=== PATIENT | female | born 1975 | race Caucasian/White ===

== ENCOUNTER → 2020-06-12 08:10 | Outpatient (BNVA) | payer OTHER, SELFPAY | PROVIDERS: PCP Internal Medicine; Visit Provider Physician Assistant | DX: Z76.89 Persons encountering health services in other specified circumstances (principal) ==

== ENCOUNTER → 2021-01-07 10:00 | Outpatient (BNVA) | payer OTHER, SELFPAY | PROVIDERS: PCP Internal Medicine; Referring Provider Internal Medicine; Visit Provider Physician Assistant | DX: I89.0 Lymphedema, not elsewhere classified (principal); E66.01 Morbid (severe) obesity due to excess calories; Z68.45 Body mass index [BMI] 70 or greater, adult; Z98.84 Bariatric surgery status | CPT/HCPCS: 99202 ==

== ENCOUNTER 2021-01-19 09:03 | Outpatient (REF) | payer OTHER, SELFPAY ==
--- NOTE | ~2021-01-19 | FL_ITS ---
EXAMINATION: XR GI SERIES CLINICAL INFORMATION: Moderate to severe obesity due to excess calories COMPARISON: None TECHNIQUE: Routine upper GI air-contrast study was performed. FINDINGS: Following oral administration thick barium and first granules there is normal propagation bolus from the oral cavity through the pharynx, esophagus into stomach any evidence of obstruction, narrowing or stricture. On placing patient supine and prone there is a gastric bypass surgical changes with moderate gastroesophageal reflux seen. A small transient sliding hiatal hernia is suspected. The mucosal pattern of esophagus, small stomach and the duodenum is normal. FLUOROSCOPY TIME: 1.4 minutes DOSE AREA PRODUCT: 56.674 uGy-m2 (microgray-meter squared) FL/FL upper GI series IMPRESSION: Gastric bypass surgical changes with moderate gastroesophageal reflux. Suspect small transient sliding hernia.
[2021-01-19 09:58] LABS: MANUAL DIFF FLAG NO
[2021-01-19 10:06] LABS: Basophils Percent Auto 0.5 % (0-2); Eosinophils Absolute Auto 0.1 X10*3/uL (0.0-0.4); Eosinophils Percent Auto 2.3 % (0-4); Hematocrit 39.5 % (37-47); Hemoglobin 12.8 g/dl (12.0-16.0); Imm Gran Abs Auto 0.02 X10*3/uL (0.00-0.03); Imm Gran Pct Auto 0.3 % (0.0-0.4); Lymphocytes Absolute Auto 2.1 X10*3/uL (1.2-4.9); Lymphocytes Percent Auto 34.9 % (20-40); Mean Corpuscular HGB Conc 32.4 g/dl (31.0-35.0); Mean Corpuscular Hemoglobin 29.8 pg (27.0-33.0); Mean Corpuscular Volume 91.9 fL (80-98); Mean Platelet Volume 11.6 fL (9.4-12.3); Monocytes Absolute Auto 0.5 X10*3/uL (0.1-1.2); Monocytes Percent Auto 7.8 % (2-11); Neutrophils Absolute Auto 3.3 X10*3/uL (2.0-8.3); Neutrophils Percent Auto 54.2 % (45-73); Platelet Count 181 X10*3/uL (160-400); Red Cell Distribution Width 14.2 % (11.0-16.0); White Blood Count 6.1 X10*3/uL (4.8-10.8)
[2021-01-19 10:19] LABS: Estimated Average Glucose 94 mg/dL; Hemoglobin A1c % 4.9 %
[2021-01-19 10:34] LABS: Alanine Aminotransferase 11 U/L (0-31); Albumin Level 3.9 g/dL (3.5-5.0); Alkaline Phosphatase 64 U/L (39-117); Anion Gap 11 (12-20); Aspartate Amino Transferase 16 U/L (5-31); Bilirubin Total 0.9 mg/dL (0.0-1.0); Blood Urea Nitrogen 10 mg/dL (9-16); C Reactive Protein 1.39 mg/dL (< or = 0.50); Calcium 8.8 mg/dL (8.4-10.2); Carbon Dioxide 22 mmol/L (22-29); Chloride 113 mmol/L (96-108); Cholesterol 124 mg/dL; Estimated Glomerular Filt Rate > 60; Glucose Random 90 mg/dL (60-115); HDL Cholesterol 45 mg/dL; Iron 49 mcg/dL (30-160); LDL Cholesterol Calculated 66 mg/dl; Percent Iron Saturation 15 % (15-50); Potassium 3.8 mmol/L (3.3-5.1); Sodium 142 mmol/L (135-145); Total Iron Binding Capacity 334 mcg/dL (228-428); Total Protein 6.6 g/dL (6.5-8.0); Triglycerides 66 mg/dL; Unsaturated Iron Binding 285 ug/dL
[2021-01-19 10:56] LABS: Ferritin 59 ng/mL (10-250); TSH reflex Free T4 1.59 uIU/mL (0.32-4.0); Vitamin D 25-OH Total 14.5 ng/mL (>30)
[2021-01-19 11:08] LABS: Folate 13.3 ng/mL (> or = 4.0); Vitamin B12 186 pg/mL (200-900)
[2021-01-20 22:11] LABS: Calcium (PTHI) 8.8 mg/dL (8.6-10.2); PTHI 120 pg/mL (14-64)
[2021-01-22 16:51] LABS: Zinc 60 mcg/dL (60-130)
[2021-01-23 11:56] LABS: Vitamin B1 9 nmol/L (8-30)
[2021-01-23 18:46] LABS: Vitamin A 26 mcg/dL (38-98)
== END 2021-01-19 09:04 | disposition home or self-care (01) ==
LOC: HO.XRAY 09:03
PROVIDERS: Referring Provider Physician Assistant; Visit Provider Surgery
DX: Z01.818 Encounter for other preprocedural examination (principal); E66.01 Morbid (severe) obesity due to excess calories; Z68.45 Body mass index [BMI] 70 or greater, adult; I89.0 Lymphedema, not elsewhere classified; K21.9 Gastro-esophageal reflux disease without esophagitis; Z98.84 Bariatric surgery status
CPT/HCPCS: 36415; 74240; 80053; 80061; 82306; 82607; 82728; 82746; 83036; 83525; 83540; 83970; 84425; 84443; 84590; 84630; 85025; 86140

== ENCOUNTER → 2021-01-22 13:56 | Outpatient (BNVA) | payer OTHER, SELFPAY | PROVIDERS: PCP Internal Medicine; Referring Provider Internal Medicine; Visit Provider Physician Assistant | DX: E66.01 Morbid (severe) obesity due to excess calories (principal); I89.0 Lymphedema, not elsewhere classified; Z68.45 Body mass index [BMI] 70 or greater, adult; Z98.84 Bariatric surgery status; Z90.49 Acquired absence of other specified parts of digestive tract | CPT/HCPCS: 99212 ==

== ENCOUNTER → 2021-02-11 08:04 | Outpatient (BNVA) | payer OTHER, SELFPAY | PROVIDERS: PCP Internal Medicine; Visit Provider Dietitian, Registered ==

== ENCOUNTER 2021-02-24 12:58 | Emergency (ER) | payer OTHER, SELFPAY ==
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
[2021-02-24 13:05] VITALS: BP 102/72; PULSE 96; RESP 18; TEMP 36.3; O2SAT 98; BMI 73.9
[2021-02-24] MEDS: Acetaminophen 325 MG TABLET 975 MG PO (14:56)
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
[2021-02-24 16:00] VITALS: BP 116/73; PULSE 58; RESP 16; TEMP 36.8; O2SAT 99
== END 2021-02-24 16:35 | disposition home or self-care (01) ==
PROVIDERS: Emergency Provider Emergency Medicine; PCP Internal Medicine
DX: S00.12XA Contusion of left eyelid and periocular area, initial encounter (principal); S39.012A Strain of muscle, fascia and tendon of lower back, initial encounter; S40.812A Abrasion of left upper arm, initial encounter; Y04.2XXA Assault by strike against or bumped into by another person, initial encounter; Y93.9 Activity, unspecified; Y92.410 Unspecified street and highway as the place of occurrence of the external cause; Y99.9 Unspecified external cause status
CPT/HCPCS: 70486; 72100; 72220; 99284

== ENCOUNTER 2021-03-02 10:00 | Outpatient (RCR) | payer OTHER, SELFPAY | END 2021-03-22 08:00 | disposition home or self-care (01) | LOC: HO.PT 10:00 | PROVIDERS: PCP Internal Medicine; Visit Provider Student in an Organized Health Care Education/Training Program | DX: M17.0 Bilateral primary osteoarthritis of knee (principal) | CPT/HCPCS: 97110; 97162 ==

== ENCOUNTER → 2021-03-08 08:11 | Outpatient (BNVA) | payer OTHER, SELFPAY | PROVIDERS: PCP Internal Medicine; Visit Provider Dietitian, Registered | DX: E66.01 Morbid (severe) obesity due to excess calories (principal); Z68.45 Body mass index [BMI] 70 or greater, adult | CPT/HCPCS: 97802 ==

== ENCOUNTER 2021-07-02 10:00 | Outpatient (RCR) | payer OTHER, SELFPAY | END 2021-07-28 13:37 | disposition home or self-care (01) | LOC: HO.PT 10:00 | PROVIDERS: Visit Provider Nurse Practitioner Family | DX: M75.42 Impingement syndrome of left shoulder (principal); M75.41 Impingement syndrome of right shoulder | CPT/HCPCS: 97110; 97161; 97530 ==

== ENCOUNTER 2021-08-13 14:15 | Emergency (ER) | payer OTHER, SELFPAY ==
--- NOTE | 2021-08-13 | ECG_ITS ---
Test Reason : chest pain Blood Pressure : / mmHG Vent. Rate : 067 BPM Atrial Rate : 067 BPM P-R Int : 158 ms QRS Dur : 080 ms QT Int : 408 ms P-R-T Axes : 010 -28 -11 degrees QTc Int : 431 ms Normal sinus rhythm Cannot rule out Anterior infarct (cited on or before 05-SEP-2019) Abnormal ECG When compared with ECG of 05-SEP-2019 12:28, No significant change was found Referred By: Generic ED Physician Electronically Signed By:Lonny Arthur
[2021-08-13 14:19] VITALS: BP 141/84; PULSE 84; RESP 18; TEMP 35.8; O2SAT 94; BMI 73.7
[2021-08-13 14:43] LABS: MANUAL DIFF FLAG NO
[2021-08-13 14:50] LABS: Basophils Percent Auto 0.5 % (0-2); Eosinophils Absolute Auto 0.1 X10*3/uL (0.0-0.4); Eosinophils Percent Auto 1.7 % (0-4); Hematocrit 44.2 % (37.0-47.0); Hemoglobin 14.2 g/dl (12.0-16.0); Imm Gran Abs Auto 0.04 X10*3/uL (0.00-0.03); Imm Gran Pct Auto 0.6 % (0.0-0.4); Lymphocytes Absolute Auto 2.4 X10*3/uL (1.2-4.9); Lymphocytes Percent Auto 35.4 % (20-40); Mean Corpuscular HGB Conc 32.1 g/dl (31.0-35.0); Mean Corpuscular Hemoglobin 30.1 pg (27.0-33.0); Mean Corpuscular Volume 93.6 fL (80.0-98.0); Mean Platelet Volume 10.6 fL (9.4-12.3); Monocytes Absolute Auto 0.5 X10*3/uL (0.1-1.2); Monocytes Percent Auto 6.9 % (2-11); Neutrophils Absolute Auto 3.7 x10*3/uL (2.0-8.3); Neutrophils Percent Auto 54.9 % (45-73); Platelet Count 223 X10*3/uL (160-400); Red Blood Count 4.72 X10*6/uL (4.20-5.50); Red Cell Distribution Width 13.5 % (11.0-16.0); White Blood Count 6.6 X10*3/uL (4.8-10.8)
[2021-08-13 15:00] LABS: Alanine Aminotransferase 28 U/L (0-31); Albumin Level 3.9 g/dL (3.5-5.0); Alkaline Phosphatase 75 U/L (39-117); Anion Gap 9 (12-20); Aspartate Amino Transferase 20 U/L (5-31); Blood Urea Nitrogen 13 mg/dL (9-16); Calcium 9.2 mg/dL (8.4-10.2); Carbon Dioxide 27 mmol/L (22-29); Chloride 110 mmol/L (96-108); Creatinine Clr Calc Pharmacy 140.7; Estimated Glomerular Filt Rate > 60; Glucose Random 105 mg/dL (60-115); Potassium 4.1 mmol/L (3.3-5.1); Sodium 142 mmol/L (135-145)
[2021-08-13 15:05] LABS: Troponin-I High Sensitivity < 3.5 ng/L (<3.5-17.0)
--- NOTE | 2021-08-13 15:54 | ED_ITS ---
HPI - SOB/Dyspnea General Chief Complaint: Dyspnea Stated Complaint: +COVID cough chest pain Time Seen by Provider: 08/13/21 15:28 Source: patient Mode of arrival: ambulatory Limitations: no limitations History of Present Illness HPI Narrative: 45-year-old female who presents emergency department for evaluation cough, shortness of breath, dyspnea on exertion, chest pain, myalgias and fatigue. The patient states that she received the Moderna COVID-19 vaccine x2 but did not receive a booster shot. She states approximately 12 days prior to evaluation she developed a cough. She states she tested positive for COVID- 19 on 08/03/2021. The patient states that her symptoms have improved somewhat but she continues to have a very persistent cough. She also has sternal chest pain which she describes as a burning sensation which is worse with coughing breathing and movement. She has continued to have shortness of breath and dyspnea on exertion. She states that her fevers have resolved. She was advised to go to the emergency department by her PCP for further evaluation given her chest pain. Related Data Home Medications Medication Instructions Recorded Confirmed gabapentin 300 mg capsule 300 mg PO TID 01/04/21 hydroxyzine HCl 10 mg tablet 10 mg PO TID PRN 01/04/21 meloxicam 15 mg tablet 15 mg PO DAILY 01/04/21 methocarbamol 500 mg tablet 1,000 mg PO TID 01/04/21 Previous Rx's Medication Instructions Recorded cholecalciferol (vitamin D3) 50 50 mcg PO DAILY #30 cap 01/19/21 mcg (2,000 unit) capsule cyanocobalamin (vitamin B-12) 500 500 mcg PO DAILY #30 tab 01/19/21 mcg tablet (Vitamin B-12) vitamin A 2,400 mcg capsule 9,600 mcg PO DAILY #14 cap 01/27/21 hydrocodone 5 mg-acetaminophen 300 1 tab PO Q4-6H PRN #14 tab 08/13/21 mg tablet Allergies Allergy/AdvReac Type Severity Reaction Status Date / Time adhesive [ADHESIVE] Allergy Unknown RASH Verified 01/22/21 14:13 Review of Systems Review of Systems: Yes all other systems are reviewed and are negative [facility] Past Medical History [facility] Narrative: Social history: The patient denies tobacco use. She occasionally drinks alcohol. She states that she smokes marijuana but has not use marijuana and several weeks. Medical History Arthritis Asthma Lipoedema Surgical History History of Lucio-en-Y gastric bypass Hx laparoscopic cholecystectomy S/P tonsillectomy Family History Family History (Updated 01/07/21 @ 10:27 by Vipul Mast, [facility]) Father No problems noted. Mother Heart disease Diabetes Hyperlipidemia Hypertension COPD (chronic obstructive pulmonary disease) Brother No problems noted. Sister No problems noted. Son Overweight Diabetes Asthma Daughter Asthma Social History Social History (Updated 01/04/21 @ 15:46 by Alfreda Mast) Alcohol intake: current Alcohol intake frequency: holidays/special occasions only Patient Tobacco Use Status: Never used Tobacco Advance Directives: No Advance Directives Information Provided: No Patient : No Physical Exam Vital Signs: Vital Signs: Last Vital Signs Temp 96.4 F L 08/13/21 14:19 Pulse 84 08/13/21 14:19 Resp 18 08/13/21 14:19 BP 141/84 H 08/13/21 14:19 Pulse Ox 94 08/13/21 14:19 BMI result Body Mass Index 73.7 Const: Other: Very pleasant and cooperative female patient, she is sitting on the stretcher, she has answer all questions appropriately, she does have a very persistent dry sounding cough and coughed frequently while I was in the room wit h her. HENMT: Head: Yes normal to inspection, Yes normocephalic and Yes atraumatic Ears: external ears normal General nose exam: Normal external nose present Face and sinus: Yes normal facial exam Mouth: Normal oral and palatal mucosa present Throat: Yes posterior oropharynx normal Eyes: General: appearance normal, both eyes and all related structures Pupils: Equal, round and reactive pupils present Neck: Neck: Yes normal visual inspection, Yes no lymphadenopathy, Yes trachea midline and Yes supple Chest: Chest palpation & inspection: normal inspection of the chest and normal palpation of entire chest wall Resp: Effort & Inspection: normal respiratory effort and able to speak in complete sentences Auscultation: clear to auscultation bilaterally Cardio: Rate: regular rate Rhythm: regular rhythm Heart sounds: S1 n ormal heart sound present, S2 normal heart sound present and no murmurs GI: Inspection: Yes normal to inspection Palpation (GI): Soft to palpation, nontender and no guarding Auscultation: normal bowel sounds : General: Yes no CVA tenderness Back/Spine/Pelvis: Back: no CVA tenderness Skin: General skin exam: no rashes or lesions noted Neuro: Cranial nerves: Yes CN's II-XII intact bilaterally and Yes Equal, round and reactive pupils present Cognition (Neuro): normal cognition Motor exam (neuro): 5/5 motor strength present throughout Extrem: General: Yes normal to inspection Psych: Appearance: grossly normal Speech and movement: Normal speech and movement present Affect: normal affect Attitude: cooperative Thought process: Normal thought process present Thought content: Normal thought content present Course Course Course Narrative: 45-year-old female who has been symptomatic for approximately 12 days, tested positive for COVID-19 on 08/03/2021 who presents emergency department for evaluation of persistent cough, shortness of breath, chest pain. Patient's initial vital signs revealed a slight elevation of blood pressure of 141/84, normal respiratory rate of 18, normal pulse of 84, O2 saturation of 94% on room air. Patient's examination was unremarkable, her lung exam was clear. The patient's CBC and CMP were normal. The patient's high sensitivity troponin I was below detectable limits. The patient's 12 EKG was unremarkable. At this time I think that the patient's symptoms are consistent with her COVID-19 infection and I do not think that she has pneumonia or myocarditis. I did discuss this with the patient. She was advised to continue taking Tylenol and i buprofen. The patient was prescribed Hycodan 5 mg every 4-6 hours as needed for cough. She was discharged home with printed and verbal instructions. 1715: [facility] has no high get in therefore the patient was prescribed Vicodin 5/300 1 pill every 4-6 hours as needed for cough/pain she is also advised to take a cough suppressant such as Robitussin with the Vicodin. MDM - SOB/Dyspnea Lab Data Result diagrams: 08/13/21 14:37 08/13/21 14:37 Labs: Lab Results 08/13/21 08/13/21 08/13/21 Range/Units 14:37 14:37 14:37 WBC 6.6 (4.8-10.8) X10*3/uL RBC 4.72 (4.20-5.50) X10*6/uL Hgb 14.2 (12.0-16.0) g/dl Hct 44.2 (37.0-47.0) % MCV 93.6 (80.0-98.0) fL MCH 30.1 (27.0-33.0) pg MCHC 32.1 (31.0-35.0) g/dl RDW 13.5 (11.0-16.0) % Plt Count 223 (160-400) X10*3/uL MPV 10.6 (9.4-12.3) fL Immature Gran % (Auto) 0.6 H (0.0-0.4) % Neut % (Auto) 54.9 (45-73) % Lymph % (Auto) 35.4 (20-40) % [place] % (Auto) 6.9 (2-11) % Eos % (Auto) 1.7 (0-4) % Baso % (Auto) 0.5 (0-2) % Lymph # (Auto) 2.4 (1.2-4.9) X10*3/uL [place] # (Auto) 0.5 (0.1-1.2) X10*3/uL Eos # (Auto) 0.1 (0.0-0.4) X10*3/uL Baso # (Auto) 0.0 (0.0-0.2) X10*3/uL Abs Immat Gran (auto) 0.04 H (0.00-0.03) X10*3/uL Absolute Neuts (auto) 3.7 (2.0-8.3) x10*3/uL Absolute Nucleated RBC 0.000 (0.0-0.012) X10*3/uL Nucleated RBC % (auto) 0.0 (0.0-0.2) /100WBC Sodium 142 (135-145) mmol/L Potassium 4.1 (3.3-5.1) mmol/L Chloride 110 H (96-108) mmol/L Carbon Dioxide 27 (22-29) mmol/L Anion Gap 9 L (12-20) BUN 13 (9-16) mg/dL Creatinine 0.75 (0.5-1.4) mg/dL Estim Creat Clear Calc 140.7 Estimated GFR > 60 Random Glucose 105 (60-115) mg/dL Calcium 9.2 (8.4-10.2) mg/dL Total Bilirubin 1.0 (0.0-1.0) mg/dL AST 20 (5-31) U/L ALT 28 (0-31) U/L Alkaline Phosphatase 75 (39-117) U/L Troponin I High Sens < 3.5 (<3.5-17.0) ng/L Total Protein 7.0 (6.5-8.0) g/dL Albumin 3.9 (3.5-5.0) g/dL ECG Data Attestation: I personally reviewed and interpreted this ECG as follows: Interpretation: 1426: Normal sinus rhythm with a rate of 67, normal MI interval QRS duration QTC interval, no ST segment elevation, no ST segment depression, inverted T-wave in lead 3 and AVF, no PACs are no PVCs. Discharge Plan Discharge Clinical Impression: Chest pain, pleuritic, COVID-19 virus infection Patient Disposition: Home, Self-Care Additional Instructions: Your EKG was normal. Your white blood cell count was normal. Your high sensitivity troponin I was below detectable limits, this is a marker of heart damage and there was no troponin detected in your blood which is reassuring. Your vital signs today revealed a normal O2 saturation of 94 % on room air which is normal (92% to 100% is the normal range). We do not hospitalize people with a COVID-19 infection unless your O2 saturation drops below 90% and you have evidence for pneumonia. COVID-19 infection is a very bad viral infection and is causing all of your symptoms The symptoms that we normally see with a COVID-19 infection include sore throat, runny nose, chest pain, shortness of breath, shortness of breath with exertion, muscle aches, muscle pains, nausea, vomiting , diarrhea, loss of sense of taste or smell. You do not need to have all of the symptoms. Take ibuprofen 200 mg pills,2 pills every 6 hours as needed for pain and fever Take Tylenol (acetaminophen) 500 mg pills, 2 pills every 4 to 6 hours as needed for pain and fever. Take Hycodan 5 mL (1 tsp) every 4-6 hours as needed for cough. Hycodan contains hydrocodone which is a narcotic medication, if your concerned about addiction do not get this medication filled or you can ask the pharmacist for less medicine the prescribed. Based on your evaluation today, it is okay to send you home. Please plan for self quarantine until your symptoms resolved. Do not expose yourself to others. You may not go to work. Please continue to wear a mask, follow COVID-19 printed discharge instructions and wash your hands frequently. Please return to the emergency department if your symptoms pneumonia which would include worsening of your symptoms especially chest pain the breathing, shortness of breath at rest, shortness of breath with moving around her exerting herself, severe weakness, or if you develop any symptoms that are concerning to you. Prescriptions: New hydrocodone-acetaminophen 5-300 mg tablet 1 tab PO Q4-6H PRN (Reason: pain) Qty: 14 RF: 0 No Action cyanocobalamin (vitamin B-12) [Vitamin B-12] 500 mcg tablet 500 mcg PO DAILY Qty: 30 RF: 6 cholecalciferol (vitamin D3) 50 mcg (2,000 unit) capsule 50 mcg PO DAILY Qty: 30 RF: 6 vitamin A 2,400 mcg capsule 9,600 mcg PO DAILY Qty: 14 RF: 0 gabapentin 300 mg capsule 300 mg PO TID RF: 0 methocarbamol 500 mg tablet 1,000 mg PO TID RF: 0 meloxicam 15 mg tablet 15 mg PO DAILY RF: 0 hydroxyzine HCl 10 mg tablet 10 mg PO TID PRNRF: 0 Interventions: ED Discharge Assessment Last Done: 08/13/21 16:13 Discharge Date/Time: 08/13/21 16:14
== END 2021-08-13 16:14 | disposition home or self-care (01) ==
PROVIDERS: Emergency Provider Emergency Medicine Emergency Medical Services
DX: U07.1 COVID-19 (principal); R07.9 Chest pain, unspecified; R06.02 Shortness of breath; Z98.84 Bariatric surgery status; Z90.49 Acquired absence of other specified parts of digestive tract
CPT/HCPCS: 36415; 80053; 84484; 85025; 93005; 99283; 99284

== ENCOUNTER 2021-11-15 09:58 | Emergency (ER) | payer OTHER, SELFPAY ==
--- NOTE | ~2021-11-15 | US_ITS ---
EXAMINATION: US VENOUS ULTRASOUND WITH DOPPLER LOWER EXTREMITY, BILATERAL CLINICAL INFORMATION: Bilateral leg swelling and calf pain. COMPARISON: Left lower extremity DVT study 04/07/2018 TECHNIQUE: Ultrasound of the deep veins is performed from the hip to the calf with compression sonography and color and pulse Doppler assessment. Spectral analysis with color-flow imaging is performed. Today's examination is extremely limited secondary to patient body habitus and soft tissue swelling. FINDINGS: RIGHT: The right common femoral vein demonstrates normal compressibility and color flow consistent with patency. Right profundus femoris vein demonstrates normal color flow consistent with patency. Visualized portions of the proximal and midportion of the right superficial femoral vein demonstrates normal compressibility and color flow consistent with patency. The distal aspect of the right superficial femoral vein is not clearly visualized. The right popliteal vein demonstrate normal color flow and compressibility consistent with patency. The distal posterior tibial vein demonstrate normal color flow consistent with patency, however, the right peroneal vein is not clearly visualized. Prominent lymph node noted within the right inguinal region which measures approximately 3.7 x 0.8 x 2.2 cm. LEFT: The left common femoral vein demonstrates normal compressibility and color flow consistent with patency. Left great saphenous vein demonstrates normal color flow and compressibility consistent with patency. The proximal portion of the right superficial femoral vein demonstrates normal compressibility and color flow consistent with patency. The mid and distal portions of the superficial femoral vein are not clearly visualized. The left popliteal vein demonstrates normal compressibility and color flow consistent with patency. Left calf veins not clearly visualized. A relatively simple appearing approximately 5 cm Yu's cyst is noted on the left. US/US venous duplex LE BI IMPRESSION: No DVT demonstrated within either lower extremity, however, today's examination is significantly limited secondary to patient body habitus and soft tissue swelling.
--- NOTE | 2021-11-15 11:16 | ED_ITS ---
HPI - General Adult General Chief complaint: General Medical Stated complaint: leg infections Time Seen by Provider: 11/15/21 11:10 Source: patient Mode of arrival: ambulatory Limitations: no limitations History of Present Illness HPI narrative: Patient comes to the emergency room complaining of bilateral lower extremity swelling , pain and redness for the last 3 days. Patient states that she has noted that her feet are more swollen than usual. Patient does have chronic lymphedema, however she is not prone to getting skin infections. Patient states her legs look more swollen than usual. Patient called the lymphedema clinic on Monday, she was told to come to emergency room. Patient denies fever chills Related Data Home Medications Medication Instructions Recorded Confirmed gabapentin 300 mg capsule 300 mg PO TID 01/04/21 hydroxyzine HCl 10 mg tablet 10 mg PO TID PRN 01/04/21 meloxicam 15 mg tablet 15 mg PO DAILY 01/04/21 methocarbamol 500 mg tablet 1,000 mg PO TID 01/04/21 Previous Rx's Medication Instructions Recorded cholecalciferol (vitamin D3) 50 50 mcg PO DAILY #30 cap 01/19/21 mcg (2,000 unit) capsule cyanocobalamin (vitamin B-12) 500 500 mcg PO DAILY #30 tab 01/19/21 mcg tablet (Vitamin B-12) vitamin A 2,400 mcg capsule 9,600 mcg PO DAILY #14 cap 01/27/21 hydrocodone 5 mg-acetaminophen 300 1 tab PO Q4-6H PRN #14 tab 08/13/21 mg tablet cephalexin 500 mg capsule 500 mg PO BID #19 cap 11/15/21 doxycycline hyclate 100 mg tablet 100 mg PO BID #19 tab 11/15/21 Allergies Allergy/AdvReac Type Severity Reaction Status Date / Time adhesive [ADHESIVE] Allergy Unknown RASH Verified 01/22/21 14:13 Review of Systems Review of Systems: Constitutional : No Weight loss, No Fever, No Chills, No Night Sweats, No Fatigue, No Malaise ENT/Mouth : No Hearing loss, No Ear Pain, No Nasal Congestion, No Sinus Pain, No Hoarseness, No sore throat, No Rhinorrhea, No Swallowing Difficulty Eyes: No Eye Pain, No Swelling, No Redness, No Foreign Body, No Discharge, No Vision Changes Cardiovascular : No Chest Pain, No SOB, No Dyspnea on Exertion, No Orthopnea, No Edema, No Palpitations Respiratory : No Cough, No Sputum, No Wheezing, No Smoke Exposure, No Dyspnea Gastrointestinal : No Nausea, No Vomiting, No Diarrhea, No Constipation, No abdominal Pain, No Hematochezia, No Melena Genitourinary : no irregular bleeding, No Dysuria, No Urinary Frequency, No Hematuria, No Urinary Incontinence, No Urgency, No Flank Pain, No Urinary Flow Changes, No Hesitancy Musculoskeletal : No joint pain, No Myalgias, No Joint Swelling Skin : Complaining of bilateral lower extremity swelling, pain, redness Neuro : No Weakness, No Numbness, No Paresthesias, No Loss of Consciousness, No Dizziness, No Headache Psych : No Anxiety/Panic, No Depression, No SI/HI/AH/VH, No Social Issues, Heme/Lymph: No Bruising, No Bleeding,No Lymphadenopathy Endocrine : No Polyuria, No Polydipsia, No Temperature Intolerance [facility] Past Medical History Medical History Arthritis Asthma Lipoedema Surgical History History of Lucio-en-Y gastric bypass Hx laparoscopic cholecystectomy S/P tonsillectomy Family History Family History (Updated 01/07/21 @ 10:27 by Vipul Mast REPLACED BY [facility]) Father No problems noted. Mother Heart disease Diabetes Hyperlipidemia Hypertension COPD (chronic obstructive pulmonary disease) Brother No problems noted. Sister No problems noted. Son Overweight Diabetes Asthma Daughter Asthma Social History Social History (Updated 01/04/21 @ 15:46 by Alfreda Mast) Alcohol intake: current Alcohol intake frequency: holidays/special occasions only Patient Tobacco Use Status: Never used Tobacco Advance Directives: No Advance Directives Information Provided: Yes Physical Exam ED Vital Signs: Vital Signs - 24 hr 11/15/21 11:31 11/15/21 13:29 Temperature 98.0 F 98.8 F Pulse Rate 58 64 Respiratory Rate 18 16 Blood Pressure 130/75 119/62 Pulse Oximetry 100 97 BMI result Body Mass Index 71.8 Const Other: Appearance: Alert. Oriented X3. No acute distress. Eyes: Pupils equal, round and reactive to light. ENT: Pharynx normal. Neck: Normal inspection. Neck supple. No lymph nodes noted. No crepitus CVS: Normal heart rate and rhythm. Pulses normal. Normal S1 and S2 Respiratory: No respiratory distress. Breath sounds normal. No Wheezing. No rales Abdomen: Soft and nontender. No rigidity. No distention. Skin: Skin warm and dry. Normal skin color. Normal skin turgor. Extremities: Patient has chronic bilateral lower extremity lymphedema, bilateral lower extremities from the knee down are slightly erythematous, tender to touch, lower extremities not feel warmer than the rest of the skin Neuro: Oriented X 3. No motor deficit. No sensory deficit. Moving all extremities. No slurred speech. CN 2 through 12 grossly intact Psych: calm, cooperative, normal affect Course Course Course Narrative: Lab work and ultrasound pending. I discussed the labs and ultrasound with the patient, patient likely has cellulitis. Patient will be given the 1st dose of doxycycline and Keflex. Patient will follow-up with her primary care physician. Medical Decision Making Lab Data Result diagrams: 11/15/21 11:55 11/15/21 12:58 Labs: Lab Results 11/15/21 11/15/21 11/15/21 Range/Units 11:55 11:55 12:58 WBC 8.1 (4.8-10.8) X10*3/uL RBC 4.44 (4.20-5.50) X10*6/uL Hgb 13.3 (12.0-16.0) g/dl Hct 41.5 (37.0-47.0) % MCV 93.5 (80.0-98.0) fL MCH 30.0 (27.0-33.0) pg MCHC 32.0 (31.0-35.0) g/dl RDW 14.3 (11.0-16.0) % Plt Count 215 (160-400) X10*3/uL MPV 10.5 (9.4-12.3) fL Immature Gran % (Auto) 0.4 (0.0-0.4) % Neut % (Auto) 66.5 (45-73) % Lymph % (Auto) 24.7 (20-40) % [place] % (Auto) 6.5 (2-11) % Eos % (Auto) 1.5 (0-4) % Baso % (Auto) 0.4 (0-2) % Lymph # (Auto) 2.0 (1.2-4.9) X10*3/uL [place] # (Auto) 0.5 (0.1-1.2) X10*3/uL Eos # (Auto) 0.1 (0.0-0.4) X10*3/uL Baso # (Auto) 0.0 (0.0-0.2) X10*3/uL Abs Immat Gran (auto) 0.03 (0.00-0.03) X10*3/uL Absolute Neuts (auto) 5.4 (2.0-8.3) x10*3/uL Absolute Nucleated RBC 0.000 (0.0-0.012) X10*3/uL Nucleated RBC % (auto) 0.0 (0.0-0.2) /100WBC Sodium 140 (135-145) mmol/L Potassium 5.0 D (3.3-5.1) mmol/L Chloride 109 H (96-108) mmol/L Carbon Dioxide 27 (22-29) mmol/L Anion Gap 9 L (12-20) BUN 10 (9-16) mg/dL Creatinine 0.71 (0.5-1.4) mg/dL Estim Creat Clear Calc 144.3 Estimated GFR > 60 Random Glucose 91 (60-115) mg/dL Lactic Acid 1.4 (0.5-2.0) mmol/L Calcium 8.6 D (8.4-10.2) mg/dL Total Bilirubin 0.8 (0.0-1.0) mg/dL Direct Bilirubin 0.3 (0.0-0.5) mg/dL AST 20 (5-31) U/L ALT 15 (0-31) U/L Alkaline Phosphatase 59 D (39-117) U/L Total Protein 6.3 L (6.5-8.0) g/dL Albumin 3.6 (3.5-5.0) g/dL Imaging Data Venous US: Radiologist's impression: RIGHT: The right common femoral vein demonstrates normal compressibility and color flow consistent with patency. Right profundus femoris vein demonstrates normal color flow consistent with patency. Visualized portions of the proximal and midportion of the right superficial femoral vein demonstrates normal compressibility and color flow consistent with patency. The distal aspect of the right superficial femoral vein is not clearly visualized. The right popliteal vein demonstrate normal color flow and compressibility consistent with patency. The distal posterior tibial vein demonstrate normal color flow consistent with patency, however, the right peroneal vein is not clearly visualized.? Prominent lymph node noted within the right inguinal region which measures approximately 3.7 x 0.8 x 2.2 cm. LEFT: The left common femoral vein demonstrates normal compressibility and color flow consistent with patency. Left great saphenous vein demonstrates normal color flow and compressibility consistent with patency. The proximal portion of the right superficial femoral vein demonstrates normal compressibility and color flow consistent with patency. The mid and distal portions of the superficial femoral vein are not clearly visualized. The left popliteal vein demonstrates normal compressibility and color flow consistent with patency. Left calf veins not clearly visualized. A relatively simple appearing approximately 5 cm Yu's cyst is noted on the left. US/US venous duplex LE BI IMPRESSION: No DVT demonstrated within either lower extremity, however, today's examination is significantly limited secondary to patient body habitus and soft tissue swelling Discharge Plan Discharge Clinical Impression: Cellulitis Patient Disposition: Home, Self-Care Instructions: Cellulitis (ED) Additional Instructions: Please follow-up with your primary care physician tomorrow. If you have any worsening or new symptoms, please return to the emergency room or call 911 Prescriptions: New doxycycline hyclate 100 mg tablet 100 mg PO BID Qty: 19 0RF cephalexin 500 mg capsule 500 mg PO BID Qty: 19 0RF No Action cyanocobalamin (vitamin B-12) [Vitamin B-12] 500 mcg tablet 500 mcg PO DAILY Qty: 30 6RF cholecalciferol (vitamin D3) 50 mcg (2,000 unit) capsule 50 mcg PO DAILY Qty: 30 6RF vitamin A 2,400 mcg capsule 9,600 mcg PO DAILY Qty: 14 0RF hydrocodone-acetaminophen 5-300 mg tablet 1 tab PO Q4-6H PRN (Reason: pain) Qty: 14 0RF gabapentin 300 mg capsule 300 mg PO TID 0RF methocarbamol 500 mg tablet 1,000 mg PO TID 0RF meloxicam 15 mg tablet 15 mg PO DAILY 0RF hydroxyzine HCl 10 mg tablet 10 mg PO TID PRN0RF
[2021-11-15 11:31] VITALS: BP 130/75; PULSE 58; RESP 18; TEMP 36.7; O2SAT 100; BMI 71.8
[2021-11-15 12:00] LABS: MANUAL DIFF FLAG NO
[2021-11-15 12:05] LABS: Basophils Percent Auto 0.4 % (0-2); Eosinophils Absolute Auto 0.1 X10*3/uL (0.0-0.4); Eosinophils Percent Auto 1.5 % (0-4); Hematocrit 41.5 % (37.0-47.0); Hemoglobin 13.3 g/dl (12.0-16.0); Imm Gran Abs Auto 0.03 X10*3/uL (0.00-0.03); Imm Gran Pct Auto 0.4 % (0.0-0.4); Lymphocytes Percent Auto 24.7 % (20-40); Mean Corpuscular Volume 93.5 fL (80.0-98.0); Mean Platelet Volume 10.5 fL (9.4-12.3); Monocytes Absolute Auto 0.5 X10*3/uL (0.1-1.2); Monocytes Percent Auto 6.5 % (2-11); Neutrophils Absolute Auto 5.4 x10*3/uL (2.0-8.3); Neutrophils Percent Auto 66.5 % (45-73); Platelet Count 215 X10*3/uL (160-400); Red Blood Count 4.44 X10*6/uL (4.20-5.50); Red Cell Distribution Width 14.3 % (11.0-16.0); White Blood Count 8.1 X10*3/uL (4.8-10.8)
[2021-11-15 12:13] LABS: Lactic Acid 1.4 mmol/L (0.5-2.0)
[2021-11-15 13:29] VITALS: BP 119/62; PULSE 64; RESP 16; TEMP 37.1; O2SAT 97
[2021-11-15 13:35] LABS: Alanine Aminotransferase 15 U/L (0-31); Albumin Level 3.6 g/dL (3.5-5.0); Alkaline Phosphatase 59 U/L (39-117); Anion Gap 9 (12-20); Aspartate Amino Transferase 20 U/L (5-31); Bilirubin Direct 0.3 mg/dL (0.0-0.5); Bilirubin Total 0.8 mg/dL (0.0-1.0); Blood Urea Nitrogen 10 mg/dL (9-16); Calcium 8.6 mg/dL (8.4-10.2); Carbon Dioxide 27 mmol/L (22-29); Chloride 109 mmol/L (96-108); Creatinine Clr Calc Pharmacy 144.3; Estimated Glomerular Filt Rate > 60; Glucose Random 91 mg/dL (60-115); Sodium 140 mmol/L (135-145); Total Protein 6.3 g/dL (6.5-8.0)
[2021-11-15] MEDS: cephALEXin 500 MG CAPSULE PO (13:52)
[2021-11-15] MEDS: oxyCODONE HCl Immed Release 5 MG TABLET PO (13:52)
== END 2021-11-15 14:02 | disposition home or self-care (01) ==
PROVIDERS: Emergency Provider Emergency Medicine; PCP Internal Medicine
DX: L03.116 Cellulitis of left lower limb (principal); L03.115 Cellulitis of right lower limb; R60.0 Localized edema; Z79.899 Other long term (current) drug therapy
CPT/HCPCS: 36415; 80048; 80076; 83605; 85025; 87040; 93970; 99284

== ENCOUNTER 2022-02-01 16:22 | Emergency (ER) | payer OTHER, SELFPAY ==
[2022-02-01 18:49] VITALS: BP 129/99; PULSE 77; RESP 18; TEMP 36.8; O2SAT 98; BMI 71.6
--- NOTE | 2022-02-01 20:52 | ED_ITS ---
HPI - Skin/Abscess/Foreign Bdy General Chief complaint: Skin/Abscess/Foreign Body Stated complaint: Chemical Burn Vag Area Time Seen by Provider: 02/01/22 20:30 Source: patient and family Mode of arrival: ambulatory Limitations: no limitations History of Present Illness HPI narrative: 46-year-old female here with rash to her pubic area after applying a topical Magic epilator last night. Patient reports redness, tenderness and weeping from the wounds. No fevers or chills. She removed the product prior to arrival Related Data Home Medications Medication Instructions Recorded Confirmed gabapentin 300 mg capsule 300 mg PO TID 01/04/21 hydroxyzine HCl 10 mg tablet 10 mg PO TID PRN 01/04/21 meloxicam 15 mg tablet 15 mg PO DAILY 01/04/21 methocarbamol 500 mg tablet 1,000 mg PO TID 01/04/21 Previous Rx's Medication Instructions Recorded cholecalciferol (vitamin D3) 50 50 mcg PO DAILY #30 caps 01/19/21 mcg (2,000 unit) capsule cyanocobalamin (vitamin B-12) 500 500 mcg PO DAILY #30 tabs 01/19/21 mcg tablet (Vitamin B-12) vitamin A 2,400 mcg capsule 9,600 mcg PO DAILY #14 caps 01/27/21 hydrocodone 5 mg-acetaminophen 300 1 tab PO Q4-6H PRN pain #14 tabs 08/13/21 mg tablet cephalexin 500 mg capsule 500 mg PO BID #19 caps 11/15/21 doxycycline hyclate 100 mg tablet 100 mg PO BID #19 tabs 11/15/21 doxycycline monohydrate 100 mg 100 mg PO BID #14 caps 02/01/22 capsule mupirocin 2 % topical ointment 1 appl topical TID #22 grams 02/01/22 prednisone 20 mg tablet 40 mg PO DAILY #10 tabs 02/01/22 Allergies Allergy/AdvReac Type Severity Reaction Status Date / Time adhesive [ADHESIVE] Allergy Unknown RASH Verified 02/01/22 18:49 Review of Systems Review of Systems: Yes all other systems are reviewed and are negative Constitutional: Constitutional: Reports no additional constitutional complaints, Denies body ache(s), Denies chills, Denies fever(s), Denies headache(s) and Denies weakness Eyes: Eyes: Reports no additional eye complaints and Denies change in vision ENT: Reports system reviewed and no additional complaints, except as documented, Denies dizziness, Denies headache(s), Denies nasal congestion, Denies nasal discharge and Denies neck pain Cardiovascular: Cardiovascular: Reports no additional cardiovascular complaints, Denies chest pain, Denies leg edema and Denies dyspnea Respiratory: Respiratory: Reports no additional respiratory complaints, Denies cough and Denies dyspnea Gastrointestinal: Gastrointestinal: Reports no additional gastrointestinal complaints, Denies abdominal pain, Denies diarrhea, Denies nausea and Denies vomiting Genitourinary: Genitourinary: Reports no additional female genitourinary complaints and Denies urinary incontinence Musculoskeletal: Musculoskeletal: Reports no additional musculoskeletal comp laints, Denies back pain, Denies arthralgias, Denies joint swelling, Denies neck pain, Denies numbness and Denies tingling Integumentary/Breasts: Skin/Breast: Reports system reviewed and no additional complaints, except as docu, Reports swelling, Reports erythema and Reports rash Neurologic: Reports system reviewed and no additional complaints, except as documented, Denies Abnormal speech present, Denies dizziness, Denies headache(s), Denies numbness, Denies tingling and Denies weakness PMFSH Past Medical History Attestation statement: The following information was validated with the patient. Source: old records reviewed and nursing notes reviewed Medical History Arthritis Asthma Lipoedema Surgical History History of Lucio-en-Y gastric bypass Hx laparoscopic cholecystectomy S/P tonsillectomy Family History Family History Father No problems noted. Mother Heart disease Diabetes Hyperlipidemia Hypertension COPD (chronic obstructive pulmonary disease) Brother No problems noted. Sister No problems noted. Son Overweight Diabetes Asthma Daughter Asthma Social History Social History Alcohol intake: current Alcohol intake frequency: holidays/special occasions only Patient Tobacco Use Status: Never used Tobacco Advance Directives: No Advance Directives Information Provided: No Physical Exam Vital Signs: Vital Signs: Last Vital Signs Temp 98.3 F 02/01/22 18:49 Pulse 77 07/12/22 18:49 Resp 18 02/01/22 18:49 BP 129/99 H 02/01/22 18:49 Pulse Ox 98 02/01/22 18:49 O2 Del Method 02/01/22 18:49 BMI result Body Mass Index 71.6 Const: General: cooperative, healthy appearing, comfortable and no acute distress Orientation/consciousness: patient oriented x3 Limitations: no limitations HEENT: Head: Yes normal to inspection Ears: hearing grossly normal bilaterally General nose exam: Normal external nose present Face and sinus: Yes normal facial exam Mouth: Normal oral and palatal mucosa present Throat: Yes posterior oropharynx normal Eyes: General: appearance normal, both eyes and all related structures Pupils: Equal, round and reactive pupils present Neck: Neck: Yes normal visual inspection Chest: Chest palpation & inspection: normal inspection of the chest Resp: Effort & Inspection: normal respiratory effort Auscultation: clear to auscultation bilaterally Cardio: Rate: regular rate Rhythm: regular rhythm Peripheral pulses: Peripheral pulses 2+ throughout GI: Inspection: Yes normal to inspection Palpation (GI): Soft to palpation and nontender Auscultation: normal bowel sounds : Female genitals images: 1. 2. There is erythema, leakage of clear fluid, swelling, tenderness Back/Spine/Pelvis: Thoracic/Lumbar Spine: thoracic and lumbar spine normal to inspection Skin: General skin exam: no rashes or lesions noted Neuro: General: patient oriented x3, no focal motor deficits and normal sensation to monofilament Cranial nerves: Yes Equal, round and reactive pupils present Cognition (Neuro): normal cognition Speech: No Abnormal speech present Gait exam (Neuro): Normal gait present Motor exam (neuro): 5/5 motor strength present throughout Extrem: General: Yes normal to inspection MDM - Skin/Abscess/Foreign Bdy MDM Narrative Medical decision making narrative: 46-year-old female here with the allergic reaction to a topical epilator applied last evening with what now appears to be a chemical burn which may or may not have a superimposed bacterial infection. Overall patient nontoxic. Afebrile. Wound care provided with topical moist dressings and bacitracin. Will discharge home with recommendations for p.r.n. Benadryl, prednisone course of antibiotics. Medical Records Attestation: I reviewed the patient's medical records. Lab Data Attestation: I reviewed the patient's lab results. Discharge Plan Discharge Clinical Impression: Allergic reaction, Chemical burn Patient Disposition: Home, Self-Care Instructions: Chemical Skin Burn (ED), General Allergic Reaction (ED) Additional Instructions: Apply topical antibiotic ointment to the area and cool cloths Take Benadryl for itching as needed Prescriptions: New prednisone 20 mg tablet 40 mg PO DAILY Qty: 10 0RF doxycycline monohydrate 100 mg capsule 100 mg PO BID Qty: 14 0RF mupirocin 2 % ointment 1 appl topical TID Qty: 22 0RF No Action cyanocobalamin (vitamin B-12) [Vitamin B-12] 500 mcg tablet 500 mcg PO DAILY Qty: 30 6RF cholecalciferol (vitamin D3) 50 mcg (2,000 unit) capsule 50 mcg PO DAILY Qty: 30 6RF vitamin A 2,400 mcg capsule 9,600 mcg PO DAILY Qty: 14 0RF hydrocodone-acetaminophen 5-300 mg tablet 1 tab PO Q4-6H PRN (Reason: pain) Qty: 14 0RF doxycycline hyclate 100 mg tablet 100 mg PO BID Qty: 19 0RF cephalexin 500 mg capsule 500 mg PO BID Qty: 19 0RF gabapentin 300 mg capsule 300 mg PO TID methocarbamol 500 mg tablet 1,000 mg PO TID meloxicam 15 mg tablet 15 mg PO DAILY hydroxyzine HCl 10 mg tablet 10 mg PO TID PRN Referrals: Mariela Tomlin MD [Emergency Provider] -
--- NOTE | 2022-02-01 22:07 | PC.NURSE ---
wet to dry dressing applied to public mound and lower abd per provider order.
[2022-02-01] MEDS: Bacitracin Oint 0.9 GM PACKET 1 APPL TOPICAL (22:11)
== END 2022-02-01 22:17 | disposition home or self-care (01) ==
PROVIDERS: Emergency Provider Emergency Medicine; PCP Internal Medicine
DX: T28.3XXA Burn of internal genitourinary organs, initial encounter (principal); R10.2 Pelvic and perineal pain; Y27.2XXA Contact with hot fluids, undetermined intent, initial encounter; Y93.9 Activity, unspecified; Y92.009 Unspecified place in unspecified non-institutional (private) residence as the place of occurrence of the external cause; Y99.9 Unspecified external cause status
CPT/HCPCS: 99282; 99283

== ENCOUNTER 2022-02-06 16:49 | Emergency (ER) | payer OTHER, SELFPAY ==
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
[2022-02-06 17:26] VITALS: BP 140/78; BP 142/70; PULSE 74; PULSE 79; RESP 18; TEMP 36.9; O2SAT 97; BMI 61.0
[2022-02-06] MEDS: Acetaminophen 325 MG TABLET 975 MG PO (18:32)
== END 2022-02-06 21:25 | disposition home or self-care (01) ==
PROVIDERS: Emergency Provider Emergency Medicine; PCP Internal Medicine
DX: S00.83XA Contusion of other part of head, initial encounter (principal); G44.309 Post-traumatic headache, unspecified, not intractable; M54.2 Cervicalgia; M25.511 Pain in right shoulder; Y04.8XXA Assault by other bodily force, initial encounter; Y93.9 Activity, unspecified; Y92.9 Unspecified place or not applicable; Y99.9 Unspecified external cause status; Z79.899 Other long term (current) drug therapy
CPT/HCPCS: 70450; 70486; 73000; 99283

== ENCOUNTER 2022-04-27 08:59 | Inpatient (IN) | payer OTHER, SELFPAY ==
[2022-04-27] VITALS (8 sets, daily range): BP systolic 115–140; BP diastolic 56–90; PULSE 33–78; RESP 14–50; TEMP 36.1–37; O2SAT 94–100; BMI 72.7; BMI 73.5
--- NOTE | ~2022-04-27 | US_ITS ---
EXAMINATION: US ABDOMEN LIMITED CLINICAL INFORMATION: Right upper quadrant/epigastric pain. COMPARISON: CT abdomen from 08/12/2015 TECHNIQUE: Real-time imaging of the right upper quadrant abdominal viscera. FINDINGS: PANCREAS: Normal. LIVER: The liver is normal in size. The liver contour is normal. Increased hepatic echogenicity suggesting hepatic steatosis. No focal hepatic lesion. There is no intrahepatic biliary duct dilatation seen. GALLBLADDER: Surgically absent. COMMON BILE DUCT: Normal in caliber measuring 0.3 cm in diameter. RIGHT KIDNEY: Normal. No hydronephrosis. No renal calculi. Echogenic focus in the medial right renal interpolar region measuring 0.6 x 0.4 x 0.8 cm without evidence of shadowing possibly representing an angiomyolipoma. The kidney measures 10.7 cm in maximum dimension. FREE FLUID: None. US/US abdomen limited IMPRESSION: 1. Increased hepatic echogenicity suggesting hepatic steatosis. 2. Status post cholecystectomy. 3. Echogenic focus in the medial right renal interpolar region measuring 0.6 x 0.4 x 0.8 cm without evidence of shadowing possibly representing an angiomyolipoma.
--- NOTE | ~2022-04-27 | XR_ITS ---
EXAMINATION: XR CHEST CLINICAL INFORMATION: Cough COMPARISON: CTA chest 09/05/2019 and chest x-ray 03/29/2015 TECHNIQUE: 2 views of the chest were obtained. FINDINGS: Cardiac silhouette is at the upper limits of normal in size. The lungs are adequately aerated. There is no lobar consolidation. No pleural effusion or pneumothorax. No acute osseous abnormality. XR/XR chest 2V IMPRESSION: No acute pulmonary pathology.
[2022-04-27 09:51] LABS: COVID-19 Test Negative (Negative); IDNOW Serial# 9DB6401D
--- NOTE | 2022-04-27 10:18 | ECG_ITS ---
Test Reason : chest pain Blood Pressure : / mmHG Vent. Rate : 042 BPM Atrial Rate : 000 BPM P-R Int : 000 ms QRS Dur : 082 ms QT Int : 470 ms P-R-T Axes : 000 -36 -33 degrees QTc Int : 392 ms Atrial fibrillation with slow ventricular response Left axis deviation Cannot rule out Anterior infarct (cited on or before 05-SEP-2019) Abnormal ECG When compared with ECG of 13-AUG-2021 14:26, Atrial fibrillation has replaced Sinus rhythm Vent. rate has decreased BY 25 BPM Referred By: Jennifer Newell Electronically Signed By:ELAYNE PARK
[2022-04-27 11:03] LABS: MANUAL DIFF FLAG NO
[2022-04-27 11:05] LABS: Basophils Percent Auto 0.4 % (0-2); Eosinophils Absolute Auto 0.2 X10*3/uL (0.0-0.4); Eosinophils Percent Auto 3.6 % (0-4); Hematocrit 43.9 % (37.0-47.0); Hemoglobin 13.9 g/dl (12.0-16.0); Imm Gran Abs Auto 0.02 X10*3/uL (0.00-0.03); Imm Gran Pct Auto 0.3 % (0.0-0.4); Lymphocytes Absolute Auto 2.6 X10*3/uL (1.2-4.9); Lymphocytes Percent Auto 38.4 % (20-40); Mean Corpuscular HGB Conc 31.7 g/dl (31.0-35.0); Mean Corpuscular Hemoglobin 29.4 pg (27.0-33.0); Mean Platelet Volume 10.7 fL (9.4-12.3); Monocytes Absolute Auto 0.7 X10*3/uL (0.1-1.2); Monocytes Percent Auto 9.6 % (2-11); Neutrophils Absolute Auto 3.2 x10*3/uL (2.0-8.3); Neutrophils Percent Auto 47.7 % (45-73); Platelet Count 204 X10*3/uL (160-400); Red Blood Count 4.72 X10*6/uL (4.20-5.50); Red Cell Distribution Width 13.8 % (11.0-16.0); White Blood Count 6.8 X10*3/uL (4.8-10.8)
[2022-04-27 11:08] LABS: Appearance Urine Cloudy; Color Urine Yellow; Glucose Urine UA Negative (Negative); Leukocyte Esterase Urine Negative (Negative); Nitrite Urine Negative (Negative); PH 5.5 (5.0-9.0); Specific Gravity - Urine >= 1.030 (1.005-1.025); Urine Blood Negative (Negative); Urine Ketones Negative (Negative); Urine Protein Negative (Neg-Trace)
--- NOTE | 2022-04-27 11:25 | ED.URI ---
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 Also reports upper abdominal pain, nausea, and chronic pedal edema. Denies fever, chills, vomiting, diarrhea, dysuria/hematuria, recent travel, history of blood clots MD elicited complaint: cough Onset (ago): day(s) Related Data Home Medications Medication Instructions Recorded Confirmed meloxicam 15 mg tablet 15 mg PO DAILY PRN Pain 01/04/21 04/27/22 chlorzoxazone 500 mg tablet 1 tab PO TID PRN muscle spasm 04/27/22 04/27/22 gabapentin 600 mg tablet 2 tab PO TID 04/27/22 04/27/22 Allergies Allergy/AdvReac Type Severity Reaction Status Date / Time adhesive [ADHESIVE] Allergy Unknown RASH Verified 02/01/22 18:49 Review of Systems Review of Systems: Constitutional: No Fever, No Chills, No Fatigue, No Malaise ENT/Mouth: No Ear Pain, No Nasal Congestion, No sore throat, No Rhinorrhea, No Swallowing Difficulty Eyes: No Eye Pain, No Swelling, No Redness, No Vision Changes Cardiovascular: + Chest Pain, + SOB, + Dyspnea on Exertion, + Orthopnea, +chronic Edema, No Palpitations Respiratory: + Cough, + Sputum, No Wheezing, No Dyspnea Gastrointestinal: No Nausea, No Vomiting, No Diarrhea, No Constipation, No Abdominal pain Genitourinary: No Dysuria, No Urinary Frequency, No Hematuria, No Urinary Incontinence/retention, No Flank Pain Musculoskeletal: No joint pain, No Myalgias, No Joint Swelling Skin: No Skin Lesions, No rash Neuro: No Weakness, No Numbness, No Paresthesias, No Loss of Consciousness, No Dizziness, No Headache Yes all other systems are reviewed and are negative Constitutional: Constitutional: Reports as per [facility] Past Medical History Attestation statement: The following information was validated with the patient. Medical History Arthritis Asthma Lipoedema Surgical History History of Lucio-en-Y gastric bypass Hx laparoscopic cholecystectomy S/P tonsillectomy Family History Family History Father No problems noted. Mother Heart disease Diabetes Hyperlipidemia Hypertension COPD (chronic obstructive pulmonary disease) Brother No problems noted. Sister No problems noted. Son Overweight Diabetes Asthma Daughter Asthma Social History Social History Alcohol intake: current Alcohol intake frequency: holidays/special occasions only Patient Tobacco Use Status: Never used Tobacco Advance Directives: No Physical Exam Vital Signs: Vital Signs: Last Vital Signs Temp 98 F 04/27/22 09:13 Pulse 39 L 04/27/22 13:21 Resp 16 04/27/22 13:21 BP 131/68 04/27/22 13:21 Pulse Ox 99 04/27/22 13:26 O2 Del Method 04/27/22 13:26 BMI result Body Mass Index 72.7 Const: General: cooperative and no acute distress Nutritional Appearance: obese Orientation/consciousness: patient oriented x3 Limitations: no limitations HEENT: Head: Yes normal to inspection and Yes atraumatic Ears: hearing grossly normal bilaterally General nose exam: Normal external nose present Face and sinus: Yes normal facial exam Eyes: General: appearance normal, both eyes and all related structures EOM: EOMs intact bilaterally Neck: Neck: Yes normal visual inspection and Yes no meningeal signs Resp: Effort & Inspection: normal respiratory effort and no respiratory distress Auscultation: clear to auscultation bilaterally, no crackles, no rales and no rhonchi Cardio: Rate: regular rate and bradycardic Rhythm: abnormal rhythm Heart sounds: S1 normal heart sound present and S2 normal heart sound present GI: Inspection: Yes normal to inspection Palpation (GI): Soft to palpation, Tenderness to palpation present (GI) in the epigastrum and in the RUQ; with no rebound tenderness, no guarding and not rigid Skin: Rashes: no rashes Wounds: no wounds Neuro: General: patient oriented x3, tone normal and no meningeal signs Gait exam (Neuro): Normal gait present Extrem: Other: + chronic bilateral lower extremity lymphedema Course Course Course Narrative: -1251--no leukocytosis. Labs otherwise unremarkable, troponin negative. BNP WNL XR chest 2V IMPRESSION: No acute pulmonary pathology. -case was discussed with Cardiology, Dr. Olmstead, stated bradycardia/AFib should not be causing patient's chest pain -1536--US abdomen limited IMPRESSION: 1.? Increased hepatic echogenicity suggesting hepatic steatosis. 2.? Status post cholecystectomy. 3.? Echogenic focus in the medial right renal interpolar region measuring 0.6 x 0.4 x 0.8 cm without evidence of shadowing possibly representing an angiomyolipoma. > 2nd troponin WNL. 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 Also reports upper abdominal pain, nausea, and chronic pedal edema. On exam vital signs stable, NAD, nontoxic appearing, lungs CTA, chronic bilateral lower extremity lymphedema noted. EKG noted to be AFib with slow ventricular response at a rate of 42. Patient's heart rate is ranging between 36-60. Does report family history of heart issues, mother has a pacemaker. No personal history Concern for arrhythmia vs ACS vs CHF vs viral syndrome/viral pneumonia. Lower suspicion for PE/DVT. Concern for pancreatitis/cholecystitis/lithiasis or GERD/gastritis Plan: EKG, labs, UA, CXR, COVID-19 testing, abdomen ultrasound Differential Diagnosis Differential diagnosis: Likely upper respiratory infection, sinusitis, viral infection, bronchitis, influenza and pharyngitis Medical Records Attestation: I reviewed the patient's medical records. Lab Data Attestation: I reviewed the patient's lab results. Result diagrams: 04/27/22 10:50 04/27/22 11:54 Labs: Lab Results 04/27/22 04/27/22 04/27/22 Range/Units 09:18 10:50 10:51 WBC 6.8 (4.8-10.8) X10*3/uL RBC 4.72 (4.20-5.50) X10*6/uL Hgb 13.9 (12.0-16.0) g/dl Hct 43.9 (37.0-47.0) % MCV 93.0 (80.0-98.0) fL MCH 29.4 (27.0-33.0) pg MCHC 31.7 (31.0-35.0) g/dl RDW 13.8 (11.0-16.0) % Plt Count 204 (160-400) X10*3/uL MPV 10.7 (9.4-12.3) fL Immature Gran % (Auto) 0.3 (0.0-0.4) % Neut % (Auto) 47.7 (45-73) % Lymph % (Auto) 38.4 (20-40) % [place] % (Auto) 9.6 (2-11) % Eos % (Auto) 3.6 (0-4) % Baso % (Auto) 0.4 (0-2) % Lymph # (Auto) 2.6 (1.2-4.9) X10*3/uL [place] # (Auto) 0.7 (0.1-1.2) X10*3/uL Eos # (Auto) 0.2 (0.0-0.4) X10*3/uL Baso # (Auto) 0.0 (0.0-0.2) X10*3/uL Abs Immat Gran (auto) 0.02 (0.00-0.03) X10*3/uL Absolute Neuts (auto) 3.2 (2.0-8.3) x10*3/uL Absolute Nucleated RBC 0.000 (0.0-0.012) X10*3/uL Nucleated RBC % (auto) 0.0 (0.0-0.2) /100WBC Sodium (135-145) mmol/L Potassium (3.3-5.1) mmol/L Chloride (96-108) mmol/L Carbon Dioxide (22-29) mmol/L Anion Gap (12-20) BUN (9-16) mg/dL Creatinine (0.5-1.4) mg/dL Estim Creat Clear Calc Estimated GFR Random Glucose (60-115) mg/dL Calcium (8.4-10.2) mg/dL Magnesium (1.6-2.6) mg/dL Total Bilirubin (0.0-1.0) mg/dL Direct Bilirubin (0.0-0.5) mg/dL AST (5-31) U/L ALT (0-31) U/L Alkaline Phosphatase (39-117) U/L Troponin I High Sens < 3.5 (<3.5-17.0) ng/L B-Natriuretic Peptide 89 (<100) pg/mL Total Protein (6.5-8.0) g/dL Albumin (3.5-5.0) g/dL Lipase (8-78) U/L Urine Color Urine Appearance Urine pH (5.0-9.0) Ur Specific [place] (1.005-1.025) Urine Protein (Neg-Trace) mg/dL Urine Glucose (UA) (Negative) mg/dL Urine Ketones (Negative) mg/dL Urine Blood (Negative) Urine Nitrite (Negative) Ur Leukocyte Esterase (Negative) COVID-19 (JUAN) Negative (Negative) COVID-19 Clin Com See Note 04/27/22 04/27/22 Range/Units 10:52 11:54 WBC (4.8-10.8) X10*3/uL RBC (4.20-5.50) X10*6/uL Hgb (12.0-16.0) g/dl Hct (37.0-47.0) % MCV (80.0-98.0) fL MCH (27.0-33.0) pg MCHC (31.0-35.0) g/dl RDW (11.0-16.0) % Plt Count (160-400) X10*3/uL MPV (9.4-12.3) fL Immature Gran % (Auto) (0.0-0.4) % Neut % (Auto) (45-73) % Lymph % (Auto) (20-40) % [place] % (Auto) (2-11) % Eos % (Auto) (0-4) % Baso % (Auto) (0-2) % Lymph # (Auto) (1.2-4.9) X10*3/uL [place] # (Auto) (0.1-1.2) X10*3/uL Eos # (Auto) (0.0-0.4) X10*3/uL Baso # (Auto) (0.0-0.2) X10*3/uL Abs Immat Gran (auto) (0.00-0.03) X10*3/uL Absolute Neuts (auto) (2.0-8.3) x10*3/uL Absolute Nucleated RBC (0.0-0.012) X10*3/uL Nucleated RBC % (auto) (0.0-0.2) /100WBC Sodium 141 (135-145) mmol/L Potassium 4.5 (3.3-5.1) mmol/L Chloride 106 (96-108) mmol/L Carbon Dioxide 26 (22-29) mmol/L Anion Gap 14 (12-20) BUN 15 (9-16) mg/dL Creatinine 0.74 (0.5-1.4) mg/dL Estim Creat Clear Calc 139.7 Estimated GFR > 60 Random Glucose 89 (60-115) mg/dL Calcium 9.2 D (8.4-10.2) mg/dL Magnesium 2.0 (1.6-2.6) mg/dL Total Bilirubin 0.9 (0.0-1.0) mg/dL Direct Bilirubin 0.3 (0.0-0.5) mg/dL AST 16 (5-31) U/L ALT 10 (0-31) U/L Alkaline Phosphatase 64 (39-117) U/L Troponin I High Sens (<3.5-17.0) ng/L B-Natriuretic Peptide (<100) pg/mL Total Protein 7.0 (6.5-8.0) g/dL Albumin 4.0 (3.5-5.0) g/dL Lipase 30 (8-78) U/L Urine Color Yellow Urine Appearance Cloudy Urine pH 5.5 (5.0-9.0) Ur Specific [place] >= 1.030 H (1.005-1.025) Urine Protein Negative (Neg-Trace) mg/dL Urine Glucose (UA) Negative (Negative) mg/dL Urine Ketones Negative (Negative) mg/dL Urine Blood Negative (Negative) Urine Nitrite Negative (Negative) Ur Leukocyte Esterase Negative (Negative) COVID-19 (JUAN) (Negative) COVID-19 Clin Com Critical Care Time Critical Care Time Critical Care Time: Yes Total Critical Care Time: 35 Attestation: I have personally provided critical care time exclusive of time spent on separately billable procedures. Time includes review of lab data, radiology results, discussion with consultants, and monitoring for potential decompensation. Intervention performed as documented. Discharge Plan Discharge Clinical Impression: New onset a-fib, Chest pain, Bradycardia Patient Disposition: Admitted As Inpatient Prescriptions: No Action gabapentin 600 mg tablet 2 tab PO TID chlorzoxazone 500 mg tablet 1 tab PO TID PRN (Reason: muscle spasm) meloxicam 15 mg tablet 15 mg PO DAILY PRN (Reason: Pain)
[2022-04-27 11:30] LABS: B Type Natriuretic Peptide 89 pg/mL (<100); Troponin-I High Sensitivity < 3.5 ng/L (<3.5-17.0)
--- NOTE | 2022-04-27 12:01 | PC.NURSE ---
patient awake and alert. skin pwd. resp even and non labored. speaking in full, clear sentences. dry cough. reports 2/10 sharp chest pain. afib via tele HR 33-48. denies dizziness. denies cardiac hx. provider aware
[2022-04-27 12:21] LABS: Alanine Aminotransferase 10 U/L (0-31); Alkaline Phosphatase 64 U/L (39-117); Anion Gap 14 (12-20); Aspartate Amino Transferase 16 U/L (5-31); Bilirubin Direct 0.3 mg/dL (0.0-0.5); Bilirubin Total 0.9 mg/dL (0.0-1.0); Blood Urea Nitrogen 15 mg/dL (9-16); Calcium 9.2 mg/dL (8.4-10.2); Carbon Dioxide 26 mmol/L (22-29); Chloride 106 mmol/L (96-108); Creatinine Clr Calc Pharmacy 139.7; Estimated Glomerular Filt Rate > 60; Glucose Random 89 mg/dL (60-115); Lipase 30 U/L (8-78); Potassium 4.5 mmol/L (3.3-5.1); Sodium 141 mmol/L (135-145)
--- NOTE | 2022-04-27 13:10 | PHA.MEDREC ---
Pharmacy Consult ? Medication Reconciliation Pharmacy has completed the medication reconciliation.
[2022-04-27] MEDS: Morphine Sulfate 2 MG/ML CARTRIDGE IVPUSH (13:20)
[2022-04-27] MEDS: Aspirin Enteric Coated 325 MG TABLET.DR PO (13:21)
--- NOTE | 2022-04-27 13:26 | PC.NURSE ---
patient c/o 6/10 chest pain and now left upper arm pain.provider aware. patient medicated as ordered. HR remains in afib 30's-50s, otherwise VSS
[2022-04-27 15:32] LABS: Troponin-I High Sensitivity < 3.5 ng/L (<3.5-17.0)
--- NOTE | 2022-04-27 17:35 | PM.IMHP ---
History of Present Illness Date of Service: 04/27/22 Attending physician on admission: John Burrell Chief Complaint: shortness of breath 46-year-old female patient past medical history of arthritis of both knees shoulders and right hand, history of mild intermittent asthma and lymphedema presented to [facility] due to nonproductive cough of 3 days duration that gradually got worsened associated with shortness of breath and chest discomfort with coughing, as well as without coughing according to patient she has been noticing chest pain on and off for last couple weeks on 1 occasion chest pain lasted for 1 hour that improved with rest, usually she develop chest pain when she is under stress having an argument with her 21-year-old son who has bipolar and schizophrenia. She denies symptoms of nausea vomiting, abdominal pain, no fevers no chills, no headache, no dizziness. Review of Systems Review of Systems: General no headache, no dizziness, no fever chills. Gastrointestinal no nausea no vomiting, no abdominal pain musculoskeletal chronic bilateral shoulder knee and hand pain no urinary urgency, no frequency Yes all other systems are reviewed and are negative [facility] Medical History Arthritis Asthma Lipoedema Functional capacity: independent ambulation Family History Father No problems noted. Mother Heart disease Diabetes Hyperlipidemia Hypertension COPD (chronic obstructive pulmonary disease) Brother No problems noted. Sister No problems noted. Son Overweight Diabetes Asthma Daughter Asthma Surgical History History of Lucio-en-Y gastric bypass Hx laparoscopic cholecystectomy S/P tonsillectomy Social History Household Members: Children Household Members Other:: daughter and son. Housing: Apartment Do you presently have visiting nurse or other home services: No Alcohol intake: current Alcohol intake frequency: holidays/special occasions only Patient Tobacco Use Status: Never used Tobacco Substance Use Type: Marijuana Substance Use Frequency: Occasionally Last Used Substance: Weeks (ago) Currently Displaying Signs/Symptoms of Drug Intoxication Withdrawal: No Have you been hit, kicked, punched, or otherwise hurt by someone within the past year? If so, by whom?: No Do you feel safe in your current relationship?: No Current Relationship Is there a partner from a previous relationship who is making you feel unsafe now?: No Are you made to feel afraid or neglected: No Spiritual Healthcare Practices: n/a Restoration Healthcare Practices: n/a Cultural Healthcare Practices: n/a Advance Directives: No Advance Directives Information Provided: No Do you have thoughts of harming others: None Do you have a plan to hurt others: No Plan Recently lost weight without trying: No Nutrition Risks: No Nutritional Risk Patient : No : No Meds Allergies Allergy/AdvReac Type Severity Reaction Status Date / Time adhesive [ADHESIVE] Allergy Unknown RASH Verified 04/27/22 20:49 diclofenac [From Voltaren] Allergy Itching Verified 04/27/22 20:49 Active Medications: Current Medications Acetaminophen (Acetaminophen 325 Mg Tablet) 650 mg PO Q6H PRN PRN Reason: Pain, Mild (Pain Scale 1-3) Enoxaparin Sodium (Enoxaparin Sodium 40 Mg/0.4 Ml Syringe) 40 mg SUBCUT Q24H [facility] Gabapentin (Gabapentin 600 Mg Tablet) 1,200 mg PO TID [facility] Melatonin (Melatonin 3 Mg Tablet) 3 mg PO BEDTIME PRN PRN Reason: Insomnia Ondansetron HCl (Ondansetron Hcl 4 Mg/2 Ml Vial) 4 mg IVPUSH Q8H PRN PRN Reason: Nausea and Vomiting Pharmacy Consult (Consult Rx Perform Med Rec) 1 each MISCELLANE ONCE PRN PRN Reason: Consult order Sodium Chloride (0.9 % Sodium Chloride Flush 3 Ml Syringe) [facility] Medications Medication Instructions Recorded Confirmed Last Taken Type meloxicam 15 mg tablet 15 mg PO DAILY PRN Pain 01/04/21 04/27/22 Unknown History chlorzoxazone 500 mg tablet 1 tab PO TID PRN muscle spasm 04/27/22 04/27/22 04/26/22 History gabapentin 600 mg tablet 2 tab PO TID 04/27/22 04/27/22 04/26/22 History Physical Exam Vital Signs and Narrative: Vital Signs: Last Vital Signs Temp 98 F 04/27/22 09:13 Pulse 39 L 04/27/22 13:21 Resp 16 04/27/22 13:21 BP 131/68 04/27/22 13:21 Pulse Ox 99 04/27/22 13:26 O2 Del Method 04/27/22 13:26 BMI result Body Mass Index 72.7 Const: Other: General awake alert x3, resting comfortably in no acute distress. HEENT PERRLA,EOMI Neck no JVD. CVS regular rate rhythm, slow heart rate Respiratory lungs clear to auscultation, no respiratory distress, no wheeze, no rhonchi. Gastrointestinal abdomen soft, nontender, bowel sounds audible, no no guarding , no rigidity. Extremities lymphedema, no pitting edema, no redness, no open sores. Neuro nonfocal , moving all 4 extremity, speech clear. Skin no rash Psych appropriate affect Results Labs CBC and Chem 7: 04/27/22 10:50 04/27/22 11:54 Labs: Laboratory Results - last 24 hr 04/27/22 04/27/22 04/27/22 09:18 10:50 10:51 MCV 93.0 MCH 29.4 MCHC 31.7 RDW 13.8 Plt Count 204 MPV 10.7 Immature Gran % (Auto) 0.3 Neut % (Auto) 47.7 Lymph % (Auto) 38.4 [place] % (Auto) 9.6 Eos % (Auto) 3.6 Baso % (Auto) 0.4 Lymph # (Auto) 2.6 [place] # (Auto) 0.7 Eos # (Auto) 0.2 Baso # (Auto) 0.0 Abs Immat Gran (auto) 0.02 Absolute Neuts (auto) 3.2 Absolute Nucleated RBC 0.000 Nucleated RBC % (auto) 0.0 Anion Gap Estim Creat Clear Calc Estimated GFR Random Glucose Calcium Magnesium Total Bilirubin Direct Bilirubin AST ALT Alkaline Phosphatase Troponin I High Sens < 3.5 B-Natriuretic Peptide 89 Total Protein Albumin Lipase Urine Color Urine Appearance Urine pH Ur Specific [place] Urine Protein Urine Glucose (UA) Urine Ketones Urine Blood Urine Nitrite Ur Leukocyte Esterase COVID-19 (JUAN) Negative COVID-19 Clin Com See Note 04/27/22 04/27/22 04/27/22 10:52 11:54 15:06 MCV MCH MCHC RDW Plt Count MPV Immature Gran % (Auto) Neut % (Auto) Lymph % (Auto) [place] % (Auto) Eos % (Auto) Baso % (Auto) Lymph # (Auto) [place] # (Auto) Eos # (Auto) Baso # (Auto) Abs Immat Gran (auto) Absolute Neuts (auto) Absolute Nucleated RBC Nucleated RBC % (auto) Anion Gap 14 Estim Creat Clear Calc 139.7 Estimated GFR > 60 Random Glucose 89 Calcium 9.2 D Magnesium 2.0 Total Bilirubin 0.9 Direct Bilirubin 0.3 AST 16 ALT 10 Alkaline Phosphatase 64 Troponin I High Sens < 3.5 B-Natriuretic Peptide Total Protein 7.0 Albumin 4.0 Lipase 30 Urine Color Yellow Urine Appearance Cloudy Urine pH 5.5 Ur Specific [place] >= 1.030 H Urine Protein Negative Urine Glucose (UA) Negative Urine Ketones Negative Urine Blood Negative Urine Nitrite Negative Ur Leukocyte Esterase Negative COVID-19 (JUAN) COVID-19 Clin Com Imaging Radiologist's Impressions: Impressions Chest X-Ray 04/27/22 09:26 IMPRESSION: No acute pulmonary pathology. Abdomen Ultrasound 04/27/22 12:19 IMPRESSION: 1. Increased hepatic echogenicity suggesting hepatic steatosis. 2. Status post cholecystectomy. 3. Echogenic focus in the medial right renal interpolar region measuring 0.6 x 0.4 x 0.8 cm without evidence of shadowing possibly representing an angiomyolipoma. Assessment and Plan (1) New onset a-fib: Status: Acute (2) Chest pain: Status: Acute (3) Bradycardia: Status: Acute (4) Lymphedema: Status: Acute Plan any 46-year-old female patient with past medical history significant for mild intermittent asthma, chronic arthritis, lymphedema status post gastric bypass surgery presented to [facility] due to symptoms of on and off chest pain of last couple weeks, cough of 3 days duration associated with shortness of breath patient in the emergency room noted to have atrial fibrillation new onset with slow ventricular rate. New onset atrial fibrillation with slow ventricular rate patient not on rate-controlling medications, will obtain echocardiogram, check TSH, obtain cardiology consultation, avoid medications causing bradycardia. No history of alcoholism. shortness of breath and cough chest x-ray showed no pneumonia, no fever chills normal CBC will treat with cough medication and as needed albuterol chest pain on and off with and without coughing, with family history of coronary artery disease mother had 2 SD in her 40s, EKG showing no ischemic changes normal troponin follow echo, tele monitor, cardio eval mild intermittent asthma no acute exacerbation lungs clear to auscultation patient not on home inhalers will use albuterol inhaler as needed morbid obesity status post gastric bypass surgery recommend low-calorie diet lymphedema chronic Code status full code DVT prophylaxis with Lovenox patient need 2 night inpatient stay due to new onset atrial fibrillation and chest pain need further cardiac workup and cardiology evaluation. Quality Stroke Does the patient have a stroke diagnosis?: No VTE Prior VTE?: No VTE Risk Level:: Medical - moderate - high VTE Device Contraindication: Treatment Not Indicated VTE Drug Contraindication: N/A - Med Ordered
[2022-04-27] MEDS: Enoxaparin Sodium 40 MG/0.4 ML SYRINGE SUBCUT (18:47)
[2022-04-27] MEDS: 0.9 % Sodium Chloride Flush 3 ML SYRINGE IVFLUSH (21:11)
[2022-04-27] MEDS: guaiFENesin DM 100/10/5 ML 5 ML SYRUP 10 ML PO (21:11)
[2022-04-27] MEDS: Gabapentin 600 MG TABLET 1200 MG PO (21:11)
--- NOTE | 2022-04-27 21:16 | PC.NURSE ---
Patient admitted to [facility]. Oriented to unit & call santacruz. Pacer pads placed at bedside. Vitals stable, HR 50'S afib. Patient denies dizziness - no issues with ambulating. Patient requesting to sit in recliner at bedside. Voided in bathroom.
[2022-04-28] VITALS (8 sets, daily range): BP systolic 107–126; BP diastolic 55–73; PULSE 59–82; RESP 16–20; TEMP 36.4–37; O2SAT 97–99
--- NOTE | 2022-04-28 | ECG_ITS ---
Test Reason : chest pain Blood Pressure : / mmHG Vent. Rate : 056 BPM Atrial Rate : 056 BPM P-R Int : 166 ms QRS Dur : 080 ms QT Int : 424 ms P-R-T Axes : 009 -25 -24 degrees QTc Int : 409 ms Sinus bradycardia Possible Anterolateral infarct (cited on or before 05-SEP-2019) Abnormal ECG When compared with ECG of 27-APR-2022 11:14, Sinus rhythm has replaced Atrial fibrillation Heart rate has increased Referred By: John Burrell Electronically Signed By:ELAYNE PARK
[2022-04-28] MEDS: Gabapentin 600 MG TABLET 1200 MG PO ×3 (08:04→21:59)
[2022-04-28] MEDS: guaiFENesin DM 100/10/5 ML 5 ML SYRUP 10 ML PO ×3 (08:04→21:58)
[2022-04-28] MEDS: 0.9 % Sodium Chloride Flush 3 ML SYRINGE IVFLUSH ×3 (08:05→22:08)
[2022-04-28] MEDS: Nitroglycerin 0.4 MG TAB.SUBL SUBLINGUAL ×2 (09:08→15:02)
[2022-04-28 09:49] LABS: Cholesterol 144 mg/dL; HDL Cholesterol 39 mg/dL; LDL Cholesterol Calculated 84 mg/dl; Triglycerides 105 mg/dL
[2022-04-28 09:51] LABS: Troponin-I High Sensitivity < 3.5 ng/L (<3.5-17.0)
[2022-04-28 10:10] LABS: Thyroid Stimulating Hormone 3.22 uIU/mL (0.32-4.0)
--- NOTE | 2022-04-28 10:27 | PM.CNCAR ---
History of Present Illness History of Present Illness Date of Service: 04/28/22 Requesting physician: John Burrell Consult reason: atrial fibrillation Chief complaint: shortness of breath/ chest pain Narrative: I was consulted to see Shira in cardiology consultation today for new onset atrial fibrillation. She is a 46-year-old woman with prior medical history of morbid obesity status post gastric bypass surgery in 2016, lymphedema of unclear etiology. No hypertension, diabetes, heart failure. She has strong family history of premature coronary artery disease in her mother as well as cardiomyopathy. Patient came to the hospital because she was having cough and wanted to be checked up. When she came in she was noted to be in atrial fibrillation with slow ventricular response with heart rate in the 30s. Because of the new onset atrial fibrillation slow heart rate she was admitted to the hospital. Overnight on 22:00 she converted back to sinus rhythm. While she was up stairs in the [facility] a heart rate gradually increased while in atrial fibrillation. She had no obvious symptoms of palpitation irregular heartbeat. However she says over the last couple months she has been getting stress-induced retrosternal chest discomfort which last for about 1 hour so. She has not sought any medical care for the same. She denies any excessive alcohol or caffeine intake or smoking. At home she is currently on gabapentin as well as meloxicam. She has been getting morning headaches and has been advised to undergo sleep study which is not happened as yet. She has no prior diagnosis of sleep apnea.. Review of Systems Constitutional: Constitutional: Reports no additional constitutional complaints Eyes: Eyes: Reports no additional eye complaints Cardiovascular: Cardiovascular: Reports chest pain at rest, Reports leg edema, Denies Loss of Consciousness, Denies palpitations and Reports dyspnea Respiratory: Respiratory: Reports cough and Reports dyspnea Gastrointestinal: Gastrointestinal: Reports no additional gastrointestinal complaints Genitourinary: Genitourinary: Reports no additional female genitourinary complaints Musculoskeletal: Musculoskeletal: Reports no additional musculoskeletal complaints Integumentary/Breasts: Skin/Breast: Reports system reviewed and no additional complaints, except as docu Neurologic: Reports system reviewed and no additional complaints, except as documented Psychiatric: Psychiatric: Reports no additional psychiatric complaints Endocrine: Endocrine: Reports no additional endocrine complaints and Denies palpitations Hematologic/Lymphatic: Hematologic/Lymphatic: Reports no additional hematologic/lymphatic complaints Allergic/Immunologic: Allergic/Immunologic: Reports no additional allergic/immunologic complaints PMFSH Past Medical History Medical History (Updated 04/28/22 @ 10:32 by Nathan Olmstead MD) Arthritis Asthma Lipoedema New onset a-fib Functional capacity: independent ambulation Family History Family History Father No problems noted. Mother Heart disease Diabetes Hyperlipidemia Hypertension COPD (chronic obstructive pulmonary disease) Brother No problems noted. Sister No problems noted. Son Overweight Diabetes Asthma Daughter Asthma Surgical History Surgical History History of Lucio-en-Y gastric bypass Hx laparoscopic cholecystectomy S/P tonsillectomy Social History Social History Household Members: Children Household Members Other:: daughter and son. Housing: Apartment Do you presently have visiting nurse or other home services: No Alcohol intake: current Alcohol intake frequency: holidays/special occasions only Patient Tobacco Use Status: Never used Tobacco Substance Use Type: Marijuana Substance Use Frequency: Occasionally Last Used Substance: Weeks (ago) Currently Displaying Signs/Symptoms of Drug Intoxication Withdrawal: No Have you been hit, kicked, punched, or otherwise hurt by someone within the past year? If so, by whom?: No Do you feel safe in your current relationship?: No Current Relationship Is there a partner from a previous relationship who is making you feel unsafe now?: No Are you made to feel afraid or neglected: No Spiritual Healthcare Practices: n/a Taoism Healthcare Practices: n/a Cultural Healthcare Practices: n/a Advance Directives: No Advance Directives Information Provided: No Do you have thoughts of harming others: None Do you have a plan to hurt others: No Plan Recently lost weight without trying: No Nutrition Risks: No Nutritional Risk Patient : No : No Meds Allergies Allergy/AdvReac Type Severity Reaction Status Date / Time adhesive [ADHESIVE] Allergy Unknown RASH Verified 04/27/22 20:49 diclofenac [From Voltaren] Allergy Itching Verified 04/27/22 20:49 Active Medications: Current Medications Acetaminophen (Acetaminophen 325 Mg Tablet) 650 mg PO Q6H PRN PRN Reason: Pain, Mild (Pain Scale 1-3) Albuterol Sulfate (Albuterol Sulfate 90 Mcg 8 Gm Inhaler) 2 puff INHALE RQ4H PRN PRN Reason: sob Enoxaparin Sodium (Enoxaparin Sodium 40 Mg/0.4 Ml Syringe) 40 mg SUBCUT Q24H COUNTS INCLUDE 234 BEDS AT THE [facility] Last Admin: 04/27/22 18:47 Dose: 40 mg Gabapentin (Gabapentin 600 Mg Tablet) 1,200 mg PO TID COUNTS INCLUDE 234 BEDS AT THE [facility] Last Admin: 04/28/22 08:04 Dose: 1,200 mg Guaifenesin/Dextromethorphan (Guaifenesin Dm 100/10/5 Ml 5 Ml Syrup) 10 ml PO TID COUNTS INCLUDE 234 BEDS AT THE [facility] Last Admin: 04/28/22 08:04 Dose: 10 ml Melatonin (Melatonin 3 Mg Tablet) 3 mg PO BEDTIME PRN PRN Reason: Insomnia Nitroglycerin (Nitroglycerin 0.4 Mg Tab.Subl) 0.4 mg SUBLINGUAL Q5MX3 PRN PRN Reason: Chest Pain Last Admin: 04/28/22 09:08 Dose: 0.4 mg Ondansetron HCl (Ondansetron Hcl 4 Mg/2 Ml Vial) 4 mg IVPUSH Q8H PRN PRN Reason: Nausea and Vomiting Pharmacy Consult (Consult Rx Perform Med Rec) 1 each MISCELLANE ONCE PRN PRN Reason: Consult order Sodium Chloride (0.9 % Sodium Chloride Flush 3 Ml Syringe) 3 ml IVFLUSH QSHIFT COUNTS INCLUDE 234 BEDS AT THE [facility] Last Admin: 04/28/22 08:05 Dose: 3 ml Home Medications Medication Instructions Recorded Confirmed Last Taken Type meloxicam 15 mg tablet 15 mg PO DAILY PRN Pain 01/04/21 04/27/22 Unknown History chlorzoxazone 500 mg tablet 1 tab PO TID PRN muscle spasm 04/27/22 04/27/22 04/26/22 History gabapentin 600 mg tablet 2 tab PO TID 04/27/22 04/27/22 04/26/22 History Physical Exam Vital Signs: Vital Signs: Last Vital Signs Temp 97.5 F 04/28/22 07:39 Pulse 71 04/28/22 09:08 Resp 18 04/28/22 07:39 BP 107/65 04/28/22 09:08 Pulse Ox 98 04/28/22 07:39 O2 Del Method 04/28/22 07:39 BMI result Body Mass Index 73.5 Const: General: cooperative, comfortable, no acute distress, alert and awake Nutritional Appearance: obese morbidly obese Orientation/consciousness: patient oriented x3 Limitations: no limitations HEENT: Head: Yes normocephalic and Yes atraumatic Neck: Neck: Yes trachea midline, Yes supple and Yes no JVD Chest: Chest palpation & inspection: normal inspection of the chest Resp: Effort & Inspection: normal respiratory effort Auscultation: clear to auscultation bilaterally Cardio: Jugular venous distension: no JVD Rate: regular rate Rhythm: regular rhythm Heart sounds: S1 normal heart sound present, S2 normal heart sound present, no click, no gallops and no murmurs GI: Inspection: Yes Abdominal panniculus present and Yes obesity Auscultation: normal bowel sounds Skin: General skin exam: no rashes or lesions noted Neuro: General: patient oriented x3 and no focal motor deficits Extrem: General: No clubbing, No cyanosis and Yes other (Severe bilateral edema consistent with lymphedema) Objective Labs and Meds Result diagrams: 04/27/22 10:50 04/27/22 11:54 Lab results: Laboratory Results - last 24 hr 04/27/22 04/27/22 04/27/22 10:50 10:51 10:52 WBC 6.8 RBC 4.72 Hgb 13.9 Hct 43.9 MCV 93.0 MCH 29.4 MCHC 31.7 RDW 13.8 Plt Count 204 MPV 10.7 Immature Gran % (Auto) 0.3 Neut % (Auto) 47.7 Lymph % (Auto) 38.4 [place] % (Auto) 9.6 Eos % (Auto) 3.6 Baso % (Auto) 0.4 Lymph # (Auto) 2.6 [place] # (Auto) 0.7 Eos # (Auto) 0.2 Baso # (Auto) 0.0 Abs Immat Gran (auto) 0.02 Absolute Neuts (auto) 3.2 Absolute Nucleated RBC 0.000 Nucleated RBC % (auto) 0.0 Sodium Potassium Chloride Carbon Dioxide Anion Gap BUN Creatinine Estim Creat Clear Calc Estimated GFR Random Glucose Calcium Magnesium Total Bilirubin Direct Bilirubin AST ALT Alkaline Phosphatase Troponin I High Sens < 3.5 B-Natriuretic Peptide 89 Total Protein Albumin Triglycerides Cholesterol LDL Cholesterol, Calc HDL Cholesterol Lipase TSH Urine Color Yellow Urine Appearance Cloudy Urine pH 5.5 Ur Specific [place] >= 1.030 H Urine Protein Negative Urine Glucose (UA) Negative Urine Ketones Negative Urine Blood Negative Urine Nitrite Negative Ur Leukocyte Esterase Negative 10/05/22 10/05/22 10/06/22 11:54 15:06 08:52 WBC RBC Hgb Hct MCV MCH MCHC RDW Plt Count MPV Immature Gran % (Auto) Neut % (Auto) Lymph % (Auto) [place] % (Auto) Eos % (Auto) Baso % (Auto) Lymph # (Auto) [place] # (Auto) Eos # (Auto) Baso # (Auto) Abs Immat Gran (auto) Absolute Neuts (auto) Absolute Nucleated RBC Nucleated RBC % (auto) Sodium 141 Potassium 4.5 Chloride 106 Carbon Dioxide 26 Anion Gap 14 BUN 15 Creatinine 0.74 Estim Creat Clear Calc 139.7 Estimated GFR > 60 Random Glucose 89 Calcium 9.2 D Magnesium 2.0 Total Bilirubin 0.9 Direct Bilirubin 0.3 AST 16 ALT 10 Alkaline Phosphatase 64 Troponin I High Sens < 3.5 B-Natriuretic Peptide Total Protein 7.0 Albumin 4.0 Triglycerides 105 Cholesterol 144 LDL Cholesterol, Calc 84 HDL Cholesterol 39 Lipase 30 TSH 3.22 Urine Color Urine Appearance Urine pH Ur Specific [place] Urine Protein Urine Glucose (UA) Urine Ketones Urine Blood Urine Nitrite Ur Leukocyte Esterase 04/28/22 08:58 WBC RBC Hgb Hct MCV MCH MCHC RDW Plt Count MPV Immature Gran % (Auto) Neut % (Auto) Lymph % (Auto) [place] % (Auto) Eos % (Auto) Baso % (Auto) Lymph # (Auto) [place] # (Auto) Eos # (Auto) Baso # (Auto) Abs Immat Gran (auto) Absolute Neuts (auto) Absolute Nucleated RBC Nucleated RBC % (auto) Sodium Potassium Chloride Carbon Dioxide Anion Gap BUN Creatinine Estim Creat Clear Calc Estimated GFR Random Glucose Calcium Magnesium Total Bilirubin Direct Bilirubin AST ALT Alkaline Phosphatase Troponin I High Sens < 3.5 B-Natriuretic Peptide Total Protein Albumin Triglycerides Cholesterol LDL Cholesterol, Calc HDL Cholesterol Lipase TSH Urine Color Urine Appearance Urine pH Ur Specific [place] Urine Protein Urine Glucose (UA) Urine Ketones Urine Blood Urine Nitrite Ur Leukocyte Esterase Imaging Radiologist's impression: Impressions Abdomen Ultrasound 04/27/22 12:19 IMPRESSION: 1. Increased hepatic echogenicity suggesting hepatic steatosis. 2. Status post cholecystectomy. 3. Echogenic focus in the medial right renal interpolar region measuring 0.6 x 0.4 x 0.8 cm without evidence of shadowing possibly representing an angiomyolipoma. Assessment and Plan (1) Paroxysmal atrial fibrillation: Status: Acute Patient present with noncardiac complains of cough. She was noted to be in atrial fibrillation with slow ventricular response which is unusual. Patient then converted overnight to sinus rhythm. Has remained in sinus rhythm. She clearly had no symptoms when she was in atrial fibrillation. There is high likelihood of obesity hypoventilation and sleep apnea. Will require sleep study. Will require outpatient workup with of 14 day Holter monitor as well as echocardiogram to assess for LV systolic and diastolic function as well as biatrial chamber size as well as RV size and systolic function and pulmonary hypertension. This will be scheduled as an outpatient. We discussed about obesity as a main risk factor for development of sleep apnea as well as atrial fibrillation. Gradual and persistent weight loss program needs to be pursued. She is highly motivated about it. Given that she is on the bradycardic side, no rate lowering medications provided. Her risk for thromboembolic complications very low. No need for oral anticoagulation therapy. (2) Chest pain: Status: Acute Patient with intermittent episode of retrosternal chest discomfort recent onset under stressful situation. With a strong family history and a risk factor she is at high risk for obstructive coronary artery disease. Would suggest a vasodilating myocardial perfusion imaging as an outpatient. Follow up in the clinic after above-mentioned test. Advised to call me with any worsening symptoms or seek emergency care if she has unrelenting chest pain. She understands and agrees. Procedures Date of Service Date of Service: 04/28/22
--- NOTE | 2022-04-28 12:00 | CA_ITS ---
Transthoracic Echocardiogram Patient (Last, First, Middle): Shira Alvarado, Gender: Female Date of : 1975 Age: 46 Procedure Date: 04/28/2022 Procedure Type: Transthoracic Echocardiogram Location: [facility] [place] Height: 149.86 cm Weight: 165.11 kg BSA: 2.38 m2 Heart Rate: bpm BP: 107 / 65 mmHg Inweaver: RAJ Referring MD: John Burrell MD Senior Business Intelligence Analyst: Nathan Olmstead MD Symptoms: chest pain Study Quality: Adequate ECG Rhythm: Sinus Conclusions: - 1. Normal LV systolic and diastolic function 2. Normal cardiac valvular Doppler 3. No gross pericardial effusion Findings Left Ventricle Normal left ventricular size, thickness, and systolic function. The visually estimated ejection fraction is between 60-65%. Regional wall motion abnormalities can not be excluded due to suboptimal endocardial definition. Spectral Doppler is indicative of a normal filling pattern. Right Ventricle The right ventricle was not well visualized. Atria The left atrium is normal in size. Interatrial shunt cannot be excluded. The right atrium was not well visualized. Aortic Valve The aortic valve was not well visualized. There is no aortic valve stenosis. There is no aortic valve regurgitation. Mitral Valve The mitral valve was not well visualized. There is trace mitral valve regurgitation. There is no mitral valve stenosis. Pulmonic Valve The pulmonic valve was not well visualized. Tricuspid Valve The tricuspid valve was not well visualized. Normal right atrial pressure. Great Vessels The aorta was not well visualized. The pulmonary artery was not well visualized. Venous The inferior vena cava is normal in size and collapses greater than 50% with inspiration. Pericardium/Pleural There is no evidence of pericardial effusion. Prior Study Comparison No significant change compared to prior study dated: 10/26/2017. Measurements 2D Linear Measurements LVOT Diam: 2.10 3.0+(-)1.3 cm 2D Systolic Function EF 4C: 61.00 >55% EF 2C: 59.60 >55% EF BiP: 59.10 >55% Mitral Valve MV Pk E: 1.18 MV PK A: 0.58 MV Decel Time: 197.00 E/A: 2.00 E'Lateral: 10.10 E'Medial: 9.32 E/E' Med: 12.70 E/E' Lat: 11.70 PHT: 68.00 MVA PHT: 3.24 Decel Stewart: 4.96 Aortic Valve AoV Pk Seamus: 1.54 AoV Mn Seamus: 1.14 AoV VTI: 0.37 AoV Pk Grad: 9.00 Aov Mn Grad: 6.00 CHRISTIAN Cont.VTI: 2.44 LVOT LVOT Pk Seamus: 1.10 LVOT Mn Seamus: 0.73 LVOT VTI: 0.26 LVOT Pk Grad: 5.00 LVOT Mn Grad: 3.00 LVOT Diam: 2.10 LVOT Area: 3.46 Diastolic Function MV Pk E: 1.18 MV Pk A: 0.58 E/A: 2.00 E'Medial: 9.32 E/E' Med: 12.70 E' Laterial: 10.10 E/E' Lat: 11.70 Tricuspid Valve RA Press: 3.00 Great Vessels Aorta Sinus of Valsalva: 3.13 2.0-3.[address] [place]: 2.65 1.7-3.4 cm Ao Asc: 3.00 2.1-3.4 cm Updated in Other Vendor System with Status of Final Nathan Olmstead MD electronically signed on 04/28/2022 4:05:07 PM with status of Final
--- NOTE | 2022-04-28 12:21 | P.DS_ITS ---
DS: Providers Provider Date of Service: 04/28/22 Date of admission: 04/27/22 17:31 Primary care physician: Unknown Physician Consults: 04/27/22 17:36 Consult to Cardiology Routine Consulting Provider: Nathan Olmstead Reason for consultation: new onset slow AFib Has provider been notified: No DS: Diagnosis Discharge Diagnosis (1) Paroxysmal atrial fibrillation: Status: Acute (2) Chest pain: Status: Acute DS: Summary Hospital Course Hospital Course: History of presenting illness Date of Service: 04/27/22 Attending physician on admission: John Burrell Chief Complaint:? shortness of breath ?46-year-old female patient past medical history of arthritis of both knees shoulders and right hand, history of mild intermittent asthma and lymphedema presented to [facility] due to? nonproductive cough of 3 days duration that gradually got worsened associated with shortness of breath and chest discomfort with coughing, as well as without coughing according to patient she has been noticing chest pain on and off for last couple weeks on 1 occasion chest pain lasted for 1 hour that improved with rest, usually she develop chest pain when she is under stress having an argument with her 21-year-old son who has bipolar and schizophrenia. She denies symptoms of nausea vomiting, abdominal pain, no fevers no chills, no headache, no dizziness. Hospital course 46-year-old female patient with past medical history significant for mild intermittent asthma, chronic arthritis, lymphedema status post gastric bypass surgery presented to [facility] due to symptoms of on and off chest pain of last couple weeks, cough of 3 days duration associated with shortness of breath patient in the emergency room noted to have atrial fibrillation new onset with slow ventricular rate. ? New onset atrial fibrillation with slow ventricular rate, patient admitted to medical floor converted to normal sinus rhythm overnight and remains in normal sinus rhythm evaluated by Cardiology they recommend outpatient Workup patient has been placed on low-dose aspirin recommend to return to [facility] with symptoms of lightheadedness dizziness or syncope TSH 3.2 ? ?shortness of breath and cough ?chest x-ray showed no pneumonia, no fever chills normal CBC , recommend to take cough medication as needed ?chest pain on and off with and without coughing, with family history of coronary artery disease mother had 2 NV in her 40s, EKG showing no ischemic changes normal troponin seen by Cardiology they recommend outpatient workup , patient had 1 episode of chest pain in the hospital repeat EKG showed no acute changes, repeat troponin remains normal. ?mild intermittent asthma no acute exacerbation lungs clear to auscultation patient not on home inhalers ?morbid obesity status post gastric bypass surgery recommend low-calorie diet ?lymphedema chronic Time Spent with Patient Time attestation: Total time spent providing and/or coordinating discharge services: Discharge coordination time: Greater than 30 minutes Quality: Safe Use of Opioids Does Pt have an Active Cancer Diagnosis on the Problem List?: No Quality: Stroke Does the patient have a stroke diagnosis?: No Physical Exam Vital Signs: Vital Signs: Last Vital Signs Temp 97.8 F 04/28/22 11:43 Pulse 64 04/28/22 11:43 Resp 20 04/28/22 11:43 BP 119/59 L 04/28/22 11:43 Pulse Ox 99 04/28/22 11:43 O2 Del Method 04/28/22 11:43 O2 Flow Rate 2 04/28/22 11:43 BMI result Body Mass Index 73.5 Const: Other: General? awake alert x3, resting comfortably in no acute distress.? Neck no JVD. CVS? regular rate rhythm, slow heart rate Respiratory lungs clear to auscultation, no respiratory distress, no wheeze, no rhonchi. Gastrointestinal abdomen soft, nontender, bowel sounds audible, no no guarding , no rigidity. Extremities? lymphedema, no pitting edema, no redness, no open sores. Neuro nonfocal , moving all 4 extremity, speech clear. Skin no rash Psych appropriate affect DS: Data Data Completed and Pending Labs on day of discharge: Laboratory Results - last 24 hr 04/27/22 04/27/22 04/28/22 11:54 15:06 08:52 Sodium 141 Potassium 4.5 Chloride 106 Carbon Dioxide 26 Anion Gap 14 BUN 15 Creatinine 0.74 Estim Creat Clear Calc 139.7 Estimated GFR > 60 Random Glucose 89 Calcium 9.2 D Magnesium 2.0 Total Bilirubin 0.9 Direct Bilirubin 0.3 AST 16 ALT 10 Alkaline Phosphatase 64 Troponin I High Sens < 3.5 Total Protein 7.0 Albumin 4.0 Triglycerides 105 Cholesterol 144 LDL Cholesterol, Calc 84 HDL Cholesterol 39 Lipase 30 TSH 3.22 04/28/22 08:58 Sodium Potassium Chloride Carbon Dioxide Anion Gap BUN Creatinine Estim Creat Clear Calc Estimated GFR Random Glucose Calcium Magnesium Total Bilirubin Direct Bilirubin AST ALT Alkaline Phosphatase Troponin I High Sens < 3.5 Total Protein Albumin Triglycerides Cholesterol LDL Cholesterol, Calc HDL Cholesterol Lipase TSH Discharge Plan Discharge Anticipated Discharge Date/Time: 04/28/22 12:15 Patient Disposition: Home, Self-Care Discharge Diagnosis: New onset atrial fibrillation Bradycardia Chest pain Referrals: Physician,Unknown J [Primary Care Provider] - 1 Week Discharge Medications: New aspirin [Ecotrin Low Strength] 81 mg tablet,delayed release (DR/EC) 81 mg PO DAILY Qty: 30 0RF Continued gabapentin 600 mg tablet 2 tab PO TID chlorzoxazone 500 mg tablet 1 tab PO TID PRN (Reason: muscle spasm) meloxicam 15 mg tablet 15 mg PO DAILY PRN (Reason: Pain) Discharge Orders: Discharge Order (Routine); Ordered 04/28/22 Ordered By: John Burrell Diet: Low fat, low cholesterol Activity on Discharge: As tolerated Stand Alone Forms: Patient Portal Discharge page Care Plan Goals: Atrial fibrillation converted to normal sinus rhythm, chest pain with normal EKG will need outpatient workup by Cardiology recommend to follow-up with cardiology in next 1-2 weeks Return to [place] with any worsening symptoms of chest pain, shortness of breath, diaphoresis or lightheadedness. Health Concerns: As above Plan of Treatment: Follow-up with primary care physician and called Dr. Alvarado from Cardiology for outpatient follow-up Assessment: As above
--- NOTE | 2022-04-28 12:37 | MHC.CM.PN ---
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 Addendum entered by Latanya Oconnor 04/28/22 13:27: [facility] will transport home. 3PM pick front loby. RN and patient aware of transport time. Original Note: Female 46 DX SOB CP Patient Lives w her 2 adult children. She uses a cane prn. She is ind w ADLs. PCP DR Mal Monge. A HCP has been documented placed on the chart and scanned into medical record. She iis discharged to home today, self care. She will transport via [facility].
[2022-04-28] MEDS: Acetaminophen 325 MG TABLET 650 MG PO ×2 (15:05→21:59)
--- NOTE | 2022-04-28 15:40 | P.PNIM_ITS ---
Subjective Subjective Date of Service: 04/28/22 Interval History: Had couple episode of sharp chest pain with radiating to back both episode occurred patient was resting without associated shortness of breath pain without treatment EKG and troponin remained negative Review of Systems Review of Systems: Yes all other systems are reviewed and are negative Physical Exam Vital Signs: Vital Signs: Last Vital Signs Temp 97.8 F 04/28/22 11:43 Pulse 66 04/28/22 15:02 Resp 20 04/28/22 11:43 BP 112/55 L 04/28/22 15:02 Pulse Ox 99 04/28/22 11:43 O2 Del Method 04/28/22 11:43 O2 Flow Rate 2 04/28/22 11:43 BMI result Body Mass Index 73.5 Const: Other: General? awake alert x3, resting comfortably in no acute distress.? Neck no JVD. CVS? regular rate rhythm Respiratory lungs clear to auscultation, no respiratory distress, no wheeze, no rhonchi. Gastrointestinal abdomen soft, nontender, bowel sounds audible, no no guarding , no rigidity. Extremities? lymphedema, no pitting edema, no redness, no open sores. Neuro nonfocal , moving all 4 extremity, speech clear. Skin no rash Psych appropriate affect Objective Data Active Medications Acetaminophen (Acetaminophen 325 Mg Tablet) 650 mg PO Q6H PRN PRN Reason: Pain, Mild (Pain Scale 1-3) Last Admin: 04/28/22 15:05 Dose: 650 mg Documented By: MICHAEL Albuterol Sulfate (Albuterol Sulfate 90 Mcg 8 Gm Inhaler) 2 puff INHALE RQ4H PRN PRN Reason: sob Enoxaparin Sodium (Enoxaparin Sodium 40 Mg/0.4 Ml Syringe) 40 mg SUBCUT Q24H [facility] Last Admin: 04/27/22 18:47 Dose: 40 mg Documented By: KELSEA Gabapentin (Gabapentin 600 Mg Tablet) 1,200 mg PO TID [facility] Last Admin: 04/28/22 15:02 Dose: 1,200 mg Documented By: MICHAEL Guaifenesin/Dextromethorphan (Guaifenesin Dm 100/10/5 Ml 5 Ml Syrup) 10 ml PO TID [facility] Last Admin: 04/28/22 15:02 Dose: 10 ml Documented By: MICHAEL Melatonin (Melatonin 3 Mg Tablet) 3 mg PO BEDTIME PRN PRN Reason: Insomnia Nitroglycerin (Nitroglycerin 0.4 Mg Tab.Subl) 0.4 mg SUBLINGUAL Q5MX3 PRN PRN Reason: Chest Pain Last Admin: 04/28/22 15:02 Dose: 0.4 mg Documented By: MICHAEL Ondansetron HCl (Ondansetron Hcl 4 Mg/2 Ml Vial) 4 mg IVPUSH Q8H PRN PRN Reason: Nausea and Vomiting Pharmacy Consult (Consult Rx Perform Med Rec) 1 each MISCELLANE ONCE PRN PRN Reason: Consult order Sodium Chloride (0.9 % Sodium Chloride Flush 3 Ml Syringe) 3 ml IVFLUSH QSHIFT PALLAVI Last Admin: 04/28/22 15:03 Dose: 3 ml Documented By: MICHAEL Labs CBC & Chem 7: 04/27/22 10:50 04/27/22 11:54 Labs: Laboratory Results - last 24 hr 04/28/22 04/28/22 08:52 08:58 Troponin I High Sens < 3.5 Triglycerides 105 Cholesterol 144 LDL Cholesterol, Calc 84 HDL Cholesterol 39 TSH 3.22 Assessment and Plan (1) Paroxysmal atrial fibrillation: Status: Acute (2) COVID-19 virus infection: Status: Acute Plan 46-year-old female patient with past medical history significant for mild intermittent asthma, chronic arthritis, lymphedema status post gastric bypass surgery presented to [facility] due to symptoms of on and off chest pain of last couple weeks, cough of 3 days duration associated with shortness of breath patient in the emergency room noted to have atrial fibrillation new onset with slow ventricular rate. ? New onset atrial fibrillation with slow ventricular rate, patient admitted to medical floor converted to normal sinus rhythm overnight and remains in normal sinus rhythm evaluated by Cardiology they recommend outpatient ? Workup patient has been placed on low-dose aspirin ?shortness of breath and cough ?chest x-ray showed no pneumonia, no fever chills normal CBC , continue cough medication as needed ?chest pain Had 2 episodes of chest pain, repeat EKG and troponin remains negative Follow echocardiogram Seen by Cardiology if echo remains negative Will obtain outpatient cardiac workup ?mild intermittent asthma no acute exacerbation lungs clear to auscultation patient not on home inhalers ?morbid obesity status post gastric bypass surgery recommend low-calorie diet ?lymphedema chronic DVT prophylaxis with Lovenox ? patient need continued inpatient hospitalization due to recurrent chest discomfort need continued cardiac monitoring and further testing. Quality Stroke Does the patient have a stroke diagnosis?: No VTE Prior VTE?: No VTE Risk Level:: Medical - moderate - high VTE Device Contraindication: Treatment Not Indicated VTE Drug Contraindication: N/A - Med Ordered
[2022-04-28] MEDS: Enoxaparin Sodium 40 MG/0.4 ML SYRINGE SUBCUT (17:29)
[2022-04-29] VITALS: BP 121/73; PULSE 62; RESP 14; TEMP 36.4; O2SAT 99
[2022-04-29 04:00] VITALS: BP 109/77; PULSE 52; RESP 14; TEMP 36.4; O2SAT 96
[2022-04-29 07:16] VITALS: BP 131/67; PULSE 57; RESP 16; TEMP 36.5; O2SAT 99
--- NOTE | 2022-04-29 09:52 | MHC.CM.PN ---
Female 46 DX CP SOB DC held yesterday due to CP. Cardiac Work up negative. Patient is discharged today to home self care. She will transport via [employer].
[2022-04-29] MEDS: Gabapentin 600 MG TABLET 1200 MG PO (09:54)
[2022-04-29] MEDS: guaiFENesin DM 100/10/5 ML 5 ML SYRUP 10 ML PO (09:54)
--- NOTE | 2022-04-29 10:59 | PM.DS ---
DS: Providers Provider Date of Service: 04/29/22 Date of admission: 04/27/22 17:31 Primary care physician: Unknown Physician Consults: 04/27/22 17:36 Consult to Cardiology Routine Consulting Provider: Nathan Olmstead Reason for consultation: new onset slow AFib Has provider been notified: No DS: Diagnosis Discharge Diagnosis (1) Paroxysmal atrial fibrillation: Status: Acute (2) COVID-19 virus infection: Status: Acute DS: Summary Hospital Course Hospital Course: History of presenting illness Date of Service: 04/27/22 Attending physician on admission: John Burrell Chief Complaint:? shortness of breath ?46-year-old female patient past medical history of arthritis of both knees shoulders and right hand, history of mild intermittent asthma and lymphedema presented to [facility] due to? nonproductive cough of 3 days duration that gradually got worsened associated with shortness of breath and chest discomfort with coughing, as well as without coughing according to patient she has been noticing chest pain on and off for last couple weeks on 1 occasion chest pain lasted for 1 hour that improved with rest, usually she develop chest pain when she is under stress having an argument with her 21-year-old son who has bipolar and schizophrenia. She denies symptoms of nausea vomiting, abdominal pain, no fevers no chills, no headache, no dizziness. Hospital course 46-year-old female patient with past medical history significant for mild intermittent asthma, chronic arthritis, lymphedema status post gastric bypass surgery presented to [facility] due to symptoms of on and off chest pain of last couple weeks, cough of 3 days duration associated with shortness of breath patient in the emergency room noted to have atrial fibrillation new onset with slow ventricular rate. ? New onset atrial fibrillation with slow ventricular rate, patient admitted to medical floor converted to normal sinus rhythm overnight and remains in normal sinus rhythm evaluated by Cardiology they recommend outpatient Workup patient has been placed on low-dose aspirin recommend to return to [facility] with symptoms of lightheadedness dizziness or syncope TSH 3.2 ? ?shortness of breath and cough ?chest x-ray showed no pneumonia, no fever chills normal CBC , recommend to take cough medication as needed ?chest pain on and off with and without coughing, with family history of coronary artery disease mother had 2 OH in her 40s, EKG showing no ischemic changes normal troponin seen by Cardiology they recommend outpatient workup , patient had 2 episode of chest pain in the hospital repeat EKG showed no acute changes, repeat troponin remains normal, echocardiogram showed EF 60-65% regional wall motion abnormalities cannot be excluded due to sub optimal endocardial definition no filling defects were noted right ventricle not visualize. ?mild intermittent asthma no acute exacerbation lungs clear to auscultation patient not on home inhalers ?morbid obesity status post gastric bypass surgery recommend low-calorie diet ?lymphedema chronic Time Spent with Patient Time attestation: Total time spent providing and/or coordinating discharge services: Discharge coordination time: Greater than 30 minutes Quality: Safe Use of Opioids Does Pt have an Active Cancer Diagnosis on the Problem List?: No Quality: Stroke Does the patient have a stroke diagnosis?: No Physical Exam Vital Signs: Vital Signs: Last Vital Signs Temp 97.7 F 04/29/22 07:16 Pulse 57 04/29/22 07:16 Resp 16 04/29/22 07:16 BP 131/67 04/29/22 07:16 Pulse Ox 99 04/29/22 07:16 O2 Del Method 04/29/22 07:16 O2 Flow Rate 2 04/29/22 07:16 BMI result Body Mass Index 73.5 Const: Other: General? awake alert x3, resting comfortably in no acute distress.? Neck no JVD. CVS? regular rate rhythm Respiratory lungs clear to auscultation, no respiratory distress, no wheeze, no rhonchi. Gastrointestinal abdomen soft, nontender, bowel sounds audible, no no guarding , no rigidity. Extremities? lymphedema, no pitting edema, no redness, no open sores. Neuro nonfocal , moving all 4 extremity, speech clear. Skin no rash Psych appropriate affect Discharge Plan Discharge Anticipated Discharge Date/Time: 04/28/22 12:15 Patient Disposition: Home, Self-Care Discharge Diagnosis: New onset atrial fibrillation Bradycardia Chest pain Referrals: Physician,Unknown J [Primary Care Provider] - 1 Week Discharge Medications: New aspirin [Ecotrin Low Strength] 81 mg tablet,delayed release (DR/EC) 81 mg PO DAILY Qty: 30 0RF Continued gabapentin 600 mg tablet 2 tab PO TID chlorzoxazone 500 mg tablet 1 tab PO TID PRN (Reason: muscle spasm) meloxicam 15 mg tablet 15 mg PO DAILY PRN (Reason: Pain) Discharge Orders: Discharge Order (Routine); Ordered 04/29/22 Ordered By: John Burrell Diet: Low fat, low cholesterol Activity on Discharge: As tolerated Stand Alone Forms: Patient Portal Discharge page Care Plan Goals: Atrial fibrillation converted to normal sinus rhythm, chest pain with normal EKG will need outpatient workup by Cardiology recommend to follow-up with cardiology in next 1-2 weeks Return to [place] with any worsening symptoms of chest pain, shortness of breath, diaphoresis or lightheadedness. Health Concerns: As above Plan of Treatment: Follow-up with primary care physician and called Dr. Alvarado from Cardiology for outpatient follow-up Assessment: As above
== END 2022-04-29 12:10 | disposition home or self-care (01) | DRG 201 ==
LOC: HO.ED 15:44 → HO.EDOVER 17:39 → HO.IMC 19:43
PROVIDERS: Physician Assistant; Admitting Provider Hospitalist; Emergency Provider Emergency Medicine; PCP Family Medicine; Visit Provider Hospitalist
DX: I48.0 Paroxysmal atrial fibrillation (principal); Z68.45 Body mass index [BMI] 70 or greater, adult; I89.0 Lymphedema, not elsewhere classified; E66.01 Morbid (severe) obesity due to excess calories; J45.20 Mild intermittent asthma, uncomplicated; M19.90 Unspecified osteoarthritis, unspecified site; Z20.822 Contact with and (suspected) exposure to COVID-19; Z98.84 Bariatric surgery status; Z88.8 Allergy status to other drugs, medicaments and biological substances; Z79.899 Other long term (current) drug therapy
CPT/HCPCS: 36415; 71046; 76705; 80048; 80061; 80076; 81003; 83690; 83735; 83880; 84443; 84484; 85025; 87635; 93005; 93306; 99219; 99285; J1650; J2270; Q9957

== ENCOUNTER 2022-05-02 21:55 | Emergency (ER) | payer OTHER, SELFPAY ==
--- NOTE | 2022-05-02 | ECG_ITS ---
Test Reason : CHEST PAIN Blood Pressure : / mmHG Vent. Rate : 055 BPM Atrial Rate : 000 BPM P-R Int : 000 ms QRS Dur : 080 ms QT Int : 440 ms P-R-T Axes : 000 -27 -24 degrees QTc Int : 420 ms Atrial fibrillation with slow ventricular response Nonspecific ST and T wave abnormality Abnormal ECG When compared with ECG of 28-APR-2022 08:28, Atrial fibrillation has replaced Sinus rhythm Referred By: Generic ED Physician Electronically Signed By:GOGO DRISCOLL MD
--- NOTE | ~2022-05-02 | XR_ITS ---
EXAMINATION: XR CHEST CLINICAL INFORMATION: Chest pain. COMPARISON: Chest x-ray 04/27/2022 TECHNIQUE: Frontal view of the chest was obtained. 10:40 PM FINDINGS: No significant abnormality is noted involving the heart, lungs, mediastinum, bony thorax or soft tissues. XR/XR chest 1V IMPRESSION: Unremarkable examination.
[2022-05-02 22:00] VITALS: BP 146/80; PULSE 60; RESP 22; TEMP 36.9; O2SAT 98; BMI 72.7
[2022-05-02 22:32] LABS: MANUAL DIFF FLAG NO
[2022-05-02 22:36] LABS: Basophils Percent Auto 0.4 % (0-2); Eosinophils Absolute Auto 0.1 X10*3/uL (0.0-0.4); Eosinophils Percent Auto 1.4 % (0-4); Hematocrit 40.3 % (37.0-47.0); Imm Gran Abs Auto 0.04 X10*3/uL (0.00-0.03); Imm Gran Pct Auto 0.4 % (0.0-0.4); Lymphocytes Absolute Auto 3.1 X10*3/uL (1.2-4.9); Lymphocytes Percent Auto 32.6 % (20-40); Mean Corpuscular HGB Conc 32.3 g/dl (31.0-35.0); Mean Corpuscular Hemoglobin 29.3 pg (27.0-33.0); Mean Corpuscular Volume 90.8 fL (80.0-98.0); Mean Platelet Volume 10.6 fL (9.4-12.3); Monocytes Absolute Auto 0.7 X10*3/uL (0.1-1.2); Neutrophils Absolute Auto 5.6 x10*3/uL (2.0-8.3); Neutrophils Percent Auto 58.2 % (45-73); Platelet Count 194 X10*3/uL (160-400); Red Blood Count 4.44 X10*6/uL (4.20-5.50); Red Cell Distribution Width 13.9 % (11.0-16.0); White Blood Count 9.6 X10*3/uL (4.8-10.8)
[2022-05-02 22:54] LABS: Troponin-I High Sensitivity < 3.5 ng/L (<3.5-17.0)
[2022-05-02 22:57] LABS: Anion Gap 14 (12-20); Blood Urea Nitrogen 14 mg/dL (9-16); Calcium 8.5 mg/dL (8.4-10.2); Carbon Dioxide 24 mmol/L (22-29); Chloride 108 mmol/L (96-108); Creatinine Clr Calc Pharmacy 137.8; Estimated Glomerular Filt Rate > 60; Glucose Random 95 mg/dL (60-115); Potassium 4.1 mmol/L (3.3-5.1); Sodium 142 mmol/L (135-145)
[2022-05-02 23:11] VITALS: BP 125/92; PULSE 62; RESP 18; TEMP 36.8; O2SAT 100
--- NOTE | 2022-05-02 23:19 | ED_ITS ---
HPI - Chest Pain General Chief Complaint: Chest Pain Stated Complaint: Chest pain Time Seen by Provider: 05/02/22 22:55 Related Data Home Medications Medication Instructions Recorded Confirmed meloxicam 15 mg tablet 15 mg PO DAILY PRN Pain 01/04/21 04/27/22 chlorzoxazone 500 mg tablet 1 tab PO TID PRN muscle spasm 04/27/22 04/27/22 gabapentin 600 mg tablet 2 tab PO TID 04/27/22 04/27/22 Previous Rx's Medication Instructions Recorded aspirin 81 mg tablet,delayed 81 mg PO DAILY #30 tabs 04/28/22 release (Ecotrin Low Strength) Allergies Allergy/AdvReac Type Severity Reaction Status Date / Time adhesive [ADHESIVE] Allergy Unknown RASH Verified 04/27/22 20:49 diclofenac [From Voltaren] Allergy Itching Verified 04/27/22 20:49 PMFSH Past Medical History Medical History (Updated 05/03/22 @ 00:20 by Etelvina Tellez MD) Arthritis Asthma Lipoedema New onset a-fib Surgical History History of Lucio-en-Y gastric bypass Hx laparoscopic cholecystectomy S/P tonsillectomy Family History Family History Father No problems noted. Mother Heart disease Diabetes Hyperlipidemia Hypertension COPD (chronic obstructive pulmonary disease) Brother No problems noted. Sister No problems noted. Son Overweight Diabetes Asthma Daughter Asthma Social History Social History Household Members: Children Household Members Other:: daughter and son. Housing: Apartment Do you presently have visiting nurse or other home services: No Alcohol intake: current Alcohol intake frequency: holidays/special occasions only Patient Tobacco Use Status: Never used Tobacco Substance Use Type: Marijuana Advance Directives: No service: No Current occupational status: disabled Physical Exam Vital Signs: Vital Signs: Last Vital Signs Temp 98.3 F 05/02/22 23:11 Pulse 62 05/02/22 23:11 Resp 18 05/02/22 23:11 BP 125/92 H 05/02/22 23:11 Pulse Ox 100 05/02/22 23:11 O2 Del Method 05/02/22 23:11 BMI result Body Mass Index 72.7 MDM - Chest Pain MDM Narrative Medical decision making narrative: Two sets of cardiac enzymes are negative. Patient's EKG showed an atrial fibrillation pattern. It is old. There is no acute ST segment elevation heart rate was approximately 40. Patient's electrolytes unremarkable. BMP was heladio l. There is no evidence for congestive heart failure. Chest x-ray showed no pneumonia no pneumothorax. Will discharge patient home close follow-up on an outpatient basis patient's chest pain was atypical. Has been seen by Cardiology. Had an echo done recently shows a normal ejection fraction. Medical Records Data Attestation: I reviewed the patient's medical records. Lab Data Attestation: I reviewed the patient's lab results. Result diagrams: 05/02/22 22:16 05/02/22 22:16 Labs: Lab Results 05/02/22 05/02/22 05/02/22 Range/Units 22:16 22:16 22:16 WBC 9.6 (4.8-10.8) X10*3/uL RBC 4.44 (4.20-5.50) X10*6/uL Hgb 13.0 (12.0-16.0) g/dl Hct 40.3 (37.0-47.0) % MCV 90.8 (80.0-98.0) fL MCH 29.3 (27.0-33.0) pg MCHC 32.3 (31.0-35.0) g/dl RDW 13.9 (11.0-16.0) % Plt Count 194 (160-400) X10*3/uL MPV 10.6 (9.4-12.3) fL Immature Gran % (Auto) 0.4 (0.0-0.4) % Neut % (Auto) 58.2 (45-73) % Lymph % (Auto) 32.6 (20-40) % [place] % (Auto) 7.0 (2-11) % Eos % (Auto) 1.4 (0-4) % Baso % (Auto) 0.4 (0-2) % Lymph # (Auto) 3.1 (1.2-4.9) X10*3/uL [place] # (Auto) 0.7 (0.1-1.2) X10*3/uL Eos # (Auto) 0.1 (0.0-0.4) X10*3/uL Baso # (Auto) 0.0 (0.0-0.2) X10*3/uL Abs Immat Gran (auto) 0.04 H (0.00-0.03) X10*3/uL Absolute Neuts (auto) 5.6 (2.0-8.3) x10*3/uL Absolute Nucleated RBC 0.000 (0.0-0.012) X10*3/uL Nucleated RBC % (auto) 0.0 (0.0-0.2) /100WBC Sodium 142 (135-145) mmol/L Potassium 4.1 (3.3-5.1) mmol/L Chloride 108 (96-108) mmol/L Carbon Dioxide 24 (22-29) mmol/L Anion Gap 14 (12-20) BUN 14 (9-16) mg/dL Creatinine 0.75 (0.5-1.4) mg/dL Estim Creat Clear Calc 137.8 Estimated GFR > 60 Random Glucose 95 (60-115) mg/dL Calcium 8.5 D (8.4-10.2) mg/dL Troponin I High Sens < 3.5 (<3.5-17.0) ng/L B-Natriuretic Peptide (<100) pg/mL 05/02/22 05/02/22 Range/Units 23:39 23:39 WBC (4.8-10.8) X10*3/uL RBC (4.20-5.50) X10*6/uL Hgb (12.0-16.0) g/dl Hct (37.0-47.0) % MCV (80.0-98.0) fL MCH (27.0-33.0) pg MCHC (31.0-35.0) g/dl RDW (11.0-16.0) % Plt Count (160-400) X10*3/uL MPV (9.4-12.3) fL Immature Gran % (Auto) (0.0-0.4) % Neut % (Auto) (45-73) % Lymph % (Auto) (20-40) % [place] % (Auto) (2-11) % Eos % (Auto) (0-4) % Baso % (Auto) (0-2) % Lymph # (Auto) (1.2-4.9) X10*3/uL [place] # (Auto) (0.1-1.2) X10*3/uL Eos # (Auto) (0.0-0.4) X10*3/uL Baso # (Auto) (0.0-0.2) X10*3/uL Abs Immat Gran (auto) (0.00-0.03) X10*3/uL Absolute Neuts (auto) (2.0-8.3) x10*3/uL Absolute Nucleated RBC (0.0-0.012) X10*3/uL Nucleated RBC % (auto) (0.0-0.2) /100WBC Sodium (135-145) mmol/L Potassium (3.3-5.1) mmol/L Chloride (96-108) mmol/L Carbon Dioxide (22-29) mmol/L Anion Gap (12-20) BUN (9-16) mg/dL Creatinine (0.5-1.4) mg/dL Estim Creat Clear Calc Estimated GFR Random Glucose (60-115) mg/dL Calcium (8.4-10.2) mg/dL Troponin I High Sens < 3.5 (<3.5-17.0) ng/L B-Natriuretic Peptide 88 (<100) pg/mL Discharge Plan Discharge Clinical Impression: Chest pain Patient Disposition: Home, Self-Care Instructions: Chest Pain (ED) Prescriptions: No Action gabapentin 600 mg tablet 2 tab PO TID chlorzoxazone 500 mg tablet 1 tab PO TID PRN (Reason: muscle spasm) aspirin [Ecotrin Low Strength] 81 mg tablet,delayed release (DR/EC) 81 mg PO DAILY Qty: 30 0RF meloxicam 15 mg tablet 15 mg PO DAILY PRN (Reason: Pain) Referrals: Nathan Olmstead MD [Physician] - 05/05/22
[2022-05-03 00:06] LABS: B Type Natriuretic Peptide 88 pg/mL (<100); Troponin-I High Sensitivity < 3.5 ng/L (<3.5-17.0)
[2022-05-03 00:43] VITALS: BP 109/62; PULSE 59; RESP 16; TEMP 36.7; O2SAT 97
== END 2022-05-03 00:45 | disposition home or self-care (01) ==
PROVIDERS: Emergency Provider Emergency Medicine Emergency Medical Services; PCP Family Medicine
DX: R07.9 Chest pain, unspecified (principal); I48.91 Unspecified atrial fibrillation; Z79.82 Long term (current) use of aspirin; Z79.899 Other long term (current) drug therapy
CPT/HCPCS: 36415; 71045; 80048; 83880; 84484; 85025; 93005; 99283; 99284

== ENCOUNTER → 2022-05-12 09:58 | Outpatient (REF) | payer OTHER, SELFPAY ==
--- NOTE | ~2022-05-12 | NM_ITS ---
Myocardial perfusion study Indication: Shortness of breath and chest pain to evaluate for myocardial ischemia Technique: The patient was brought in for a Lexiscan perfusion study on 05/12/2022. Patient performed low-level exercise and was injected 0.4 mg of Lexiscan intravenously. Within a minute of injection, 40 mCi of sestamibi was given intravenously. Images were obtained using the SPECT gamma camera interlaced with the gating device. Images were obtained in supine position. Resting perfusion study was performed on 05/13/2022. Patient was administered 40 mCi of sestamibi intravenously at rest. Images were then obtained in supine position. Images obtained with and without CT attenuation. Total DLP 193 mGy-cm. Images were processed with the software and compared side to side in short axis, horizontal long axis and vertical long axis views. Findings: The stress perfusion study showed non attenuated images show moderate to severely reduced uptake in the distal anterior, apex as well as the distal lateral wall of the LV myocardium. Remainder of the LV myocardium is normally perfused. Attenuation corrected images show normalized uptake in all segments of LV myocardium with some thinning of the distal septum.. The gated study shows normal LV systolic function with calculated LVEF of 58%. LV cavity is normal in size. The gated study shows normal systolic wall thickening and contraction of segments. Resting study shows nontender images show improved uptake in the distal anterior, apex as well as the distal lateral wall of the LV myocardium. Attenuation corrected images show normal uptake of radiotracer in all segments of LV myocardium.. Gating at rest reveals normal systolic wall motion with ejection fraction at 60%. The findings are consistent with nontender images show reversible defect suggestive of ischemia in the distal to mid LAD territory. Attenuation corrected images is normal perfusion, could be old correction... NM/NM maria elena perf SPECT rest & str Impression: 1. Myocardial perfusion imaging study shows likely ischemia in the mid to distal LAD territory. 2. Gated LVEF is 58% 3. Transient ischemic dilatation not present EKG is nondiagnostic for ischemia
--- NOTE | 2022-05-12 10:00 | CA_ITS ---
Acquisition Time: 2022-05-12 11:34:21 Total Exercise Time: 00:02:15 Test Indications: , SOB Medications: Protocol: LEXISCAN Max HR: 131 BPM 74% of Pred: 176 BPM Max BP: 124/072 mmHG Max Work Load: 1.6 METS Pharmacological stress test with Lexiscan injection, while walking 0.6 MPH on treadmill for 2 min, with mild sob, no chest discomfort, with afib, without other arrythmia, with normotensive response to injection, with nondiagnostic EKG for ischemia. In recovery she reported nausea that was treated with Aminophylline 75mg IVP to reverse Lexiscan with resolution of symptom. Nuclear images pending. Test reviewed with Dr Arthur. Referred By: Nathan Olmstead Overread By: SPENCER HAMLIN
== END ==
LOC: HO.CARD 09:58
PROVIDERS: Visit Provider Internal Medicine Cardiovascular Disease
DX: R07.9 Chest pain, unspecified (principal); R06.02 Shortness of breath; I48.0 Paroxysmal atrial fibrillation
CPT/HCPCS: 78452; 93017; A9500; J0280; J2785

== ENCOUNTER 2022-05-31 14:57 | Emergency (ER) | payer OTHER, SELFPAY ==
--- NOTE | 2022-05-31 15:07 | ED.CHESTPAIN ---
HPI - Chest Pain General Chief Complaint: Chest Pain Stated Complaint: chest pain Time Seen by Provider: 05/31/22 15:07 Related Data Home Medications Medication Instructions Recorded Confirmed meloxicam 15 mg tablet 15 mg PO DAILY PRN Pain 01/04/21 04/27/22 chlorzoxazone 500 mg tablet 1 tab PO TID PRN muscle spasm 04/27/22 04/27/22 gabapentin 600 mg tablet 2 tab PO TID 04/27/22 04/27/22 Previous Rx's Medication Instructions Recorded aspirin 81 mg tablet,delayed 81 mg PO DAILY #30 tabs 04/28/22 release (Ecotrin Low Strength) Allergies Allergy/AdvReac Type Severity Reaction Status Date / Time adhesive [ADHESIVE] Allergy Unknown RASH Verified 04/27/22 20:49 diclofenac [From Voltaren] Allergy Itching Verified 04/27/22 20:49 PMFSH Past Medical History Medical History (Updated 05/31/22 @ 15:19 by Josue Abdi MD) Arthritis Asthma COVID-19 virus infection Lipoedema Lymphedema New onset a-fib Surgical History History of Lucio-en-Y gastric bypass Hx laparoscopic cholecystectomy S/P tonsillectomy Family History Family History Father No problems noted. Mother Heart disease Diabetes Hyperlipidemia Hypertension COPD (chronic obstructive pulmonary disease) Brother No problems noted. Sister No problems noted. Son Overweight Diabetes Asthma Daughter Asthma Social History Social History Household Members: Children Household Members Other:: daughter and son. Housing: Apartment Do you presently have visiting nurse or other home services: No Alcohol intake: current Alcohol intake frequency: holidays/special occasions only Patient Tobacco Use Status: Never used Tobacco Substance Use Type: Marijuana service: No Current occupational status: disabled Physical Exam Vital Signs: Vital Signs: Last Vital Signs Temp 97.9 F 05/31/22 15:08 Pulse 64 05/31/22 15:08 Resp 20 05/31/22 15:08 BP 144/95 H 05/31/22 15:08 Pulse Ox 98 05/31/22 15:08 O2 Del Method 05/31/22 15:08 BMI result Body Mass Index 73.9 Course Reevaluation(s) Reevaluation #1: Patient obese here as pain is not going away AFib on aspirin having chest pain left-sided for last 1 month been evaluated at [facility] had detailed workup done comes as chest pain not going away no cough or shortness of breath no fever or chills pain there all the time Monocular vision blood pressure 144/95 pulse rate 63 regular Lungs clear to auscultation nontender Heart S1-S2 regular rate and rhythm no murmur or gallop Lymphedema bilateral legs Patient with atypical pain for last 1 month been worked up at [facility] today she comes as the pain is not going away but no increased intensity in the pain. We will do basic workup to rule out ACS Provided in the main ER we will re-evaluate the patient and will do disposition Time: 15:08 [facility] - Chest Pain ECG Data ECG #1: Attestation: I personally reviewed and interpreted this ECG as follows: Interpretation: Sinus bradycardia heart rate 57 beats per minute normal intervals normal axis no acute ST-T changes no acute ischemia Discharge Plan Discharge Clinical Impression: Chest pain Prescriptions: No Action gabapentin 600 mg tablet 2 tab PO TID chlorzoxazone 500 mg tablet 1 tab PO TID PRN (Reason: muscle spasm) aspirin [Ecotrin Low Strength] 81 mg tablet,delayed release (DR/EC) 81 mg PO DAILY Qty: 30 0RF meloxicam 15 mg tablet 15 mg PO DAILY PRN (Reason: Pain)
[2022-05-31 15:08] VITALS: BP 144/95; PULSE 64; RESP 20; TEMP 36.6; O2SAT 98; BMI 73.9
--- NOTE | 2022-05-31 15:13 | ECG_ITS ---
Test Reason : CHEST PAIN Blood Pressure : / mmHG Vent. Rate : 057 BPM Atrial Rate : 057 BPM P-R Int : 162 ms QRS Dur : 082 ms QT Int : 446 ms P-R-T Axes : 038 -28 -12 degrees QTc Int : 434 ms Sinus bradycardia Left anterior fascicular block Cannot rule out Anterior infarct , age undetermined Abnormal ECG When compared with ECG of 02-MAY-2022 22:07, Sinus rhythm has replaced Atrial fibrillation Referred By: Josue Abdi Electronically Signed By:GOGO DRISCOLL MD
[2022-05-31 16:54] VITALS: BP 150/87; PULSE 56; RESP 20; O2SAT 99
[2022-05-31 18:53] LABS: MANUAL DIFF FLAG NO
[2022-05-31 18:57] LABS: Basophils Percent Auto 0.4 % (0-2); Eosinophils Absolute Auto 0.1 X10*3/uL (0.0-0.4); Hematocrit 46.8 % (37.0-47.0); Hemoglobin 15.2 g/dl (12.0-16.0); Imm Gran Abs Auto 0.05 X10*3/uL (0.00-0.03); Imm Gran Pct Auto 0.5 % (0.0-0.4); Lymphocytes Absolute Auto 3.4 X10*3/uL (1.2-4.9); Lymphocytes Percent Auto 33.7 % (20-40); Mean Corpuscular HGB Conc 32.5 g/dl (31.0-35.0); Mean Corpuscular Hemoglobin 30.1 pg (27.0-33.0); Mean Corpuscular Volume 92.7 fL (80.0-98.0); Mean Platelet Volume 10.5 fL (9.4-12.3); Monocytes Absolute Auto 0.7 X10*3/uL (0.1-1.2); Monocytes Percent Auto 6.8 % (2-11); Neutrophils Absolute Auto 5.8 x10*3/uL (2.0-8.3); Neutrophils Percent Auto 57.6 % (45-73); Platelet Count 222 X10*3/uL (160-400); Red Blood Count 5.05 X10*6/uL (4.20-5.50)
[2022-05-31 19:04] LABS: Prothrombin Time 11.2 SEC (10.0-13.1)
[2022-05-31 19:06] LABS: D Dimer High Sensitivity 161 NG/ML
[2022-05-31 19:12] LABS: Anion Gap 14 (12-20); Blood Urea Nitrogen 14 mg/dL (9-16); Calcium 9.4 mg/dL (8.4-10.2); Carbon Dioxide 27 mmol/L (22-29); Chloride 105 mmol/L (96-108); Creatinine Clr Calc Pharmacy 135.8; Estimated Glomerular Filt Rate > 60; Glucose Random 105 mg/dL (60-115); Potassium 4.4 mmol/L (3.3-5.1); Sodium 142 mmol/L (135-145)
[2022-05-31 19:19] LABS: B Type Natriuretic Peptide 87 pg/mL (<100)
[2022-05-31 20:15] LABS: Troponin-I High Sensitivity < 3.5 ng/L (<3.5-17.0)
--- NOTE | 2022-05-31 20:46 | ED_ITS ---
HPI - Chest Pain General Chief Complaint: Chest Pain Stated Complaint: chest pain Time Seen by Provider: 05/31/22 15:07 Source: patient Mode of arrival: ambulatory Limitations: no limitations History of Present Illness HPI narrative: Patient obese here as pain is not going away AFib on aspirin having chest pain left-sided for last 1 month been evaluated at [facility] had detailed workup done comes as chest pain not going away no cough or shortness of breath no fever or chills pain there all the time better sleep apnea but does not use her CPAP machine Related Data Home Medications Medication Instructions Recorded Confirmed meloxicam 15 mg tablet 15 mg PO DAILY PRN Pain 01/04/21 04/27/22 chlorzoxazone 500 mg tablet 1 tab PO TID PRN muscle spasm 04/27/22 04/27/22 gabapentin 600 mg tablet 2 tab PO TID 04/27/22 04/27/22 Previous Rx's Medication Instructions Recorded aspirin 81 mg tablet,delayed 81 mg PO DAILY #30 tabs 04/28/22 release (Ecotrin Low Strength) Allergies Allergy/AdvReac Type Severity Reaction Status Date / Time adhesive [ADHESIVE] Allergy Unknown RASH Verified 04/27/22 20:49 diclofenac [From Voltaren] Allergy Itching Verified 04/27/22 20:49 Review of Systems Review of Systems: Yes all other systems are reviewed and are negative PMFSH Past Medical History Medical History Arthritis Asthma COVID-19 virus infection Lipoedema Lymphedema New onset a-fib Surgical History History of Lucio-en-Y gastric bypass Hx laparoscopic cholecystectomy S/P tonsillectomy Family History Family History Father No problems noted. Mother Heart disease Diabetes Hyperlipidemia Hypertension COPD (chronic obstructive pulmonary disease) Brother No problems noted. Sister No problems noted. Son Overweight Diabetes Asthma Daughter Asthma Social History Social History Household Members: Children Household Members Other:: daughter and son. Housing: Apartment Do you presently have visiting nurse or other home services: No Alcohol intake: current Alcohol intake frequency: holidays/special occasions only Patient Tobacco Use Status: Never used Tobacco Substance Use Type: Marijuana Advance Directives: No Advance Directives Information Provided: No service: No Current occupational status: disabled Physical Exam Vital Signs: Vital Signs: Last Vital Signs Temp 97.9 F 05/31/22 15:08 Pulse 56 05/31/22 16:54 Resp 20 05/31/22 16:54 BP 150/87 H 05/31/22 16:54 Pulse Ox 99 05/31/22 16:54 O2 Del Method 05/31/22 16:54 BMI result Body Mass Index 73.9 Appearance: Alert. Oriented X3. No acute distress. Obese Eyes: PERRLA, No Nystagmus ENT: Pharynx normal. Oral Mucosa moist Neck: Normal inspection. Neck supple. CVS: Normal heart rate and rhythm. Pulses normal. Respiratory: No respiratory distress. Equal air entry bilateral, no wheezing/rales/rhonchi Abdomen: Soft and nontender. Bowel sounds are present, no mass palpable, no CVA tenderness Skin: Skin warm and dry. Normal skin color. Normal skin turgor. Extremities: No lower extremity edema. No calf tenderness lymphedema Neuro: Oriented X 3. No motor deficit. MDM - Chest Pain Lab Data Attestation: I reviewed the patient's lab results. Result diagrams: 05/31/22 18:46 05/31/22 18:46 Labs: Lab Results 05/31/22 05/31/22 05/31/22 Range/Units 18:46 18:46 18:46 WBC 10.0 (4.8-10.8) X10*3/uL RBC 5.05 (4.20-5.50) X10*6/uL Hgb 15.2 (12.0-16.0) g/dl Hct 46.8 (37.0-47.0) % MCV 92.7 (80.0-98.0) fL MCH 30.1 (27.0-33.0) pg MCHC 32.5 (31.0-35.0) g/dl RDW 14.0 (11.0-16.0) % Plt Count 222 (160-400) X10*3/uL MPV 10.5 (9.4-12.3) fL Immature Gran % (Auto) 0.5 H (0.0-0.4) % Neut % (Auto) 57.6 (45-73) % Lymph % (Auto) 33.7 (20-40) % [place] % (Auto) 6.8 (2-11) % Eos % (Auto) 1.0 (0-4) % Baso % (Auto) 0.4 (0-2) % Lymph # (Auto) 3.4 (1.2-4.9) X10*3/uL [place] # (Auto) 0.7 (0.1-1.2) X10*3/uL Eos # (Auto) 0.1 (0.0-0.4) X10*3/uL Baso # (Auto) 0.0 (0.0-0.2) X10*3/uL Abs Immat Gran (auto) 0.05 H (0.00-0.03) X10*3/uL Absolute Neuts (auto) 5.8 (2.0-8.3) x10*3/uL Absolute Nucleated RBC 0.000 (0.0-0.012) X10*3/uL Nucleated RBC % (auto) 0.0 (0.0-0.2) /100WBC PT 11.2 (10.0-13.1) SEC INR 1.0 (0.9-1.1) D-Dimer High Sensitivty 161 NG/ML Sodium 142 (135-145) mmol/L Potassium 4.4 (3.3-5.1) mmol/L Chloride 105 (96-108) mmol/L Carbon Dioxide 27 (22-29) mmol/L Anion Gap 14 (12-20) BUN 14 (9-16) mg/dL Creatinine 0.77 (0.5-1.4) mg/dL Estim Creat Clear Calc 135.8 Estimated GFR > 60 Random Glucose 105 (60-115) mg/dL Calcium 9.4 D (8.4-10.2) mg/dL Troponin I High Sens (<3.5-17.0) ng/L B-Natriuretic Peptide (<100) pg/mL 05/31/22 Range/Units 18:46 WBC (4.8-10.8) X10*3/uL RBC (4.20-5.50) X10*6/uL Hgb (12.0-16.0) g/dl Hct (37.0-47.0) % MCV (80.0-98.0) fL MCH (27.0-33.0) pg MCHC (31.0-35.0) g/dl RDW (11.0-16.0) % Plt Count (160-400) X10*3/uL MPV (9.4-12.3) fL Immature Gran % (Auto) (0.0-0.4) % Neut % (Auto) (45-73) % Lymph % (Auto) (20-40) % [place] % (Auto) (2-11) % Eos % (Auto) (0-4) % Baso % (Auto) (0-2) % Lymph # (Auto) (1.2-4.9) X10*3/uL [place] # (Auto) (0.1-1.2) X10*3/uL Eos # (Auto) (0.0-0.4) X10*3/uL Baso # (Auto) (0.0-0.2) X10*3/uL Abs Immat Gran (auto) (0.00-0.03) X10*3/uL Absolute Neuts (auto) (2.0-8.3) x10*3/uL Absolute Nucleated RBC (0.0-0.012) X10*3/uL Nucleated RBC % (auto) (0.0-0.2) /100WBC PT (10.0-13.1) SEC INR (0.9-1.1) D-Dimer High Sensitivty NG/ML Sodium (135-145) mmol/L Potassium (3.3-5.1) mmol/L Chloride (96-108) mmol/L Carbon Dioxide (22-29) mmol/L Anion Gap (12-20) BUN (9-16) mg/dL Creatinine (0.5-1.4) mg/dL Estim Creat Clear Calc Estimated GFR Random Glucose (60-115) mg/dL Calcium (8.4-10.2) mg/dL Troponin I High Sens < 3.5 (<3.5-17.0) ng/L B-Natriuretic Peptide 87 (<100) pg/mL ECG Data ECG #1: Attestation: I personally reviewed and interpreted this ECG as follows: Interpretation: Sinus bradycardia heart rate 57 beats per minute no acute ST changes no acute ischemia Discharge Plan Discharge Clinical Impression: Atypical chest pain Patient Disposition: Home, Self-Care Instructions: Chest Pain (ED) Additional Instructions: Follow-up with corporate account executive Your chest pain is likely musculoskeletal Prescriptions: No Action gabapentin 600 mg tablet 2 tab PO TID chlorzoxazone 500 mg tablet 1 tab PO TID PRN (Reason: muscle spasm) aspirin [Ecotrin Low Strength] 81 mg tablet,delayed release (DR/EC) 81 mg PO DAILY Qty: 30 0RF meloxicam 15 mg tablet 15 mg PO DAILY PRN (Reason: Pain)
== END 2022-05-31 21:12 | disposition home or self-care (01) ==
PROVIDERS: Emergency Provider Internal Medicine
DX: R07.89 Other chest pain (principal); I48.91 Unspecified atrial fibrillation; E66.9 Obesity, unspecified; Z68.45 Body mass index [BMI] 70 or greater, adult; Z98.84 Bariatric surgery status; Z79.82 Long term (current) use of aspirin
CPT/HCPCS: 36415; 80048; 83880; 84484; 85025; 85379; 85610; 93005; 99283

== ENCOUNTER → 2022-06-01 11:00 | Outpatient (REF) | payer OTHER, SELFPAY | LOC: HO.SL 11:00 | PROVIDERS: PCP Family Medicine; Visit Provider Internal Medicine Cardiovascular Disease | DX: R06.83 Snoring (principal); R06.02 Shortness of breath; R07.9 Chest pain, unspecified; I48.0 Paroxysmal atrial fibrillation | CPT/HCPCS: 95806 ==

== ENCOUNTER → 2022-06-02 12:59 | Outpatient (REF) | payer OTHER, SELFPAY ==
--- NOTE | 2022-06-02 13:02 | HM_ITS ---
Conclusion: 1. Patient was monitored for total period of 6 days and 8 hours 2. Baseline was normal sinus rhythm 3. Intermittent atrial fibrillation with total burden of 18.5% with longest episode of 18 hours and 37 minutes. 4. Frequent bradycardia with both sinus bradycardia as well as slow ventricular response with AFib with 29.6% of time heart rate below 60 beats per minute 5. Occasional PACs noted 6. One hundred ninety-seven pauses of greater than 2.5 seconds noted with longest pause of 3.8 milliseconds happening during atrial fibrillation 7. 1 episode of Mobitz type 1 second-degree AV block noted 8. Patient reported 1 event correlated with sinus rhythm MTDD
[2022-06-02 14:14] LABS: Hematocrit 42.2 % (37.0-47.0); Hemoglobin 13.7 g/dl (12.0-16.0); Mean Corpuscular HGB Conc 32.5 g/dl (31.0-35.0); Mean Corpuscular Hemoglobin 29.7 pg (27.0-33.0); Mean Corpuscular Volume 91.5 fL (80.0-98.0); Mean Platelet Volume 11.1 fL (9.4-12.3); Platelet Count 242 X10*3/uL (160-400); Red Blood Count 4.61 X10*6/uL (4.20-5.50); Red Cell Distribution Width 14.1 % (11.0-16.0); White Blood Count 9.8 X10*3/uL (4.8-10.8)
[2022-06-02 14:27] LABS: Prothrombin Time 11.5 SEC (10.0-13.1)
[2022-06-02 14:58] LABS: Anion Gap 12 (12-20); Blood Urea Nitrogen 13 mg/dL (9-16); Calcium 9.2 mg/dL (8.4-10.2); Carbon Dioxide 25 mmol/L (22-29); Chloride 108 mmol/L (96-108); Estimated Glomerular Filt Rate > 60; Glucose Random 97 mg/dL (60-115); Potassium 4.6 mmol/L (3.3-5.1); Sodium 140 mmol/L (135-145)
== END ==
LOC: HO.CARD 12:59
PROVIDERS: Visit Provider Internal Medicine Cardiovascular Disease
DX: R07.9 Chest pain, unspecified (principal); I48.0 Paroxysmal atrial fibrillation; R06.02 Shortness of breath; R94.39 Abnormal result of other cardiovascular function study
CPT/HCPCS: 36415; 80048; 85027; 85610; 93246

== ENCOUNTER → 2022-07-19 14:01 | Outpatient (BNVA) | payer OTHER, SELFPAY | PROVIDERS: PCP Family Medicine; Visit Provider Nurse Practitioner Family | DX: Z01.810 Encounter for preprocedural cardiovascular examination (principal); I48.0 Paroxysmal atrial fibrillation; R06.02 Shortness of breath; R94.39 Abnormal result of other cardiovascular function study; J45.909 Unspecified asthma, uncomplicated; E66.01 Morbid (severe) obesity due to excess calories; Z68.45 Body mass index [BMI] 70 or greater, adult; Z98.84 Bariatric surgery status; Z98.890 Other specified postprocedural states | CPT/HCPCS: 99212 ==

== ENCOUNTER 2022-08-01 08:00 | Day surgery (SDC) | payer OTHER, SELFPAY ==
[2022-08-01 08:21] VITALS: BMI 71.8
[2022-08-01 08:30] LABS: UPreg QC Valid YES; Urine Pregnancy NEGATIVE (NEGATIVE)
[2022-08-01 08:42] VITALS: BP 111/73; PULSE 76; RESP 16; TEMP 36.1; O2SAT 96
--- NOTE | 2022-08-01 08:48 | P.CONAN_ITS ---
[facility] Active Problems Active Problems: All Active Problems (Updated 07/29/22 @ 12:32 by Sia Harrell RN) Morbid obesity with BMI of 70 and over, adult (Acute) S/P gastric bypass (Acute) Lymphedema (Acute) Vitamin A deficiency (Acute) S/P cardiac catheterization (Acute) Shortness of breath (Acute) Abnormal nuclear stress test (Acute) Paroxysmal A-fib (Acute) Past Medical History Medical History (Updated 07/29/22 @ 12:32 by Sia Harrell RN) Anxiety Arthritis Asthma Chronic GERD COVID-19 virus infection IBS (irritable bowel syndrome) Lipoedema Lymphedema New onset a-fib Obesity Paroxysmal A-fib Family History Family History Father No problems noted. Mother Heart disease Diabetes Hyperlipidemia Hypertension COPD (chronic obstructive pulmonary disease) Brother No problems noted. Sister No problems noted. Son Overweight Diabetes Asthma Daughter Asthma Surgical History Surgical History History of Lucio-en-Y gastric bypass Hx laparoscopic cholecystectomy S/P tonsillectomy Social History Social History Household Members: Children Household Members Other:: daughter and son. Housing: Apartment Do you presently have visiting nurse or other home services: No Alcohol intake: current Alcohol intake frequency: holidays/special occasions only Patient Tobacco Use Status: Never used Tobacco Use of substances other than those prescribed or required for medical reasons: Yes Substance Use Type: Marijuana Are you DNR?: No Advance Directives: No Advance Directives Information Provided: Yes service: No Current occupational status: disabled Meds Allergies Allergy/AdvReac Type Severity Reaction Status Date / Time adhesive [ADHESIVE] Allergy Unknown RASH Verified 04/27/22 20:49 diclofenac [From Voltaren] Allergy Itching Verified 04/27/22 20:49 Active Medications: Current Medications Sodium Biphosphate/Sodium Phosphate (Sodium Phosphate,Ballard-Dibasic 133 Ml Enema) 133 ml DC ONCE PRN PRN Reason: Poor Colonoscopy Prep Results Home Medications Medication Instructions Recorded Confirmed Last Taken Type meloxicam 15 mg tablet 15 mg PO DAILY PRN Pain 01/04/21 08/01/22 Unknown History chlorzoxazone 500 mg tablet 1 tab PO TID PRN muscle spasm 04/27/22 08/01/22 04/26/22 History gabapentin 600 mg tablet 2 tab PO TID 04/27/22 08/01/22 04/26/22 History Exam Exam Date and Time: August 01, 2022 0848 Height,Weight and Vital Signs: Height 4 ft 11 in Weight 161.479 kg Last Vital Signs Temp 97.0 F 08/01/22 08:42 Pulse 76 08/01/22 08:42 Resp 16 08/01/22 08:42 BP 111/73 08/01/22 08:42 Pulse Ox 96 08/01/22 08:42 O2 Del Method 08/01/22 08:42 Pertinent Lab Results Pertinent Lab Results: Laboratory Tests 08/01/22 08:15 Urine Test NEGATIVE Airway Mallampati Class: II Neck ROM: Full Heart: rr Lungs: cta Assessment and Plan Final Anesthetic Review Final Preanesthetic Review: No Changes in Pt Med Stat, Meds/Allgs Chart Reviewed, Consent Obtained/Reviewed and Anes Risks/Benef Reviewed Patient Risk: Low Procedure Risk: Low (Cardiac clearance on chart) Anesthetic Plan Anesthetic Plan: MAC: Disposition: Standard PACU
[2022-08-01] MEDS: Lactated Ringers 1,000 ML 50 ML IVCONT (08:56)
[2022-08-01 09:37] VITALS: BP 103/44; PULSE 52; RESP 16; TEMP 36.3; O2SAT 99
--- NOTE | 2022-08-01 09:41 | PM.OP ---
Brief Operative Note Date of Service: 08/01/22 Pre-op diagnosis: Diarrhea Post-op diagnosis: other (R/O microscopic colitis, Internal hemorrhoids) Procedure: Colonoscopy to the cecum and TI with biopsies Surgeon: Ry Roper Anesthesia: MAC Was an Remediation Technician used for this Procedure?: No Estimated blood loss (mL): 2.0 Pathology: other (A. Ascending colon B. Descending colon) Condition: stable Disposition: PACU
[2022-08-01 09:52] VITALS: BP 108/63; PULSE 52; RESP 16; TEMP 36.3; O2SAT 97
--- NOTE | 2022-08-01 20:23 | OP_ITS ---
SURGEON: Ry Roper MD INDICATIONS: The patient presents for evaluation of chronic diarrhea and need to rule out colitis. Full consent has been obtained from her for this, including risks of bleeding and perforation. PREOPERATIVE DIAGNOSIS: Chronic diarrhea. POSTOPERATIVE DIAGNOSIS: Chronic diarrhea, rule out microscopic colitis, small internal hemorrhoids. PROCEDURE PERFORMED: Colonoscopy to the cecum and terminal ileum with biopsies. ESTIMATED BLOOD LOSS: COMPLICATIONS: ANESTHESIA: Medication used; monitored anesthesia care. ASSISTANTS: SPECIMENS: DESCRIPTION OF PROCEDURE: The patient was placed in the left lateral decubitus position. The digital rectal exam revealed no abnormalities. The Olympus videopediatric colonoscope was entered into the rectum and advanced easily to the cecum. Once in the cecum, I did identify normal-appearing cecal pouch with appendiceal orifice and a normal-appearing ileocecal valve. The terminal ileum was cannulated and appeared normal. The scope was withdrawn back in the colon. The entire cecum and ileocecal valve appeared normal. The scope was slowly withdrawn assessing all mucosal surfaces carefully. Preparation was excellent. I did not visualize any sign of polyps, colitis, nor angiodysplasia. Biopsies were obtained in the ascending and descending colon to rule out microscopic colitis. In the rectum, the scope was retroflexed visualizing small internal hemorrhoids, but no other pathology. The rectal mucosa appeared normal. The scope was straightened and withdrawn the patient. She tolerated the procedure well and was returned to the recovery area in stable condition. IMPRESSION: 1. Internal hemorrhoids, otherwise normal colonoscopy. 2. Rule out microscopic colitis. PLAN: The results of biopsies will be checked. I would recommend a repeat colonoscopy in 10 years for further screening. In regard to the diarrhea, she was sent home with a prescription to use cholestyramine and instructions to use Imodium as well. She was advised not to use any aspirin and NSAIDs for 1 week. She will be followed up with an office visit. MD JESSIE Ennis/DINA / [id number]
== END 2022-08-01 10:25 | disposition home or self-care (01) ==
PROVIDERS: Anesthesiology; PCP Family Medicine; Visit Provider Internal Medicine
PROC: 0DJD8ZZ Inspection of Lower Intestinal Tract, Via Natural or Artificial Opening Endoscopic (ICD-10-PCS; CPT 45378; principal; 2022-08-01 09:30)
DX: R19.7 Diarrhea, unspecified (principal); K64.8 Other hemorrhoids; K21.9 Gastro-esophageal reflux disease without esophagitis; E66.9 Obesity, unspecified; I48.0 Paroxysmal atrial fibrillation; E66.01 Morbid (severe) obesity due to excess calories; Z68.45 Body mass index [BMI] 70 or greater, adult; Z98.84 Bariatric surgery status; J44.9 Chronic obstructive pulmonary disease, unspecified; Z90.49 Acquired absence of other specified parts of digestive tract; R94.39 Abnormal result of other cardiovascular function study; Z79.82 Long term (current) use of aspirin; Z79.899 Other long term (current) drug therapy; Z98.890 Other specified postprocedural states
CPT/HCPCS: 45380; 81025; 88305

== ENCOUNTER → 2022-09-05 09:16 | Outpatient (BNVA) | payer OTHER, SELFPAY | PROVIDERS: PCP Family Medicine; Visit Provider Internal Medicine | DX: M54.50 Low back pain, unspecified (principal); M79.7 Fibromyalgia; K58.9 Irritable bowel syndrome, unspecified; I48.0 Paroxysmal atrial fibrillation; E66.9 Obesity, unspecified; Z68.45 Body mass index [BMI] 70 or greater, adult; Z90.49 Acquired absence of other specified parts of digestive tract; Z98.84 Bariatric surgery status; Z79.899 Other long term (current) drug therapy | CPT/HCPCS: 99202 ==

== ENCOUNTER → 2022-09-28 14:10 | Outpatient (BNVA) | payer OTHER, SELFPAY | PROVIDERS: PCP Family Medicine; Visit Provider Internal Medicine | DX: R06.02 Shortness of breath (principal); I89.0 Lymphedema, not elsewhere classified; I48.0 Paroxysmal atrial fibrillation; E66.01 Morbid (severe) obesity due to excess calories; Z68.45 Body mass index [BMI] 70 or greater, adult | CPT/HCPCS: 99202 ==

== ENCOUNTER 2022-10-14 10:49 | Outpatient (REF) | payer OTHER, SELFPAY ==
--- NOTE | 2022-10-14 17:25 | PFT_ITS ---
INDICATION: Dyspnea. SPIROMETRY: FEV1 to FVC of 89% with an FEV1 of 2.21 L, which is 89% predicted and FVC of 2.48 L, which is 81% predicted. No significant response to bronchodilators noted. Maximum voluntary ventilation 87% predicted. LUNG VOLUMES: Total lung capacity 91% predicted with an expiratory residual volume of 11% predicted. DIFFUSION CAPACITY: DLCO is 119% predicted which is elevated. COMPARISON: None. INTERPRETATION: No obstructive nor restrictive ventilatory defects identified. No significant response to bronchodilators noted. No maximum voluntary ventilation. Lung volumes are normal except for significantly decrease expiratory reserve volume secondary to an elevated BMI. Also diffusion capacity is trending high, therefore completely normal although exogenous carbon monoxide exposure need to be considered such as second-hand smoke or any other exposures as well. Clinical correlation warranted. MD YVETTE Herman/DINA / [id number]
== END 2022-10-14 10:50 | disposition home or self-care (01) ==
LOC: HO.RESP 10:49
PROVIDERS: PCP Family Medicine; Visit Provider Internal Medicine
DX: R06.02 Shortness of breath (principal); E66.01 Morbid (severe) obesity due to excess calories; Z68.45 Body mass index [BMI] 70 or greater, adult; M25.511 Pain in right shoulder; M25.512 Pain in left shoulder; M79.7 Fibromyalgia; Z79.899 Other long term (current) drug therapy
CPT/HCPCS: 94060; 94727; 94729; 99212

== ENCOUNTER 2022-10-23 13:30 | Emergency (ER) | payer OTHER, SELFPAY ==
--- NOTE | ~2022-10-23 | XR_ITS ---
EXAMINATION: XR FOOT, RIGHT CLINICAL INFORMATION: Swelling and pain. COMPARISON: None available. TECHNIQUE: AP, lateral, and oblique views of the right foot. FINDINGS: The bones and soft tissues are normal. No fracture. Alignment is anatomic. Joint spaces are maintained. XR/XR foot RT min 3V IMPRESSION: Unremarkable right foot.
--- NOTE | 2022-10-23 13:39 | ED_ITS ---
HPI - Extremity Injury (Lower) General Chief Complaint: Extremity Injury, Lower Stated Complaint: R foot bruised/ swollen Time Seen by Provider: 10/23/22 13:38 Source: patient Mode of arrival: ambulatory Limitations: no limitations History of Present Illness HPI Narrative: 47 yo female with history of morbid obesity s/p gastric bypass surgery, fibromyalgia, osteoarthritis, asthma, paroxysmal afib not on anticoagulation presents to the ER for evaluation of right foot swelling and bruising that she noticed 2-3 days ago. She cannot recall any trauma. She reports tenderness to the top and lateral portions of the foot. She notices some bruising yesterday which seems to be spreading. No redness or warmth. No fever or chills. No ankle pain or injury. She has chronic knee pain due to OA. She has been able to ambu late normally. MD complaint: foot injury Onset (ago): day(s) (2) Injury: Right: foot Type of Injury: unknown Place: home Severity: moderate Severity scale (1-10): 5 Relieving factors: immobilization and rest Exacerbating factors: weight bearing, movement and palpation Associated symptoms: ambulatory Other symptoms: none Related Data Home Medications Medication Instructions Recorded Confirmed meloxicam 15 mg tablet 15 mg PO DAILY PRN Pain 01/04/21 09/05/22 chlorzoxazone 500 mg tablet 1 tab PO TID PRN muscle spasm 04/27/22 09/05/22 norethindrone (contraceptive) 0.35 0.35 mg PO DAILY 10/14/22 mg tablet (Seanit) Previous Rx's Medication Instructions Recorded metoprolol succinate 25 mg 25 mg PO DAILY #90 tabs 06/01/22 tablet,extended release 24 hr (Toprol XL) aspirin 81 mg tablet,delayed 81 mg PO DAILY #30 tabs 07/26/22 release pregabalin 100 mg capsule 100 mg PO TID #90 caps 10/14/22 Allergies Allergy/AdvReac Type Severity Reaction Status Date / Time adhesive [ADHESIVE] Allergy Unknown RASH Verified 10/23/22 13:53 diclofenac [From Voltaren] Allergy Itching Verified 10/23/22 13:53 Review of Systems Review of Systems: Yes all other systems are reviewed and are negative [facility] Past Medical History Medical History (Updated 10/23/22 @ 14:01 by KENNETH Norton) Anxiety Arthritis Asthma Chronic GERD COVID-19 virus infection IBS (irritable bowel syndrome) Lipoedema Lymphedema New onset a-fib Obesity Paroxysmal A-fib Paroxysmal atrial fibrillation Surgical History History of Lucio-en-Y gastric bypass Hx laparoscopic cholecystectomy S/P tonsillectomy Family History Family History Father No problems noted. Mother Heart disease Diabetes Hyperlipidemia Hypertension COPD (chronic obstructive pulmonary disease) Brother No problems noted. Sister No problems noted. Son Overweight Diabetes Asthma Daughter Asthma Social History Social History Household Members: Children Household Members Other:: daughter and son. Housing: Apartment Do you presently have visiting nurse or other home services: No Alcohol intake: current Alcohol intake frequency: holidays/special occasions only Patient Tobacco Use Status: Never used Tobacco Substance Use Type: Marijuana Advance Directives: Yes Advance Directives Information Provided: Yes Advance Directives on File: No service: No Current occupational status: disabled Physical Exam Vital Signs: Vital Signs: Last Vital Signs Temp 97.2 F 10/23/22 13:53 Pulse 61 10/23/22 13:53 Resp 16 10/23/22 13:53 BP 151/70 H 10/23/22 13:53 Pulse Ox 98 10/23/22 13:53 O2 Del Method Room Air 10/23/22 13:53 BMI result Body Mass Index 75.5 Appearance: Alert. Oriented X3. No acute distress. HEENT: normal inspection CVS: Normal heart rate and rhythm. Pulses normal. Respiratory: No respiratory distress. Skin: Skin warm and dry. Normal skin color. Normal skin turgor. No rashes. Extremities: morbidly obese, limited ROM due to obesity. right foot with trace swelling, a few small bruises laterally. moderately tender. no redness or warmth. normal ROM of the ankle and toes. foot is warm and well perfused. no open wounds. Neuro: Oriented X 3. No motor deficit. No sensory deficit. Slow but steady gait Medical Decision Making Medical Decision Making MDM Narrative: 47 yo female with morbid obesity here with nontraumatic right foot swelling and bruising. XR is negative. She is ambulatory. Most likely contusion. Stable for d/c home. Differential Diagnosis Differential Diagnoses: The differential diagnosis associated with the presentation includes foot contusion, ankle sprain, gout, broken foot, stress fracture Independent Interpretation I performed an independent interpretation of an: Plain X-Ray Interpretation: foot x-ray reviewed - no acute fx Radiology Impression Discussion of test interpretation with radiology: I have reviewed the radiologist's reading. Radiologist Impression: EXAMINATION: XR FOOT, RIGHT CLINICAL INFORMATION: Swelling and pain.? COMPARISON: None available.? TECHNIQUE: AP, lateral, and oblique views of the right foot. FINDINGS: The bones and soft tissues are normal. No fracture. Alignment is anatomic. Joint spaces are maintained.? XR/XR foot RT min 3V IMPRESSION: Unremarkable right foot. Independent Historian Clinical information obtained from an independent historian. History obtained from or confirmed by: Other (daughter) daughter has been monitoring swelling and bruising using pen to kamini the area. Critical Care Time Critical Care Time Critical Care Time: No Discharge Plan Discharge Clinical Impression: Contusion of foot Patient Disposition: Home, Self-Care Instructions: Foot Contusion (ED) Additional Instructions: Your x-ray today was normal. Rest your foot and elevate it when possible. Recommend MERCY wrap for support and compression. Use ice several times per day for the next 48 hours. Take Motrin and/or Tylenol as needed for pain. Follow up with your doctor as needed. Prescriptions: No Action metoprolol succinate [Toprol XL] 25 mg tablet extended release 24 hr 25 mg PO DAILY Qty: 90 2RF aspirin 81 mg tablet,delayed release (DR/EC) 81 mg PO DAILY Qty: 30 5RF chlorzoxazone 500 mg tablet 1 tab PO TID PRN (Reason: muscle spasm) meloxicam 15 mg tablet 15 mg PO DAILY PRN (Reason: Pain) norethindrone (contraceptive) [Senait] 0.35 mg tablet 0.35 mg PO DAILY pregabalin 100 mg capsule 100 mg PO TID Qty: 90 3RF
[2022-10-23 13:53] VITALS: BP 151/70; PULSE 61; RESP 16; TEMP 36.2; O2SAT 98; BMI 75.5
== END 2022-10-23 15:07 | disposition home or self-care (01) ==
PROVIDERS: Emergency Provider Emergency Medicine; PCP Family Medicine
DX: S90.31XA Contusion of right foot, initial encounter (principal); X58.XXXA Exposure to other specified factors, initial encounter; Y93.9 Activity, unspecified; Y92.9 Unspecified place or not applicable; Y99.9 Unspecified external cause status; Z79.899 Other long term (current) drug therapy
CPT/HCPCS: 73630; 99282; 99283

== ENCOUNTER → 2022-11-03 13:28 | Outpatient (BNVA) | payer OTHER, SELFPAY | PROVIDERS: PCP Family Medicine; Referring Provider Family Medicine; Visit Provider Internal Medicine Cardiovascular Disease | DX: R06.02 Shortness of breath (principal); I48.0 Paroxysmal atrial fibrillation; I89.0 Lymphedema, not elsewhere classified; E66.01 Morbid (severe) obesity due to excess calories; Z68.45 Body mass index [BMI] 70 or greater, adult | CPT/HCPCS: 99212 ==

== ENCOUNTER 2022-11-20 12:58 | Emergency (ER) | payer OTHER, SELFPAY ==
--- NOTE | ~2022-11-20 | CT_ITS ---
EXAMINATION: CT HEAD WITHOUT CONTRAST CLINICAL INFORMATION: Headache for 24 hours. COMPARISON: CT head 02/06/2022. TECHNIQUE: Contiguous axial imaging was performed from the skull base to vertex without intravenous administration of contrast. This CT examination was performed using dose optimization techniques as appropriate, variously including the following: *Automated exposure control *Adjustment of mA and/or kV according to patient size (this includes techniques or standardized protocols for targeted exams where dose is matched to indication/reason for exam; i.e. extremities or head) *Use of iterative reconstruction technique DLP: 723 mGy-cm FINDINGS: The ventricles and sulci are normal in size and configuration. No intracranial hemorrhage, tumors or acute infarcts are noted. No focal parenchymal lesions of the brain or abnormal extra-axial fluid collections are visualized. Incidental note is made of hyperostosis frontalis interna. The orbits and globes are normal in appearance. No significant opacification of the visualized paranasal sinuses, mastoid air cells and middle ear cavities. A benign-appearing 6 mm cutaneous calcification is present adjacent to the left mastoid tip unchanged compared with 02/06/2022. CT/CT head/brain wo IV con IMPRESSION: No acute intracranial abnormalities.
[2022-11-20 13:22] VITALS: BP 128/63; PULSE 69; RESP 18; TEMP 37.2; O2SAT 98; BMI 75.6
--- NOTE | 2022-11-20 13:22 | ED_ITS ---
HPI - General Adult General Chief complaint: Headache <KENNETH Barrios - Last Filed: 11/22/22 11:04> Stated complaint: severe headache <KENNETH Barrios - Last Filed: 11/22/22 11:04> Time Seen by Provider: 11/20/22 17:01 <KENNETH Barrios Last Filed: 11/22/22 11:04> Source: patient <KENNETH Hankins - Last Filed: 11/20/22 21:57> Mode of arrival: ambulatory <KENNETH Hankins - Last Filed: 11/20/22 21:57> Limitations: no limitations <KENNETH Hankins Last Filed: 11/20/22 21:57> History of Present Illness HPI narrative: 47-year-old female history of fibromyalgia, heart occipital AFib on aspirin, history of gastric bypass, morbid obesity presenting to the emergency department for evaluation of headache that started yesterday worsening over the past 2 days, took Tylenol with little to no relief, patient tells me she has had 3 headaches sick this in her past however never as bad as this 1. She reports photosensitivity, nausea. Tells me her eyes feel different however has a hard time describing what she feels in her eyes. Patient denies fevers, chills, neck pain, chest pain, shortness of breath, abdominal pain, vision changes, weakness. NIH stroke scale 0 on arrival <KENNETH Hankins Last Filed: 11/20/22 21:57> Related Data Home medications: Home Medications Medication Instructions Recorded Confirmed chlorzoxazone 500 mg tablet 1 tab PO TID PRN muscle spasm 04/27/22 11/03/22 norethindrone (contraceptive) 0.35 0.35 mg PO DAILY 10/14/22 11/03/22 mg tablet (Senait) Previous Rx's Medication Instructions Recorded metoprolol succinate 25 mg 25 mg PO DAILY #90 tabs 06/01/22 tablet,extended release 24 hr (Toprol XL) aspirin 81 mg tablet,delayed 81 mg PO DAILY #30 tabs 07/26/22 release pregabalin 100 mg capsule 100 mg PO TID #90 caps 10/14/22 diphenhydramine HCl 25 mg capsule 25 mg PO TID PRN allergic reaction 04/30/23 (Benadryl) #20 caps ketorolac 10 mg tablet 10 mg PO TID PRN pain 5 days #15 11/20/22 tabs metoclopramide HCl 10 mg tablet 10 mg PO Q6H PRN headache #20 tabs 11/20/22 (Reglan) <KENNETH Barrios - Last Filed: 11/22/22 11:04> Allergies/adverse reactions: Allergies Allergy/AdvReac Type Severity Reaction Status Date / Time adhesive [ADHESIVE] Allergy Unknown RASH Verified 11/20/22 13:19 diclofenac [From Voltaren] Allergy Itching Verified 11/20/22 13:19 <KENNETH Barrios Last Filed: 11/22/22 11:04> Review of Systems Review of Systems: Constitutional : No Weight loss, No Fever, No Chills, No Fatigue, No Malaise ENT/Mouth : No sore throat, No Rhinorrhea Eyes: No Eye Pain, No Swelling, No Redness Cardiovascular : No Chest Pain, No SOB, No Dyspnea on Exertion, No Orthopnea, No Edema, No Palpitations Respiratory : No Cough, No Sputum, No Wheezing Gastrointestinal : + Nausea, No Vomiting, No Diarrhea, No Constipation, No abdominal Pain, No Hematochezia, No Melena Genitourinary : No Dysuria, No Urinary Frequency, No Hematuria, Musculoskeletal : No joint pain, No Myalgias, No Joint Swelling Skin : No Skin Lesions, No rash Neuro : No Weakness, No Numbness, No Dizziness, + Headache Psych : No Anxiety/Panic, No Depression All other systems reviewed and are negative <KENNETH Hankins Last Filed: 11/20/22 21:57> Yes all other systems are reviewed and are negative <KENNETH Hankins Last Filed: 11/20/22 21:57> [facility] Past Medical History Attestation statement: The following information was validated with the patient. <KENNETH Hankins Last Filed: 11/20/22 21:57> Source: old records reviewed and nursing notes reviewed <KENNETH Hankins Last Filed: 11/20/22 21:57> Medical History: Medical History Anxiety Arthritis Asthma Chronic GERD COVID-19 virus infection IBS (irritable bowel syndrome) Lipoedema Lymphedema New onset a-fib Obesity Paroxysmal A-fib Paroxysmal atrial fibrillation <KENNETH Barrios - Last Filed: 11/22/22 11:04> Surgical History: Surgical History History of Lucio-en-Y gastric bypass Hx laparoscopic cholecystectomy S/P tonsillectomy <KENNETH Barrios - Last Filed: 11/22/22 11:04> Family History Family History: Family History Father No problems noted. Mother Heart disease Diabetes Hyperlipidemia Hypertension COPD (chronic obstructive pulmonary disease) Brother No problems noted. Sister No problems noted. Son Overweight Diabetes Asthma Daughter Asthma <KENNETH Barrios - Last Filed: 11/22/22 11:04> Social History Social History: Social History Household Members: Children Household Members Other:: daughter and son. Housing: Apartment Do you presently have visiting nurse or other home services: No Alcohol intake: current Alcohol intake frequency: holidays/special occasions only Patient Tobacco Use Status: Never used Tobacco Smoked in Last 30 Days: No Use of substances other than those prescribed or required for medical reasons: Yes Substance Use Type: Marijuana Advance Directives: No Advance Directives Information Provided: No Patient : No service: No Current occupational status: disabled <KENNETH Barrios - Last Filed: 11/22/22 11:04> Physical Exam ED Vital Signs: Vital Signs - 24 hr 11/20/22 13:22 11/20/22 19:02 Temperature 98.9 F 98.1 F Pulse Rate 69 61 Respiratory Rate 18 17 Blood Pressure 128/63 115/53 L Pulse Oximetry 98 99 Oxygen Delivery Method Room Air Room Air BMI result Body Mass Index 75.6 <KENNETH Barrios - Last Filed: 11/22/22 11:04> Vital Signs - 24 hr 11/20/22 13:22 11/20/22 19:02 Temperature 98.9 F 98.1 F Pulse Rate 69 61 Respiratory Rate 18 17 Blood Pressure 128/63 115/53 L Pulse Oximetry 98 99 Oxygen Delivery Method Room Air Room Air BMI result Body Mass Index 75.6 vss <KENNETH Hankins - Last Filed: 11/20/22 21:57> Appearance: Alert.? Oriented X3.? No acute distress.? Head: Normocephalic, atraumatic, no step-offs or deformities Eyes: Pupils equal, round and reactive to light.? ENT: Pharynx normal.? Neck: Normal inspection.? Neck supple.? Negative Kernig and Brudzinski CVS: Normal heart rate and rhythm.? Pulses normal.? Respiratory: No respiratory distress.? Breath sounds normal.? Abdomen: Soft and nontender.? Skin: Skin warm and dry.? Normal skin color.? Normal skin turgor.? Extremities: No lower extremity edema.? No calf ttp. 5/5 strength to bilateral upper and lower extremities Neuro: Oriented X 3.? No motor deficit.? No sensory deficit. CN 2-12 intact <KENNETH Hankins Last Filed: 11/20/22 21:57> Course Course Course Narrative: RME: 47 yold female presents to the ED for headache, photophobia, phonophobia. Daughter has pmh of migraines. patient denies any neck pain. Negative feor signs of nuchal rigidty. labs and head CT odered <KENNETH Barrios - Last Filed: 11/22/22 11:04> Reevaluation(s) Reevaluation #1: Patient now reports that her headache is much better than before. Will discharge her with Toradol, Benadryl and Reglan. Advised her to follow-up with Neurology. Educated patient on diagnosis and treatment plan, answered all question, patient verbalizes understanding. At this time patient will be dis charged home, advised to return with new or worsening symptoms. Educated on worrisome signs and symptoms and when to return. At this time I feel comfortable discharge home. Time of discharge patient is neuro nonfocal cerebellar intact. NIHSS 0 <KENNETH Hankins Last Filed: 11/20/22 21:57> Time: 21:54 <KENNETH Hankins Last Filed: 11/20/22 21:57> Medications Administered Discontinued Medications Generic Name Dose Route Start Last Admin Trade Name Freq PRN Reason Stop Dose Admin Acetaminophen 975 mg 11/20/22 17:33 11/20/22 18:06 Acetaminophen 325 Mg Tablet PO 11/20/22 17:34 Not Given ONCE ONE Diphenhydramine HCl 50 mg 11/20/22 17:33 11/20/22 17:58 Diphenhydramine Hcl 25 Mg Capsule PO 11/20/22 17:34 50 mg ONCE ONE Administration Ketorolac Tromethamine 30 mg 11/20/22 18:01 11/20/22 18:06 Ketorolac Tromethamine 15 Mg/Ml Vial IVPUSH 11/20/22 18:02 30 mg ONCE ONE Administration Metoclopramide HCl 10 mg 11/20/22 17:33 11/20/22 17:58 Metoclopramide Hcl 10 Mg Tablet PO 11/20/22 17:34 10 mg ONCE ONE Administration Morphine Sulfate 4 mg 11/20/22 19:35 11/20/22 20:04 Morphine Sulfate 4 Mg/Ml Cartridge IVPUSH 11/20/22 19:36 4 mg ONCE ONE Administration Protocol Sumatriptan Succinate 6 mg 11/20/22 20:43 11/20/22 20:50 Sumatriptan Succinate 6 Mg/0.5 Ml Vial SUBCUT 11/20/22 20:44 6 mg ONCE ONE Administration <KENNETH Barrios - Last Filed: 11/22/22 11:04> Medications Administered Discontinued Medications Generic Name Dose Route Start Last Admin Trade Name Enderq PRN Reason Stop Dose Admin Acetaminophen 975 mg 11/20/22 17:33 11/20/22 18:06 Acetaminophen 325 Mg Tablet PO 11/20/22 17:34 Not Given ONCE ONE Diphenhydramine HCl 50 mg 11/20/22 17:33 11/20/22 17:58 Diphenhydramine Hcl 25 Mg Capsule PO 11/20/22 17:34 50 mg ONCE ONE Administration Ketorolac Tromethamine 30 mg 11/20/22 18:01 11/20/22 18:06 Ketorolac Tromethamine 15 Mg/Ml Vial IVPUSH 11/20/22 18:02 30 mg ONCE ONE Administration Metoclopramide HCl 10 mg 11/20/22 17:33 11/20/22 17:58 Metoclopramide Hcl 10 Mg Tablet PO 11/20/22 17:34 10 mg ONCE ONE Administration Morphine Sulfate 4 mg 11/20/22 19:35 11/20/22 20:04 Morphine Sulfate 4 Mg/Ml Cartridge IVPUSH 11/20/22 19:36 4 mg ONCE ONE Administration Protocol Sumatriptan Succinate 6 mg 11/20/22 20:43 11/20/22 20:50 Sumatriptan Succinate 6 Mg/0.5 Ml Vial SUBCUT 11/20/22 20:44 6 mg ONCE ONE Administration <KENNETH Hankins - Last Filed: 11/20/22 21:57> Medical Decision Making Medical Decision Making [facility] Narrative: 1740 47-year-old female presents for the evaluation of headache x2 days not improving with Tylenol. Physical exam benign. NIH stroke scale 0 Likely typical migraine/headache. Unlikely cluster headache, stroke, posterior stroke, intracranial hemorrhage, encephalitis or meningitis. Other differentials include complex migraine Plan oral regimen of medications. Labs and imaging ordered from triage <KENNETH Hankins - Last Filed: 11/20/22 21:57> Differential Diagnosis Differential Diagnoses: The differential diagnosis associated with the presentation includes <KENNETH Hankins - Last Filed: 11/20/22 21:57> Likely typical migraine/headache. Unlikely cluster headache, stroke, posterior stroke, intracranial hemorrhage, encephalitis or meningitis. Other differentials include complex migraine <KENNETH Hankins - Last Filed: 11/20/22 21:57> Admission/Observation Consideration of admission/observation: Escalation of care including admission/observation considered <KENNETH Hankins Last Filed: 11/20/22 21:57> Lab Data [facility] Lab Attestation statement: I reviewed the patient's lab results. <KENNETH Hankins Last Filed: 11/20/22 21:57> Result Diagrams: 11/20/22 13:36 11/20/22 13:36 <KENNETH Barrios - Last Filed: 11/22/22 11:04> Labs: Lab Results 11/20/22 11/20/22 Range/Units 13:36 13:36 WBC 8.0 (4.8-10.8) X10*3/uL RBC 4.46 (4.20-5.50) X10*6/uL Hgb 13.4 (12.0-16.0) g/dl Hct 40.9 (37.0-47.0) % MCV 91.7 (80.0-98.0) fL MCH 30.0 (27.0-33.0) pg MCHC 32.8 (31.0-35.0) g/dl RDW 13.6 (11.0-16.0) % Plt Count 221 (160-400) X10*3/uL MPV 10.2 (9.4-12.3) fL Immature Gran % (Auto) 0.6 H (0.0-0.4) % Neut % (Auto) 62.4 (45-73) % Lymph % (Auto) 28.6 (20-40) % [place] % (Auto) 7.1 (2-11) % Eos % (Auto) 0.9 (0-4) % Baso % (Auto) 0.4 (0-2) % Lymph # (Auto) 2.3 (1.2-4.9) X10*3/uL [place] # (Auto) 0.6 (0.1-1.2) X10*3/uL Eos # (Auto) 0.1 (0.0-0.4) X10*3/uL Baso # (Auto) 0.0 (0.0-0.2) X10*3/uL Abs Immat Gran (auto) 0.05 H (0.00-0.03) X10*3/uL Absolute Neuts (auto) 5.0 (2.0-8.3) x10*3/uL Absolute Nucleated RBC 0.000 (0.0-0.012) X10*3/uL Nucleated RBC % (auto) 0.0 (0.0-0.2) /100WBC Sodium 141 (135-145) mmol/L Potassium 4.0 (3.3-5.1) mmol/L Chloride 110 H (96-108) mmol/L Carbon Dioxide 26 (22-29) mmol/L Anion Gap 9 L (12-20) BUN 9 (9-16) mg/dL Creatinine 0.78 (0.5-1.4) mg/dL Estim Creat Clear Calc 135.0 Estimated GFR > 60 Random Glucose 96 (60-115) mg/dL Calcium 9.0 (8.4-10.2) mg/dL Total Bilirubin 0.9 (0.0-1.0) mg/dL AST 12 (5-31) U/L ALT 12 (0-31) U/L Alkaline Phosphatase 65 (39-117) U/L Total Protein 6.3 L (6.5-8.0) g/dL Albumin 3.6 (3.5-5.0) g/dL Beta HCG, Quant < 2 mIU/mL <KENNETH Barrios - Last Filed: 11/22/22 11:04> Lab Results 11/20/22 11/20/22 Range/Units 13:36 13:36 WBC 8.0 (4.8-10.8) X10*3/uL RBC 4.46 (4.20-5.50) X10*6/uL Hgb 13.4 (12.0-16.0) g/dl Hct 40.9 (37.0-47.0) % MCV 91.7 (80.0-98.0) fL MCH 30.0 (27.0-33.0) pg MCHC 32.8 (31.0-35.0) g/dl RDW 13.6 (11.0-16.0) % Plt Count 221 (160-400) X10*3/uL MPV 10.2 (9.4-12.3) fL Immature Gran % (Auto) 0.6 H (0.0-0.4) % Neut % (Auto) 62.4 (45-73) % Lymph % (Auto) 28.6 (20-40) % [place] % (Auto) 7.1 (2-11) % Eos % (Auto) 0.9 (0-4) % Baso % (Auto) 0.4 (0-2) % Lymph # (Auto) 2.3 (1.2-4.9) X10*3/uL [place] # (Auto) 0.6 (0.1-1.2) X10*3/uL Eos # (Auto) 0.1 (0.0-0.4) X10*3/uL Baso # (Auto) 0.0 (0.0-0.2) X10*3/uL Abs Immat Gran (auto) 0.05 H (0.00-0.03) X10*3/uL Absolute Neuts (auto) 5.0 (2.0-8.3) x10*3/uL Absolute Nucleated RBC 0.000 (0.0-0.012) X10*3/uL Nucleated RBC % (auto) 0.0 (0.0-0.2) /100WBC Sodium 141 (135-145) mmol/L Potassium 4.0 (3.3-5.1) mmol/L Chloride 110 H (96-108) mmol/L Carbon Dioxide 26 (22-29) mmol/L Anion Gap 9 L (12-20) BUN 9 (9-16) mg/dL Creatinine 0.78 (0.5-1.4) mg/dL Estim Creat Clear Calc 135.0 Estimated GFR > 60 Random Glucose 96 (60-115) mg/dL Calcium 9.0 (8.4-10.2) mg/dL Total Bilirubin 0.9 (0.0-1.0) mg/dL AST 12 (5-31) U/L ALT 12 (0-31) U/L Alkaline Phosphatase 65 (39-117) U/L Total Protein 6.3 L (6.5-8.0) g/dL Albumin 3.6 (3.5-5.0) g/dL Beta HCG, Quant < 2 mIU/mL <KENNETH Hankins - Last Filed: 11/20/22 21:57> Independent Interpretation I performed an independent interpretation of an: CT Scan (CT/CT head/brain wo IV con IMPRESSION: No acute intracranial abnormalities.) <KENNETH Hankins - Last Filed: 11/20/22 21:57> Radiology Impression Discussion of test interpretation with radiology: I have reviewed the radiologist's reading. <KENNETH Hankins - Last Filed: 11/20/22 21:57> External Record Review External record reviewed: Inpatient record, Office record, Outpatient record, Prior outpatient labs, Prior outpatient radiology, Primary care record and Outside ED record <KENNETH Hankins Last Filed: 11/20/22 21:57> Core Measures AMI core measures followed: Yes <KENNETH Hankins - Last Filed: 11/20/22 21:57> Measure exclusions: not indicated <KENNETH Hankins - Last Filed: 11/20/22 21:57> Critical Care Time Critical Care Time Critical Care Time: No <KENNETH Hankins - Last Filed: 11/20/22 21:57> Discharge Plan Discharge Clinical Impression: Headache <KENNETH Barrios - Last Filed: 11/22/22 11:04> Patient Disposition: Home, Self-Care <KENNETH Barrios Last Filed: 11/22/22 11:04> Instructions: General Headache (ED) <KENNETH Barrios Last Filed: 11/22/22 11:04> Additional Instructions: Take your medications as prescribed. If you were prescribed antibiotics today, it is important that you take your medication to their entirety, do not skip any doses, do not finish them early. Follow-up with your primary care provider this week. Please follow-up with Neurology information below Return to the emergency department with new or worsening symptoms. Such as fevers, chills, chest pain, shortness of breath, nausea, vomiting, dizziness, headache, vision changes, lethargy In case of emergency call 911 Reglan and Benadryl as well as Toradol have been sent to her pharmacy. Please take Reglan and Benadryl together review are going to take them for headache. Taking Reglan alone can lead to involuntary muscle spasms. Toradol has been sent to your pharmacy, you tolerated this well in the department. Please take this as prescribed do not take this with ibuprofen, or other NSAIDs, do not mix this with alcohol. Side effects of this medication including increased risk for bleeding and possible kidney injury. CT/CT head/brain wo IV con IMPRESSION: No acute intracranial abnormalities. <KENNETH Barrios - Last Filed: 11/22/22 11:04> Prescriptions: New ketorolac 10 mg tablet 10 mg PO TID PRN (Reason: pain) 5 Days Qty: 15 0RF diphenhydramine HCl [Benadryl] 25 mg capsule 25 mg PO TID PRN (Reason: allergic reaction) Qty: 20 0RF metoclopramide HCl [Reglan] 10 mg tablet 10 mg PO Q6H PRN (Reason: headache) Qty: 20 0RF No Action metoprolol succinate [Toprol XL] 25 mg tablet extended release 24 hr 25 mg PO DAILY Qty: 90 2RF aspirin 81 mg tablet,delayed release (DR/EC) 81 mg PO DAILY Qty: 30 5RF chlorzoxazone 500 mg tablet 1 tab PO TID PRN (Reason: muscle spasm) norethindrone (contraceptive) [Senait] 0.35 mg tablet 0.35 mg PO DAILY pregabalin 100 mg capsule 100 mg PO TID Qty: 90 3RF <KENNETH Barrios - Last Filed: 11/22/22 11:04> Referrals: [facility] [place] [facility] [place] [Provider Group] - 2 days Sarah Resendez MD [Primary Care Provider] - 2 days <KENNETH Barrios - Last Filed: 11/22/22 11:04> Interventions: ED Discharge Assessment Last Done: 11/20/22 22:06 <KENNETH Barrios - Last Filed: 11/22/22 11:04> Discharge Date/Time: 11/20/22 22:07 <KENNETH Barrios - Last Filed: 11/22/22 11:04>
[2022-11-20 13:40] LABS: MANUAL DIFF FLAG NO
[2022-11-20 13:41] LABS: Basophils Percent Auto 0.4 % (0-2); Eosinophils Absolute Auto 0.1 X10*3/uL (0.0-0.4); Eosinophils Percent Auto 0.9 % (0-4); Hematocrit 40.9 % (37.0-47.0); Hemoglobin 13.4 g/dl (12.0-16.0); Imm Gran Abs Auto 0.05 X10*3/uL (0.00-0.03); Imm Gran Pct Auto 0.6 % (0.0-0.4); Lymphocytes Absolute Auto 2.3 X10*3/uL (1.2-4.9); Lymphocytes Percent Auto 28.6 % (20-40); Mean Corpuscular HGB Conc 32.8 g/dl (31.0-35.0); Mean Corpuscular Volume 91.7 fL (80.0-98.0); Mean Platelet Volume 10.2 fL (9.4-12.3); Monocytes Absolute Auto 0.6 X10*3/uL (0.1-1.2); Monocytes Percent Auto 7.1 % (2-11); Neutrophils Percent Auto 62.4 % (45-73); Platelet Count 221 X10*3/uL (160-400); Red Blood Count 4.46 X10*6/uL (4.20-5.50); Red Cell Distribution Width 13.6 % (11.0-16.0)
[2022-11-20 14:23] LABS: Alanine Aminotransferase 12 U/L (0-31); Albumin Level 3.6 g/dL (3.5-5.0); Alkaline Phosphatase 65 U/L (39-117); Anion Gap 9 (12-20); Aspartate Amino Transferase 12 U/L (5-31); Bilirubin Total 0.9 mg/dL (0.0-1.0); Blood Urea Nitrogen 9 mg/dL (9-16); Carbon Dioxide 26 mmol/L (22-29); Chloride 110 mmol/L (96-108); Estimated Glomerular Filt Rate > 60; Glucose Random 96 mg/dL (60-115); Sodium 141 mmol/L (135-145); Total Protein 6.3 g/dL (6.5-8.0)
[2022-11-20 14:24] LABS: HCG Quantitative < 2 mIU/mL
[2022-11-20] MEDS: diphenhydrAMINE HCL 25 MG CAPSULE 50 MG PO (17:58)
[2022-11-20] MEDS: Metoclopramide HCl 10 MG TABLET PO (17:58)
[2022-11-20] MEDS: Ketorolac Tromethamine 15 MG/ML VIAL 30 MG IVPUSH (18:06)
[2022-11-20 19:02] VITALS: BP 115/53; PULSE 61; RESP 17; TEMP 36.7; O2SAT 99
[2022-11-20] MEDS: Morphine Sulfate 4 MG/ML CARTRIDGE IVPUSH (20:04)
[2022-11-20] MEDS: SUMAtriptan succinate 6 MG/0.5 ML VIAL SUBCUT (20:50)
--- NOTE | 2022-11-20 20:56 | PC.NURSE ---
pt medicated according to sep. pt reports continued 12/31 pain/ lights dimmed pt has family at bedside with sound machine. dede andres made aware of continued pain
--- NOTE | 2022-11-20 21:09 | ECG_ITS ---
Test Reason : chest pain Blood Pressure : / mmHG Vent. Rate : 053 BPM Atrial Rate : 053 BPM P-R Int : 166 ms QRS Dur : 080 ms QT Int : 448 ms P-R-T Axes : 031 -23 -12 degrees QTc Int : 420 ms Sinus bradycardia Cannot rule out Anterior infarct (cited on or before 31-MAY-2022) Abnormal ECG When compared with ECG of 31-MAY-2022 15:13, Nonspecific T wave abnormality now evident in Lateral leads Referred By: Param Beckham Electronically Signed By:LIZ CAPONE MD
== END 2022-11-20 22:07 | disposition home or self-care (01) ==
PROVIDERS: Physician Assistant; Emergency Provider Student in an Organized Health Care Education/Training Program; PCP Family Medicine
DX: R51.9 Headache, unspecified (principal); I48.91 Unspecified atrial fibrillation; Z98.84 Bariatric surgery status; Z79.82 Long term (current) use of aspirin; Z79.899 Other long term (current) drug therapy
CPT/HCPCS: 36415; 70450; 80053; 84702; 85025; 93005; 96372; 96374; 96375; 99284; J1885; J2270; J3030

== ENCOUNTER 2022-11-30 05:59 | Outpatient (REF) | payer OTHER, SELFPAY ==
--- NOTE | ~2022-11-30 | FL_ITS ---
EXAMINATION: XR FLUOROSCOPY WITH IMAGES CLINICAL INFORMATION: Pain COMPARISON: None available. TECHNIQUE: Fluoroscopy Supervised By: Dr. Rafael Arana. Fluoroscopy Time: 0.4 minutes. Cumulative Dose: 12 mGy. DAP: 1.2 Gycm2. Images: 2. FINDINGS: Images demonstrate bilateral needle placement and contrast injection in the bilateral shoulder joints. FL/FL guidance in treatment room IMPRESSION: Fluoroscopy guidance for bilateral shoulder injection.
== END 2022-11-30 06:00 | disposition home or self-care (01) ==
LOC: CF 05:59
PROVIDERS: Visit Provider Internal Medicine
DX: M25.511 Pain in right shoulder (principal); M25.512 Pain in left shoulder
CPT/HCPCS: 20610; 20611; J3301; Q9965

== ENCOUNTER → 2023-01-16 13:00 | Outpatient (BNVA) | payer OTHER, SELFPAY | PROVIDERS: PCP Family Medicine; Visit Provider Internal Medicine | DX: M54.9 Dorsalgia, unspecified (principal) | CPT/HCPCS: 99212 ==

== ENCOUNTER 2023-02-22 13:36 | Outpatient (RCR) | payer OTHER, SELFPAY ==
--- NOTE | 2023-02-23 09:53 | MHC.PT.EP ---
[facility] [place] [facility] [place] [facility] [place] [facility] [address] Jeni Mendez [address] [phone] F: [phone] F: [phone] F: [phone] F: [phone] Physical Therapy Plan of Care Date of Evaluation: Date of Surgery: Diagnosis: LOW BACK PAIN (KP) Assessment: NOEMI IS A PLEASANT 47 YO FEMALE WHO PRESENTS TO PT WITH ACUTE ON CHRONIC LOW BACK PAIN, RECENTLY INCREASING IN THE LAST SEVERAL WEEKS. SHE REPORTS THAT ACTIVITIES SUCH STATIC STANDING, WALKING, STATIC SITTING AND LAYING SUPINE INCREASE HER PAIN. SHE DOES REPORT RELIEF WITH HEAT. SHE DENIES ANY RECENT INJURY OR TRAUMA TO LOW BACK. SHE LIVES IN 4TH FLOOR APARTMENT WITH DTR AND SON. OF NOTE COMORBIDITIES INCLUDE OA, ANXIETY, FIBROMYALGIA, LYPHEMDEMA AND MORBID OBESITY. UPON EXAM IMPAIRMENTS INCLUDE DECREASED LUMBAR AND LE STRENGTH AND MOBILITY, ALTERED GAIT AND BALANCE, DECREASED SOFT TISSUE MOBILITY, DECREASED POSTURAL AWARENESS AND INCREASED PAIN. FUNCTIONAL LIMITATIONS INCLUDE DECREASED TOLERANCE TO WALKING, BENDING, STATIC STANDING, STATIC SITTING. SHE REPORTS DECREASED BED MOBILITY DECREASED ABILITY TO PERFORM HOMEMAKING AND SELF CARE TASKS, DECREASED PARTICIPATION IN IN FITNESS AND RECREATIONAL ACTVITIES Frequency and Duration: The patient will be seen 2 X WEEK FOR 4 WEEKS Short Term Goals: INITIATE HEP AND PROMOTE SELF MANAGEMENT OF SYMPTOMS Manager Retention Goals: INDEPENDENT HEP TO TOLERATE A MINIMUM OF 15 MINS OF WALKING WITHOUT REST BREAK TO PERFORM ALL ADLs WITH PAIN NO GREATER THAN 4/10 Treatment Plan: Modalities to reduce pain, spasms and effusion. Manual therapy to restore motion and function. Therapeutic exercise to improve strength and flexibility. Neuromuscular re-education for posture and balance. Therapeutic activities to return to functional activities of daily living. Electronically signed by: PAWAN WALKER PT DPT Please sign and return to therapist. Thank you for your referral.
== END 2023-04-12 13:57 | disposition home or self-care (01) ==
LOC: HO.PT 13:36
PROVIDERS: PCP Family Medicine; Visit Provider Internal Medicine
DX: M54.9 Dorsalgia, unspecified (principal)
CPT/HCPCS: 97110; 97162

== ENCOUNTER 2023-03-06 22:23 | Emergency (ER) | payer OTHER, SELFPAY ==
--- NOTE | ~2023-03-06 | XR_ITS ---
EXAMINATION: XR CHEST CLINICAL INFORMATION: Short of breath COMPARISON: 05/02/2022 TECHNIQUE: Frontal view of the chest was obtained. FINDINGS: The lungs are well expanded. Mild patchy opacity at the right base. No edema or effusion. No pneumothorax. The cardiomediastinal silhouette is within normal limits. No acute osseous abnormality. XR/XR chest 1V IMPRESSION: Mild patchy right basilar opacity could represent atelectasis or pneumonia. Aspiration possible.
[2023-03-06 22:36] VITALS: BP 136/79; PULSE 79; RESP 20; TEMP 38.6; O2SAT 95; BMI 73.7
[2023-03-06 23:27] LABS: COVID-19 Test Negative (Negative); IDNOW Serial# 6674DD1D
--- NOTE | 2023-03-06 23:43 | ED.GENADULT ---
HPI - General Adult General Chief complaint: Fever Stated complaint: fever Time Seen by Provider: 03/06/23 23:21 Source: patient, RN notes reviewed and old records reviewed Mode of arrival: ambulatory Limitations: no limitations History of Present Illness HPI narrative: 47-year-old female with past medical history significant for morbid obesity, asthma, paroxysmal AFib presents for evaluation of shortness of breath and fever. Patient reports fevers as high as 103 since last night. She associated cough, shortness of breath, sore throat She has a son and a daughter that are both present with similar complaints Patient has not taken any antipyretics She did take sumatriptan for her headache Related Data Home Medications Medication Instructions Recorded Confirmed chlorzoxazone 500 mg tablet 1 tab PO TID PRN muscle spasm 04/27/22 01/16/23 norethindrone (contraceptive) 0.35 0.35 mg PO DAILY 10/14/22 01/16/23 mg tablet (Senait) ergocalciferol (vitamin D2) 1,250 1,250 mcg PO QWEEK 01/16/23 01/16/23 mcg (50,000 unit) capsule sumatriptan succinate 50 mg tablet mg PO 01/16/23 01/16/23 Previous Rx's Medication Instructions Recorded pregabalin 100 mg capsule 100 mg PO TID #90 caps 10/14/22 diphenhydramine HCl 25 mg capsule 25 mg PO TID PRN allergic reaction 11/20/22 (Benadryl) #20 caps ketorolac 10 mg tablet 10 mg PO TID PRN pain 5 days #15 11/20/22 tabs metoclopramide HCl 10 mg tablet 10 mg PO Q6H PRN headache #20 tabs 11/20/22 (Reglan) metoprolol succinate 25 mg 25 mg PO DAILY #90 tabs 02/27/23 tablet,extended release 24 hr amoxicillin 875 mg-potassium 1 tab PO BID #14 tabs 03/06/23 clavulanate 125 mg tablet azithromycin 250 mg tablet 250 mg PO DAILY 5 days #5 tabs 03/06/23 Allergies Allergy/AdvReac Type Severity Reaction Status Date / Time adhesive [ADHESIVE] Allergy Unknown RASH Verified 03/06/23 22:40 diclofenac [From Voltaren] Allergy Itching Verified 03/06/23 22:40 Review of Systems Constitutional: Constitutional: Reports as per HPI, Reports chills, Reports fatigue, Reports fever(s), Reports headache(s) and Reports malaise ENT: Reports headache(s) and Reports nasal congestion Cardiovascular: Cardiovascular: Denies chest pain and Reports dyspnea Respiratory: Respiratory: Reports chest congestion, Reports cough and Reports dyspnea Gastrointestinal: Gastrointestinal: Denies abdominal pain, Denies constipation and Denies vomiting Genitourinary: Genitourinary: Denies dysuria Neurologic: Reports headache(s) and Denies focal weakness Endocrine: Endocrine: Reports fatigue PMFSH Past Medical History Medical History Anxiety Arthritis Asthma Chronic GERD COVID-19 virus infection IBS (irritable bowel syndrome) Lipoedema Lymphedema New onset a-fib Obesity Paroxysmal A-fib Paroxysmal atrial fibrillation Surgical History History of Lucio-en-Y gastric bypass Hx laparoscopic cholecystectomy S/P tonsillectomy Family History Family History Father No problems noted. Mother Heart disease Diabetes Hyperlipidemia Hypertension COPD (chronic obstructive pulmonary disease) Brother No problems noted. Sister No problems noted. Son Overweight Diabetes Asthma Daughter Asthma Social History Social History Household Members: Children Household Members Other:: daughter and son. Housing: Apartment Do you presently have visiting nurse or other home services: No Alcohol intake: current Alcohol intake frequency: holidays/special occasions only Patient Tobacco Use Status: Never used Tobacco Substance Use Type: Marijuana Advance Directives: No Advance Directives Information Provided: No service: No Current occupational status: disabled Physical Exam ED Vital Signs: Vital Signs - 24 hr 03/06/23 22:36 Temperature 101.4 F H Pulse Rate 79 Respiratory Rate 20 Blood Pressure 136/79 Pulse Oximetry 95 Oxygen Delivery Method Room Air BMI result Body Mass Index 73.7 Const General: healthy appearing, comfortable, no acute distress, alert and awake Nutritional Appearance: well nourished Orientation/consciousness: patient oriented x3 HENMT Head: Yes normocephalic and Yes atraumatic Eyes Eyelids: Yes eyelids normal Conjunctivae: conjunctivae normal Sclerae: sclerae normal Corneas: corneas normal Pupils: Equal, round and reactive pupils present EOM: EOMs intact bilaterally Neck Neck: Yes full ROM Resp Other: Diminished breath sounds likely due to body habitus but otherwise clear Effort & Inspection: normal respiratory effort, able to speak in complete sentences, no audible wheezes and not labored Auscultation: clear to auscultation bilaterally Cardio Rate: regular rate Rhythm: regular rhythm GI Inspection: No distended Palpation (GI): Soft to palpation, not firm, nontender, no guarding and not rigid Skin General skin exam: no rashes or lesions noted and elasticity normal Neuro General: patient oriented x3 Cranial nerves: Yes Equal, round and reactive pupils present and Yes Bilaterally intact EOM present Cognition (Neuro): normal cognition Extrem Other: Moving all extremities well without any obvious deformities Medical Decision Making Medical Decision Making MDM Narrative: [age] year old female presents for evaluation of cough, fever shortness of breath and congestion. She has 2 children with similar symptoms. This would lead me to believe viral etiology. However the patient's chest x-ray shows concern for right basilar infiltrate consider aspiration. The patient is more and reports history of shortness of breath at baseline due to this. We will cover her with Augmentin and azithromycin which should also cover aspiration. She appears quite well and is not hypoxic, she is stable for discharge with outpatient management Differential Diagnosis Differential Diagnoses: The differential diagnosis associated with the presentation includes Community acquired pneumonia Aspiration pneumonia Viral syndrome COVID-19 Lab Data Labs: Lab Results 03/06/23 Range/Units 22:58 COVID-19 (JUAN) Negative (Negative) COVID-19 Clin Com See Note Radiology Impression Discussion of test interpretation with radiology: I have reviewed the radiologist's reading. (Patchy right basilar infiltrate) Discharge Plan Discharge Clinical Impression: Community acquired pneumonia Patient Disposition: Home, Self-Care Instructions: Community Acquired Pneumonia (ED) Additional Instructions: Your x-ray shows pneumonia of the right lower lobe Antibiotics as prescribed Use ibuprofen/Tylenol as needed for fevers Follow-up with your primary doctor Prescriptions: New amoxicillin-pot clavulanate 875-125 mg tablet 1 tab PO BID Qty: 14 0RF azithromycin 250 mg tablet 250 mg PO DAILY 5 Days Qty: 5 0RF No Action metoprolol succinate 25 mg tablet extended release 24 hr 25 mg PO DAILY Qty: 90 3RF chlorzoxazone 500 mg tablet 1 tab PO TID PRN (Reason: muscle spasm) ketorolac 10 mg tablet 10 mg PO TID PRN (Reason: pain) 5 Days Qty: 15 0RF diphenhydramine HCl [Benadryl] 25 mg capsule 25 mg PO TID PRN (Reason: allergic reaction) Qty: 20 0RF metoclopramide HCl [Reglan] 10 mg tablet 10 mg PO Q6H PRN (Reason: headache) Qty: 20 0RF norethindrone (contraceptive) [Senait] 0.35 mg tablet 0.35 mg PO DAILY pregabalin 100 mg capsule 100 mg PO TID Qty: 90 3RF sumatriptan succinate 50 mg tablet PO ergocalciferol (vitamin D2) 1,250 mcg (50,000 unit) capsule 1,250 mcg PO QWEEK
[2023-03-06 23:54] VITALS: BP 140/72; PULSE 68; RESP 16; TEMP 37.5; O2SAT 98
[2023-03-06] MEDS: Acetaminophen 325 MG TABLET 975 MG PO (23:57)
[2023-03-06] MEDS: Azithromycin 500 MG TABLET PO (23:57)
[2023-03-06] MEDS: Amoxicillin/Potassium Clav 875 MG TABLET PO (23:57)
== END 2023-03-07 00:03 | disposition home or self-care (01) ==
PROVIDERS: Emergency Provider Internal Medicine; PCP Family Medicine
DX: J18.9 Pneumonia, unspecified organism (principal); R50.9 Fever, unspecified; Z20.822 Contact with and (suspected) exposure to COVID-19
CPT/HCPCS: 71045; 87635; 99283

== ENCOUNTER 2023-03-23 13:24 | Outpatient (AMB) | payer OTHER, SELFPAY ==
--- NOTE | 2023-03-23 13:27 | A.OFFVIS_ITS ---
Intake Vital Signs 03/23/23 13:29 Height 4 ft 11 in Weight 374 lb BMI 75.5 Intake Visit Reasons: ENP Headaches/Migraines - Confirmed Intake Note: Patient presents for migraines . Leny experience migraine a couple months ago, the last time I ended up to the hospital for it Allergies adhesive [ADHESIVE] Allergy (Unknown, Verified 03/23/23 13:32) RASH diclofenac [From Voltaren] Allergy (Verified 03/23/23 13:32) Itching HPI HPI Comments History of Present Illness Details Right-handed 47-yr-old female presents for new pt evaluation of new onset headache disorder.. She reports that she has had an occasional regular headache. But then a few months ago, she developed a more severe headache that lasted a few days. Then in October, she had a similar headache but even more severe, and she required eval. In the ER, she did not respond to the Migraine cocktail, and thus was given Morphine- which eventually helped. Headache questionnaire: Preceding causes? None Previous work-up? Head CT- No acute intracranial abnormalities. Typical headache characteristics: Prodrome symptoms? none Aura? saw a kaleidoscope of colors before/during the headache, and then peripheral vision loss Location, quality, characteristics? Starts as a regular holocranial headache, which causes a squeezing sensation, activity intolerance. Pain intensity? severe Associated symptoms? photophobia, phonophobia, nausea, not right in space dizziness, Focal weakness, Parethesias, Autonomic s/s? none Postdrome? residual eye symptoms and nausea Triggers? No clear trigger- maybe stress Any positional, valsalva, exertional, sexual activity triggers? None Menstrual triggers? none- currently perimenopausal Time of day? upon awakening Duration? a couple of days Frequency? 2 severe attacks in the past few months. Then 2 moderate attacks since October. How does headache impact your life? cannot function during the attacks Current acute medication use/interventions: Sumatriptan 50mg- has been effective. Reglan- has prn order Previous acute medication use: none Current preventative medication use: none Previous preventative medication use: none Non-pharmacological interventions: rest Other history of headache disorder? occasional non-migraine regular headaches History of musculoskeletal disorders or injury? no injuries History of concussion/head injury? none History of mood disorder? depression, anxiety- varies w/ stress History of sleep disorder? has difficulty falling/staying asleep. states sleep studies have been normal History of respiratory disease? some SOB- per pt, attributed to her obesity. recently had PNA. History of CV disease? A-fib- managed w/ metoprolol. History of coagulopathy? hx of PE History of endocrine or metabolic disease? states her thyroid varies- not c urrently on tx- states euthyroid- last TSH 4.58. History of seizure? None History of GI disorder? s/p gastric bypass (2016), IBS Family planning? none Family history of migraine or other headache disorder? dtr CT HEAD WITHOUT CONTRAST FINDINGS: The ventricles and sulci are normal in size and configuration. No intracranial hemorrhage, tumors or acute infarcts are noted. No focal parenchymal lesions of the brain or abnormal extra-axial fluid collections are visualized. Incidental note is made of hyperostosis frontalis interna. The orbits and globes are normal in appearance. No significant opacification of the visualized paranasal sinuses, mastoid air cells and middle ear cavities. A benign-appearing 6 mm cutaneous calcification is present adjacent to the left mastoid tip unchanged compared with 02/06/2022. ? IMPRESSION: No acute intracranial abnormalities. [facility] Medical History Anxiety Arthritis Asthma Chronic GERD COVID-19 virus infection IBS (irritable bowel syndrome) Lipoedema Lymphedema New onset a-fib Obesity Paroxysmal A-fib Paroxysmal atrial fibrillation Surgical History History of Lucio-en-Y gastric bypass Hx laparoscopic cholecystectomy S/P tonsillectomy Family History Father No problems noted. Mother Heart disease Diabetes Hyperlipidemia Hypertension COPD (chronic obstructive pulmonary disease) Brother No problems noted. Sister No problems noted. Son Overweight Diabetes Asthma Daughter Asthma Social History Household Members: Children Household Members Other:: daughter and son. Housing: Apartment Do you presently have visiting nurse or other home services: No Alcohol intake: current Alcohol intake frequency: holidays/special occasions only Patient Tobacco Use Status: Never used Tobacco Substance Use Type: Marijuana service: No Current occupational status: disabled Review of Systems Const Details: See scanned ROS form Physical Exam Vital Signs: BMI result Body Mass Index 75.5 Const Orientation/consciousness: patient oriented x3 HEENT Other: No palpable scalp tenderness. Head: Yes normocephalic Resp Effort & Inspection: normal respiratory effort and able to speak in complete sentences Neuro General: patient oriented x3 Cranial nerves: Yes CN's II-XII intact bilaterally Cognition (Neuro): normal cognition Gait exam (Neuro): Normal gait present Motor exam (neuro): 5/5 motor strength present throughout Deep tendon reflexes (DTR's): Right triceps reflex intensity grade: 2+, Left triceps reflex intensity grade: 2+, Rt Biceps (C5, C6): 2+, Left biceps reflex intensity grade: 2+, Right brachioradialis reflex intensity grade: 2+, Left b rachioradialis reflex intensity grade: 2+, Right patellar reflex intensity grade: 2+ and Left patellar reflex intensity grade: 2+ Coordination: [id number] test normal Pupils: Normal pupillary reactivity/response: bilateral Psych Appearance: grossly normal Mental Status: mental status grossly normal Speech and movement: Normal speech and movement present Affect: normal affect Attitude: cooperative Thought process: Normal thought process present Assessment & Plan Assessment & Plan (1) Headache: Comment: likely migraine w/ visual aura- Code(s): R51.9 - Headache, unspecified (2) Visual aura: Code(s): H53.9 - Unspecified visual disturbance (3) Snoring: Code(s): R06.83 - Snoring (4) Excessive daytime sleepiness: Code(s): G47.19 - Other hypersomnia (5) Sleep difficulties: Code(s): G47.9 - Sleep disorder, unspecified Plan Pt advised to have eye exam. Reviewed HST- AHI 2/hr w/ O2 guillermo 85%. Pt advised to undergo in-lab PSG. Future considerations: Brain MRI. For overall headache management: Discussed importance of good self-care, including but not limited to maintaining a healthy diet, adequate fluid intake, adequate sleep, and engaging in regular physical activity. For headache triggers: Track headaches. For acute headache treatment: Discussed importance of taking acute medications at the first sign of headache, however stressed importance of avoiding acute medication overuse (especially with combined headache medications). Sumatriptan 50mg prn has been effective and well-tolerated, will reach out to cardiology to request their input. Previous acute migraine medication trials: None future considerations: gepant For headache prevention medication: Discussed that preventative medications should be taken routinely as prescribed for best effect, it may take several weeks for full effect to take effect. Start Magnesium 400mg qhs Continue metoprolol- per cardiology for paroxysmal a-fib. Previous migraine prevention medication trials: None Migraine prevention medication contraindications: None Pt to follow-up in 3 months or sooner prn. Orders: Orders RT PSG in-lab sleep study Today E66.01 - Morbid (severe) obesity due to excess calories, G47.19 - Other hypersomnia, G47.9 - Sleep disorder, unspecified, I48.0 - Paroxysmal atrial fibrillation, R06.83 - Snoring, Z68.45 - Body mass index [BMI] 70 or greater, adult Coding Level of Care Code New Pt Level 4 (38421) Diagnoses Headache R51.9 Visual aura H53.9 Snoring R06.83 Excessive daytime sleepiness G47.19 Sleep difficulties G47.9
[2023-03-23 13:29] VITALS: BMI 75.5
== END 2023-03-23 14:35 | disposition home or self-care (01) ==
PROVIDERS: Visit Provider Nurse Practitioner Family
DX: R51.9 Headache, unspecified (principal); H53.9 Unspecified visual disturbance; R06.83 Snoring; G47.19 Other hypersomnia; G47.9 Sleep disorder, unspecified
CPT/HCPCS: 99204

== ENCOUNTER → 2023-03-23 13:24 | Outpatient (BNVA) | payer OTHER, SELFPAY | PROVIDERS: Visit Provider Nurse Practitioner Family | DX: R51.9 Headache, unspecified (principal); H53.9 Unspecified visual disturbance; R06.83 Snoring; G47.19 Other hypersomnia | CPT/HCPCS: 99202 ==

== ENCOUNTER 2023-05-17 15:20 | Emergency (ER) | payer OTHER, SELFPAY ==
--- NOTE | 2023-05-17 | ECG_ITS ---
Test Reason : CHEST PAIN Blood Pressure : / mmHG Vent. Rate : 070 BPM Atrial Rate : 070 BPM P-R Int : 150 ms QRS Dur : 080 ms QT Int : 412 ms P-R-T Axes : 004 -34 -09 degrees QTc Int : 444 ms Normal sinus rhythm Left anterior fascicular block Cannot rule out Anterior infarct (cited on or before 31-MAY-2022) Abnormal ECG When compared with ECG of 20-NOV-2022 21:30, Heart rate has increased Referred By: Generic ED Physician Electronically Signed By:GOGO DRISCOLL MD
--- NOTE | ~2023-05-17 | XR_ITS ---
EXAMINATION: XR CHEST 5:34 PM CLINICAL INFORMATION: Chest pain COMPARISON: 03/06/2023 TECHNIQUE: Frontal view of the chest was obtained. FINDINGS: No significant abnormality is noted involving the heart, lungs, mediastinum, bony thorax or soft tissues. XR/XR chest 1V IMPRESSION: No acute disease
[2023-05-17 15:37] LABS: MANUAL DIFF FLAG NO
[2023-05-17 15:56] LABS: Anion Gap 10 (12-20); Calcium 9.4 mg/dL (8.4-10.2); Carbon Dioxide 23 mmol/L (22-29); Chloride 109 mmol/L (96-108); Sodium 138 mmol/L (135-145)
[2023-05-17 15:57] LABS: Alanine Aminotransferase 8 U/L (0-31); Alkaline Phosphatase 61 U/L (39-117); Aspartate Amino Transferase 16 U/L (5-31); Bilirubin Total 1.1 mg/dL (0.0-1.0); Blood Urea Nitrogen 10 mg/dL (9-16); Estimated Glomerular Filt Rate > 60; Glucose Random 117 mg/dL (60-115); Hematocrit 43.5 % (37.0-47.0); Mean Corpuscular HGB Conc 32.2 g/dl (31.0-35.0); Mean Corpuscular Hemoglobin 29.3 pg (27.0-33.0); Mean Platelet Volume 11.4 fL (9.4-12.3); Platelet Count 214 X10*3/uL (160-400); Red Blood Count 4.78 X10*6/uL (4.20-5.50); Red Cell Distribution Width 14.6 % (11.0-16.0); Total Protein 7.3 g/dL (6.5-8.0); White Blood Count 7.9 X10*3/uL (4.8-10.8)
[2023-05-17 15:58] LABS: Basophils Percent Auto 0.5 % (0-2); Eosinophils Absolute Auto 0.1 X10*3/uL (0.0-0.4); Eosinophils Percent Auto 1.1 % (0-4); Imm Gran Abs Auto 0.02 X10*3/uL (0.00-0.03); Imm Gran Pct Auto 0.3 % (0.0-0.4); Lymphocytes Absolute Auto 2.7 X10*3/uL (1.2-4.9); Lymphocytes Percent Auto 34.7 % (20-40); Monocytes Absolute Auto 0.5 X10*3/uL (0.1-1.2); Monocytes Percent Auto 6.2 % (2-11); Neutrophils Absolute Auto 4.5 x10*3/uL (2.0-8.3); Neutrophils Percent Auto 57.2 % (45-73)
[2023-05-17 16:02] LABS: Troponin-I High Sensitivity < 2.7 ng/L (<3.5-17.0)
[2023-05-17 16:05] VITALS: BP 135/92; PULSE 79; RESP 19; TEMP 35.8; O2SAT 100; BMI 75.3
--- NOTE | 2023-05-17 16:12 | ED_ITS ---
HPI - Chest Pain General Chief Complaint: Chest Pain Stated Complaint: chest pain Time Seen by Provider: 05/17/23 21:10 Source: patient Mode of arrival: ambulatory History of Present Illness HPI narrative: 47-year-old female who reports a history of atrial fibrillation but is not currently on anticoagulation at direction of her screen roller. Patient states that she has had intermittent chest discomfort that is sharp in nature over the past couple of days but denies any worsening with deep inspiration denies association with a new cough/sore throat. Related Data Home Medications Medication Instructions Recorded Confirmed chlorzoxazone 500 mg tablet 1 tab PO TID PRN muscle spasm 04/27/22 01/16/23 norethindrone (contraceptive) 0.35 0.35 mg PO DAILY 10/14/22 01/16/23 mg tablet (Senait) ergocalciferol (vitamin D2) 1,250 1,250 mcg PO QWEEK 01/16/23 01/16/23 mcg (50,000 unit) capsule sumatriptan succinate 50 mg tablet mg PO 01/16/23 01/16/23 Previous Rx's Medication Instructions Recorded pregabalin 100 mg capsule 100 mg PO TID #90 caps 10/14/22 diphenhydramine HCl 25 mg capsule 25 mg PO TID PRN allergic reaction 11/20/22 (Benadryl) #20 caps metoclopramide HCl 10 mg tablet 10 mg PO Q6H PRN headache #20 tabs 11/20/22 (Reglan) metoprolol succinate 25 mg 25 mg PO DAILY #90 tabs 02/27/23 tablet,extended release 24 hr Allergies Allergy/AdvReac Type Severity Reaction Status Date / Time adhesive [ADHESIVE] Allergy Unknown RASH Verified 05/03/23 15:07 diclofenac [From Voltaren] Allergy Itching Verified 05/03/23 15:07 Review of Systems 2 Review of Systems: Pertinent positives and negatives as stated in HPI PMFSH Past Medical History Source: nursing notes reviewed Medical History Paroxysmal atrial fibrillation Anxiety Obesity IBS (irritable bowel syndrome) Chronic GERD Paroxysmal A-fib New onset a-fib COVID-19 virus infection Lymphedema Arthritis Lipoedema Asthma Surgical History Hx laparoscopic cholecystectomy S/P tonsillectomy History of Lucio-en-Y gastric bypass Family History Family History Father No problems noted. Mother Heart disease Diabetes Hyperlipidemia Hypertension COPD (chronic obstructive pulmonary disease) Brother No problems noted. Sister No problems noted. Son Overweight Diabetes Asthma Daughter Asthma Social History Social History Household Members: Children Household Members Other:: daughter and son. Housing: Apartment Do you presently have visiting nurse or other home services: No Alcohol intake: current Alcohol intake frequency: holidays/special occasions only Patient Tobacco Use Status: Never used Tobacco Substance Use Type: Marijuana Advance Directives: No service: No Current occupational status: disabled Physical Exam 2 Vital Signs: Vital Signs: Last Vital Signs Temp 97.8 F 05/17/23 21:24 Pulse 59 05/17/23 21:24 Resp 17 05/17/23 21:24 BP 141/85 H 05/17/23 21:24 Pulse Ox 100 05/17/23 21:24 O2 Del Method Room Air 05/17/23 21:24 BMI result Body Mass Index 75.3 VITAL SIGNS: Reviewed. GENERAL: Elevated BMI, Well developed, well nourished, in no acute distress. HEAD: Normocephalic/atraumatic EYES: PERRLA, EOMI EARS: Ext canals without abnormality NOSE: Nares patent bilateral OROPHARYNX: no oral lesions noted, posterior pharynx clear NECK: Supple, no adenopathy LUNGS: Normal breath sounds. No adventitious sounds or accessory muscle use. SpO2<100> CARDIOVASCULAR: Regular rate and rhythm without noted murmurs, no JVD or lower extremity edema. ABDOMEN: Soft, non-tender, non-distended with bowel sounds. MUSCULOSKELETAL: No tenderness, deformities, or effusions noted on gross inspection. EXTREMITIES: No cyanosis, clubbing or edema. SKIN: Inspection of the skin reveals no rashes NEUROLOGIC: Alert and oriented x 4. Strength and sensation to light touch were grossly intact x 4. Course Course Course Narrative: RME: 47 yold female presents to the ED for chest pain presetns to the ED for chest pain starting today. labs, chest xray, and wheeizng ordered Medical Decision Making Medical Decision Making MDM Narrative: 47-year-old female with history and clinical presentation, DDX: Anxiety, musculoskeletal, low clinical suspicion for pneumonia/ACS. On review of EKG there is no evidence of atrial fibrillation. I reviewed all investigations and hematologic indices are negative for leukocytosis/left shift and there is no evidence of anemia or thrombocytopenia. Chemistry indices are negative for DAVE and there is no electrolyte derangements and although total bili is mildly elevated it is within the level as previously noted in October of this year. I sensitivity troponin is undetectable no evidence to suggest CHF. Viral testing is negative for COVID/influenza. Chest x-ray does not demonstrate infiltrate her venous congestion and otherwise my interpretation is in agreement with radiology's impression. Differential Diagnosis Differential Diagnoses: The differential diagnosis associated with the presentation includes Please see the discussion above Admission/Observation Consideration of admission/observation: Escalation of care including admission/observation considered Please see the discussion above Lab Data [facility] Lab Attestation statement: I reviewed the patient's lab results. Please see the discussion above 05/17/23 15:27 05/17/23 15:27 Labs: Lab Results 05/17/23 05/17/23 Range/Units 15:27 18:49 WBC 7.9 (4.8-10.8) X10*3/uL RBC 4.78 (4.20-5.50) X10*6/uL Hgb 14.0 (12.0-16.0) g/dl Hct 43.5 (37.0-47.0) % MCV 91.0 (80.0-98.0) fL MCH 29.3 (27.0-33.0) pg MCHC 32.2 (31.0-35.0) g/dl RDW 14.6 (11.0-16.0) % Plt Count 214 (160-400) X10*3/uL MPV 11.4 (9.4-12.3) fL Immature Gran % (Auto) 0.3 (0.0-0.4) % Neut % (Auto) 57.2 (45-73) % Lymph % (Auto) 34.7 (20-40) % Baca % (Auto) 6.2 (2-11) % Eos % (Auto) 1.1 (0-4) % Baso % (Auto) 0.5 (0-2) % Lymph # (Auto) 2.7 (1.2-4.9) X10*3/uL Baca # (Auto) 0.5 (0.1-1.2) X10*3/uL Eos # (Auto) 0.1 (0.0-0.4) X10*3/uL Baso # (Auto) 0.0 (0.0-0.2) X10*3/uL Abs Immat Gran (auto) 0.02 (0.00-0.03) X10*3/uL Absolute Neuts (auto) 4.5 (2.0-8.3) x10*3/uL Absolute Nucleated RBC 0.000 (0.0-0.012) X10*3/uL Nucleated RBC % (auto) 0.0 (0.0-0.2) /100WBC Sodium 138 (135-145) mmol/L Potassium 4.0 (3.3-5.1) mmol/L Chloride 109 H (96-108) mmol/L Carbon Dioxide 23 (22-29) mmol/L Anion Gap 10 L (12-20) BUN 10 (9-16) mg/dL Creatinine 0.72 (0.5-1.4) mg/dL Estim Creat Clear Calc TNP Estimated GFR > 60 Random Glucose 117 H (60-115) mg/dL Calcium 9.4 (8.4-10.2) mg/dL Total Bilirubin 1.1 H (0.0-1.0) mg/dL AST 16 (5-31) U/L ALT 8 (0-31) U/L Alkaline Phosphatase 61 (39-117) U/L Troponin I High Sens < 2.7 (<3.5-17.0) ng/L B-Natriuretic Peptide 71 (<100) pg/mL Total Protein 7.3 (6.5-8.0) g/dL Albumin 4.0 (3.5-5.0) g/dL COVID-19 (JUAN) Negative (Negative) COVID-19 Clin Com See Note Influenza Type A (JERSON) Negative (Negative) Influenza Type B (JERSON) Negative (Negative) Influenza A & B Note See Note Independent Interpretation I performed an independent interpretation of an: EKG Interpretation: Normal sinus rhythm, HR-70, no STEMI, TX/QRS/QTC is within normal limits and there are no acute changes when compared to prior in October of this year. Radiology Impression Discussion of test interpretation with radiology: I have reviewed the radiologist's reading. Radiologist Impression: Please see the discussion above External Record Review External record reviewed: Outpatient record, Prior outpatient labs and Prior outpatient radiology Chronic Conditions Patient?s care impacted by: Hypertension Discharge Plan Discharge Clinical Impression: Atypical chest pain, Musculoskeletal pain, Anxiety Patient Disposition: Home, Self-Care Instructions: Chest Pain (ED), Musculoskeletal Pain (ED) Additional Instructions: 1. Resume all home medications as prescribed. 2. Recommend [id number] Tylenol/ibuprofen as needed for pain control. 3. Please follow-up with your primary care doctor next 1-2 days. Return to the ER for any worsening symptoms. Prescriptions: No Action metoprolol succinate 25 mg tablet extended release 24 hr 25 mg PO DAILY Qty: 90 3RF chlorzoxazone 500 mg tablet 1 tab PO TID PRN (Reason: muscle spasm) diphenhydramine HCl [Benadryl] 25 mg capsule 25 mg PO TID PRN (Reason: allergic reaction) Qty: 20 0RF metoclopramide HCl [Reglan] 10 mg tablet 10 mg PO Q6H PRN (Reason: headache) Qty: 20 0RF norethindrone (contraceptive) [Senait] 0.35 mg tablet 0.35 mg PO DAILY pregabalin 100 mg capsule 100 mg PO TID Qty: 90 3RF sumatriptan succinate 50 mg tablet PO ergocalciferol (vitamin D2) 1,250 mcg (50,000 unit) capsule 1,250 mcg PO QWEEK Interventions: ED Discharge Assessment Last Done: 05/17/23 22:21 Discharge Date/Time: 05/17/23 22:21
[2023-05-17 16:47] LABS: B Type Natriuretic Peptide 71 pg/mL (<100)
[2023-05-17 19:08] VITALS: BP 135/79; PULSE 68; RESP 18; O2SAT 99
[2023-05-17 19:47] LABS: COVID-19 Test Negative (Negative); IDNOW Serial# BCCEAD1C
[2023-05-17 19:48] LABS: IDNOW Serial# 08D9AD1C; Influenza A Negative (Negative); Influenza B2 Negative (Negative)
[2023-05-17 21:24] VITALS: BP 141/85; PULSE 59; RESP 17; TEMP 36.6; O2SAT 100
== END 2023-05-17 22:21 | disposition home or self-care (01) ==
PROVIDERS: Physician Assistant; Emergency Provider Student in an Organized Health Care Education/Training Program
DX: R07.89 Other chest pain (principal); F41.9 Anxiety disorder, unspecified; M79.18 Myalgia, other site; Z11.52 Encounter for screening for COVID-19; I48.0 Paroxysmal atrial fibrillation; R06.02 Shortness of breath; F12.90 Cannabis use, unspecified, uncomplicated; E66.9 Obesity, unspecified; Z68.45 Body mass index [BMI] 70 or greater, adult; Z79.899 Other long term (current) drug therapy
CPT/HCPCS: 36415; 71045; 80053; 83880; 84484; 85025; 87502; 87635; 93005; 99283; 99284

== ENCOUNTER 2023-07-12 12:51 | Outpatient (AMB) | payer OTHER, SELFPAY ==
--- NOTE | 2023-07-12 13:05 | MHC.OFFVIS ---
Intake Vital Signs 07/12/23 13:06 Height 4 ft 11 in Weight 360 lb BMI 72.7 Pulse 68 Pulse Source Pulse Oximeter Pulse Oximetry (%) 98 Oxygen Delivery Method Room Air Intake Visit Reasons: 3m follow up Headaches/Migraines-Confirmed Intake Note: Patient presents fort 3 month follow up. Allergies adhesive [ADHESIVE] Allergy (Unknown, Verified 07/12/23 13:09) RASH diclofenac [From Voltaren] Allergy (Verified 07/12/23 13:09) Itching Medication List - Last Reconciled 07/12/23 by ALFONSO Martinez chlorzoxazone 1 tab PO TID PRN diphenhydramine HCl (Benadryl) 25 mg PO TID PRN ergocalciferol (vitamin D2) 1,250 mcg PO QWEEK metoclopramide HCl (Reglan) 10 mg PO Q6H PRN metoprolol succinate ER 25 mg PO DAILY norethindrone (contraceptive) (Senait) 0.35 mg PO DAILY pregabalin 100 mg PO TID sumatriptan succinate mg PO tramadol 50 mg PO DAILY HPI HPI Comments History of Present Illness Details 47-yr-old female presents for f/u visit. Pt denies any significant interval medical changes. Pt continues to have a couple of migraines per month. Pt reports that she had a worse migraine yesterday, this started in her neck and then moved up into her head. This responded well to Sumatriptan. She had HST which showed AHI 2/hr w/ O2 guillermo 85%. Thus pt was advised to undergo f/u in-lab PSG PAP titration to further assess. She does still have difficulties w/ sleep. However she was unable to do the PAP titration study d/t family demands. [facility] Medical History Paroxysmal atrial fibrillation Anxiety Obesity IBS (irritable bowel syndrome) Chronic GERD Paroxysmal A-fib New onset a-fib COVID-19 virus infection Lymphedema Arthritis Lipoedema Asthma Surgical History Hx laparoscopic cholecystectomy S/P tonsillectomy History of Lucio-en-Y gastric bypass Family History Father No problems noted. Mother Heart disease Diabetes Hyperlipidemia Hypertension COPD (chronic obstructive pulmonary disease) Brother No problems noted. Sister No problems noted. Son Overweight Diabetes Asthma Daughter Asthma Social History Household Members: Children Household Members Other:: daughter and son. Housing: Apartment Do you presently have visiting nurse or other home services: No Alcohol intake: current Alcohol intake frequency: holidays/special occasions only Patient Tobacco Use Status: Never used Tobacco Substance Use Type: Marijuana service: No Current occupational status: disabled Physical Exam Vital Signs: Last Vital Signs Pulse 68 07/12/23 13:06 Pulse Ox 98 07/12/23 13:06 Oxygen Delivery Method Room Air 07/12/23 13:06 BMI result Body Mass Index 72.7 Const General: cooperative and no acute distress Orientation/consciousness: patient oriented x3 HEENT Head: Yes normocephalic Resp Effort & Inspection: normal respiratory effort and able to speak in complete sentences Neuro General: patient oriented x3, gait normal and CN's II-XI intact bilaterally Cognition (Neuro): normal cognition Motor exam (neuro): 5/5 motor strength present throughout Psych Appearance: grossly normal Mental Status: mental status grossly normal Speech and movement: Normal speech and movement present Affect: normal affect Attitude: cooperative Thought process: Normal thought process present Thought content: Normal thought content present Insight: Good insight present (Psych) Judgement: Good judgement present (Psych) Assessment & Plan Assessment & Plan (1) Snoring: Code(s): R06.83 - Snoring (2) Sleep difficulties: Code(s): G47.9 - Sleep disorder, unspecified (3) Excessive daytime sleepiness: Code(s): G47.19 - Other hypersomnia (4) Migraine with visual aura: Code(s): G43.109 - Migraine with aura, not intractable, without status migrainosus Plan Had eye exam- normal, but does need bifocals. Reviewed HST- AHI 2/hr w/ O2 guillermo 85%. Hold in-lab PSG- until she is able to do. Pt may benefit from reading/listening to [employer] by Viky Whyte, PhD- book lent to pt today. ? For overall headache management: Continue to optimize good self-care, including but not limited to maintaining a healthy diet, adequate fluid intake, adequate sleep, and engaging in regular physical activity. Track headaches. Future considerations- brain MRI- if burden worsens ? For acute headache treatment: Discussed importance of taking acute medications at the first sign of headache. Continue Sumatriptan 50mg prn. Cardiology has cleared pt to use triptans. Previous acute migraine medication trials: None Future considerations: gepant ? For headache prevention medication: Start Topiramate 25-50mg qhs. Magnesium 400mg qhs Continue metoprolol- per cardiology for paroxysmal a-fib. Previous migraine prevention medication trials: None Migraine prevention medication contraindications: None ? Pt to follow-up in 4 months or sooner prn. Medications: New topiramate 25 - 50 mg (1 - 2 x 25 mg) PO BEDTIME 30 days 60 tabs 3RF Coding Level of Care Code Est Pt Level 4 (40038) Diagnoses Snoring R06.83 Sleep difficulties G47.9 Excessive daytime sleepiness G47.19 Migraine with visual aura G43.109
[2023-07-12 13:06] VITALS: PULSE 68; O2SAT 98; BMI 72.7
== END 2023-07-12 13:56 | disposition home or self-care (01) ==
PROVIDERS: PCP Family Medicine; Visit Provider Nurse Practitioner Family
DX: R06.83 Snoring (principal); G47.9 Sleep disorder, unspecified; G47.19 Other hypersomnia; G43.109 Migraine with aura, not intractable, without status migrainosus
CPT/HCPCS: 99214

== ENCOUNTER → 2023-07-12 12:51 | Outpatient (BNVA) | payer OTHER, SELFPAY | PROVIDERS: PCP Family Medicine; Visit Provider Nurse Practitioner Family | DX: G43.109 Migraine with aura, not intractable, without status migrainosus (principal); R06.83 Snoring; G47.9 Sleep disorder, unspecified; G47.19 Other hypersomnia | CPT/HCPCS: 99212 ==

== ENCOUNTER 2023-11-14 12:26 | Outpatient (AMB) | payer OTHER, SELFPAY ==
--- NOTE | 2023-11-14 12:33 | MHC.OFFVIS ---
Vital Signs 11/14/23 12:34 Height 4 ft 11 in Weight 354 lb 15.108 oz BMI 71.7 BP 120/76 Blood Pressure Location Lt brachial Position Sitting Pulse 56 Intake Visit Reasons: 1 yr f/up Intake Note: 1 year follow-up with ekg c/o low heart rate sometimes in the 40's and doesn't feel good Electronics Supervisor Required: No Tar And Ammonia Pump Operator: Tar And Ammonia Pump Operator Present Accompanied by: Daughter Allergies adhesive [ADHESIVE] Allergy (Unknown, Verified 07/12/23 13:09) RASH diclofenac [From Voltaren] Allergy (Verified 07/12/23 13:09) Itching Medication List - Last Reconciled 11/14/23 by Nathan Olmstead MD chlorzoxazone 1 tab PO TID PRN diphenhydramine HCl (Benadryl) 25 mg PO TID PRN ergocalciferol (vitamin D2) 1,250 mcg PO QWEEK metoclopramide HCl (Reglan) 10 mg PO Q6H PRN metoprolol succinate ER 25 mg PO DAILY norethindrone (contraceptive) (Senait) 0.35 mg PO DAILY sumatriptan succinate 50 mg PO topiramate 25 - 50 mg (1 - 2 x 25 mg) PO BEDTIME 30 days tramadol 50 mg PO DAILY HPI Comments Details: Shira came for follow-up. She was accompanied by her daughter. She comes for follow-up of her paroxysmal atrial fibrillation. On EKG noted bradycardia with blocked PACs. We talked about this saying that this is probably related to metoprolol therapy. She got upset about it saying that she has had slow heart rate for a long time. She has been worried about it. She is not sure if she has atrial fibrillation, as she does not have much symptoms of palpitation but she is notice slow heart rate at home. No lightheadedness or syncope. We discussed about this finding and said that she will probably need to come of metoprolol therapy. She then said that she was prescribed metoprolol therapy by me for atrial fibrillation I said that is true as metoprolol is used to reduce risk of recurrent atrial fibrillation. She says she has slow heart rate when she was in AFib, I said that was true as well but post she had normal heart rate. Today she is demonstrating slow heart rate with blocked PACs and I suggested to come of the metoprolol therapy. She said that what will be the plan in the future. I said she would require some form of monitoring although she says she is allergic to the Holter monitor these if. I did also mentioned again to obtain smart phone based EKG device. She and then her daughter got very upset as said that these are not the options that day would be able to pursue as she can not afford the EKG device. She also says she can not wear the Holter monitor. She then got up and walked out of the room. I was not able to examine her. [facility] Medical History Paroxysmal atrial fibrillation Anxiety Obesity IBS (irritable bowel syndrome) Chronic GERD Paroxysmal A-fib New onset a-fib COVID-19 virus infection Lymphedema Arthritis Lipoedema Asthma Surgical History Hx laparoscopic cholecystectomy S/P tonsillectomy History of Lucio-en-Y gastric bypass Family History Father No problems noted. Mother Heart disease Diabetes Hyperlipidemia Hypertension COPD (chronic obstructive pulmonary disease) Brother No problems noted. Sister No problems noted. Son Overweight Diabetes Asthma Daughter Asthma Social History Household Members: Children Household Members Other:: daughter and son. Housing: Apartment Do you presently have visiting nurse or other home services: No Alcohol intake: current Alcohol intake frequency: holidays/special occasions only Patient Tobacco Use Status: Never used Tobacco Substance Use Type: Marijuana service: No Current occupational status: disabled Review of Systems Const Denies chills, Denies fatigue, Denies fever(s), Denies frequent falls, Denies weakness, Denies weight gain and Denies weight loss ENT Denies dizziness Card Denies chest pain, Denies leg edema, Denies lightheadedness, Denies palpitations, Denies dyspnea, Denies dyspnea on exertion, Denies orthopnea and Denies other (loss of consciousness) Resp Denies cough, Denies dyspnea and Denies dyspnea on exertion GI Denies hematochezia and Denies change in stool character Musc Denies abnormal gait, Denies muscle weakness, Denies numbness, Denies radiating pain into limb and Denies tingling Neuro Denies abnormal gait, Denies dizziness, Denies frequent falls, Denies numbness, Denies tingling and Denies weakness Endo Denies fatigue and Denies palpitations Physical Exam Vital Signs: Last Vital Signs Pulse 56 11/14/23 12:34 BP 120/76 11/14/23 12:34 BMI result Body Mass Index 71.7 Patient walked out of the room before I could examine her. Assessment & Plan Assessment & Plan (1) Sinus bradycardia: Code(s): R00.1 - Bradycardia, unspecified Plan: Sinus bradycardia with blocked PAC. I did discuss the findings with her. I said she should taper and discontinue metoprolol therapy. She got upset about this as she said what are the other options I said will have to monitor in the future to see what other options are if she develops recurrent atrial fibrillation. At this point time the plan would be to taper and discontinue metoprolol and watch her and monitor in the future. She says she can not do any form of monitoring in the future. She said she always had slow heart rate in the past. Side agree but she has never had blocked PACs. She then walked out other room before we could come to an agreement. I would therefore still recommend her to discontinue metoprolol therapy. (2) Paroxysmal A-fib: Code(s): I48.0 - Paroxysmal atrial fibrillation Category: Medical Plan: Paroxysmal atrial fibrillation with slow ventricular response. Normal structure of the heart. She has no significant coronary artery disease. Can not tolerate metoprolol therapy due to bradycardia and blocked PACs. Difficult to manage this situation. Discussed that if she is recurrent atrial fibrillation in the future will have to, with an alternative plan although she said what that alternative plan would be and how we would determine that. I said will have to monitor her heart in some way. We also discussed about weight management then she got defensive about it given that she says most of her weight is related to her leg swelling which she calls as lipidema, and there is no known treatment for it and she can not lose more weight. She has prior history of gastric bypass surgery. We did not come up to any agreement. Patient left without further discussion. Not sure if patient would want to follow-up. I did offer her 2nd opinion with another audio visual specialist, however she was not interested in that. Coding Level of Care Code Est Pt Level 4 (07197) Diagnoses Sinus bradycardia R00.1 Paroxysmal A-fib I48.0
[2023-11-14 12:34] VITALS: BP 120/76; PULSE 56; BMI 71.7
== END 2023-11-14 13:07 | disposition home or self-care (01) ==
PROVIDERS: Visit Provider Internal Medicine Cardiovascular Disease
DX: R00.1 Bradycardia, unspecified (principal); I48.0 Paroxysmal atrial fibrillation
CPT/HCPCS: 99214

== ENCOUNTER → 2023-11-14 12:26 | Outpatient (BNVA) | payer OTHER, SELFPAY | PROVIDERS: Visit Provider Internal Medicine Cardiovascular Disease | DX: I48.0 Paroxysmal atrial fibrillation (principal); R00.1 Bradycardia, unspecified | CPT/HCPCS: 99212 ==

== ENCOUNTER 2024-01-26 14:39 | Observation (INO) | payer OTHER, SELFPAY ==
--- NOTE | ~2024-01-26 | XR_ITS ---
EXAMINATION: XR CHEST 3:14 PM CLINICAL INFORMATION: Chest pain COMPARISON: 05/17/2023 TECHNIQUE: Frontal view of the chest was obtained. FINDINGS: No significant abnormality is noted involving the heart, lungs, mediastinum, bony thorax or soft tissues. XR/XR chest 1V IMPRESSION: No acute disease
--- NOTE | 2024-01-26 14:42 | ECG_ITS ---
Test Reason : CHEST PAIN Blood Pressure : / mmHG Vent. Rate : 075 BPM Atrial Rate : 075 BPM P-R Int : 144 ms QRS Dur : 074 ms QT Int : 402 ms P-R-T Axes : 017 -35 -14 degrees QTc Int : 448 ms Normal sinus rhythm Left axis deviation Possible Anterolateral infarct (cited on or before 31-MAY-2022) - could be related to body habitus Abnormal ECG When compared with ECG of 17-MAY-2023 15:23, No significant change was found Referred By: Param Beckham Electronically Signed By:RICARDO RODRIGUEZ
--- NOTE | 2024-01-26 14:49 | ED_ITS ---
HPI - General Adult General Chief complaint: Chest Pain Stated complaint: Sent by PCP - chest pain, AFIB Time Seen by Provider: 01/26/24 19:53 History of Present Illness ED Provider: Dr. See HPI narrative: 48 y/o F patient; PMH paroxysmal atrial fibrillation followed by Dr. Olmstead (Cardiology); presents from home with report of chest pain for the last 3 days. The patient spoke with her PCP today who referred her to the emergency department. She states the pain was worse on the 3rd. At that time she was highly emotionally upset yelling at a friend. She developed nausea and significant diaphoresis with the chest pain. Since then the nausea and diaphoresis have resolved but she continues to have improved but still contant chest pain. She denies: SOB, cough/congestion, diarrhea, abdominal pain, syncope. ECHO 04/2022: Normal LV systolic and diastolic function, normal cardiac valvular doppler, no gross pericardial effusion. Cardiac Cath 06/2022: Coronary arteries angiographically normal with false + stress test Related Data Home Medications ?Medication ?Instructions ?Recorded ?Confirmed chlorzoxazone 500 mg tablet 1 tab PO TID PRN muscle spasm 04/27/22 11/14/23 norethindrone (contraceptive) 0.35 0.35 mg PO DAILY 10/14/22 11/14/23 mg tablet (Senait) ergocalciferol (vitamin D2) 1,250 1,250 mcg PO QWEEK 01/16/23 11/14/23 mcg (50,000 unit) capsule tramadol 50 mg tablet 50 mg PO DAILY 07/12/23 11/14/23 sumatriptan succinate 50 mg tablet 50 mg PO 11/14/23 11/14/23 Previous Rx's ?Medication ?Instructions ?Recorded diphenhydramine HCl 25 mg capsule 25 mg PO TID PRN allergic reaction 11/20/22 (Benadryl) #20 caps metoclopramide HCl 10 mg tablet 10 mg PO Q6H PRN headache #20 tabs 11/20/22 (Reglan) metoprolol succinate 25 mg 25 mg PO DAILY #90 tabs 02/27/23 tablet,extended release 24 hr topiramate 25 mg tablet 25 - 50 mg (1 - 2 x 25 mg) PO 07/12/23 BEDTIME 30 days #60 tabs Allergies Allergy/AdvReac Type Severity Reaction Status Date / Time adhesive [ADHESIVE] Allergy Unknown RASH Verified 01/26/24 15:03 diclofenac [From Voltaren] Allergy Itching Verified 01/26/24 15:03 Review of Systems 2 Review of Systems: Yes all other systems are reviewed and are negative [facility] Past Medical History Attestation statement: The following information was validated with the patient. Source: old records reviewed Medical History Paroxysmal atrial fibrillation Anxiety Obesity IBS (irritable bowel syndrome) Chronic GERD Paroxysmal A-fib New onset a-fib COVID-19 virus infection Lymphedema Arthritis Lipoedema Asthma Surgical History Hx laparoscopic cholecystectomy S/P tonsillectomy History of Lucio-en-Y gastric bypass Family History Family History Father No problems noted. Mother Heart disease Diabetes Hyperlipidemia Hypertension COPD (chronic obstructive pulmonary disease) Brother No problems noted. Sister No problems noted. Son Overweight Diabetes Asthma Daughter Asthma Social History Social History Household Members: Children Household Members Other:: daughter and son. Housing: Apartment Do you presently have visiting nurse or other home services: No Alcohol intake: never Patient Tobacco Use Status: Never used Tobacco Smoked in Last 30 Days: No Use of substances other than those prescribed or required for medical reasons: No Substance Use Type: Marijuana Advance Directives: No Advance Directives Information Provided: No Do you have a plan to hurt others: No Plan Patient : No service: No Current occupational status: disabled Physical Exam ED Vital Signs: Vital Signs - 24 hr 01/26/24 14:59 01/26/24 19:40 Temperature 97.1 F 98.2 F Pulse Rate 74 67 Respiratory Rate 18 14 Blood Pressure 143/80 H 130/78 Pulse Oximetry 99 100 Oxygen Delivery Method Room Air Room Air BMI result Body Mass Index 71.3 Patient is afebrile and hemodynamically stable Const General: cooperative and no acute distress HENMT Head: Yes normal to inspection and Yes atraumatic Eyes General: appearance normal, both eyes and all related structures Pupils: Equal, round and reactive pupils present EOM: EOMs intact bilaterally Neck Neck: Yes normal visual inspection, Yes full ROM, Yes supple and No tender Chest Chest palpation & inspection: normal inspection of the chest and normal palpation of entire chest wall Resp Effort & Inspection: normal respiratory effort, able to speak in complete sentences, no cough and no respiratory distress Auscultation: clear to auscultation bilaterally Cardio Rate: regular rate Rhythm: regular rhythm Peripheral pulses: Peripheral pulses 2+ throughout GI Inspection: Yes normal to inspection, No Abdominal wall edema and No distended Palpation (GI): Soft to palpation, not firm, nontender, no guarding and not rigid Auscultation: normal bowel sounds Back/Spine/Pelvis Back: No back tenderness Neuro Cranial nerves: Yes Equal, round and reactive pupils present Extrem Other: + bilateral lower extremity lymphedema Course Course Course Narrative: This is an RME done by KENNETH Beckham: Additional HPI, ROS, PE not included below will be deferred to primary provider. 48 year old female hx of afib, lymphedema, asthma, fibromyalgia, migrane presents w/ r sided shart cp x few days not improving. No a.c sob, fevers, chills, uri sx. Nothing makes pain better or worse. Appearance: Alert.? Oriented X3.? No acute cardiopulmonary distress distress.? Head: Normocephalic, atraumatic, no step-offs or deformities Neck: Normal inspection.? Neck supple.? CVS: Pulses normal.? Respiratory: No respiratory distress.? Skin: ? Normal skin color. Extremities: 5/5 strength to bilateral upper and lower extremities + lymphedema Neuro: Oriented X 3.? No motor deficit.? No sensory deficit. Reevaluation(s) Reevaluation #1: Patient is afebrile and hemodynamically stable. Reviewed triage work up. CXR unremarkable. Laboratory studies reviewed: CBC unremarkable Troponin and then 20, prior in 04/2023 <2.7. Provided aspirin. COVID/Flu/RSV negative. Discussed with cardiology Dr. Keene who agreed with plan for observation admission due to chest pain with diaphoresis and nausea, with recent increase in troponin level. Plan: Admit to hospitalist Condition: Stable Medical Decision Making Lab Data 01/26/24 14:54 01/26/24 14:54 Labs: Lab Results 01/26/24 01/26/24 Range/Units 14:54 19:12 WBC 7.6 (4.8-10.8) X10*3/uL RBC 4.80 (4.20-5.50) X10*6/uL Hgb 14.0 (12.0-16.0) g/dl Hct 42.6 (37.0-47.0) % MCV 88.8 (80.0-98.0) fL MCH 29.2 (27.0-33.0) pg MCHC 32.9 (31.0-35.0) g/dl RDW 14.5 (11.0-16.0) % Plt Count 222 (160-400) X10*3/uL MPV 10.7 (9.4-12.3) fL Immature Gran % (Auto) 0.4 (0.0-0.4) % Neut % (Auto) 59.6 (45-73) % Lymph % (Auto) 32.2 (20-40) % [place] % (Auto) 6.0 (2-11) % Eos % (Auto) 1.3 (0-4) % Baso % (Auto) 0.5 (0-2) % Lymph # (Auto) 2.4 (1.2-4.9) X10*3/uL [place] # (Auto) 0.5 (0.1-1.2) X10*3/uL Eos # (Auto) 0.1 (0.0-0.4) X10*3/uL Baso # (Auto) 0.0 (0.0-0.2) X10*3/uL Abs Immat Gran (auto) 0.03 (0.00-0.03) X10*3/uL Absolute Neuts (auto) 4.5 (2.0-8.3) x10*3/uL Absolute Nucleated RBC 0.000 (0.0-0.012) X10*3/uL Nucleated RBC % (auto) 0.0 (0.0-0.2) /100WBC PT 13.0 (11.1-13.3) SEC INR 1.1 (0.9-1.1) Sodium 141 (135-145) mmol/L Potassium 3.7 (3.3-5.1) mmol/L Chloride 111 H (96-108) mmol/L Carbon Dioxide 25 (22-29) mmol/L Anion Gap 9 L (12-20) BUN 13 (9-16) mg/dL Creatinine 0.89 (0.5-1.4) mg/dL Estim Creat Clear Calc 112.1 Estimated GFR > 60 Random Glucose 104 (60-115) mg/dL Calcium 9.1 (8.4-10.2) mg/dL Magnesium 2.1 (1.6-2.6) mg/dL Total Bilirubin 1.1 H (0.0-1.0) mg/dL AST 16 (5-31) U/L ALT 17 (0-31) U/L Alkaline Phosphatase 53 (39-117) U/L Troponin I High Sens 21.0 H D 20.1 H (<3.5-17.0) ng/L Total Protein 6.9 (6.5-8.0) g/dL Albumin 3.7 (3.5-5.0) g/dL Independent Interpretation I performed an independent interpretation of an: EKG Interpretation: NSR 75BPM without ischemic changes, QTc 448. Radiology Impression Discussion of test interpretation with radiology: I have reviewed the radiologist's reading. Radiologist Impression: EXAMINATION: XR CHEST 3:14 PM CLINICAL INFORMATION: Chest pain COMPARISON: 05/17/2023 TECHNIQUE: Frontal view of the chest was obtained. FINDINGS: No significant abnormality is noted involving the heart, lungs, mediastinum, bony thorax or soft tissues. XR/XR chest 1V IMPRESSION: No acute disease Discharge Plan Discharge Patient Disposition: Admitted As Inpatient Prescriptions: No Action metoprolol succinate 25 mg tablet extended release 24 hr 25 mg PO DAILY Qty: 90 3RF chlorzoxazone 500 mg tablet 1 tab PO TID PRN (Reason: muscle spasm) diphenhydramine HCl [Benadryl] 25 mg capsule 25 mg PO TID PRN (Reason: allergic reaction) Qty: 20 0RF metoclopramide HCl [Reglan] 10 mg tablet 10 mg PO Q6H PRN (Reason: headache) Qty: 20 0RF norethindrone (contraceptive) [Senait] 0.35 mg tablet 0.35 mg PO DAILY ergocalciferol (vitamin D2) 1,250 mcg (50,000 unit) capsule 1,250 mcg PO QWEEK sumatriptan succinate 50 mg tablet 50 mg PO tramadol 50 mg tablet 50 mg PO DAILY topiramate 25 mg tablet 25 - 50 mg PO BEDTIME 30 Days Qty: 60 3RF Print Language: Faroese
[2024-01-26 14:59] VITALS: BP 143/80; PULSE 74; RESP 18; TEMP 36.2; O2SAT 99; BMI 71.3
[2024-01-26 15:00] LABS: MANUAL DIFF FLAG NO
[2024-01-26 15:02] LABS: Basophils Percent Auto 0.5 % (0-2); Eosinophils Absolute Auto 0.1 X10*3/uL (0.0-0.4); Eosinophils Percent Auto 1.3 % (0-4); Hematocrit 42.6 % (37.0-47.0); Imm Gran Abs Auto 0.03 X10*3/uL (0.00-0.03); Imm Gran Pct Auto 0.4 % (0.0-0.4); Lymphocytes Absolute Auto 2.4 X10*3/uL (1.2-4.9); Lymphocytes Percent Auto 32.2 % (20-40); Mean Corpuscular HGB Conc 32.9 g/dl (31.0-35.0); Mean Corpuscular Hemoglobin 29.2 pg (27.0-33.0); Mean Corpuscular Volume 88.8 fL (80.0-98.0); Mean Platelet Volume 10.7 fL (9.4-12.3); Monocytes Absolute Auto 0.5 X10*3/uL (0.1-1.2); Neutrophils Absolute Auto 4.5 x10*3/uL (2.0-8.3); Neutrophils Percent Auto 59.6 % (45-73); Platelet Count 222 X10*3/uL (160-400); Red Cell Distribution Width 14.5 % (11.0-16.0); White Blood Count 7.6 X10*3/uL (4.8-10.8)
[2024-01-26 15:06] LABS: INTERNATIONAL NORM RATIO 1.1 (0.9-1.1)
[2024-01-26 15:22] LABS: Alanine Aminotransferase 17 U/L (0-31); Albumin Level 3.7 g/dL (3.5-5.0); Alkaline Phosphatase 53 U/L (39-117); Anion Gap 9 (12-20); Aspartate Amino Transferase 16 U/L (5-31); Bilirubin Total 1.1 mg/dL (0.0-1.0); Blood Urea Nitrogen 13 mg/dL (9-16); Calcium 9.1 mg/dL (8.4-10.2); Carbon Dioxide 25 mmol/L (22-29); Chloride 111 mmol/L (96-108); Creatinine Clr Calc Pharmacy 112.1; Estimated Glomerular Filt Rate > 60; Glucose Random 104 mg/dL (60-115); Magnesium 2.1 mg/dL (1.6-2.6); Potassium 3.7 mmol/L (3.3-5.1); Sodium 141 mmol/L (135-145); Total Protein 6.9 g/dL (6.5-8.0)
[2024-01-26 19:40] VITALS: BP 130/78; PULSE 67; RESP 14; TEMP 36.8; O2SAT 100
[2024-01-26 19:41] LABS: Troponin-I High Sensitivity 20.1 ng/L (<3.5-17.0)
--- NOTE | 2024-01-26 19:58 | PC.NURSE ---
Pt A&Ox3, reports 5/ constant substernal CP, started 3 days ago after argument, today left hand tingling started. Pt reports having multiple life stressors. VSS. Pt reports hx lymphedema to bilateral legs.
[2024-01-26] MEDS: Aspirin 81 MG TAB.CHEW 324 MG PO (21:01)
--- NOTE | 2024-01-26 21:07 | PM.IMHP ---
History of Present Illness Date of Service: 01/26/24 Attending physician on admission: Gabriela Alexander Chief Complaint: Chest pain Pt is a 48-year-old female with a PMH significant for?paroxysmal AFib not on anticoagulation follows with Dr. Olmstead, migraines, arthritis, fibromyalgia, and lymphedema who presents to the ED for evaluation of right-sided chest pain x2+ weeks. Patient has a complicated past cardiac history, follow up at Dr. Olmstead. Last echocardiogram in 05/14 showed normal LV systolic and diastolic function, normal cardiac valvular Doppler and no gross pericardial effusion. Also had cardiac catheterization on 06/2022 after abnormal stress test and concerning coronary CTA , though cardiac catheterization found coronary arteries angiographically normal and stress test was thus a false positive. Patient reports she has been experiencing constant chest pain for the past few weeks that is centered over her right chest and occasionally radiates to her neck. Describes pain as mostly sharp and stabbing though occasionally also feels like an ?electric shock?. Denies feeling chest pressure. Reports 2 days ago on 01/24/2024 patient had an argument with a friend where she was ?shutting the top of my lungs?. A few hours later right-sided chest pain became severe, sharp, and worse than it ever had been. Patient became diaphoretic and was ?doubled over? in pain. Patient did not seek medical attention at that time as she reports she no longer calls the Cardiology office since she got in an argument with Dr. Olmstead during her last office visit and left the office midway during her examination. Presents today after calling her PCP and having them suggest her to visit the ED for further evaluation. Also reports occasional headaches. Had 1 episode of shortness of breath last night. No fever, chills. No nausea, vomiting, abdominal pain. Chronic lymphedema at baseline. Of note, patient was admitted for similar symptoms of intermittent chest pain lasting up to 1 hour that would improve with rest usually associated with arguments with her 21-year-old son. In the ED pt was Labs were significant for initial troponin of 21.0 with repeat flat at 20.1, otherwise grossly unremarkable. No leukocytosis. Stable H&H. No significant electrolyte abnormalities. Renal and hepatic function WNL. CXR showed no acute cardiopulmonary disease. EKG demonstrated normal sinus rhythm with nonspecific T-wace inversions in leads III and AVF without evidence of significant ST elevations or depressions. Pt was treated with aspirin 324 mg. Pt will be admitted to the hospital under observation for further evaluation and monitoring of atypical chest pain. Review of Systems Review of Systems: Right-sided chest pain occasionally radiating to right neck Occasional headaches Some shortness of breath last night Denies chest pressure No fever, chills Denies abdominal pain PMFSH Medical History Paroxysmal atrial fibrillation Anxiety Obesity IBS (irritable bowel syndrome) Chronic GERD Paroxysmal A-fib New onset a-fib COVID-19 virus infection Lymphedema Arthritis Lipoedema Asthma Family History Father No problems noted. Mother Heart disease Diabetes Hyperlipidemia Hypertension COPD (chronic obstructive pulmonary disease) Brother No problems noted. Sister No problems noted. Son Overweight Diabetes Asthma Daughter Asthma Surgical History Hx laparoscopic cholecystectomy S/P tonsillectomy History of Lucio-en-Y gastric bypass Social History Household Members: Children Household Members Other:: daughter and son. Housing: Apartment Do you presently have visiting nurse or other home services: No Alcohol intake: never Patient Tobacco Use Status: Never used Tobacco Smoked in Last 30 Days: No Use of substances other than those prescribed or required for medical reasons: No Substance Use Type: Marijuana Advance Directives: No Advance Directives Information Provided: No Do you have a plan to hurt others: No Plan Patient : No service: No Current occupational status: disabled Meds Allergies Allergy/AdvReac Type Severity Reaction Status Date / Time adhesive [ADHESIVE] Allergy Unknown RASH Verified 01/26/24 15:03 diclofenac [From Voltaren] Allergy Itching Verified 01/26/24 15:03 Home Medications ?Medication ?Instructions ?Recorded ?Confirmed ?Last Taken ?Type chlorzoxazone 500 mg tablet 1 tab PO TID PRN muscle spasm 04/27/22 01/26/24 01/25/24 History tramadol 50 mg tablet 50 mg PO DAILY 07/12/23 01/26/24 01/25/24 History sumatriptan succinate 50 mg tablet 50 mg PO DAILY PRN Migraine 11/14/23 01/26/2401/24/24 History Headache albuterol sulfate 90 mcg/actuation 2 puff inhalation DAILY PRN 01/26/24 01/26/24 Unknown History aerosol inhaler SOB/Wheezing norethindrone acetate 5 mg tablet 5 mg PO DAILY 01/26/24 01/26/24 01/25/24 History Physical Exam Vital Signs and Narrative: Vital Signs: Last Vital Signs Temp 98.2 F 01/26/24 19:40 Pulse 67 01/26/24 19:40 Resp 14 01/26/24 19:40 BP 130/78 01/26/24 19:40 Pulse Ox 100 01/26/24 19:40 O2 Del Method Room Air 01/26/24 19:40 BMI result Body Mass Index 71.3 General: AOx3, no acute distress Resp: CTA bilaterally CVS: S1, S2, RRR GI: +BS, NT, obese Skin: Warm, dry Neuro: Cranial nerves II-XII grossly intact bilaterally. Motor grossly intact bilaterally Extremities: Significant lymphedema. No signs of cellulitis Psych: Appropriate affect Results Labs 01/26/24 14:54 01/26/24 14:54 Labs: Laboratory Results - last 24 hr 01/26/24 01/26/24 14:54 19:12 MCV 88.8 MCH 29.2 MCHC 32.9 RDW 14.5 Plt Count 222 MPV 10.7 Immature Gran % (Auto) 0.4 Neut % (Auto) 59.6 Lymph % (Auto) 32.2 [place] % (Auto) 6.0 Eos % (Auto) 1.3 Baso % (Auto) 0.5 Lymph # (Auto) 2.4 [place] # (Auto) 0.5 Eos # (Auto) 0.1 Baso # (Auto) 0.0 Abs Immat Gran (auto) 0.03 Absolute Neuts (auto) 4.5 Absolute Nucleated RBC 0.000 Nucleated RBC % (auto) 0.0 PT 13.0 INR 1.1 Anion Gap 9 L Estim Creat Clear Calc 112.1 Estimated GFR > 60 Random Glucose 104 Calcium 9.1 Magnesium 2.1 Total Bilirubin 1.1 H AST 16 ALT 17 Alkaline Phosphatase 53 Troponin I High Sens 21.0 H D 20.1 H Total Protein 6.9 Albumin 3.7 Imaging Radiologist's Impressions: Impressions Chest X-Ray 01/26/24 15:15 IMPRESSION: No acute disease Assessment and Plan (1) Atypical chest pain: Status: Inactive Plan Pt is a 48-year-old female with a PMH significant for?paroxysmal AFib not on anticoagulation follows with Dr. Olmstead, migraines, arthritis, fibromyalgia, and lymphedema who presents to the ED for evaluation of right-sided chest pain x2+ weeks. Pt will be admitted to the hospital under observation for further evaluation and monitoring of atypical chest pain. Atypical chest pain Reports constant right-sided sharp, stabbing chest pain x2+ weeks Worse after emotional distress from arguments Serial troponins 21.0 with repeat flat at 20.1 EKG without significant ischemic changes Repeat troponin in the morning Echocardiogram Cardiology consult Monitor on telemetry Paroxysmal AFib Continue metoprolol Migraines Continue sumatriptan Full Code Attending:?Dr. Alexander DVT Prophylaxis: Lovenox Patient will be admitted to the hospital under observation for atypical chest pain. Patient will require monitoring of cardiac function, labs, troponin, and receive echocardiogram in the morning and specialist consultation with Cardiology. Quality Stroke Does the patient have a stroke diagnosis?: No VTE Prior VTE?: No VTE Risk Level:: Medical - moderate - high VTE Device Contraindication: Treatment Not Indicated VTE Drug Contraindication: N/A - Med Ordered
--- NOTE | 2024-01-26 21:11 | PHA.MEDREC ---
Pharmacy Consult ? Medication Reconciliation Pharmacy has completed the medication reconciliation. Confirmed medications with patient. Patient confirmed she took her medication last night.
[2024-01-26 22:05] VITALS: BP 123/85; PULSE 63; RESP 17; TEMP 36.9; O2SAT 99
[2024-01-26] MEDS: Enoxaparin Sodium 40 MG/0.4 ML SYRINGE SUBCUT (22:22)
--- NOTE | 2024-01-27 00:38 | PC.NURSE ---
Report complete, Pt will be transported up to floor. Pt aware of plan.
[2024-01-27 01:00] VITALS: BP 123/61; PULSE 65; RESP 20; TEMP 36.3; O2SAT 99
[2024-01-27] MEDS: 0.9 % Sodium Chloride Flush 3 ML SYRINGE IVFLUSH ×2 (01:07→08:28)
[2024-01-27 01:40] VITALS: BMI 71.7
[2024-01-27 03:30] VITALS: BP 140/87; PULSE 62; RESP 20; TEMP 36.2; O2SAT 98
[2024-01-27 07:44] LABS: MANUAL DIFF FLAG NO
[2024-01-27 07:57] LABS: Basophils Percent Auto 0.4 % (0-2); Eosinophils Absolute Auto 0.1 X10*3/uL (0.0-0.4); Eosinophils Percent Auto 1.4 % (0-4); Hematocrit 38.1 % (37.0-47.0); Hemoglobin 12.3 g/dl (12.0-16.0); Imm Gran Abs Auto 0.03 X10*3/uL (0.00-0.03); Imm Gran Pct Auto 0.4 % (0.0-0.4); Lymphocytes Percent Auto 36.8 % (20-40); Mean Corpuscular HGB Conc 32.3 g/dl (31.0-35.0); Mean Corpuscular Hemoglobin 29.1 pg (27.0-33.0); Mean Corpuscular Volume 90.1 fL (80.0-98.0); Mean Platelet Volume 11.4 fL (9.4-12.3); Monocytes Absolute Auto 0.5 X10*3/uL (0.1-1.2); Monocytes Percent Auto 6.3 % (2-11); Neutrophils Absolute Auto 4.4 x10*3/uL (2.0-8.3); Neutrophils Percent Auto 54.7 % (45-73); Platelet Count 194 X10*3/uL (160-400); Red Blood Count 4.23 X10*6/uL (4.20-5.50); Red Cell Distribution Width 14.8 % (11.0-16.0); White Blood Count 8.1 X10*3/uL (4.8-10.8)
[2024-01-27 08:00] VITALS: BP 132/74; PULSE 59; RESP 18; TEMP 36.3; O2SAT 98
[2024-01-27 08:08] LABS: Anion Gap 12 (12-20); Blood Urea Nitrogen 14 mg/dL (9-16); Calcium 8.4 mg/dL (8.4-10.2); Carbon Dioxide 22 mmol/L (22-29); Chloride 113 mmol/L (96-108); Creatinine Clr Calc Pharmacy 123.8; Estimated Glomerular Filt Rate > 60; Glucose Random 88 mg/dL (60-115); Potassium 3.7 mmol/L (3.3-5.1); Sodium 143 mmol/L (135-145)
[2024-01-27 08:20] LABS: Troponin-I High Sensitivity 16.2 ng/L (<3.5-17.0)
[2024-01-27] MEDS: Acetaminophen 325 MG TABLET 650 MG PO (08:27)
[2024-01-27] MEDS: traMADoL HCL 50 MG TABLET PO (08:27)
[2024-01-27] MEDS: Metoprolol Succinate ER 25 MG TAB.ER.24H PO (08:28)
--- NOTE | 2024-01-27 09:12 | MHC.CM.PN ---
Be[place] 01/27/24, Pt lives with family, she is independent, no home health services. She has a cane, but does not like to use it. HCP on file and confirmed: names Vonda and [facility], PCP is Dr. Resendez at [facility] in [place]. Pt. will call a [facility] to get home at [place]. DCP: home, self care, CM to follow for DC needs.
--- NOTE | 2024-01-27 10:13 | P.CONCA_ITS ---
History of Present Illness History of Present Illness Date of Service: 01/27/24 Chief complaint: Chest pain Narrative: This is a cardiology consultation regarding chest pain. Patient states that she had some kind of argument few days back and after that, she has been having chest pain. Per H and P, she had an argument when she was ' shouting on top of her lungs'. Then apparently had some right-sided chest discomfort which was sharp. Then seems that PCP was called who recommended going to ER for evaluation. Patient also has chronic lymphedema. Otherwise, she has had a cardiac catheterization in the past that showed no significant CAD. Otherwise, there is also history of previous similar episodes where she has had chest pain after arguments. Currently, improved since admission. Review of Systems 2 Review of Systems: Yes all other systems are reviewed and are negative Constitutional: Constitutional: Reports as per HPI and Reports no additional constitutional complaints Eyes: Eyes: Reports as per HPI and Denies no additional eye complaints ENT: Denies system reviewed and no additional complaints, except as documented and Reports as per HPI Cardiovascular: Cardiovascular: Reports as per HPI, Reports no additional cardiovascular complaints, Denies acrocyanosis, Denies cool extremities, Reports chest pain, Denies leg edema, Denies lightheadedness, Denies palpitations and Denies dyspnea Respiratory: Respiratory: Reports as per HPI, Denies no additional respiratory complaints and Denies dyspnea Gastrointestinal: Gastrointestinal: Reports as per HPI and Denies no additional gastrointestinal complaints Genitourinary: Genitourinary: Reports as per HPI Musculoskeletal: Musculoskeletal: Reports no additional musculoskeletal complaints and Reports as per HPI Integumentary/Breasts: Skin/Breast: Reports system reviewed and no additional complaints, except as docu Neurologic: Reports system reviewed and no additional complaints, except as documented and Reports as per HPI Psychiatric: Psychiatric: Reports no additional psychiatric complaints and Reports as per HPI Endocrine: Endocrine: Reports no additional endocrine complaints, Reports as per HPI and Denies palpitations Hematologic/Lymphatic: Hematologic/Lymphatic: Reports no additional hematologic/lymphatic complaints and Reports as per HPI Allergic/Immunologic: Allergic/Immunologic: Reports no additional allergic/immunologic complaints and Reports as per HPI [facility] Past Medical History Medical History Paroxysmal atrial fibrillation Anxiety Obesity IBS (irritable bowel syndrome) Chronic GERD Paroxysmal A-fib New onset a-fib COVID-19 virus infection Lymphedema Arthritis Lipoedema Asthma Family History Family History Father No problems noted. Mother Heart disease Diabetes Hyperlipidemia Hypertension COPD (chronic obstructive pulmonary disease) Brother No problems noted. Sister No problems noted. Son Overweight Diabetes Asthma Daughter Asthma Surgical History Surgical History Hx laparoscopic cholecystectomy S/P tonsillectomy History of Lucio-en-Y gastric bypass Social History Social History Household Members: Family Household Members Other:: daughter and son. Housing: House Do you presently have visiting nurse or other home services: No Alcohol intake: never Patient Tobacco Use Status: Never used Tobacco Substance Use Type: Marijuana service: No Current occupational status: disabled Meds Allergies Allergy/AdvReac Type Severity Reaction Status Date / Time adhesive [ADHESIVE] Allergy Unknown RASH Verified 01/26/24 15:03 diclofenac [From Voltaren] Allergy Itching Verified 01/26/24 15:03 Active Medications: Current Medications Acetaminophen (Acetaminophen 325 Mg Tablet) 650 mg PO Q6H PRN PRN Reason: Pain, Mild (Pain Scale 1-3), fever or headache Last Admin: 01/27/24 08:27 Dose: 650 mg Albuterol Sulfate (Albuterol Sulfate 90 Mcg 8 Gm Inhaler) 2 puff INHALE DAILY PRN PRN Reason: SOB/Wheezing Calcium Carbonate (Calcium Carbonate 750 Mg Tab.Chew) 750 mg PO Q4H PRN PRN Reason: Heartburn Diphenhydramine HCl (Diphenhydramine Hcl 25 Mg Capsule) 25 mg PO TID PRN PRN Reason: Allergic Reaction Enoxaparin Sodium (Enoxaparin Sodium 40 Mg/0.4 Ml Syringe) 40 mg SUBCUT Q24H PALLAVI Last Admin: 01/26/24 22:22 Dose: 40 mg Magnesium Hydroxide (Milk Of Magnesia 30 Ml Oral.Susp) 30 ml PO DAILY PRN PRN Reason: Constipation Melatonin (Melatonin 3 Mg Tablet) 6 mg PO BEDTIME PRN PRN Reason: Insomnia Metoprolol Succinate (Metoprolol Succinate Er 25 Mg Tab.Er.24h) 25 mg PO DAILY PALLAVI; Protocol Last Admin: 01/27/24 08:28 Dose: 25 mg Ondansetron HCl (Ondansetron Hcl 4 Mg/2 Ml Vial) 4 mg IVPUSH Q8H PRN PRN Reason: Nausea and Vomiting Sodium Chloride (0.9 % Sodium Chloride Flush 3 Ml Syringe) 3 ml IVFLUSH QSHIFT [facility] Last Admin: 01/27/24 08:28 Dose: 3 ml Sumatriptan Succinate (Sumatriptan Succinate 50 Mg Tablet) 50 mg PO DAILY PRN PRN Reason: Migraine Headache Tramadol HCl (Tramadol Hcl 50 Mg Tablet) 50 mg PO DAILY [facility] Last Admin: 01/27/24 08:27 Dose: 50 mg Home Medications ?Medication ?Instructions ?Recorded ?Confirmed ?Last Taken ?Type chlorzoxazone 500 mg tablet 1 tab PO TID PRN muscle spasm 04/27/22 01/26/24 01/25/24 History tramadol 50 mg tablet 50 mg PO DAILY 07/12/23 01/26/24 01/25/24 History sumatriptan succinate 50 mg tablet 50 mg PO DAILY PRN Migraine 11/14/23 01/26/24 01/25/24 History Headache albuterol sulfate 90 mcg/actuation 2 puff inhalation DAILY PRN 01/26/24 01/26/24 Unknown History aerosol inhaler SOB/Wheezing norethindrone acetate 5 mg tablet 5 mg PO DAILY 01/26/24 01/26/24 01/25/24 History Physical Exam 2 Vital Signs: Vital Signs: Last Vital Signs Temp 97.3 F 01/27/24 08:00 Pulse 59 01/27/24 08:00 Resp 18 01/27/24 08:00 BP 132/74 01/27/24 08:00 Pulse Ox 98 01/27/24 08:00 O2 Del Method Room Air 01/27/24 08:00 BMI result Body Mass Index 71.7 Const: General: comfortable and no acute distress O rientation/consciousness: patient oriented x3 HEENT: Other: Unremarkable Head: Yes normal to inspection Neck: Neck: Yes normal visual inspection Chest: Chest palpation & inspection: normal inspection of the chest Resp: Auscultation: clear to auscultation bilaterally Cardio: Palpation: normal PMI Heart sounds: S1 normal heart sound present, S2 normal heart sound present, no gallops, no murmurs and no rubs GI: Palpation (GI): Soft to palpation Back/Spine/Pelvis: Other: unremarkable Skin: General skin exam: no rashes or lesions noted Neuro: General: patient oriented x3 Extrem: Other: Lymphedema Psych: Mental Status: mental status grossly normal Objective Labs and Meds 01/27/24 06:55 01/27/24 06:55 Lab results: Laboratory Results - last 24 hr 01/26/24 01/26/24 01/27/24 14:54 19:12 06:55 WBC 7.6 8.1 RBC 4.80 4.23 Hgb 14.0 12.3 Hct 42.6 38.1 MCV 88.8 90.1 MCH 29.2 29.1 MCHC 32.9 32.3 RDW 14.5 14.8 Plt Count 222 194 MPV 10.7 11.4 Immature Gran % (Auto) 0.4 0.4 Neut % (Auto) 59.6 54.7 Lymph % (Auto) 32.2 36.8 [place] % (Auto) 6.0 6.3 Eos % (Auto) 1.3 1.4 Baso % (Auto) 0.5 0.4 Lymph # (Auto) 2.4 3.0 [place] # (Auto) 0.5 0.5 Eos # (Auto) 0.1 0.1 Baso # (Auto) 0.0 0.0 Abs Immat Gran (auto) 0.03 0.03 Absolute Neuts (auto) 4.5 4.4 Absolute Nucleated RBC 0.000 0.000 Nucleated RBC % (auto) 0.0 0.0 PT 13.0 INR 1.1 Sodium 141 143 Potassium 3.7 3.7 Chloride 111 H 113 H Carbon Dioxide 25 22 Anion Gap 9 L 12 BUN 13 14 Creatinine 0.89 0.81 Estim Creat Clear Calc 112.1 123.8 Estimated GFR > 60 > 60 Random Glucose 104 88 Calcium 9.1 8.4 D Magnesium 2.1 Total Bilirubin 1.1 H AST 16 ALT 17 Alkaline Phosphatase 53 Troponin I High Sens 21.0 H D 20.1 H 16.2 Total Protein 6.9 Albumin 3.7 ECG Interpretation: EKG with sinus rhythm at 75/Min; leftward axis and can not exclude old anterolateral infarct but could be from body habitus. Similar to prior. Imaging Radiologist's impression: Impressions Chest X-Ray 01/26/24 15:15 IMPRESSION: No acute disease Assessment and Plan (1) Chest pain: Qualifiers: Chest pain type: precordial pain Qualified Code(s): R07.2 - Precordial pain Status: Acute Plan Troponin level was borderline elevated at 21 followed by 20 followed by 16.2. Previously they were normal. Coronary CT 2021-focal low-density at RCA origin, plaque versus artifact. Mild myocardial bridging of mid LAD with less than 50% narrowing. Then underwent cardiac catheterization that showed angiographically normal coronary arteries. Currently, etiology for chest pain not clear the setting of an argument. Possible vasospasm. Telemetry is not showing any arrhythmias. Consider adding a small dose of calcium channel jv-amlodipine 2.5 mg daily. Consider avoiding sumatriptan. Discussed with hospitalist. Procedures Date of Service Date of Service: 01/27/24
--- NOTE | 2024-01-27 10:40 | P.DS_ITS ---
DS: Providers Provider Date of Service: 01/27/24 Date of admission: 01/26/24 21:05 Primary care physician: Unknown Physician Consults: 01/26/24 21:05 Consult to Cardiology Routine Consulting Provider: [facility] Reason for consultation: chest pain DS: Diagnosis Discharge Diagnosis (1) Chest pain: Status: Acute DS: Summary Hospital Course Hospital Course: History and physical as per admitting provider. Pt is a 48-year-old female with a PMH significant for?paroxysmal AFib not on anticoagulation follows with Dr. Olmsetad, migraines, arthritis, fibromyalgia, and lymphedema who presents to the ED for evaluation of right-sided chest pain x2+ weeks. Patient has a complicated past cardiac history, follow up at Dr. Olmstead. Last echocardiogram in 05/14 showed normal LV systolic and diastolic function, normal cardiac valvular Doppler and no gross pericardial effusion. Also had cardiac catheterization on 06/2022 after abnormal stress test and concerning coronary CTA , though cardiac catheterization found coronary arteries angiographically normal and stress test was thus a false positive. Patient reports she has been experiencing constant chest pain for the past few weeks that is centered over her right chest and occasionally radiates to her neck. Describes pain as mostly sharp and stabbing though occasionally also feels like an ?electric shock?. Denies feeling chest p ressure. Reports 2 days ago on 01/24/2024 patient had an argument with a friend where she was ?shutting the top of my lungs?. A few hours later right-sided chest pain became severe, sharp, and worse than it ever had been. Patient became diaphoretic and was ?doubled over? in pain. Patient did not seek medical attention at that time as she reports she no longer calls the Cardiology office since she got in an argument with Dr. Olmstead during her last office visit and left the office midway during her examination. Presents today after calling her PCP and having them suggest her to visit the ED for further evaluation. Also reports occasional headaches. Had 1 episode of shortness of breath last night. No fever, chills. No nausea, vomiting, abdominal pain. Chronic lymphedema at baseline. Of note, patient was admitted for similar symptoms of intermittent chest pain lasting up to 1 hour that would improve with rest usually associated with arguments with her 21-year-old son. In the ED pt was Labs were significant for initial troponin of 21.0 with repeat flat at 20.1, otherwise grossly unremarkable. No leukocytosis. Stable H&H. No significant electrolyte abnormalities. Renal and hepatic function WNL. CXR showed no acute cardiopulmonary disease. EKG demonstrated normal sinus rhythm with nonspecific T-wace inversions in leads III and AVF without evidence of significant ST elevations or depressions. Pt was treated with aspirin 324 mg. Pt will be admitted to the hospital under observation for further evaluation and monitoring of atypical chest pain. 48 year old women treated for chest pain. She reported after emotional distress having an argument with a family member she developed sharp stabbing pain that she had been having ongoing for 2 weeks. Her initial troponins were 21.0 with repeat of 20.1. EKG without significant ischemic changes. Seen evaluated by Cardiology who thought may have been related to vasospasm but did not feel like this was NSTEMI requiring further treatment. Plan will be to add amlodipine 2.5 mg daily and avoid sumatriptan as per Cardiology. Plan is for patient to be discharged home and she is in agreement with this. Paroxysmal atrial fibrillation. Continue metoprolol History of migraine headaches. Avoid sumatriptan, fine alternative Super morbidly obese. BMI 71.7. Discussed importance of weight management as this may be contributing to worsening of other comorbidities Time Attestation Discharge Coordination Time (in mins): 32 Quality: Safe Use of Opioids Does Pt have an Active Cancer Diagnosis on the Problem List?: No Quality: Stroke Does the patient have a stroke diagnosis?: No Physical Exam Vital Signs: Vital Signs: Last Vital Signs Temp 97.3 F 01/27/24 08:00 Pulse 59 01/27/24 08:00 Resp 18 01/27/24 08:00 BP 132/74 01/27/24 08:00 Pulse Ox 98 01/27/24 08:00 O2 Del Method Room Air 01/27/24 08:00 BMI result Body Mass Index 71.7 Appearing in no acute distress head is normocephalic atraumatic eyes pupils are PERRLA sclera is anicteric mouth throat mucous membranes are intact and moist neck is supple no lymphadenopathy, no JVD noted lung sounds are clear to auscultation heart regular rate rhythm, clear S1, S2 positive bowel sounds, abdomen is soft, nontender neuro patient is alert x3, no focal deficits DS: Data Data Completed and Pending Labs on day of discharge: Laboratory Results - last 24 hr 01/26/24 01/26/24 01/27/24 14:54 19:12 06:55 WBC 7.6 8.1 RBC 4.80 4.23 Hgb 14.0 12.3 Hct 42.6 38.1 MCV 88.8 90.1 MCH 29.2 29.1 MCHC 32.9 32.3 RDW 14.5 14.8 Plt Count 222 194 MPV 10.7 11.4 Immature Gran % (Auto) 0.4 0.4 Neut % (Auto) 59.6 54.7 Lymph % (Auto) 32.2 36.8 [place] % (Auto) 6.0 6.3 Eos % (Auto) 1.3 1.4 Baso % (Auto) 0.5 0.4 Lymph # (Auto) 2.4 3.0 [place] # (Auto) 0.5 0.5 Eos # (Auto) 0.1 0.1 Baso # (Auto) 0.0 0.0 Abs Immat Gran (auto) 0.03 0.03 Absolute Neuts (auto) 4.5 4.4 Absolute Nucleated RBC 0.000 0.000 Nucleated RBC % (auto) 0.0 0.0 PT 13.0 INR 1.1 Sodium 141 143 Potassium 3.7 3.7 Chloride 111 H 113 H Carbon Dioxide 25 22 Anion Gap 9 L 12 BUN 13 14 Creatinine 0.89 0.81 Estim Creat Clear Calc 112.1 123.8 Estimated GFR > 60 > 60 Random Glucose 104 88 Calcium 9.1 8.4 D Magnesium 2.1 Total Bilirubin 1.1 H AST 16 ALT 17 Alkaline Phosphatase 53 Troponin I High Sens 21.0 H D 20.1 H 16.2 Total Protein 6.9 Albumin 3.7 Discharge Plan Discharge Anticipated Discharge Date/Time: 01/27/24 10:32 Patient Disposition: Home, Self-Care Discharge Diagnosis: Chest pain Discharge Medications: New amlodipine 2.5 mg Tablet 2.5 mg PO DAILY Qty: 90 0RF Protocol: Hold for SBP< HOLD for SBP < : 90 Continued metoprolol succinate 25 mg tablet extended release 24 hr 25 mg PO DAILY Qty: 90 3RF chlorzoxazone 500 mg tablet 1 tab PO TID PRN (Reason: muscle spasm) diphenhydramine HCl [Benadryl] 25 mg capsule 25 mg PO TID PRN (Reason: allergic reaction) Qty: 20 0RF norethindrone acetate 5 mg tablet 5 mg PO DAILY albuterol sulfate 90 mcg/actuation Hfa Aerosol Inhaler 2 puff inhalation DAILY PRN (Reason: SOB/Wheezing) tramadol 50 mg tablet 50 mg PO DAILY Discontinued sumatriptan succinate 50 mg tablet 50 mg PO DAILY PRN (Reason: Migraine Headache) Rx Instructions: MRX1 in 2 hours, MDD = 200 mg Discharge Orders: Discharge Order (Routine); Ordered 01/27/24 Ordered By: Estephanie Johansen Diet: Advance to usual diet Activity on Discharge: As tolerated Stand Alone Forms: Patient Portal Discharge page Print Language: Nigerian Care Plan Goals: You have been started on a new medication called amlodipine, take 2.5 mg daily. Avoid sumatriptan as per clinical outcomes manager's recommendation Health Concerns: Chest pain vasospasm Plan of Treatment: Follow-up with primary care provider as needed Take all medications as prescribed Assessment: See discharge summary
[2024-01-27 11:50] VITALS: BP 135/61
[2024-01-27] MEDS: amLODIPine Besylate 2.5 MG TABLET PO (11:50)
[2024-01-27 11:56] VITALS: BP 135/61; PULSE 65; RESP 18; TEMP 36.4; O2SAT 98
== END 2024-01-27 12:39 | disposition home or self-care (01) ==
LOC: HO.ED 20:31 → HO.EDOVER 21:14 → HO.IMC 23:29
PROVIDERS: Physician Assistant; Admitting Provider Student in an Organized Health Care Education/Training Program; Emergency Provider Emergency Medicine; PCP Family Medicine; Visit Provider Nurse Practitioner Acute Care
DX: R07.9 Chest pain, unspecified (principal); R07.2 Precordial pain; R61 Generalized hyperhidrosis; R11.0 Nausea; I48.91 Unspecified atrial fibrillation; J45.909 Unspecified asthma, uncomplicated; M79.7 Fibromyalgia; R06.02 Shortness of breath; I89.0 Lymphedema, not elsewhere classified; Z79.899 Other long term (current) drug therapy
CPT/HCPCS: 36415; 71045; 80048; 80053; 83735; 84484; 85025; 85610; 93005; 96372; 99222; 99285; J1650

== ENCOUNTER → 2024-01-26 21:05 | Outpatient (BNV) | payer OTHER, SELFPAY | PROVIDERS: Admitting Provider Student in an Organized Health Care Education/Training Program; Emergency Provider Emergency Medicine; Visit Provider Internal Medicine | DX: R07.2 Precordial pain (principal); R94.31 Abnormal electrocardiogram [ECG] [EKG] | CPT/HCPCS: 93010; 99223 ==

== ENCOUNTER → 2024-01-26 21:05 | Outpatient (BNV) | payer OTHER, SELFPAY | PROVIDERS: Admitting Provider Student in an Organized Health Care Education/Training Program; Emergency Provider Emergency Medicine; Visit Provider Student in an Organized Health Care Education/Training Program | DX: R07.2 Precordial pain (principal) | CPT/HCPCS: 99222; 99239 ==

== ENCOUNTER 2024-03-08 12:51 | Emergency (ER) | payer OTHER, SELFPAY ==
--- NOTE | ~2024-03-08 | XR_ITS ---
EXAMINATION: XR CHEST CLINICAL INFORMATION: Chest pain/shortness of breath COMPARISON: Chest radiograph 01/26/2024 TECHNIQUE: 2 views of the chest were obtained. FINDINGS: The lungs are adequately expanded. No focal consolidation. No pleural effusions or pneumothorax. The cardiomediastinal silhouette is within normal limits. No acute osseous abnormality. XR/XR chest 2V IMPRESSION: No acute pulmonary disease.
--- NOTE | 2024-03-08 12:53 | ECG_ITS ---
Test Reason : cp Blood Pressure : / mmHG Vent. Rate : 070 BPM Atrial Rate : 070 BPM P-R Int : 142 ms QRS Dur : 074 ms QT Int : 376 ms P-R-T Axes : 004 -38 -03 degrees QTc Int : 406 ms Sinus rhythm with marked sinus arrhythmia Left axis deviation Possible Anterolateral infarct (cited on or before 31-MAY-2022) Abnormal ECG When compared with ECG of 26-JAN-2024 14:43, No significant change was found Referred By: Jennifer Newell Electronically Signed By:ELAYNE PARK
[2024-03-08 12:56] VITALS: BP 121/76; PULSE 75; RESP 18; TEMP 37.2; O2SAT 98; BMI 69.6
--- NOTE | 2024-03-08 12:56 | ED.CHESTPAIN ---
HPI - Chest Pain General Chief Complaint: Chest Pain Stated Complaint: CP Time Seen by Provider: 03/08/24 15:02 Source: patient Mode of arrival: ambulatory Limitations: no limitations History of Present Illness HPI narrative: This is a 48-year-old woman with a past medical history of paroxysmal atrial fibrillation not on anticoagulation falls with Dr. Olmstead, migraines, arthritis, fibromyalgia and lymphedema who presents for evaluation of chest pain. Patient reports that this started last night while at rest. She states it is worse when she is standing and with movement. She states it is not worse with breathing. She states associated nausea without emesis. She states no diarrhea or change to bowel habits. She states no abdominal pain. She states no urinary symptoms. She states no fevers, cough or hemoptysis. She states sometimes she feels the pain in her back as well. She states no trauma or falls. She states no headache or neck pain. She states no back pain. She states no paresthesias. She states no syncope. Related Data Home Medications ?Medication ?Instructions ?Recorded ?Confirmed chlorzoxazone 500 mg tablet 1 tab PO TID PRN muscle spasm 04/27/22 01/26/24 tramadol 50 mg tablet 50 mg PO DAILY 07/12/23 01/26/24 albuterol sulfate 90 mcg/actuation 2 puff inhalation DAILY PRN 01/26/24 01/26/24 aerosol inhaler SOB/Wheezing norethindrone acetate 5 mg tablet 5 mg PO DAILY 01/26/24 01/26/24 Previous Rx's ?Medication ?Instructions ?Recorded diphenhydramine HCl 25 mg capsule 25 mg PO TID PRN allergic reaction 11/20/22 (Benadryl) #20 caps metoprolol succinate 25 mg 25 mg PO DAILY #90 tabs 02/27/23 tablet,extended release 24 hr ubrogepant 100 mg tablet (Ubrelvy) See Rx Instructions .Route 01/29/24 .COMPLEX #20 tabs amlodipine 5 mg tablet 5 mg PO DAILY #90 tabs 02/14/24 Allergies Allergy/AdvReac Type Severity Reaction Status Date / Time adhesive [ADHESIVE] Allergy Unknown RASH Verified 03/08/24 13:00 diclofenac [From Voltaren] Allergy Itching Verified 03/08/24 13:00 Review of Systems Review of Systems: [facility] Past Medical History Medical History Paroxysmal atrial fibrillation Anxiety Obesity IBS (irritable bowel syndrome) Chronic GERD Paroxysmal A-fib New onset a-fib COVID-19 virus infection Lymphedema Arthritis Lipoedema Asthma Surgical History Hx laparoscopic cholecystectomy S/P tonsillectomy History of Lucio-en-Y gastric bypass Family History Family History Father No problems noted. Mother Heart disease Diabetes Hyperlipidemia Hypertension COPD (chronic obstructive pulmonary disease) Brother No problems noted. Sister No problems noted. Son Overweight Diabetes Asthma Daughter Asthma Social History Social History Household Members: Family Household Members Other:: daughter and son. Housing: House Do you presently have visiting nurse or other home services: No Alcohol intake: never Patient Tobacco Use Status: Never used Tobacco Substance Use Type: Marijuana Advance Directives: No Advance Directives Information Provided: No Do you have a plan to hurt others: No Plan service: No Current occupational status: disabled Physical Exam Vital Signs: Vital Signs: Last Vital Signs Temp 98.9 F 03/08/24 16:11 Pulse 58 03/08/24 16:11 Resp 16 03/08/24 16:11 BP 108/66 03/08/24 16:11 Pulse Ox 97 03/08/24 16:11 O2 Del Method Room Air 03/08/24 16:11 BMI result Body Mass Index 69.6 Gen: NAD, AOx3 HEENT: NCAT, EOMI, normal conjunctiva CV: RRR, no murmurs appreciated, 2+ bilateral radial pulses Pulm: CTAB, no increased work of breathing, no wheezes/rhonchi/rales GI: Soft, NTND, no rebound, guarding or rigidity MSK: No peripheral pitting edema, no asymmetrical calf edema/erythema/tenderness to palpation Neuro: Grossly non focal Course Course Course Narrative: This is a Rapid Medical Exam performed in triage by Jennifer Newell PA-C. Full HPI, ROS and PE to be performed by primary ED provider. 48 year-old F w/ PMHx fibromyalgia, lymphedema, s/p gastric bypass, asthma, A.fib not on AC, migraines, presenting to the ED c/o constant CP since yesterday described as sharp with radiation to back and arm parathesias. Also reports SOB & nausea PE: Lungs CTA, RRR, ambulating w/steady gait, talking in complete sentences, +LE lymphedema noted Plan: EKG, Labs, CXR Medical Decision Making Medical Decision Making MDM Narrative: Per chart review of discharge summary on January 27, 2024 patient's last echocardiogram 09/14 showed normal LV systolic and diastolic function, normal cardiac valvular Doppler and no gross pericardial effusion. Patient had cardiac catheterization 06/2022 after abnormal stress test and concerning coronary CTA, though cardiac catheterization found coronary artery is angiographically normal and stress test was less false-positive. Differential diagnosis includes, but is not limited to atypical chest pain, ACS, pancreatitis, gastritis, duodenitis, musculoskeletal pain, fibromyalgia. Patient is afebrile and hemodynamically stable on room air. Exam is benign and reassuring. I reviewed and interpreted labs, which are noncontributory. I reviewed and interpreted EKG, which is unremarkable for any acute findings. I reviewed and interpreted the patient's chest x-ray as below, which is unremarkable for any acute findings. I considered pulmonary embolism, but patient does not have any tachypnea, tachycardia or hypoxia to suggest this and so I do not suspect pulmonary embolism. Further, chest pain is not pleuritic in nature. I do not suspect any other acute intrathoracic/cardiopulmonary process such as aortic dissection in this well-appearing patient with acute on chronic chest pain. On re-examination, patient is well-appearing and in no acute distress. ?Given reassuring evaluation here in the emergency room with a blood work, EKG and chest x-ray as well as recent hospitalization in January for similar there is no indication for further emergent evaluation in this otherwise well-appearing patient as above. ?Patient is provided written and verbal instructions, educational materials, recommendations for outpatient follow-up, strict return precautions and teach back is performed. ?Patient states understanding and agreement with plan of care. ?Patient is discharged home in stable and improved condition. Admission/Observation Consideration of admission/observation: Escalation of care including admission/observation considered Lab Data MDM Lab Attestation statement: I reviewed the patient's lab results. I independently reviewed and interpreted patient's labs as below which are unremarkable. 03/08/24 13:37 03/08/24 13:37 Labs: Lab Results 03/08/24 Range/Units 13:37 WBC 8.9 (4.8-10.8) X10*3/uL RBC 5.11 D (4.20-5.50) X10*6/uL Hgb 15.0 D (12.0-16.0) g/dl Hct 44.9 (37.0-47.0) % MCV 87.9 (80.0-98.0) fL MCH 29.4 (27.0-33.0) pg MCHC 33.4 (31.0-35.0) g/dl RDW 15.6 (11.0-16.0) % Plt Count 253 D (160-400) X10*3/uL MPV 10.4 (9.4-12.3) fL Immature Gran % (Auto) 0.6 H (0.0-0.4) % Neut % (Auto) 53.9 (45-73) % Lymph % (Auto) 36.2 (20-40) % [place] % (Auto) 7.2 (2-11) % Eos % (Auto) 1.8 (0-4) % Baso % (Auto) 0.3 (0-2) % Lymph # (Auto) 3.2 (1.2-4.9) X10*3/uL [place] # (Auto) 0.6 (0.1-1.2) X10*3/uL Eos # (Auto) 0.2 (0.0-0.4) X10*3/uL Baso # (Auto) 0.0 (0.0-0.2) X10*3/uL Abs Immat Gran (auto) 0.05 H (0.00-0.03) X10*3/uL Absolute Neuts (auto) 4.8 (2.0-8.3) x10*3/uL Absolute Nucleated RBC 0.000 (0.0-0.012) X10*3/uL Nucleated RBC % (auto) 0.0 (0.0-0.2) /100WBC PT 11.8 (11.1-13.3) SEC INR 1.0 (0.9-1.1) Sodium 143 (135-145) mmol/L Potassium 3.9 (3.3-5.1) mmol/L Chloride 111 H (96-108) mmol/L Carbon Dioxide 25 (22-29) mmol/L Anion Gap 11 L (12-20) BUN 14 (9-16) mg/dL Creatinine 0.89 (0.5-1.4) mg/dL Estim Creat Clear Calc 110.2 Estimated GFR > 60 Random Glucose 99 (60-115) mg/dL Calcium 9.5 D (8.4-10.2) mg/dL Magnesium 2.1 (1.6-2.6) mg/dL Total Bilirubin 0.9 (0.0-1.0) mg/dL Direct Bilirubin 0.3 (0.0-0.5) mg/dL AST 18 (5-31) U/L ALT 15 (0-31) U/L Alkaline Phosphatase 53 (39-117) U/L Troponin I High Sens 2.9 D (<3.5-17.0) ng/L B-Natriuretic Peptide 54 (<100) pg/mL Total Protein 7.4 (6.5-8.0) g/dL Albumin 3.9 (3.5-5.0) g/dL Lipase 33 (8-78) U/L Independent Interpretation I performed an independent interpretation of an: EKG and Plain X-Ray Interpretation: I independently reviewed and interpreted the patient's EKG which demonstrates sinus rhythm arrhythmia at 70 beats per minute, PA 142, QRS 74, QTC 406, no STEMI (compared to previous EKG January 26, 2024 there are no diagnostic ischemic changes). I independently reviewed and interpreted patient's chest x-ray which demonstrates no focal consolidation or pneumothorax. Radiology Impression Discussion of test interpretation with radiology: I have reviewed the radiologist's reading. Radiologist Impression: XR/XR chest 2V IMPRESSION: No acute pulmonary disease. Dictated By: Sumanth Newby Signed By: <Electronically signed by Sumanth Newby in OV> 03/08/24 1343 Discharge Plan Discharge Clinical Impression: Chest pain Patient Disposition: Home, Self-Care Instructions: Chest Pain (ED) Additional Instructions: You were seen and evaluated in the emergency room. Your vital signs were normal and he did not have fever. ? Your blood work was normal. Your chest x-ray and EKG were normal. Please follow-up with your primary care doctor in the next 5-7 days. ? Please return to the emergency room if you develop any worsening symptoms including, but not limited to fever, chest pain or difficulty breathing. ? Prescriptions: No Action metoprolol succinate 25 mg tablet extended release 24 hr 25 mg PO DAILY Qty: 90 3RF Ubrelvy 100 mg tablet See Rx Instructions .ROUTE .COMPLEX Qty: 20 0RF Rx Instructions: 1 tab at pnset of migraine can be repeated in 2 hrs if needed - max 2 tabs a day; amlodipine 5 mg tablet 5 mg PO DAILY Qty: 90 1RF chlorzoxazone 500 mg tablet 1 tab PO TID PRN (Reason: muscle spasm) diphenhydramine HCl [Benadryl] 25 mg capsule 25 mg PO TID PRN (Reason: allergic reaction) Qty: 20 0RF norethindrone acetate 5 mg tablet 5 mg PO DAILY albuterol sulfate 90 mcg/actuation Hfa Aerosol Inhaler 2 puff inhalation DAILY PRN (Reason: SOB/Wheezing) tramadol 50 mg tablet 50 mg PO DAILY Interventions: ED Discharge Assessment Last Done: 03/08/24 16:11 Discharge Date/Time: 03/08/24 16:13 Print Language: Wolof
[2024-03-08 13:42] LABS: MANUAL DIFF FLAG NO
[2024-03-08 13:45] LABS: Basophils Percent Auto 0.3 % (0-2); Eosinophils Absolute Auto 0.2 X10*3/uL (0.0-0.4); Eosinophils Percent Auto 1.8 % (0-4); Hematocrit 44.9 % (37.0-47.0); Imm Gran Abs Auto 0.05 X10*3/uL (0.00-0.03); Imm Gran Pct Auto 0.6 % (0.0-0.4); Lymphocytes Absolute Auto 3.2 X10*3/uL (1.2-4.9); Lymphocytes Percent Auto 36.2 % (20-40); Mean Corpuscular HGB Conc 33.4 g/dl (31.0-35.0); Mean Corpuscular Hemoglobin 29.4 pg (27.0-33.0); Mean Corpuscular Volume 87.9 fL (80.0-98.0); Mean Platelet Volume 10.4 fL (9.4-12.3); Monocytes Absolute Auto 0.6 X10*3/uL (0.1-1.2); Monocytes Percent Auto 7.2 % (2-11); Neutrophils Absolute Auto 4.8 x10*3/uL (2.0-8.3); Neutrophils Percent Auto 53.9 % (45-73); Platelet Count 253 X10*3/uL (160-400); Red Blood Count 5.11 X10*6/uL (4.20-5.50); Red Cell Distribution Width 15.6 % (11.0-16.0); White Blood Count 8.9 X10*3/uL (4.8-10.8)
[2024-03-08 13:52] LABS: Prothrombin Time 11.8 SEC (11.1-13.3)
[2024-03-08 14:01] LABS: Alanine Aminotransferase 15 U/L (0-31); Albumin Level 3.9 g/dL (3.5-5.0); Alkaline Phosphatase 53 U/L (39-117); Anion Gap 11 (12-20); Aspartate Amino Transferase 18 U/L (5-31); Bilirubin Direct 0.3 mg/dL (0.0-0.5); Bilirubin Total 0.9 mg/dL (0.0-1.0); Blood Urea Nitrogen 14 mg/dL (9-16); Calcium 9.5 mg/dL (8.4-10.2); Carbon Dioxide 25 mmol/L (22-29); Chloride 111 mmol/L (96-108); Creatinine Clr Calc Pharmacy 110.2; Estimated Glomerular Filt Rate > 60; Glucose Random 99 mg/dL (60-115); Magnesium 2.1 mg/dL (1.6-2.6); Potassium 3.9 mmol/L (3.3-5.1); Sodium 143 mmol/L (135-145); Total Protein 7.4 g/dL (6.5-8.0)
[2024-03-08 14:06] LABS: B Type Natriuretic Peptide 54 pg/mL (<100)
[2024-03-08 14:07] LABS: Troponin-I High Sensitivity 2.9 ng/L (<3.5-17.0)
[2024-03-08 15:15] VITALS: BP 115/68; PULSE 76; RESP 18; O2SAT 98
[2024-03-08 15:39] LABS: Lipase 33 U/L (8-78)
[2024-03-08 16:02] VITALS: BP 112/71; PULSE 54; RESP 15; TEMP 36.5; O2SAT 97
[2024-03-08 16:11] VITALS: BP 108/66; PULSE 58; RESP 16; TEMP 37.2; O2SAT 97
== END 2024-03-08 16:13 | disposition home or self-care (01) ==
PROVIDERS: Physician Assistant; Emergency Provider Emergency Medicine
DX: R07.9 Chest pain, unspecified (principal); R60.0 Localized edema; R06.02 Shortness of breath; I48.0 Paroxysmal atrial fibrillation; Z79.899 Other long term (current) drug therapy
CPT/HCPCS: 36415; 71046; 80048; 80076; 83690; 83735; 83880; 84484; 85025; 85610; 93005; 99283; 99284

== ENCOUNTER 2024-05-13 13:13 | Emergency (ER) | payer OTHER, SELFPAY ==
--- NOTE | ~2024-05-13 | CT_ITS ---
EXAMINATION: CT HEAD WITHOUT CONTRAST CLINICAL INFORMATION: Numbness tingling pain. COMPARISON: Prior CT head October 2022 and January 2022 TECHNIQUE: Contiguous axial imaging was performed from the skull base to vertex without intravenous administration of contrast. This CT examination was performed using dose optimization techniques as appropriate, variously including the following: *Automated exposure control *Adjustment of mA and/or kV according to patient size (this includes techniques or standardized protocols for targeted exams where dose is matched to indication/reason for exam; i.e. extremities or head) *Use of iterative reconstruction technique DLP: 764 mGy-cm FINDINGS: There is no mass hemorrhage or cerebral edema. Ventricles and basal cisterns normal. No extra-axial fluid collection. Subcutaneous soft tissues: Unremarkable. Bone/calvarium: Hyperostosis and frontalis interna unchanged. Sinuses clear Mastoid air cells unchanged unremarkable. CT/CT head/brain wo IV con IMPRESSION: No acute intracranial pathology. No change. Electronically signed by: Max Savage MD 05/13/2024 05:14 PM EDT
--- NOTE | ~2024-05-13 | CT_ITS ---
EXAMINATION: CT CERVICAL SPINE WITHOUT CONTRAST CLINICAL INFORMATION: Numbness tingling pain COMPARISON: None available. TECHNIQUE: CT scan of the cervical spine was performed with reconstruction imaging performed at the acquisition workstation. This CT examination was performed using dose optimization techniques as appropriate, variously including the following: *Automated exposure control *Adjustment of mA and/or kV according to patient size (this includes techniques or standardized protocols for targeted exams where dose is matched to indication/reason for exam; i.e. extremities or head) *Use of iterative reconstruction technique DLP: 703 mGy-cm FINDINGS: Vertebral bodies normally aligned with normal height. Facets normal. Disc spaces normal. No fracture. Surrounding bone and soft tissues normal. CT/CT cervical spine wo IV con IMPRESSION: Unremarkable examination. Fleischner guidelines were followed. Electronically signed by: Max Savage MD 05/13/2024 05:05 PM EDT
--- NOTE | 2024-05-13 13:14 | ECG_ITS ---
Test Reason : chest pain Blood Pressure : / mmHG Vent. Rate : 071 BPM Atrial Rate : 071 BPM P-R Int : 152 ms QRS Dur : 094 ms QT Int : 398 ms P-R-T Axes : 004 -35 -07 degrees QTc Int : 432 ms Normal sinus rhythm Left axis deviation Possible Anterolateral infarct (cited on or before 31-MAY-2022) Abnormal ECG When compared with ECG of 08-MAR-2024 12:54, No significant change was found Referred By: Latoya Duran Electronically Signed By:Lonny Arthur
[2024-05-13 13:30] VITALS: BP 137/87; PULSE 87; RESP 16; TEMP 36.4; O2SAT 100; BMI 71.2
--- NOTE | 2024-05-13 13:36 | ED_ITS ---
HPI - General Adult General Chief complaint: Chest Pain Stated complaint: Chest pain, nausea Time Seen by Provider: 05/13/24 17:56 Source: patient and family (patient's daughter) Mode of arrival: ambulatory Limitations: no limitations History of Present Illness ED Provider: Latoya Duran PA-C HPI narrative: Patient is a 48 year old assigned female at with a history of atrial fib (not on anti-coags), migraines, fibromyalgia, asthma, and gastric bypass presenting to the emergency department today with chest pain, arm pain, nausea, and facial tingling. Patient states that over the last day she began to have chest pain, arm pain, and nausea. Patient states that while waiting in the waiting room, she began to have left sided facial tingling / numbness. Patient denies any dizziness, lightheadedness, abdominal pain, vomiting, fever, chills, blurry vision, double vision, loss of vision, difficulty breathing, shortness of breath, back pain, night sweats, pain with urination, increased urinary frequency, increased urinary urgency, blood in her urine or stool, syncope or a near syncopal episode, recent trauma or falls, bowel incontinence, bladder incontinence, or any other complaints at this time. Relieving factors: none Exacerbating factors: none Associated symptoms: chest pain and nausea/vomiting Treatments prior to arrival: none Related Data Home Medications ?Medication ?Instructions ?Recorded ?Confirmed chlorzoxazone 500 mg tablet 1 tab PO TID PRN muscle spasm 04/27/22 01/26/24 tramadol 50 mg tablet 50 mg PO DAILY 07/12/23 01/26/24 albuterol sulfate 90 mcg/actuation 2 puff inhalation DAILY PRN 01/26/24 01/26/24 aerosol inhaler SOB/Wheezing norethindrone acetate 5 mg tablet 5 mg PO DAILY 01/26/24 01/26/24 Previous Rx's ?Medication ?Instructions ?Recorded diphenhydramine HCl 25 mg capsule 25 mg PO TID PRN allergic reaction 11/20/22 (Benadryl) #20 caps metoprolol succinate 25 mg 25 mg PO DAILY #90 tabs 02/27/23 tablet,extended release 24 hr ubrogepant 100 mg tablet (Ubrelvy) See Rx Instructions .Route 01/29/24 .COMPLEX #20 tabs amlodipine 5 mg tablet 5 mg PO DAILY #90 tabs 02/14/24 Allergies Allergy/AdvReac Type Severity Reaction Status Date / Time adhesive [ADHESIVE] Allergy Unknown RASH Verified 05/13/24 13:38 diclofenac [From Voltaren] Allergy Itching Verified 05/13/24 13:38 Review of Systems 2 Constitutional: Constitutional: Reports no additional constitutional complaints, Denies chills, Denies fever(s) and Denies night sweats Eyes: Eyes: Reports no additional eye complaints, Denies blurry vision, Denies change in vision, Denies diplopia, Denies eye discharge, Denies loss of vision and Denies eye pain ENT: Denies dizziness Cardiovascular: Cardiovascular: Reports no additional cardiovascular complaints, Reports chest pain, Denies lightheadedness, Denies Loss of Consciousness and Denies dyspnea Respiratory: Respiratory: Reports no additional respiratory complaints and Denies dyspnea Gastrointestinal: Gastrointestinal: Reports no additional gastrointestinal complaints, Denies abdominal pain, Denies melena, Denies hematochezia, Denies change in bowel habits, Denies change in stool character, Reports nausea and Denies vomiting Genitourinary: Genitourinary: Denies hematuria, Denies urinary frequency, Denies dysuria, Denies urinary incontinence, Denies urinary hesitancy and Denies urinary urgency Musculoskeletal: Musculoskeletal: Reports no additional musculoskeletal complaints, Denies numbness and Denies tingling Comments: left arm pain Neurologic: Denies dizziness, Denies loss of vision, Denies numbness and Denies tingling Psychiatric: Psychiatric: Reports no additional psychiatric complaints Endocrine: Endocrine: Reports no additional endocrine complaints Hematologic/Lymphatic: Hematologic/Lymphatic: Reports no additional hematologic/lymphatic complaints Allergic/Immunologic: Allergic/Immunologic: Reports no additional allergic/immunologic complaints [facility] Past Medical History Attestation statement: The following information was validated with the patient. (all information validated with the patient's daughter) Source: old records reviewed, obtained from family (patient's daughter provided additional history and confirmed the history provided by the patient) and nursing notes reviewed Medical History Paroxysmal atrial fibrillation Anxiety Obesity IBS (irritable bowel syndrome) Chronic GERD Paroxysmal A-fib New onset a-fib COVID-19 virus infection Lymphedema Arthritis Lipoedema Asthma Surgical History Hx laparoscopic cholecystectomy S/P tonsillectomy History of Lucio-en-Y gastric bypass Family History Family History Father No problems noted. Mother Heart disease Diabetes Hyperlipidemia Hypertension COPD (chronic obstructive pulmonary disease) Brother No problems noted. Sister No problems noted. Son Overweight Diabetes Asthma Daughter Asthma Social History Social History Household Members: Family Household Members Other:: daughter and son. Housing: House Do you presently have visiting nurse or other home services: No Alcohol intake: never Patient Tobacco Use Status: Never used Tobacco Substance Use Type: Marijuana Advance Directives: No Advance Directives Information Provided: Yes Do you have a plan to hurt others: No Plan service: No Current occupational status: disabled Physical Exam ED Vital Signs: Vital Signs - 24 hr 05/13/24 13:30 05/13/24 15:04 Temperature 97.6 F 97.3 F Pulse Rate 87 71 Respiratory Rate 16 16 Blood Pressure 137/87 145/83 H Pulse Oximetry 100 98 Oxygen Delivery Method Room Air Room Air BMI result Body Mass Index 71.2 Const General: cooperative, no acute distress, alert and awake Nutritional Appearance: well nourished Orientation/consciousness: patient oriented x3 Limitations: no limitations HENMT Head: Yes normal to inspection and Yes atraumatic Ears: hearing grossly normal bilaterally and external ears normal General nose exam: Normal external nose present, no nasal discharge noted and no epistaxis Face and sinus: Yes normal facial exam, No abrasion and No laceration Mouth: Normal oral and palatal mucosa present, no drooling and no muffled voice Eyes General: appearance normal, both eyes and all related structures Periorbital: periorbital findings normal Eyelids: Yes eyelids normal Conjunctivae: conjunctivae normal Pupils: Equal, round and reactive pupils present EOM: EOMs intact bilaterally Neck Neck: Yes normal visual inspection, Yes full ROM and Yes no lymphadenopathy Chest Chest palpation & inspection: normal inspection of the chest Resp Effort & Inspection: normal respiratory effort and able to speak in complete sentences GI Inspection: Yes normal to inspection Neuro General: patient oriented x3 and moves all extremities Cranial nerves: Yes Equal, round and reactive pupils present Cognition (Neuro): normal cognition Extrem General: Yes normal to inspection, Yes full ROM and Yes capillary refill normal Psych Appearance: grossly normal Mental Status: mental status grossly normal Affect: normal affect Attitude: cooperative Thought process: Normal thought process present Thought content: Normal thought content present Insight: Good insight present (Psych) Course Course Course Narrative: RME performed by Latoya Duran PA-C. Patient is a 48 year old assigned female at presenting to the emergency department with chest pain and nausea. Patient states that she messaged her brush or broom cutter and they recommended she come here. Detailed physical exam and review of systems are deferred to the oil well fishing tool operator. EKG, labs, imaging, and swabs ordered. Patient placed back in the waiting room pending room availability and results. Medical Decision Making Medical Decision Making MDM Narrative: Patient is a 48 year old assigned female at with a history of atrial fib (not on anti-coags), migraines, fibromyalgia, asthma, and gastric bypass presenting to the emergency department today with chest pain, arm pain, nausea, and facial tingling. Patient's limited physical exam performed in triage was unremarkable. Patient's blood work was unremarkable. Patient's EKG was unremarkable. Patient's head and c-spine CTs were unremarkable. Patient left the department without completing treatment. Patient left the department before myself or any of the other emergency department clinicians could explain to or review with the patient; physical exam findings, test results, need or lack there of for additional testing, need or lack there of for a procedure to be performed, need or lack there of for hospital admission / transfer, need or lack there of for prescription medication, treatment options, or a treatment plan. Differential Diagnosis Differential Diagnoses: The differential diagnosis associated with the presentation includes NSTEMI STEMI Chest pain Atypical chest pain CVA Admission/Observation Consideration of admission/observation: Escalation of care including admission/observation considered Patient would have been admitted to the hospital had she completed her work up and it had any findings where hospital admission was appropriate, her clinical presentation warranted hospital admission, had myself or any other emergency biology department chair had the ability to discuss need or lack there of for hospital admission, and the patient hadn't left the department without completing treatment. Lab Data [facility] Lab Attestation statement: I reviewed the patient's lab results. My interpretation of these results are in the [facility] Rationale portion of this note. 05/13/24 14:20 05/13/24 14:20 Labs: Lab Results 05/13/24 Range/Units 14:20 WBC 7.3 (4.8-10.8) X10*3/uL RBC 4.99 (4.20-5.50) X10*6/uL Hgb 14.4 (12.0-16.0) g/dl Hct 43.7 (37.0-47.0) % MCV 87.6 (80.0-98.0) fL MCH 28.9 (27.0-33.0) pg MCHC 33.0 (31.0-35.0) g/dl RDW 14.6 (11.0-16.0) % Plt Count 246 (160-400) X10*3/uL MPV 10.0 (9.4-12.3) fL Immature Gran % (Auto) 0.3 (0.0-0.4) % Neut % (Auto) 51.7 (45-73) % Lymph % (Auto) 36.8 (20-40) % Charlton % (Auto) 8.5 (2-11) % Eos % (Auto) 2.2 (0-4) % Baso % (Auto) 0.5 (0-2) % Lymph # (Auto) 2.7 (1.2-4.9) X10*3/uL Charlton # (Auto) 0.6 (0.1-1.2) X10*3/uL Eos # (Auto) 0.2 (0.0-0.4) X10*3/uL Baso # (Auto) 0.0 (0.0-0.2) X10*3/uL Abs Immat Gran (auto) 0.02 (0.00-0.03) X10*3/uL Absolute Neuts (auto) 3.8 (2.0-8.3) x10*3/uL Absolute Nucleated RBC 0.000 (0.0-0.012) X10*3/uL Nucleated RBC % (auto) 0.0 (0.0-0.2) /100WBC PT 15.1 H (10.9-12.4) SEC INR 1.3 H (0.9-1.1) APTT 34.8 (26.0-36.8) SEC Sodium 141 (135-145) mmol/L Potassium 4.0 (3.3-5.1) mmol/L Chloride 111 H (96-108) mmol/L Carbon Dioxide 25 (22-29) mmol/L Anion Gap 9 L (12-20) BUN 13 (9-16) mg/dL Creatinine 0.86 (0.5-1.4) mg/dL Estim Creat Clear Calc 116.0 Estimated GFR > 60 Random Glucose 98 (60-115) mg/dL Calcium 9.0 (8.4-10.2) mg/dL Magnesium 2.2 (1.6-2.6) mg/dL Total Bilirubin 1.0 (0.0-1.0) mg/dL AST 22 (5-31) U/L ALT 16 (0-31) U/L Alkaline Phosphatase 57 (39-117) U/L Troponin I High Sens < 2.7 (<3.5-17.0) ng/L Total Protein 7.2 (6.5-8.0) g/dL Albumin 4.1 (3.5-5.0) g/dL Influenza Type A (PCR) NEGATIVE (Negative) Influenza Type B (PCR) NEGATIVE (Negative) RSV RNA Qual (PCR) NEGATIVE (Negative) SARS-CoV-2 RNA (RT-PCR) NEGATIVE (Negative) Independent Interpretation I performed an independent interpretation of an: EKG and CT Scan Interpretation: My interpretation is in agreement with the radiologist's impression of these imaging studies. L EXAMINATION: CT HEAD WITHOUT CONTRAST CLINICAL INFORMATION: Numbness tingling pain. COMPARISON: Prior CT head October 2022 and January 2022 TECHNIQUE: Contiguous axial imaging was performed from the skull base to vertex without intravenous administration of contrast. This CT examination was performed using dose optimization techniques as appropriate, variously including the following: *Automated exposure control *Adjustment of mA and/or kV according to patient size (this includes techniques or standardized protocols for targeted exams where dose is matched to indication/reason for exam; i.e. extremities or head) *Use of iterative reconstruction technique DLP: 764 mGy-cm FINDINGS: There is no mass hemorrhage or cerebral edema. Ventricles and basal cisterns normal. No extra-axial fluid collection. Subcutaneous soft tissues: Unremarkable. Bone/calvarium: Hyperostosis and frontalis interna unchanged. Sinuses clear Mastoid air cells unchanged unremarkable. CT/CT head/brain wo IV con IMPRESSION: No acute intracranial pathology. No change. Electronically signed by: Max Savage MD 05/13/2024 05:14 PM EDT Dictated By: Max Savage MD Signed By: Electronically signed by Max Savage MD 05/13/24 1714 EXAMINATION: CT CERVICAL SPINE WITHOUT CONTRAST CLINICAL INFORMATION: Numbness tingling pain COMPARISON: None available. TECHNIQUE: CT scan of the cervical spine was performed with reconstruction imaging performed at the acquisition workstation. This CT examination was performed using dose optimization techniques as appropriate, variously including the following: *Automated exposure control *Adjustment of mA and/or kV according to patient size (this includes techniques or standardized protocols for targeted exams where dose is matched to indication/reason for exam; i.e. extremities or head) *Use of iterative reconstruction technique DLP: 703 mGy-cm FINDINGS: Vertebral bodies normally aligned with normal height.Facets normal. Disc spaces normal. No fracture. Surrounding bone and soft tissues normal. CT/CT cervical spine wo IV con IMPRESSION: Unremarkable examination. Fleischner guidelines were followed. Electronically signed by: Max Savage MD 05/13/2024 05:05 PM EDT Dictated By: Max Savage MD Signed By: Electronically signed by Max Savage MD 05/13/24 1705 Vent. Rate: 071 BPM Atrial Rate: 071 BPM P-R Int: 152 ms QRS Dur: 094 ms QT Int: 398 ms P-R-T Axes: 004 -35 -07 degrees QTc Int: 432 ms Normal sinus rhythm Left axis deviation When compared with ECG of 08-MAR-2024 12:54, No significant change was found DD/ [id number] Radiology Impression Discussion of test interpretation with radiology: I have reviewed the radiologist's reading. Independent Historian Clinical information obtained from an independent historian. History obtained from or confirmed by: Other (patient's daughter provided additional history and confirmed the history provided by the patient.) Discharge Plan Discharge Clinical Impression: Chest pain, Facial numbness Patient Disposition: Left W/O Completing Treatment Prescriptions: No Action metoprolol succinate 25 mg tablet extended release 24 hr 25 mg PO DAILY Qty: 90 3RF Ubrelvy 100 mg tablet See Rx Instructions .ROUTE .COMPLEX Qty: 20 0RF Rx Instructions: 1 tab at pnset of migraine can be repeated in 2 hrs if needed - max 2 tabs a day; amlodipine 5 mg tablet 5 mg PO DAILY Qty: 90 1RF chlorzoxazone 500 mg tablet 1 tab PO TID PRN (Reason: muscle spasm) diphenhydramine HCl [Benadryl] 25 mg capsule 25 mg PO TID PRN (Reason: allergic reaction) Qty: 20 0RF norethindrone acetate 5 mg tablet 5 mg PO DAILY albuterol sulfate 90 mcg/actuation Hfa Aerosol Inhaler 2 puff inhalation DAILY PRN (Reason: SOB/Wheezing) tramadol 50 mg tablet 50 mg PO DAILY Discharge Date/Time: 05/13/24 18:44
[2024-05-13 14:23] LABS: MANUAL DIFF FLAG NO
[2024-05-13 14:33] LABS: Basophils Percent Auto 0.5 % (0-2); Eosinophils Absolute Auto 0.2 X10*3/uL (0.0-0.4); Eosinophils Percent Auto 2.2 % (0-4); Hematocrit 43.7 % (37.0-47.0); Hemoglobin 14.4 g/dl (12.0-16.0); Imm Gran Abs Auto 0.02 X10*3/uL (0.00-0.03); Imm Gran Pct Auto 0.3 % (0.0-0.4); Lymphocytes Absolute Auto 2.7 X10*3/uL (1.2-4.9); Lymphocytes Percent Auto 36.8 % (20-40); Mean Corpuscular Hemoglobin 28.9 pg (27.0-33.0); Mean Corpuscular Volume 87.6 fL (80.0-98.0); Monocytes Absolute Auto 0.6 X10*3/uL (0.1-1.2); Monocytes Percent Auto 8.5 % (2-11); Neutrophils Absolute Auto 3.8 x10*3/uL (2.0-8.3); Neutrophils Percent Auto 51.7 % (45-73); Platelet Count 246 X10*3/uL (160-400); Red Blood Count 4.99 X10*6/uL (4.20-5.50); Red Cell Distribution Width 14.6 % (11.0-16.0); White Blood Count 7.3 X10*3/uL (4.8-10.8)
[2024-05-13 14:37] LABS: INTERNATIONAL NORM RATIO 1.3 (0.9-1.1); Prothrombin Time 15.1 SEC (10.9-12.4)
[2024-05-13 14:39] LABS: Partial Thromboplastin Time 34.8 SEC (26.0-36.8)
[2024-05-13 14:42] LABS: Alanine Aminotransferase 16 U/L (0-31); Albumin Level 4.1 g/dL (3.5-5.0); Alkaline Phosphatase 57 U/L (39-117); Anion Gap 9 (12-20); Aspartate Amino Transferase 22 U/L (5-31); Blood Urea Nitrogen 13 mg/dL (9-16); Carbon Dioxide 25 mmol/L (22-29); Chloride 111 mmol/L (96-108); Estimated Glomerular Filt Rate > 60; Glucose Random 98 mg/dL (60-115); Magnesium 2.2 mg/dL (1.6-2.6); Sodium 141 mmol/L (135-145); Total Protein 7.2 g/dL (6.5-8.0)
[2024-05-13 14:50] LABS: Troponin-I High Sensitivity < 2.7 ng/L (<3.5-17.0)
[2024-05-13 15:04] VITALS: BP 145/83; PULSE 71; RESP 16; TEMP 36.3; O2SAT 98
[2024-05-13 15:22] LABS: Influenza A PCR NEGATIVE (Negative); Influenza B PCR NEGATIVE (Negative); Resp Syncy Virus RNA Qual PCR NEGATIVE (Negative); SARS COV2 PCR INHOUSE NEGATIVE (Negative)
== END 2024-05-13 18:44 | disposition left against medical advice (07) ==
PROVIDERS: Physician Assistant Medical; Emergency Provider Emergency Medicine
DX: R07.9 Chest pain, unspecified (principal); R20.0 Anesthesia of skin; I48.91 Unspecified atrial fibrillation; M79.603 Pain in arm, unspecified; J45.909 Unspecified asthma, uncomplicated; R51.9 Headache, unspecified; Z03.818 Encounter for observation for suspected exposure to other biological agents ruled out; Z79.899 Other long term (current) drug therapy
CPT/HCPCS: 0241U; 70450; 72125; 80053; 83735; 84484; 85025; 85610; 85730; 93005; 99283; 99284

== ENCOUNTER → 2024-05-13 13:14 | Outpatient (BNV) | payer OTHER, SELFPAY | PROVIDERS: Emergency Provider Emergency Medicine; Visit Provider Internal Medicine Cardiovascular Disease | DX: R07.9 Chest pain, unspecified (principal); R11.0 Nausea | CPT/HCPCS: 93010 ==

== ENCOUNTER 2024-05-30 15:20 | Emergency (ER) | payer OTHER, SELFPAY ==
--- NOTE | ~2024-05-30 | XR_ITS ---
EXAMINATION: XR CHEST CLINICAL INFORMATION: Chest pain. COMPARISON: Chest radiograph 03/08/2024. TECHNIQUE: 2 views of the chest were obtained. FINDINGS: Stable appearance of the cardiomediastinal silhouette. No focal consolidation, pleural effusion or pneumothorax. No acute osseous findings. XR/XR chest 2V IMPRESSION: No acute cardiopulmonary findings. Electronically signed by: Saima Hunter MD 05/30/2024 08:20 PM [facility] [place]
--- NOTE | 2024-05-30 15:22 | ECG_ITS ---
Test Reason : cp Blood Pressure : / mmHG Vent. Rate : 057 BPM Atrial Rate : 057 BPM P-R Int : 144 ms QRS Dur : 082 ms QT Int : 426 ms P-R-T Axes : 006 -33 -16 degrees QTc Int : 414 ms Sinus bradycardia Left axis deviation Cannot rule out Anterior infarct (cited on or before 31-MAY-2022) Abnormal ECG When compared with ECG of 13-MAY-2024 13:18, No significant change was found Referred By: Jalyn Marrero Electronically Signed By:LIZ CAPONE MD
--- NOTE | 2024-05-30 15:23 | ED_ITS ---
HPI - Skin/Abscess/Foreign Bdy General Chief complaint: Chest Pain Stated complaint: cp-low heart rate Time Seen by Provider: 05/30/24 18:31 Source: patient, family, RN notes reviewed and old records reviewed Mode of arrival: ambulatory Limitations: no limitations History of Present Illness ED Provider: Lizabeth NICHOLAS narrative: 48-year-old female past medical history significant for atrial fibrillation on Eliquis, hypertension on amlodipine, hypothyroidism, fibromyalgia presents for evaluation of chest pain. Patient reports she has had intermittent chest pain and shortness of breath for the last 5 days. She reports at home her heart rate has been ?in the 40s, as low as 41. ? She denies any dizziness, lightheadedness Last night per the patient's daughter the patient was sweaty, pale while complaining of chest pain The patient has been here a few times in the last few weeks for chest pain with negative workups She follows cardiology with [facility] Denies any leg swelling Related Data Home Medications ?Medication ?Instructions ?Recorded ?Confirmed chlorzoxazone 500 mg tablet 1 tab PO TID PRN muscle spasm 04/27/22 01/26/24 tramadol 50 mg tablet 50 mg PO DAILY 07/12/23 01/26/24 albuterol sulfate 90 mcg/actuation 2 puff inhalation DAILY PRN 01/26/24 01/26/24 aerosol inhaler SOB/Wheezing norethindrone acetate 5 mg tablet 5 mg PO DAILY 01/26/24 01/26/24 Previous Rx's ?Medication ?Instructions ?Recorded diphenhydramine HCl 25 mg capsule 25 mg PO TID PRN allergic reaction 11/20/22 (Benadryl) #20 caps metoprolol succinate 25 mg 25 mg PO DAILY #90 tabs 02/27/23 tablet,extended release 24 hr ubrogepant 100 mg tablet (Ubrelvy) See Rx Instructions .Route 01/29/24 .COMPLEX #20 tabs amlodipine 5 mg tablet 5 mg PO DAILY #90 tabs 02/14/24 Allergies Allergy/AdvReac Type Severity Reaction Status Date / Time adhesive [ADHESIVE] Allergy Unknown RASH Verified 05/30/24 15:48 diclofenac [From Voltaren] Allergy Itching Verified 05/30/24 15:48 Review of Systems 2 Constitutional: Constitutional: Denies body ache(s), Denies chills, Reports fatigue and Denies headache(s) Eyes: Eyes: Denies blurry vision ENT: Denies vertigo, Denies dizziness and Denies headache(s) Cardiovascular: Cardiovascular: Reports chest pain, Reports chest pain at rest, Reports chest pain with activity and Denies dyspnea Respiratory: Respiratory: Denies cough and Denies dyspnea Gastrointestinal: Gastrointestinal: Denies abdominal pain, Denies nausea and Denies vomiting Musculoskeletal: Musculoskeletal: Denies back pain Integumentary/Breasts: Skin/Breast: Denies rash Neurologic: Denies vertigo, Denies dizziness and Denies headache(s) Endocrine: Endocrine: Reports fatigue PMFSH Past Medical History Medical History Paroxysmal atrial fibrillation Anxiety Obesity IBS (irritable bowel syndrome) Chronic GERD Paroxysmal A-fib New onset a-fib COVID-19 virus infection Lymphedema Arthritis Lipoedema Asthma Surgical History Hx laparoscopic cholecystectomy S/P tonsillectomy History of Lucio-en-Y gastric bypass Family History Family History Father No problems noted. Mother Heart disease Diabetes Hyperlipidemia Hypertension COPD (chronic obstructive pulmonary disease) Brother No problems noted. Sister No problems noted. Son Overweight Diabetes Asthma Daughter Asthma Social History Social History Household Members: Family Household Members Other:: daughter and son. Housing: House Do you presently have visiting nurse or other home services: No Alcohol intake: never Patient Tobacco Use Status: Never used Tobacco Substance Use Type: Marijuana Advance Directives: No Advance Directives Information Provided: No service: No Current occupational status: disabled Physical Exam 2 Vital Signs: Vital Signs: Last Vital Signs Temp 96.8 F 05/30/24 15:46 Pulse 65 05/30/24 15:46 Resp 16 05/30/24 15:46 BP 133/72 05/30/24 15:46 Pulse Ox 99 05/30/24 15:46 O2 Del Method Room Air 05/30/24 15:46 BMI result Body Mass Index 71.4 Const: General: healthy appearing, comfortable, no acute distress, alert and awake Nutritional Appearance: well nourished Orientation/consciousness: p atient oriented x3 HEENT: Head: Yes normocephalic and Yes atraumatic Eyes: Eyelids: Yes eyelids normal Conjunctivae: conjunctivae normal S clerae: sclerae normal Corneas: corneas normal Pupils: Equal, round and reactive pupils present EOM: EOMs intact bilaterally Neck: Neck: Yes full ROM Resp: Effort & Inspection: normal respiratory effort, able to speak in complete sentences, no audible wheezes and not labored Auscultation: clear to auscultation bilaterally Cardio: Rate: abnormal rate Rhythm: abnormal rhythm irregularly irregular GI: Inspection: No distended Palpation (GI): Soft to palpation, not firm, nontender, no guarding and not rigid Skin: General skin exam: elasticity normal Neuro: General: patient oriented x3 Cranial nerves: Yes Equal, round and reactive pupils present and Yes Bilaterally intact EOM present Cognition (Neuro): normal cognition Course Course Course Narrative: This is an RME: Additional HPI, ROS, PE not included below will be deferred to primary provider. RME assessment and note performed by: Jalyn Marrero PA-C 48 year old assigned female with a history of atrial fib (not on anti-coags), migraines, fibromyalgia, asthma, and gastric bypass presenting to the emergency department today with complaints of fatigue. Reports uncomfortable feeling in chest. Reports more SOB than usual. Plan: Labs, EKG, CXR, further ER eval needed Medical Decision Making Medical Decision Making MDM Narrative: 48-year-old female with past medical history as documented above presents for evaluation of chest pain that has been on and off for 5 days as well as bradycardia. In the ER her heart rate is high 50s to 60s. Her EKG shows sinus bradycardia with a rate of 57 beats minute. She has not been in the 40s per her report that she has seen at home. Her blood pressure has been slightly elevated. I reviewed her workup shows no significant abnormalities to the hematology or chemistries. Troponin negative despite her complaints of chest pain. EKG is unchanged from previous. Chest x-ray is clear. She has been on metoprolol in the past but she reports that she has not been on this for the last few months. I reviewed her medication list and she was not on any medications that should cause bradycardic, this is most likely related to her atrial fibrillation. I discussed thyroid testing the patient declines this at this time stating that she had just recently had this done. 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 No leukocytosis or anemia. Normal platelet count. No electrolyte abnormalities. 05/30/24 17:30 05/30/24 17:30 Labs: Lab Results 05/30/24 Range/Units 17:30 WBC 9.0 (4.8-10.8) X10*3/uL RBC 5.16 (4.20-5.50) X10*6/uL Hgb 14.6 (12.0-16.0) g/dl Hct 45.5 (37.0-47.0) % MCV 88.2 (80.0-98.0) fL MCH 28.3 (27.0-33.0) pg MCHC 32.1 (31.0-35.0) g/dl RDW 14.6 (11.0-16.0) % Plt Count 265 (160-400) X10*3/uL MPV 10.7 (9.4-12.3) fL Immature Gran % (Auto) 1.0 H (0.0-0.4) % Neut % (Auto) 58.7 (45-73) % Lymph % (Auto) 33.0 (20-40) % Petroleum % (Auto) 6.9 (2-11) % Eos % (Auto) 0.1 (0-4) % Baso % (Auto) 0.3 (0-2) % Lymph # (Auto) 3.0 (1.2-4.9) X10*3/uL Petroleum # (Auto) 0.6 (0.1-1.2) X10*3/uL Eos # (Auto) 0.0 (0.0-0.4) X10*3/uL Baso # (Auto) 0.0 (0.0-0.2) X10*3/uL Abs Immat Gran (auto) 0.09 H (0.00-0.03) X10*3/uL Absolute Neuts (auto) 5.3 (2.0-8.3) x10*3/uL Absolute Nucleated RBC 0.000 (0.0-0.012) X10*3/uL Nucleated RBC % (auto) 0.0 (0.0-0.2) /100WBC Sodium 143 (135-145) mmol/L Potassium 3.8 (3.3-5.1) mmol/L Chloride 109 H (96-108) mmol/L Carbon Dioxide 26 (22-29) mmol/L Anion Gap 12 (12-20) BUN 16 (9-16) mg/dL Creatinine 0.77 (0.5-1.4) mg/dL Estim Creat Clear Calc 129.8 Estimated GFR > 60 Random Glucose 109 (60-115) mg/dL Calcium 9.2 (8.4-10.2) mg/dL Magnesium 2.3 (1.6-2.6) mg/dL Total Bilirubin 1.0 (0.0-1.0) mg/dL Direct Bilirubin 0.3 (0.0-0.5) mg/dL AST 20 (5-31) U/L ALT 14 (0-31) U/L Alkaline Phosphatase 57 (39-117) U/L Troponin I High Sens < 2.7 (<3.5-17.0) ng/L Total Protein 8.1 H (6.5-8.0) g/dL Albumin 4.3 (3.5-5.0) g/dL Beta HCG, Quant < 2 mIU/mL Independent Interpretation I performed an independent interpretation of an: EKG (Sinus bradycardia with a rate of 57 beats per minute, no ST segment changes) and Plain X-Ray (No infiltrates or effusions) Discharge Plan Discharge Clinical Impression: Atypical chest pain Patient Disposition: Home, Self-Care Instructions: Chest Pain (ED), Bradycardia (ED) Additional Instructions: Your workup in the ER today was reassuring. 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 Prescriptions: No Action metoprolol succinate 25 mg tablet extended release 24 hr 25 mg PO DAILY Qty: 90 3RF Ubrelvy 100 mg tablet See Rx Instructions .ROUTE .COMPLEX Qty: 20 0RF Rx Instructions: 1 tab at pnset of migraine can be repeated in 2 hrs if needed - max 2 tabs a day; amlodipine 5 mg tablet 5 mg PO DAILY Qty: 90 1RF chlorzoxazone 500 mg tablet 1 tab PO TID PRN (Reason: muscle spasm) diphenhydramine HCl [Benadryl] 25 mg capsule 25 mg PO TID PRN (Reason: allergic reaction) Qty: 20 0RF norethindrone acetate 5 mg tablet 5 mg PO DAILY albuterol sulfate 90 mcg/actuation Hfa Aerosol Inhaler 2 puff inhalation DAILY PRN (Reason: SOB/Wheezing) tramadol 50 mg tablet 50 mg PO DAILY Print Language: Belarusian
[2024-05-30 15:46] VITALS: BP 133/72; PULSE 65; RESP 16; TEMP 36; O2SAT 99; BMI 71.4
[2024-05-30 17:35] LABS: MANUAL DIFF FLAG NO
[2024-05-30 17:52] LABS: Basophils Percent Auto 0.3 % (0-2); Eosinophils Percent Auto 0.1 % (0-4); Hematocrit 45.5 % (37.0-47.0); Hemoglobin 14.6 g/dl (12.0-16.0); Imm Gran Abs Auto 0.09 X10*3/uL (0.00-0.03); Mean Corpuscular HGB Conc 32.1 g/dl (31.0-35.0); Mean Corpuscular Hemoglobin 28.3 pg (27.0-33.0); Mean Corpuscular Volume 88.2 fL (80.0-98.0); Mean Platelet Volume 10.7 fL (9.4-12.3); Monocytes Absolute Auto 0.6 X10*3/uL (0.1-1.2); Monocytes Percent Auto 6.9 % (2-11); Neutrophils Absolute Auto 5.3 x10*3/uL (2.0-8.3); Neutrophils Percent Auto 58.7 % (45-73); Platelet Count 265 X10*3/uL (160-400); Red Blood Count 5.16 X10*6/uL (4.20-5.50); Red Cell Distribution Width 14.6 % (11.0-16.0)
[2024-05-30 17:59] LABS: Alanine Aminotransferase 14 U/L (0-31); Albumin Level 4.3 g/dL (3.5-5.0); Alkaline Phosphatase 57 U/L (39-117); Anion Gap 12 (12-20); Aspartate Amino Transferase 20 U/L (5-31); Bilirubin Direct 0.3 mg/dL (0.0-0.5); Blood Urea Nitrogen 16 mg/dL (9-16); Calcium 9.2 mg/dL (8.4-10.2); Carbon Dioxide 26 mmol/L (22-29); Chloride 109 mmol/L (96-108); Creatinine Clr Calc Pharmacy 129.8; Estimated Glomerular Filt Rate > 60; Glucose Random 109 mg/dL (60-115); Magnesium 2.3 mg/dL (1.6-2.6); Potassium 3.8 mmol/L (3.3-5.1); Sodium 143 mmol/L (135-145); Total Protein 8.1 g/dL (6.5-8.0)
[2024-05-30 18:03] LABS: HCG Quantitative < 2 mIU/mL; Troponin-I High Sensitivity < 2.7 ng/L (<3.5-17.0)
[2024-05-30 19:13] VITALS: BP 00/00; PULSE 0; RESP 0; TEMP -17.7; TEMP 0; O2SAT 0
== END 2024-05-30 19:18 | disposition home or self-care (01) ==
PROVIDERS: Physician Assistant Medical; Emergency Provider Internal Medicine; PCP Family Medicine
DX: R07.89 Other chest pain (principal); I48.91 Unspecified atrial fibrillation; I10 Essential (primary) hypertension; Z79.01 Long term (current) use of anticoagulants; Z79.899 Other long term (current) drug therapy
CPT/HCPCS: 36415; 71046; 80048; 80076; 83735; 84484; 84702; 85025; 93005; 99283

== ENCOUNTER → 2024-05-30 15:22 | Outpatient (BNV) | payer OTHER, SELFPAY | PROVIDERS: Emergency Provider Internal Medicine; PCP Family Medicine; Visit Provider Internal Medicine Cardiovascular Disease | DX: R07.9 Chest pain, unspecified (principal); R00.1 Bradycardia, unspecified; R94.31 Abnormal electrocardiogram [ECG] [EKG] | CPT/HCPCS: 93010 ==

== ENCOUNTER 2024-08-17 01:10 | Emergency (ER) | payer OTHER, SELFPAY ==
--- NOTE | 2024-08-17 | ECG_ITS ---
Test Reason : CHEST PAIN Blood Pressure : */* mmHG Vent. Rate : 68 BPM Atrial Rate : 68 BPM P-R Int : 146 ms QRS Dur : 78 ms QT Int : 396 ms P-R-T Axes : 1 -26 -14 degrees QTcB Int : 421 ms Normal sinus rhythm Possible Lateral infarct (cited on or before 31-May-2022) Abnormal ECG When compared with ECG of 30-May-2024 15:34, Nonspecific T wave abnormality no longer evident in Anterior leads Referred By: Generic ED Physician Electronically Signed By: LIZ CAPONE MD
--- NOTE | ~2024-08-17 | XR_ITS ---
CLINICAL HISTORY: chest pain Chest X-ray, 1 View COMPARISON: CR/MA/SR - XR CHEST 2V - 05/30/24 18:04 EST FINDINGS: No consolidation. No pleural effusion. No pneumothorax. Mild cardiomegaly. No acute fracture. IMPRESSION: No acute findings. This document has been electronically signed by: Yash Norman MD on 08/17/2024 02:25:10
[2024-08-17 01:19] VITALS: BP 140/76; BP 152/103; PULSE 76; PULSE 79; RESP 20; TEMP 36.4; O2SAT 99; BMI 70.7
[2024-08-17 01:37] LABS: MANUAL DIFF FLAG NO
[2024-08-17 01:39] LABS: Basophils Absolute Auto 0.1 X10*3/uL (0.0-0.2); Basophils Percent Auto 0.6 % (0-2); Eosinophils Absolute Auto 0.1 X10*3/uL (0.0-0.4); Eosinophils Percent Auto 0.8 % (0-4); Hemoglobin 14.1 g/dl (12.0-16.0); Imm Gran Abs Auto 0.23 X10*3/uL (0.00-0.03); Imm Gran Pct Auto 1.9 % (0.0-0.4); Lymphocytes Absolute Auto 2.8 X10*3/uL (1.2-4.9); Lymphocytes Percent Auto 23.9 % (20-40); Mean Corpuscular HGB Conc 32.8 g/dl (31.0-35.0); Mean Corpuscular Hemoglobin 27.9 pg (27.0-33.0); Mean Corpuscular Volume 85.1 fL (80.0-98.0); Mean Platelet Volume 10.1 fL (9.4-12.3); Neutrophils Absolute Auto 7.7 x10*3/uL (2.0-8.3); Neutrophils Percent Auto 64.8 % (45-73); Platelet Count 291 X10*3/uL (160-400); Red Blood Count 5.05 X10*6/uL (4.20-5.50); Red Cell Distribution Width 14.6 % (11.0-16.0); White Blood Count 11.9 X10*3/uL (4.8-10.8)
[2024-08-17 02:14] LABS: Troponin-I High Sensitivity 100.1 ng/L (<3.5-17.0)
--- NOTE | 2024-08-17 02:14 | PC.NURSE ---
Dr Tomlin aware of troponin result of 100.1
[2024-08-17 02:21] LABS: Influenza A PCR NEGATIVE (Negative); Influenza B PCR NEGATIVE (Negative); Resp Syncy Virus RNA Qual PCR NEGATIVE (Negative); SARS COV2 PCR INHOUSE NEGATIVE (Negative)
[2024-08-17 02:44] LABS: Alanine Aminotransferase 22 U/L (0-31); Albumin Level 4.2 g/dL (3.5-5.0); Alkaline Phosphatase 53 U/L (39-117); Anion Gap 15 (12-20); Aspartate Amino Transferase 29 U/L (5-31); Bilirubin Total 0.7 mg/dL (0.0-1.0); Blood Urea Nitrogen 17 mg/dL (9-16); Calcium 9.2 mg/dL (8.4-10.2); Carbon Dioxide 15 mmol/L (22-29); Chloride 109 mmol/L (96-108); Creatinine Clr Calc Pharmacy 118.2; Estimated Glomerular Filt Rate > 60; Glucose Random 91 mg/dL (60-115); Potassium 4.8 mmol/L (3.3-5.1); Sodium 134 mmol/L (135-145); Total Protein 8.4 g/dL (6.5-8.0)
[2024-08-17 03:07] LABS: Appearance Urine Clear; Color Urine Yellow; Glucose Urine UA Negative (Negative); Leukocyte Esterase Urine Negative (Negative); Nitrite Urine Negative (Negative); PH 5.5 (5.0-9.0); Specific Gravity - Urine <= 1.005 (1.005-1.025); Urine Blood Negative (Negative); Urine Ketones Negative (Negative); Urine Protein Negative (Neg-Trace)
[2024-08-17 04:15] VITALS: BP 119/70; PULSE 69; RESP 20; O2SAT 98
[2024-08-17 05:27] LABS: Troponin-I High Sensitivity 93.4 ng/L (<3.5-17.0)
[2024-08-17 06:02] VITALS: BP 117/82; PULSE 70; RESP 16; TEMP 36.8; O2SAT 98
[2024-08-17] MEDS: diazePAM 10 MG/2 ML CARTRIDGE 2.5 MG IVPUSH (07:35)
[2024-08-17 07:42] LABS: Magnesium 2.4 mg/dL (1.6-2.6)
--- NOTE | 2024-08-17 08:00 | ED_ITS ---
HPI - General Adult General Chief complaint: General Medical Stated complaint: MUSCLE SPASMS Time Seen by Provider: 08/17/24 07:00 Source: patient, family, EMS and old records reviewed Mode of arrival: EMS Limitations: no limitations History of Present Illness ED Provider: ROSA NICHOLAS narrative: 49 yo female with PMH of lymphedema, PAF on amiodarone and eliquis though s/p ablation with Dr. Justice at [facility] this Monday, atypical chest pain with abnormal stress but had cardiac cath 2021 showed normal coronaries no lesions reported. She has been compliant with all of her medications and had a normal day yesterday though slightly more sedentary. She denies recent fevers, URIs, n/v/d, did not drink as much water as usual yesterday. Around 1am she developed entire body spasms in legs, arms, shoulders, abdomen that made her nauseated. She notes she has chest pain which has been there and she expected it post surgery. She denies any other complaints and is feeling better but the whole body spasms caused her to cry. She denies this ever happening before MD complaint: body spasms Onset (ago): hour(s) (1am) Location: chest, back, abdomen, left, right, upper extremity and lower extremity Radiation: non-radiation Severity: moderate Quality: aching Pain Consistency: now resolved (improved) Relieving factors: none Exacerbating factors: movement Associated symptoms: loss of appetite and nausea/vomiting Treatments prior to arrival: none Related Data Home Medications ?Medication ?Instructions ?Recorded ?Confirmed chlorzoxazone 500 mg tablet 1 tab PO TID PRN muscle spasm 04/27/22 01/26/24 tramadol 50 mg tablet 50 mg PO DAILY 07/12/23 01/26/24 albuterol sulfate 90 mcg/actuation 2 puff inhalation DAILY PRN 01/26/24 01/26/24 aerosol inhaler SOB/Wheezing norethindrone acetate 5 mg tablet 5 mg PO DAILY 01/26/24 01/26/24 Previous Rx's ?Medication ?Instructions ?Recorded metoprolol succinate 25 mg 25 mg PO DAILY #90 tabs 02/27/23 tablet,extended release 24 hr amlodipine 5 mg tablet 5 mg PO DAILY #90 tabs 02/14/24 diphenhydramine HCl 25 mg capsule 50 mg (2 x 25 mg) PO TID PRN 08/12/24 (Benadryl) migraine headache 30 days #20 caps metoclopramide HCl 5 mg tablet 5 - 10 mg (1 - 2 x 5 mg) PO Q4-6H 08/12/24 PRN nausea and vomiting 30 days #30 tabs ubrogepant 100 mg tablet (Ubrelvy) 100 mg PO .COMPLEX PRN migraine 08/13/24 headache 30 days #16 tabs colchicine 0.6 mg tablet 0.6 mg PO BID #60 tabs 08/17/24 famotidine 20 mg tablet (Pepcid) 20 mg PO DAILY abdominal 08/17/24 discomfort #30 tabs prednisone 20 mg tablet 40 mg (2 x 20 mg) PO DAILY 5 days 08/17/24 #10 tabs Allergies Allergy/AdvReac Type Severity Reaction Status Date / Time adhesive [ADHESIVE] Allergy Unknown RASH Verified 08/17/24 01:22 diclofenac [From Voltaren] Allergy Itching Verified 08/17/24 01:22 Review of Systems 2 Review of Systems: Constitutional : No Weight loss, No Fever, No Chills ENT/Mouth : No sore throat, No Rhinorrhea Eyes: No Eye Pain, No Swelling Cardiovascular : pos Chest Pain, pos SOB, no Dyspnea on Exertion, No Orthopnea, No Edema, No Palpitations Respiratory : No Cough, No Sputum Gastrointestinal : pos Nausea, No Vomiting, No Diarrhea, No abdominal Pain, No Hematochezia, No Melena Genitourinary : No Dysuria, No Urinary Frequency Musculoskeletal : No joint pain, pos Myalgias, No Joint Swelling Skin : No Skin Lesions, No rash Neuro : No Weakness, No Numbness, No Dizziness, No Headache Psych : No Anxiety/Panic, No Depression All other systems reviewed and are negative [facility] Past Medical History Attestation statement: The following information was validated with the patient. Source: old records reviewed Medical History Paroxysmal atrial fibrillation Anxiety Obesity IBS (irritable bowel syndrome) Chronic GERD Paroxysmal A-fib New onset a-fib COVID-19 virus infection Lymphedema Arthritis Lipoedema Asthma Surgical History Hx laparoscopic cholecystectomy S/P tonsillectomy History of Lucio-en-Y gastric bypass Family History Family History Father No problems noted. Mother Heart disease Diabetes Hyperlipidemia Hypertension COPD (chronic obstructive pulmonary disease) Brother No problems noted. Sister No problems noted. Son Overweight Diabetes Asthma Daughter Asthma Social History Social History Household Members: Family Household Members Other:: daughter and son. Housing: House Do you presently have visiting nurse or other home services: No Alcohol intake: never Patient Tobacco Use Status: Never used Tobacco Smoked in Last 30 Days: No Use of substances other than those prescribed or required for medical reasons: No Substance Use Type: Marijuana Advance Directives: No Advance Directives Information Provided: Yes service: No Current occupational status: disabled Physical Exam ED Vital Signs: Vital Signs - 24 hr 08/17/24 01:19 08/17/24 04:15 08/17/24 06:02 Temperature 97.5 F 98.2 F Pulse Rate 76 69 70 Respiratory Rate 20 20 16 Blood Pressure 140/76 H 119/70 117/82 Pulse Oximetry 99 98 98 Oxygen Delivery Method Room Air Room Air Room Air BMI result Body Mass Index 70.7 Appearance: Alert. Oriented X3. No acute distress. Eyes: Pupils equal, round and reactive to light. ENT: Pharynx normal. Neck: Normal inspection. Neck supple. CVS: Normal heart rate and rhythm. Pulses normal. Respiratory: No respiratory distress. Breath sounds normal. Abdomen: Soft and nontender. Skin: Skin warm and dry. Normal skin color. Normal skin turgor. Extremities: lymphedema non pitting lower ext edema. Neuro: Oriented X 3. No motor deficit. No sensory deficit. CN2-12 intact Medications Administered Discontinued Medications Generic Name Dose Route Start Last Admin Trade Name Freq PRN Reason Stop Dose Admin Diazepam 2.5 mg 08/17/24 07:20 08/17/24 07:35 Diazepam 10 Mg/2 Ml Cartridge IVPUSH 08/17/24 07:21 2.5 mg STAT STA Administration Procedures Procedure Narrative Procedure Narrative: limited beside ECHO parasternal, apical, subxiphoid very trace effusion noted on apical view Medical Decision Making Medical Decision Making MDM Narrative: 49 yo female with PMH of lymphedema, PAF on amiodarone and eliquis though s/p ablation with Dr. Ready at [facility] this Monday here with c/o whole body spasms that are improved she also c/o central chest pain and some mild dyspnea - she is s/p ablation monday and just had completely clean cath in 2021 at this time will obtain lytes, repeat labs, trend trops, EKG and start on IV valium for the spasms. I will also order viral panel. I doubt ACS given her clean cath and I doubt VTE she is compliant with her eliquis. Differential Diagnosis Differential Diagnoses: The differential diagnosis associated with the presentation includes lyte abnormality, atypical chest pain - had recent negative cath, on thinners doubt VTE, med reaction, viral syndrome Admission/Observation Consideration of admission/observation: Escalation of care including admission/observation considered trop no rise possible post pericarditis ablation syndrome discussed with cardiology given her history would start on pepcid, prednisone, colchicine 0.5mg BID BMP improved Consult Healthcare Provider Management of the patient was discussed with: Hydrochloric Manufacturing Supervisor (Ishan) Lab Data MDM Lab Attestation statement: I reviewed the patient's lab results. 08/17/24 01:34 08/17/24 09:01 Labs: Lab Results 08/17/24 08/17/24 08/17/24 Range/Units 01:29 01:34 02:19 WBC 11.9 H (4.8-10.8) X10*3/uL RBC 5.05 (4.20-5.50) X10*6/uL Hgb 14.1 (12.0-16.0) g/dl Hct 43.0 (37.0-47.0) % MCV 85.1 (80.0-98.0) fL MCH 27.9 (27.0-33.0) pg MCHC 32.8 (31.0-35.0) g/dl RDW 14.6 (11.0-16.0) % Plt Count 291 (160-400) X10*3/uL MPV 10.1 (9.4-12.3) fL Immature Gran % (Auto) 1.9 H (0.0-0.4) % Neut % (Auto) 64.8 (45-73) % Lymph % (Auto) 23.9 (20-40) % Curry % (Auto) 8.0 (2-11) % Eos % (Auto) 0.8 (0-4) % Baso % (Auto) 0.6 (0-2) % Lymph # (Auto) 2.8 (1.2-4.9) X10*3/uL Curry # (Auto) 1.0 (0.1-1.2) X10*3/uL Eos # (Auto) 0.1 (0.0-0.4) X10*3/uL Baso # (Auto) 0.1 (0.0-0.2) X10*3/uL Abs Immat Gran (auto) 0.23 H (0.00-0.03) X10*3/uL Absolute Neuts (auto) 7.7 (2.0-8.3) x10*3/uL Absolute Nucleated RBC 0.000 (0.0-0.012) X10*3/uL Nucleated RBC % (auto) 0.0 (0.0-0.2) /100WBC Sodium 134 L (135-145) mmol/L Potassium 4.8 D (3.3-5.1) mmol/L Chloride 109 H (96-108) mmol/L Carbon Dioxide 15 L (22-29) mmol/L Anion Gap 15 (12-20) BUN 17 H (9-16) mg/dL Creatinine 0.83 (0.5-1.4) mg/dL Estim Creat Clear Calc 118.2 Estimated GFR > 60 Random Glucose 91 (60-115) mg/dL Calcium 9.2 (8.4-10.2) mg/dL Magnesium 2.4 (1.6-2.6) mg/dL Total Bilirubin 0.7 (0.0-1.0) mg/dL AST 29 (5-31) U/L ALT 22 (0-31) U/L Alkaline Phosphatase 53 (39-117) U/L Total Creatine Kinase 85 (26-140) U/L Troponin I High Sens 100.1 H* D (<3.5-17.0) ng/L Total Protein 8.4 H (6.5-8.0) g/dL Albumin 4.2 (3.5-5.0) g/dL Urine Color Urine Appearance Urine pH (5.0-9.0) Ur Specific [place] (1.005-1.025) Urine Protein (Neg-Trace) mg/dL Urine Glucose (UA) (Negative) mg/dL Urine Ketones (Negative) mg/dL Urine Blood (Negative) Urine Nitrite (Negative) Ur Leukocyte Esterase (Negative) Influenza Type A (PCR) NEGATIVE (Negative) Influenza Type B (PCR) NEGATIVE (Negative) RSV RNA Qual (PCR) NEGATIVE (Negative) SARS-CoV-2 RNA (RT-PCR) NEGATIVE (Negative) 08/17/24 08/17/24 08/17/24 Range/Units 03:00 05:01 09:01 WBC (4.8-10.8) X10*3/uL RBC (4.20-5.50) X10*6/uL Hgb (12.0-16.0) g/dl Hct (37.0-47.0) % MCV (80.0-98.0) fL MCH (27.0-33.0) pg MCHC (31.0-35.0) g/dl RDW (11.0-16.0) % Plt Count (160-400) X10*3/uL MPV (9.4-12.3) fL Immature Gran % (Auto) (0.0-0.4) % Neut % (Auto) (45-73) % Lymph % (Auto) (20-40) % Curry % (Auto) (2-11) % Eos % (Auto) (0-4) % Baso % (Auto) (0-2) % Lymph # (Auto) (1.2-4.9) X10*3/uL [place] # (Auto) (0.1-1.2) X10*3/uL Eos # (Auto) (0.0-0.4) X10*3/uL Baso # (Auto) (0.0-0.2) X10*3/uL Abs Immat Gran (auto) (0.00-0.03) X10*3/uL Absolute Neuts (auto) (2.0-8.3) x10*3/uL Absolute Nucleated RBC (0.0-0.012) X10*3/uL Nucleated RBC % (auto) (0.0-0.2) /100WBC Sodium 139 (135-145) mmol/L Potassium 4.3 (3.3-5.1) mmol/L Chloride 112 H (96-108) mmol/L Carbon Dioxide 20 L (22-29) mmol/L Anion Gap 11 L (12-20) BUN 13 (9-16) mg/dL Creatinine 0.74 (0.5-1.4) mg/dL Estim Creat Clear Calc 132.6 Estimated GFR > 60 Random Glucose 91 (60-115) mg/dL Calcium 9.0 (8.4-10.2) mg/dL Magnesium (1.6-2.6) mg/dL Total Bilirubin (0.0-1.0) mg/dL AST (5-31) U/L ALT (0-31) U/L Alkaline Phosphatase (39-117) U/L Total Creatine Kinase (26-140) U/L Troponin I High Sens 93.4 H* (<3.5-17.0) ng/L Total Protein (6.5-8.0) g/dL Albumin (3.5-5.0) g/dL Urine Color Yellow Urine Appearance Clear Urine pH 5.5 (5.0-9.0) Ur Specific [place] <= 1.005 (1.005-1.025) Urine Protein Negative (Neg-Trace) mg/dL Urine Glucose (UA) Negative (Negative) mg/dL Urine Ketones Negative (Negative) mg/dL Urine Blood Negative (Negative) Urine Nitrite Negative (Negative) Ur Leukocyte Esterase Negative (Negative) Influenza Type A (PCR) (Negative) Influenza Type B (PCR) (Negative) RSV RNA Qual (PCR) (Negative) SARS-CoV-2 RNA (RT-PCR) (Negative) Independent Interpretation I performed an independent interpretation of an: EKG Interpretation: Rate: 68 Rhythm: NSR [place]: left Normal P waves. Normal SAMUEL. Normal QRS complex. ST T wave : no KENDRA, inverted t waves III and aVF, V1 qTC: 421 prior studies: no change from priors The study has been interpreted contemporaneously by me. . Independent Historian Clinical information obtained from an independent historian. History obtained from or confirmed by: EMS and Other (daughter) External Record Review External record reviewed: Inpatient record and Outpatient record Prescription Management I considered prescription management with: Pain Medication and Other Discharge Plan Discharge Clinical Impression: Myalgia Pericarditis Qualifiers: Pericarditis type: other type Chronicity: acute Qualified Code(s): I30.8 - Other forms of acute pericarditis Patient Disposition: Home, Self-Care Instructions: Acute Pericarditis (ED), Musculoskeletal Pain (ED) Additional Instructions: repeat labs stable very trace to minimal fluid around the heart on bedside ECHO electrolytes normal no change in EKG at this time plan to start steroids and colchicine for inflammation. sometimes colchicine is not tolerated well taking it twice a day and you may need to cut the dose down to once a day return for any worsening symptoms, black or bloody stools, severe diarrhea or any other concerns. please call your digital sales executive on Monday Prescriptions: New colchicine 0.6 mg tablet 0.6 mg PO BID Qty: 60 0RF prednisone 20 mg tablet 40 mg PO DAILY 5 Days Qty: 10 0RF famotidine [Pepcid] 20 mg tablet 20 mg PO DAILY Qty: 30 0RF No Action metoprolol succinate 25 mg tablet extended release 24 hr 25 mg PO DAILY Qty: 90 3RF amlodipine 5 mg tablet 5 mg PO DAILY Qty: 90 1RF metoclopramide HCl 5 mg tablet 5 - 10 mg PO Q4-6H MDD 4 PRN (Reason: nausea and vomiting) 30 Days Qty: 30 1RF diphenhydramine HCl [Benadryl] 25 mg capsule 50 mg PO TID PRN (Reason: migraine headache) 30 Days Qty: 20 3RF Ubrelvy 100 mg tablet 100 mg PO .COMPLEX MDD 2 tabs PRN (Reason: migraine headache) 30 Days Qty: 16 6RF Rx Instructions: 100 mg orally At onset of migraine, may repeat in 2 hours, max 2 tabs for day. PRN; chlorzoxazone 500 mg tablet 1 tab PO TID PRN (Reason: muscle spasm) norethindrone acetate 5 mg tablet 5 mg PO DAILY albuterol sulfate 90 mcg/actuation Hfa Aerosol Inhaler 2 puff inhalation DAILY PRN (Reason: SOB/Wheezing) tramadol 50 mg tablet 50 mg PO DAILY Print Language: Kazakh
[2024-08-17 09:21] LABS: Anion Gap 11 (12-20); Blood Urea Nitrogen 13 mg/dL (9-16); Carbon Dioxide 20 mmol/L (22-29); Chloride 112 mmol/L (96-108); Creatinine Clr Calc Pharmacy 132.6; Estimated Glomerular Filt Rate > 60; Glucose Random 91 mg/dL (60-115); Potassium 4.3 mmol/L (3.3-5.1); Sodium 139 mmol/L (135-145)
[2024-08-17 09:59] LABS: C Reactive Protein 1.24 mg/dL (< or = 0.50)
[2024-08-17 10:08] VITALS: BP 122/86; PULSE 62; RESP 16; TEMP 36.8; O2SAT 98
[2024-08-17 10:09] VITALS: BP 122/86; PULSE 62; RESP 16; TEMP 36.8; O2SAT 98
== END 2024-08-17 10:10 | disposition home or self-care (01) ==
PROVIDERS: Emergency Provider Emergency Medicine
DX: M79.18 Myalgia, other site (principal); I30.8 Other forms of acute pericarditis; R07.9 Chest pain, unspecified; R60.0 Localized edema; R06.02 Shortness of breath; I48.0 Paroxysmal atrial fibrillation; J45.909 Unspecified asthma, uncomplicated; Z03.818 Encounter for observation for suspected exposure to other biological agents ruled out; Z79.01 Long term (current) use of anticoagulants; Z79.899 Other long term (current) drug therapy
CPT/HCPCS: 0241U; 36415; 71045; 80048; 80053; 81003; 82550; 83735; 84484; 85025; 86140; 93005; 96374; 99284; J3360

== ENCOUNTER → 2024-08-17 01:26 | Outpatient (BNV) | payer OTHER, SELFPAY | PROVIDERS: Emergency Provider Emergency Medicine; Visit Provider Internal Medicine Cardiovascular Disease | DX: R07.9 Chest pain, unspecified (principal); R94.31 Abnormal electrocardiogram [ECG] [EKG] | CPT/HCPCS: 93010 ==

== ENCOUNTER → 2024-08-17 01:36 | Outpatient (BNV) | payer OTHER, SELFPAY | PROVIDERS: Visit Provider Radiology Diagnostic Radiology | DX: R07.9 Chest pain, unspecified (principal) | CPT/HCPCS: 71045 ==

== ENCOUNTER → 2024-10-23 13:16 | Outpatient (BNVA) | payer OTHER, SELFPAY | PROVIDERS: PCP Family Medicine; Visit Provider Nurse Practitioner Family ==

== ENCOUNTER 2025-02-07 11:28 | Emergency (ER) | payer OTHER, SELFPAY ==
--- OUTSIDE RECORDS SUMMARY | 2024-05-06 08:13 | XMS_ITS | Encounter Summary ---
Author Organization [facility] Address [address] [place] [address] Support Name Relationship Address Phone Vonda Amaya Daughter [address] [place] [address] Care Team Providers Care Backbreaker Name Role Phone Sarah Resendez MD Primary Care Pr ovider Encounter Details Date Type Department Care Team (Latest Contact Info) Description 05/06/2024 8:13 AM EDT Hospital Encounter TH HISTORIC ENCOUNTERS EASTERN CONVERSION ONLY [facility]uri Richards PA [facility] [address] [place] [address] Epigastric pain Social History Tobacco Use Types Packs/Day Years Used Date Smoking Tobacco: Never Passive Smoke Exposure: Current Smokeless Tobacco: Never Alcohol Use Standard Drinks/Week Comments Not Currently 0 (1 standard drink = 0.6 oz pur e alcohol) Interpersonal Safety Answer Date Record ed Physical Abuse 06/13/2024 Verbal Abuse 06/13/2024 Comments No Sex and Gender Information Value Date Recorded Sex Assigned at Female 08/06/2024 1:20 PM EST Legal Sex Female 2:32 PM EST Gender Identity Female 08/06/2024 1:20 PM EST Sexual Orientation Straight 08/07/2024 8: 05 AM EST documented as of this encounter Plan of Treatment Upcoming Encounters Date Type Department Care Team (Late st Contact Info) Description 02/10/2025 2:00 PM EDT [facility] [address] [place] [phone] Adalgisa Mcleod COTA 02/10/2025 2:45 PM EDT Office Visit Orthopedic Surgery - [facility] [address] [facility] [address] [place] [phone] Alex Patricia, DPM [address] [address] 02/13/2025 1:00 PM EDT Treatment [facility] 175 [facility] [address] [place] [phone] Lena Bui, OT 02/25/2025 2:00 PM EDT Office Visit Obstetrics and Gynecology [address] [phone] Siomara Ramirez, PA [address] [place] [address] 02/25/2025 4:15 PM EDT Office Visit Bariatric Surgery [facility] [address] [phone] Ken Watson MD [address] [address] 02/26/2025 1:30 PM EDT Nutrition Bariatric [address] [phone] Tiffanie Tavarez, RD [address] [phone] 02/27/2025 12:45 PM EDT Office Visit Adult Medicine [address] [phone] Sarah Resendez MD [address] [place] [address] 03/03/2025 3:45 PM EDT Office Visit Pulmonolgy [facility] 175 [facility] [address] [place] [phone] Rakel Patterson MD [address] [place] [address] 03/12/2025 2:20 PM EDT Office Visit Gastroenterology - [facility] [address] [place] [phone] Maryuri Richards PA [address] [place] [address] 03/19/2025 8:50 AM EDT Office Visit [facility] [address] [place] [phone] Pablo Bruno MD [address] [place] [address] [place] [address] 03/25/2025 3:30 PM EDT Office Visit [facility] [place] [address] [place] [phone] Adi Puri MD [address] [place] [phone] 05/26/2025 1:00 PM EST Appointment Radiology Department [address] [phone] documented as of this encounter Goals Goal Patient Goal Type Associated Problems Recent Progress Patient-Stated? Author OT 6-8 visits General Improving( 2:44 PM EDT) No Lena Bui, OT Note: Pt will return demo approp HEP w/ progression (splint, ROM, eventual strength) 01/28 ongoing, modified this date Pt will report no signif pain w/ wrist AROm all ranges including eating w/ dominant RUE 8 Does eat w/ RUE but moderate pain Pt will demo negative pain to provoc testing Shantanusteinty 78 min pain moreso tumb MP vs snuff box though Pt will demo dominant R supervisor of officials at least 40# (black dyn) 01/28 R supervisor of officials =20, L supervisor of officials =50 documented as of this encounter Procedures Procedure Name Priority Date/Time Associated Diagnosis Comments CR UGI W AIR ROUTINE Routine 05/06/2024 9:17 AM EDT Epigastric pain documented in this encounter Results * CR UGI W AIR ROUTINE (05/06/2024 9:17 AM EDT) Anatomical Region Laterality Modality Radiographic Ada ging 05/06/2024 8:21 AM EDT Narrative 05/06/2024 9:[address] [facility] Diagnostic Imaging Department [address] [place] [address] Patient: SHIRA AMAYA D.O.B./Age/Sex: 1975 - 48 - F Unit#: [id number] Location/Status: SPDIGEN/REG CLI Mnemonic/Ordering Site: [facility] Ordering Physician: MARYURI RICHARDS CR UGI W Air Routine - 05/06/24 - 903 Report Status:Signed FINDINGS: Single contrast UGI performed. COMPARISON: Upper GI March 30, 2023 HISTORY: Patient is a 48-year-old female with history of gastric bypass in 2016 reporting generalized abdominal pain and burning with eating. MATERIAL DAMAGE ADJUSTER radiographs: Solar Mechanical Engineer AP radiograph of the abdomen obtained. Bowel gas pattern is nonobstructive. Surgical clips are noted in the right upper quadrant consistent with history of cholecystectomy. There is also a surgical suture chain in the left upper quadrant consistent with history of gastric bypass. Osseous structures are overall unremarkable. Thin barium was administered orally under fluoroscopic control. Esophagus: Normal distensibility, motility and mucosal pattern. There is no evidence of obstruction or hiatal hernia. Stomach: Normal distensibility and motility status post gastric bypass. Prompt passage of contrast from the stomach into the jejunum. Widely patent gastrojejunal anastomosis. No gastric mass or ulceration noted. Visualization of proximal small bowel is within normal limits. Gastroesophageal reflux: Small amount of spontaneous gastroesophageal reflux visualized DAP: 14.74 Gycm^2 Exam performed and dictated by: Kari Willingham PA-C Supervising physician: Celi Walker MD IMPRESSION: Small amount of spontaneous gastroesophageal reflux visualized, otherwise normal single contrast upper GI exam status post gastric bypass. Dictating Physician: CELI WALKER MD Electronically Signed by: CELI WALKER MD Dic Date/Time: 05/06/24908 Sign date/Time: 05/06/24916 Procedure Note Celi Walker MD - 05/21/2024 [facility] Diagnostic Imaging Department [address] [place] [address] Patient: SHIRA AMAYA D.O.B./Age/Sex: 1975 - 48 - F Unit#: [id number] Location/Status: SPDIGEN/REG CLI Mnemonic/Ordering Site: [facility] Ordering Physician: MARYURI RICHARDS CR UGI W Air Routine - 05/06/24 - 0904 Report Status:Signed FINDINGS: Single contrast UGI performed. COMPARISON: Upper GI March 30, 2023 HISTORY: Patient is a 48-year-old female with history of gastric bypass [id number] reporting generalized abdominal pain and burning with eating. MATERIAL DAMAGE ADJUSTER radiographs: Solar Mechanical Engineer AP radiograph of the abdomen obtained. Bowelgas pattern is nonobstructive. Surgical clips are noted in the right upperquadrant consistent with history of cholecystectomy. There is also a surgicalsuture chain in the left upper quadrant consistent with history of gastricbypass. Osseous structures are overall unremarkable. Thin barium was administered orally under fluoroscopic control. Esophagus: Normal distensibility, motility and mucosal pattern. There isno evidence of obstruction or hiatal hernia. Stomach: Normal distensibility and motility status post gastric bypass.Prompt passage of contrast from the stomach into the jejunum. Widely patent gastrojejunal anastomosis. No gastric mass or ulceration noted.Visualization of proximal small bowel is within normal limits. Gastroesophageal reflux: Small amount of spontaneous gastroesophagealreflux visualized DAP: 14.74 Gycm^2 Exam performed and dictated by: Kari Willingham PA-C Supervising physician: Celi Walker MD IMPRESSION: Small amount of spontaneous gastroesophageal reflux visualized,otherwise normal single contrast upper GI exam status post gastric bypass. Dictating Physician: CELI WALKER MD Electronically Signed by: CELI WALKER MD Dic Date/Time: 05/06/24908 Sign date/Time: 05/06/24916 Maryuri COOPER IMG XR PROCEDURES Final Resul t documented in this encounter Visit Diagnoses Diagnosis Epigastric pain Abdominal pain, epigastric Encounter for screening mammogram for breast cancer documented in this encounter Care Teams Backbreaker Relationship Specialty Start Date End Date Sarah Resendez MD [address] [facility], [place] PCP - General Internal Medicine 02/11/22 documented as of this encounter
--- NOTE | ~2025-02-07 | XR_ITS ---
EXAMINATION: XR CHEST 1 VIEW HISTORY: Chest pain COMPARISON: Comparison is made with the prior examination dated 08/17/2024. FINDINGS: A single AP portable view of the chest performed at 12:24 PM is submitted. The lungs are expanded and clear. There is no pleural effusion, pneumothorax, or pulmonary vascular congestion. The heart is normal in size. The bones are intact. XR/XR chest 1V IMPRESSION: No acute cardiopulmonary abnormality. Electronically signed by: Ry Lam MD 02/07/2025 12:41 PM EDT
--- NOTE | 2025-02-07 11:30 | ECG_ITS ---
Test Reason : chest pain Blood Pressure : */* mmHG Vent. Rate : 82 BPM Atrial Rate : 82 BPM P-R Int : 140 ms QRS Dur : 80 ms QT Int : 360 ms P-R-T Axes : 17 -58 10 degrees QTcB Int : 420 ms Sinus rhythm with Premature atrial complexes Left anterior fascicular block Possible Anterolateral infarct (cited on or before 31-May-2022) Abnormal ECG When compared with ECG of 17-Aug-2024 01:26, Premature atrial complexes are now Present T wave inversion no longer evident in Inferior leads Referred By: Kartik Kumar Electronically Signed By: RICARDO RODRIGUEZ
[2025-02-07 11:41] VITALS: BP 147/93; PULSE 81; RESP 18; TEMP 36.4; O2SAT 98; BMI 71.2
--- NOTE | 2025-02-07 11:46 | ED_ITS ---
HPI - General Adult General Chief complaint: Chest Pain Stated complaint: CP, High BP Time Seen by Provider: 02/07/25 12:02 Source: patient Limitations: no limitations History of Present Illness ED Provider: aishwarya ornelas np HPI narrative: Patient is a 49-year-old female past medical history of lymphedema with chronic lower extremity swelling, paroxysmal atrial fibrillation on amiodarone and Eliquis s/p ablation, atypical chest pain, previously abnormal stress test but cardiac catheterization in 2021 revealing normal coronaries and no lesions. She presents today for evaluation of chest pain over the past week described as a stuffy sensation 3/10, mild shortness of breath on exertion, nausea. Has experienced these symptoms in the past when her blood pressure is elevated. She reports over the past week her blood pressure has been persistently elevated, with the highest being 160/112. She contacted her outpatient admitting clerk's office; [facility], in regards to this and was advised to come to the emergency department a couple of days ago. She denies any radiation of the pain in his localized to the mid chest at the nipple line, no diaphoresis, no vomiting, pain does not change on exertion. Denies orthopnea. Denies trauma, fevers, chills, URI symptoms, sore throat, difficulty swallowing, neck pain, palpitations, cough, vomiting, abdominal pain, numbness or tingling of the extremities. Denies alcohol use, recreational drugs, or smoking tobacco. Related Data Home Medications ?Medication ?Instructions ?Recorded ?Confirmed chlorzoxazone 500 mg tablet 1 tab PO TID PRN muscle sp asm 04/27/22 01/26/24 tramadol 50 mg tablet 50 mg PO DAILY 07/12/2312/14 albuterol sulfate 90 mcg/actuation 2 puff inhalation D AILY PRN 01/26/24 01/26/24 aerosol inhaler SOB/Wheezing norethindrone acetate 5 mg tablet 5 mg PO DAILY 01/26/24 Previous Rx's ?Medication ?Instructions ?Recorded metoprolol succinate 25 mg 25 mg PO DAILY #90 tabs 02/12 tablet,extended release 24 hr amlodipine 5 mg tablet 5 mg PO DAILY #90 tabs 02/13 diphenhydramine HCl 25 mg capsule 50 mg (2 x 25 mg) PO TID PRN 08/12/24 (Benadryl) migraine headache 30 days #2 0 caps metoclopramide HCl 5 mg tablet 5 - 10 mg (1 - 2 x 5 mg ) PO Q4-6H 08/12/24 PRN nausea and vomiting 30 days #30 tabs colchicine 0.6 mg tablet 0.6 mg PO BID #60 tabs 08/17 famotidine 20 mg tablet (Pepcid) 20 mg PO DAILY abdomi nal 08/17/24 discomfort #30 tabs prednisone 20 mg tablet 40 mg (2 x 20 mg) PO DAILY 5 days 08/17/24 #10 tabs ubrogepant 100 mg tablet (Ubrelvy) 100 mg PO .COMPLEX PRN migraine 08/26/24 headache 30 days #16 tabs Allergies Allergy/AdvReac Type Severity Reaction Status Date / Time adhesive (ADHESIVE) Allergy Unknown RASH Verified 02/07/25 11:44 diclofenac (From Voltaren) Allergy Itching Verified 02/07/25 11:44 Review of Systems 2 Review of Systems: Yes all other systems are reviewed and are negative [facility] Past Medical History Attestation statement: The following information was validated with the patient. Source: old records reviewed Medical History Paroxysmal atrial fibrillation Anxiety Obesity IBS (irritable bowel syndrome) Chronic GERD Paroxysmal A-fib New onset a-fib COVID-19 virus infection Lymphedema Arthritis Lipoedema Asthma Surgical History Hx laparoscopic cholecystectomy S/P tonsillectomy History of Lucio-en-Y gastric bypass Family History Family History Father No problems noted. Mother Heart disease Diabetes Hyperlipidemia Hypertension COPD (chronic obstructive pulmonary disease) Brother No problems noted. Sister No problems noted. Son Overweight Diabetes Asthma Daughter Asthma Social History Social History Household Members: Family Household Members Other:: daughter and son. Housing: House Do you presently have visiting nurse or other home services: No Alcohol intake: never Patient Tobacco Use Status: Never used Tobacco Substance Use Type: Marijuana Advance Directives: No Advance Directives Information Provided: Yes Do you have a plan to hurt others: No Plan service: No Current occupational status: disabled Physical Exam ED Vital Signs: Vital Signs - 24 hr 02/07/25 11:41 02/07/25 13:41 02/07/25 14:37 Temperature 97.5 F 98.2 F Pulse Rate 81 68 122 H Respiratory Rate 18 16 20 Blood Pressure 147/93 H 128/75 Pulse Oximetry 98 98 98 Oxygen Delivery Method Room Air Room Air Room Air 02/07/25 14:37 02/07/25 15:00 Temperature 98.2 F Pulse Rate 105 H 94 Respiratory Rate 24 H 18 Blood Pressure 128/75 Pulse Oximetry 96 99 Oxygen Delivery Method Room Air Room Air BMI result Body Mass Index 71.2 Appearance: Alert.?Oriented to person, place and time. No acute distress.?Normal affect. Eyes: Pupils equal, round and reactive to light.? ENT: Pharynx normal.?? Neck: Normal inspection.? Neck supple.??No JVD. CVS: Heart sounds normal. Normal heart rate and rhythm.? Pulses normal.?? Respiratory: No respiratory distress.? Lung sounds clear to auscultation bilaterally?? Abdomen: Soft and non-tender. Normoactive bowel sounds. No pulsatile mass.?? Skin: Skin warm and dry.? Normal skin color.? ?? Extremities: Bilateral lower extremity edema.? No calf ttp? Neuro: Moves all extremities spontaneously. Sensation intact bilaterally. CN II- XII intact. No focal neuro deficits. Ambulates with normal steady gait. Course Course Course Narrative: RmE: 49-year-old female history of high blood pressure and PE presents to ED for chest pain for over a week described as fullness and chest. Patient states pain at a 3. Patient states chronic leg swelling due to lymphedema. Patient denies any pleurisy. Labs EKG chest x-ray ordered Medical Decision Making Medical Decision Making MDM Narrative: Patient is a 49-year-old female past medical history of lymphedema with chronic lower extremity swelling, paroxysmal atrial fibrillation on amiodarone and Eliquis s/p ablation, atypical chest pain, previously abnormal stress test but cardiac catheterization in 2021 revealing normal coronaries and no lesions. who presents to the emergency department for evaluation with complaint of stuffy sensation in chest, constant in nature over the past week who is dyspnea on exertion which she attributes to her hypertension. These symptoms are not new. However she does state that her blood pressure is not usually consistently elevated as it has been over the past week. She has been compliant with her antihypertensive; hydrochlorothiazide and amlodipine. She has also been compliant with her Eliquis has not skipped any doses. Clinically she appears well, nontoxic, afebrile, no tachycardia tachypnea or hypoxia. She has bilateral lower extremity edema up does have a history of lymphedema, states that this is not increased from her baseline, she has no calf tenderness on evaluation. Lower suspicion for acute pulmonary embolism as etiology. ECG without signs of ischemia, no evidence of STEMI, revealing sinus rhythm with PACs, ventricular rate of 82, normal SAMUEL, QTC 420. No recent URI symptoms to suggest viral illness, pneumonia, costochondritis. No abdominal tenderness upon palpation, negative Wyman sign, unlikely acute cholecystitis, choledocholithiasis, no fever or jaundice to suggest acute cholangitis, may possibly be biliary colic secondary to cholelithiasis. Denies associated acid reflux, no tenderness upon palpation over the epigastrium or left upper quadrant to suggest gastritis, no recent hematemesis history less likely to suggest PUD. Denies excessive alcohol consumption, history of diabetes, lower suspicion acute pancreatitis. She is normotensive in the emergency department BP at the time of my evaluation 115/66 reporting a mild chest sensation at this time. CBC is without leukocytosis, no anemia, no thrombocytopenia. No electrolyte derangement. No DAVE. LFTs unremarkable. High sensitive troponin within normal range. HCG is negative. Chest x-ray without consolidation infiltrate to suggest pneumonia, no pleural effusions, BNP 15 does not appear consistent with CHF. Ambulatory O2 trial without hypoxia. At this time feel that she is stable for discharge home, outpatient follow-up with her primary care doctor/outpatient admitting clerk. Reviewed worrisome signs and symptoms that would warrant re-evaluation emergency department. All questions answered Differential Diagnosis Differential Diagnoses: The differential diagnosis associated with the presentation includes (See narrative above) Admission/Observation Consideration of admission/observation: Escalation of care including admission/observation considered (See narrative above and course narrative for further detail) Lab Data MDM Lab Attestation statement: I reviewed the patient's lab results. 02/07/25 12:11 02/07/25 12:11 Labs: Lab Results 02/07/25 Range/Units 12:11 WBC 8.2 (4.8-10.8) X10*3/uL RBC 5.36 (4.20-5.50) X10*6/uL Hgb 16.5 H (12.0-16.0) g/dl Hct 47.3 H (37.0-47.0) % MCV 88.2 (80.0-98.0) fL MCH 30.8 (27.0-33.0) pg MCHC 34.9 (31.0-35.0) g/dl RDW 14.3 (11.0-16.0) % Plt Count 219 (160-400) X10*3/uL MPV 10.1 (9.4-12.3) fL Immature Gran % (Auto) 0.7 H (0.0-0.4) % Neut % (Auto) 60.0 (45-73) % Lymph % (Auto) 29.3 (20-40) % Garza % (Auto) 7.9 (2-11) % Eos % (Auto) 1.5 (0-4) % Baso % (Auto) 0.6 (0-2) % Lymph # (Auto) 2.4 (1.2-4.9) X10*3/uL Garza # (Auto) 0.6 (0.1-1.2) X10*3/uL Eos # (Auto) 0.1 (0.0-0.4) X10*3/uL Baso # (Auto) 0.1 (0.0-0.2) X10*3/uL Abs Immat Gran (auto) 0.06 H (0.00-0.03) X10*3/uL Absolute Neuts (auto) 4.9 (2.0-8.3) x10*3/uL Absolute Nucleated RBC 0.000 (0.0-0.012) X10*3/uL Nucleated RBC % (auto) 0.0 (0.0-0.2) /100WBC PT 15.8 H (10.9-12.4) SEC INR 1.4 H (0.9-1.1) APTT 36.9 H (26.0-36.8) SEC D-Dimer High Sensitivty < 150 NG/ML Sodium 138 (135-145) mmol/L Potassium 3.4 D (3.3-5.1) mmol/L Chloride 105 (96-108) mmol/L Carbon Dioxide 24 (22-29) mmol/L Anion Gap 12 (12-20) BUN 15 (9-16) mg/dL Creatinine 1.27 (0.5-1.4) mg/dL Estim Creat Clear Calc 77.7 Estimated GFR 45 Random Glucose 103 (60-115) mg/dL Calcium 9.3 (8.4-10.2) mg/dL Total Bilirubin 1.2 H (0.0-1.0) mg/dL AST 26 (5-31) U/L ALT 25 (0-31) U/L Alkaline Phosphatase 60 (39-117) U/L Troponin I High Sens 3.5 D (<3.5-17.0) ng/L B-Natriuretic Peptide 15 (<100) pg/mL Total Protein 7.6 (6.5-8.0) g/dL Albumin 4.4 (3.5-5.0) g/dL Beta HCG, Quant < 2 mIU/mL Independent Interpretation I performed an independent interpretation of an: EKG (see narrative above) and Plain X-Ray (see narrative above) Radiology Impression Discussion of test interpretation with radiology: I have reviewed the radiologist's reading. Radiologist Impression: XR/XR chest 1V IMPRESSION: No acute cardiopulmonary abnormality. External Record Review External record reviewed: Outpatient record Chronic Conditions Patient?s care impacted by: Other (see narrative above) Discharge Plan Discharge Clinical Impression: Chest pain Patient Disposition: Home, Self-Care Instructions: Chest Pain (ED) Additional Instructions: Workup today is very reassuring, EKG did not show abnormal findings, chest x-ray is normal. Blood work including troponin, a marker for damage to the heart muscle was normal which is reassuring. Please follow-up with your primary care doctor/outpatient admitting clerk. You may return back to emergency department any new or worsening symptoms or concerns. Prescriptions: No Action metoprolol succinate 25 mg tablet extended release 24 hr 25 mg PO DAILY Qty: 90 3RF amlodipine 5 mg tablet 5 mg PO DAILY Qty: 90 1RF metoclopramide HCl 5 mg tablet 5 - 10 mg PO Q4-6H MDD 4 PRN (Reason: nausea and vomiting) 30 Days Qty: 30 1RF diphenhydramine HCl [Benadryl] 25 mg capsule 50 mg PO TID PRN (Reason: migraine headache) 30 Days Qty: 20 3RF Ubrelvy 100 mg tablet 100 mg PO .COMPLEX MDD 2 tabs PRN (Reason: migraine headache) 30 Days Qty: 16 6RF Rx Instructions: 100 mg orally At onset of migraine, may repeat in 2 hours, max 2 tabs for day. PRN; chlorzoxazone 500 mg tablet 1 tab PO TID PRN (Reason: muscle spasm) norethindrone acetate 5 mg tablet 5 mg PO DAILY albuterol sulfate 90 mcg/actuation Hfa Aerosol Inhaler 2 puff inhalation DAILY PRN (Reason: SOB/Wheezing) colchicine 0.6 mg tablet 0.6 mg PO BID Qty: 60 0RF prednisone 20 mg tablet 40 mg PO DAILY 5 Days Qty: 10 0RF famotidine [Pepcid] 20 mg tablet 20 mg PO DAILY Qty: 30 0RF tramadol 50 mg tablet 50 mg PO DAILY Referrals: Physician,Unknown J [Primary Care Provider, Medical] Interventions: ED Discharge Assessment Last Done: 02/07/25 15:00 Discharge Date/Time: 02/07/25 15:02 Print Language: [place]
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
--- OUTSIDE RECORDS SUMMARY | 2025-02-07 12:14 | XMS_ITS | Clinical Summary ---
Author Organization [employer] [facility] Address [address] [place] [address] Care Team Providers Care Certified Lactation Educator Name Role Phone Yanely Benton MD Primary Care Provider [phone] Allergies Active Allergy Reactions Criticality Noted Date Comments Adhesive Tape Itching 09/18/2020 Medications Medication Sig Dispensed Refills Start Date End Date Status hydrOXYzine (ATARAX) 10 MG tablet Take 10 mg by mouth 2 (two) times a day. 0 Active FLUoxetine HCl 60 MG TABS Take 1 tablet by mouth daily. 0 Active albuterol (PROVENTIL HFA;VENTOLIN HFA) 108 (90 Base) MCG/ACT inhaler Inhale 2 puffs into the lungs every 6 (six) hours as needed for wheezing. 0 Active omeprazole (PriLOSEC) 20 MG capsule Take 20 mg by mouth daily as needed. 0 Active methocarbamol (ROBAXIN) 500 MG tablet Take 1 tablet (500 mg total) by mouth 3 (three) times a day as needed (muscle spasms). 90 tablet 3 11/18/2020 Active chlorzoxazone (PARAFON FORTE) 500 MG tablet Take 1 tablet (500 mg total) by mouth 3 (three) times a day as needed for muscle spasms. 90 tablet 5 04/12/2022 Active meloxicam (MOBIC) 15 MG tablet Take 1 tablet (15 mg total) by mouth daily as needed for pain. 30 tablet 3 04/12/2022 Active gabapentin (NEURONTIN) 600 MG tablet Take 2 tablets (1,200 mg total) by mouth 3 (three) times a day. 180 tablet 5 04/12/2022 Active Active Problems Problem Noted Date Diagnosed Date Lumbar facet joint syndrome 09/18/2020 Family History Medical History Relation Name Comments COPD Father Diabetes Mother Heart disease Mother Hyperlipidemia Mother Hypertension Mother Relation Name Status Comments Father Mother Alive Social History Tobacco Use Types Packs/Day Years Used Date Smoking Tobacco: Never Smokeless Tobacco: Never Alcohol Use Standard Drinks/Week Comments Yes 0 (1 standard drink = 0.6 oz pur e alcohol) 2-3 times/year..very rare Sex and Gender Information Value Date Recorded Sex Assigned at Not on file Gender Identity Not on file Sexual Orientation Not on file Job Start Date Occupation Industry Not on file Not on file Not on file Last Filed Vital Signs Vital Sign Reading Time Taken Comments Blood Pressure - - Pulse 75 04/12/2022 9:56 AM EDT Temperature 37.2 C (98.9 F) 04/12/2022 9:56 AM EDT Respiratory Rate - - Oxygen Saturation 99% 04/12/2022 9:56 AM EDT Inhaled Oxygen Concentration - - Weight 163.3 kg (360 lb) 09/18/2020 8:25 AM EST Height 149.9 cm (4' 11 ) 09/18/2020 8:25 AM EST Body Mass Index 72.71 09/18/2020 8:25 AM EST Plan of Treatment Health Maintenance Due Date Last Done Comments Hepatitis B Vaccines (1 of 3 - 3-dose series) 1977 Hepatitis C Screening 1977 COVID-19 Vaccine (#1) 02/13/1978 Depression Screening 1989 BMI Counseling 1995 Preventative Health Evaluation 1995 Cervical Cancer Screening (Pap Smear) 1998 Colon Cancer Screening (Colonoscopy) 2022 Influenza Vaccine (#1) 2025 05/15/2009 DTap / Tdap / Td (3 - Td or Tdap) 04/12/2026 04/12/2016, 07/12/2007 Pneumococcal Vaccine Aged Out No long er eligible based on patient's age to complete this topic RSV Ped < 20 months Aged Out No longe r eligible based on patient's age to complete this topic Care Teams Certified Lactation Educator Relationship Specialty Start Date End Date Yanely Benton MD PCP - General Internal Medicine 04/20/21
[2025-02-07 12:19] LABS: MANUAL DIFF FLAG NO
[2025-02-07 12:20] LABS: Hematocrit 47.3 % (37.0-47.0); Hemoglobin 16.5 g/dl (12.0-16.0); Imm Gran Abs Auto 0.06 X10*3/uL (0.00-0.03); Imm Gran Pct Auto 0.7 % (0.0-0.4); Lymphocytes Absolute Auto 2.4 X10*3/uL (1.2-4.9); Mean Corpuscular HGB Conc 34.9 g/dl (31.0-35.0); Mean Corpuscular Hemoglobin 30.8 pg (27.0-33.0); Mean Corpuscular Volume 88.2 fL (80.0-98.0); NRBC Abs Auto 0.000 X10*3/uL (0.0-0.012); NRBC Pct Auto 0.0 /100WBC (0.0-0.2); Platelet Count 219 X10*3/uL (160-400); Red Blood Count 5.36 X10*6/uL (4.20-5.50); White Blood Count 8.2 X10*3/uL (4.8-10.8)
[2025-02-07 12:43] LABS: B Type Natriuretic Peptide 15 pg/mL (<100)
[2025-02-07 12:44] LABS: Alanine Aminotransferase 25 U/L (0-31); Albumin Level 4.4 g/dL (3.5-5.0); Alkaline Phosphatase 60 U/L (39-117); Anion Gap 12 (12-20); Aspartate Amino Transferase 26 U/L (5-31); Blood Urea Nitrogen 15 mg/dL (9-16); Calcium 9.3 mg/dL (8.4-10.2); Carbon Dioxide 24 mmol/L (22-29); Chloride 105 mmol/L (96-108); Creatinine Clr Calc Pharmacy 77.7; Estimated Glomerular Filt Rate 45; Potassium 3.4 mmol/L (3.3-5.1); Sodium 138 mmol/L (135-145); Total Protein 7.6 g/dL (6.5-8.0)
[2025-02-07 12:46] LABS: Troponin-I High Sensitivity 3.5 ng/L (<3.5-17.0)
[2025-02-07 12:58] LABS: INTERNATIONAL NORM RATIO 1.4 (0.9-1.1); Prothrombin Time 15.8 SEC (10.9-12.4)
[2025-02-07 13:01] LABS: Partial Thromboplastin Time 36.9 SEC (26.0-36.8)
[2025-02-07 13:16] LABS: D Dimer High Sensitivity < 150 NG/ML
[2025-02-07 13:41] VITALS: BP 128/75; PULSE 68; RESP 16; TEMP 36.8; O2SAT 98
--- NOTE | 2025-02-07 13:42 | PC.NURSE ---
Pt reporting she has had some recent medication changes for her BP by cardiology, reporting it has been up and down at home. Pt reporting right chest to sternal CP that comes and goes. She is A/Ox4, denies N/V/D/ SOB. Pt has history of ablations, reporting she has not been on blood thinners recently that they had told her to stop taking them. Denies recent travel at this time. Awaiting lab results and work up at this time
[2025-02-07 14:37] VITALS: PULSE 105; PULSE 122; RESP 20; RESP 24; O2SAT 96; O2SAT 98
--- NOTE | 2025-02-07 14:38 | PC.NURSE ---
Walking O2 done with patient, pt had a minimal episode of 92% on RA, but walking was maintaining 96-98%, pt had increased WOB by the end of the walk and had to catch her breath. LABORATORY ASSOCIATE aware.
[2025-02-07 15:00] VITALS: BP 128/75; PULSE 94; RESP 18; TEMP 36.8; O2SAT 99
== END 2025-02-07 15:02 | disposition home or self-care (01) ==
PROVIDERS: Nurse Practitioner Family; Physician Assistant; Emergency Provider Emergency Medicine
DX: R07.9 Chest pain, unspecified (principal); R06.02 Shortness of breath; I48.0 Paroxysmal atrial fibrillation; J45.909 Unspecified asthma, uncomplicated; Z79.899 Other long term (current) drug therapy
CPT/HCPCS: 36415; 71045; 80053; 83880; 84484; 84702; 85025; 85379; 85610; 85730; 93005; 99283; 99285

== ENCOUNTER → 2025-02-07 11:30 | Outpatient (BNV) | payer OTHER, SELFPAY | PROVIDERS: Emergency Provider Emergency Medicine; Visit Provider Internal Medicine | DX: I48.91 Unspecified atrial fibrillation (principal); I44.7 Left bundle-branch block, unspecified | CPT/HCPCS: 93010 ==

== ENCOUNTER → 2025-02-07 11:44 | Outpatient (BNV) | payer OTHER, SELFPAY | PROVIDERS: Visit Provider Radiology Diagnostic Radiology | DX: R07.89 Other chest pain (principal) | CPT/HCPCS: 71045 ==

== ENCOUNTER 2025-04-03 09:38 | Emergency (ER) | payer OTHER, SELFPAY ==
[2025-04-03] VITALS (7 sets, daily range): BP systolic 100–143; BP diastolic 60–87; PULSE 68–82; RESP 15–20; TEMP 36.2–36.6; O2SAT 95–100; BMI 67.3
--- NOTE | ~2025-04-03 | XR_ITS ---
EXAMINATION: XR CHEST CLINICAL INFORMATION: chest pain COMPARISON: February 07, 2025 TECHNIQUE: Frontal view of the chest was obtained. FINDINGS: Mild prominence of the interstitial markings in the perihilar regions. No consolidation, pleural effusion or pneumothorax. Cardiomediastinal silhouette size is normal. Multilevel thoracolumbar spondylosis. Vascular clips in the right upper quadrant abdomen and likely prior cholecystectomy. Patient's large body habitus/obesity. XR/XR chest 1V IMPRESSION: Acute small airway inflammatory process should be considered in the correct clinical settings. Electronically signed by: Nemesio Lester MD 04/03/2025 10:57 AM EDT
--- NOTE | 2025-04-03 09:40 | ECG_ITS ---
Test Reason : CP Blood Pressure : */* mmHG Vent. Rate : 80 BPM Atrial Rate : 80 BPM P-R Int : 154 ms QRS Dur : 86 ms QT Int : 366 ms P-R-T Axes : 0 -36 -22 degrees QTcB Int : 422 ms Normal sinus rhythm Left axis deviation Cannot rule out Anterior infarct (cited on or before 31-May-2022) Abnormal ECG When compared with ECG of 07-Feb-2025 11:34, Premature atrial complexes are no longer Present T wave inversion more evident in Inferior leads Nonspecific T wave abnormality now evident in Lateral leads Referred By: Generic ED Physician Electronically Signed By: LIZ CAPONE MD
[2025-04-03 10:16] LABS: MANUAL DIFF FLAG NO
[2025-04-03 10:18] LABS: Hematocrit 45.5 % (37.0-47.0); Hemoglobin 16.2 g/dl (12.0-16.0); Imm Gran Abs Auto 0.04 X10*3/uL (0.00-0.03); Imm Gran Pct Auto 0.4 % (0.0-0.4); Lymphocytes Absolute Auto 3.2 X10*3/uL (1.2-4.9); Mean Corpuscular HGB Conc 35.6 g/dl (31.0-35.0); Mean Corpuscular Hemoglobin 31.4 pg (27.0-33.0); Mean Corpuscular Volume 88.2 fL (80.0-98.0); NRBC Abs Auto 0.000 X10*3/uL (0.0-0.012); NRBC Pct Auto 0.0 /100WBC (0.0-0.2); Platelet Count 190 X10*3/uL (160-400); Red Blood Count 5.16 X10*6/uL (4.20-5.50); White Blood Count 9.5 X10*3/uL (4.8-10.8)
[2025-04-03 10:22] LABS: INTERNATIONAL NORM RATIO 1.5 (0.9-1.1); Prothrombin Time 17.1 SEC (10.9-12.4)
[2025-04-03 10:37] LABS: Alanine Aminotransferase 113 U/L (0-31); Albumin Level 4.0 g/dL (3.5-5.0); Alkaline Phosphatase 51 U/L (39-117); Anion Gap 14 (12-20); Aspartate Amino Transferase 66 U/L (5-31); Blood Urea Nitrogen 16 mg/dL (9-16); Calcium 9.1 mg/dL (8.4-10.2); Carbon Dioxide 22 mmol/L (22-29); Chloride 108 mmol/L (96-108); Creatinine Clr Calc Pharmacy 97.7; Estimated Glomerular Filt Rate > 60; Potassium 2.9 mmol/L (3.3-5.1); Sodium 141 mmol/L (135-145); Total Protein 7.0 g/dL (6.5-8.0)
[2025-04-03 10:39] LABS: B Type Natriuretic Peptide 16 pg/mL (<100)
[2025-04-03 10:42] LABS: Troponin-I High Sensitivity 8.8 ng/L (<3.5-17.0)
[2025-04-03 11:25] LABS: Magnesium 1.8 mg/dL (1.6-2.6)
--- NOTE | 2025-04-03 12:37 | ED_ITS ---
HPI - Chest Pain General Chief Complaint: Chest Pain Stated Complaint: CP Time Seen by Provider: 04/03/25 12:34 Source: patient, RN notes reviewed and old records reviewed Mode of arrival: ambulatory Limitations: no limitations History of Present Illness ED Provider: Dawn HPI narrative: Patient is a 49-year-old female with history of paroxysmal AFib on Eliquis, status post cardiac catheterization, lymphedema, lipedema, asthma, obesity, fibromyalgia, migraines presenting to the emergency department with complaint of chest pain for the past week. States last night she felt as though the pain was radiating to the left side of her neck. Complains of associated dyspnea worse with exertion. Reports recent URI symptoms around 2-3 weeks ago and states that the cough has been slowly improving. Denies recent fevers. 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 She describes the pain as sharp and stabbing and waxing and waning. MD complaint: chest pain Related Data Home Medications ?Medication ?Instructions ?Recorded ?Confirmed chlorzoxazone 500 mg tablet 1 tab PO TID PRN muscle sp asm 04/27/22 01/26/24 tramadol 50 mg tablet 50 mg PO DAILY 07/12/2312/14 albuterol sulfate 90 mcg/actuation 2 puff inhalation D AILY PRN 01/26/24 01/26/24 aerosol inhaler SOB/Wheezing norethindrone acetate 5 mg tablet 5 mg PO DAILY 01/26/24 Previous Rx's ?Medication ?Instructions ?Recorded metoprolol succinate 25 mg 25 mg PO DAILY #90 tabs 02/12 tablet,extended release 24 hr amlodipine 5 mg tablet 5 mg PO DAILY #90 tabs 02/13 diphenhydramine HCl 25 mg capsule 50 mg (2 x 25 mg) PO TID PRN 08/12/24 (Benadryl) migraine headache 30 days #2 0 caps metoclopramide HCl 5 mg tablet 5 - 10 mg (1 - 2 x 5 mg ) PO Q4-6H 08/12/24 PRN nausea and vomiting 30 days #30 tabs colchicine 0.6 mg tablet 0.6 mg PO BID #60 tabs 08/17 famotidine 20 mg tablet (Pepcid) 20 mg PO DAILY abdomi nal 08/17/24 discomfort #30 tabs prednisone 20 mg tablet 40 mg (2 x 20 mg) PO DAILY 5 days 08/17/24 #10 tabs ubrogepant 100 mg tablet (Ubrelvy) 100 mg PO .COMPLEX PRN migraine 08/26/24 headache 30 days #16 tabs azithromycin 250 mg tablet See Rx Instructions PO .COM PLEX #6 04/03/25 tabs prednisone 20 mg tablet 20 mg PO DAILY #5 tabs 04/03 Allergies Allergy/AdvReac Type Severity Reaction Status Date / Time adhesive (ADHESIVE) Allergy Unknown RASH Verified 04/03/25 09:51 diclofenac (From Voltaren) Allergy Itching Verified 04/03/25 09:51 Review of Systems 2 Review of Systems: as per hpi Yes all other systems are reviewed and are negative Constitutional: Constitutional: Reports as per HPI PMFSH Past Medical History Medical History Paroxysmal atrial fibrillation Anxiety Obesity IBS (irritable bowel syndrome) Chronic GERD Paroxysmal A-fib New onset a-fib COVID-19 virus infection Lymphedema Arthritis Lipoedema Asthma Surgical History Hx laparoscopic cholecystectomy S/P tonsillectomy History of Lucio-en-Y gastric bypass Family History Family History Father No problems noted. Mother Heart disease Diabetes Hyperlipidemia Hypertension COPD (chronic obstructive pulmonary disease) Brother No problems noted. Sister No problems noted. Son Overweight Diabetes Asthma Daughter Asthma Social History Social History Household Members: Family Household Members Other:: daughter and son. Housing: House Do you presently have visiting nurse or other home services: No Alcohol intake: never Patient Tobacco Use Status: Never used Tobacco Smoked in Last 30 Days: Yes Use of substances other than those prescribed or required for medical reasons: No Substance Use Type: Marijuana Advance Directives: Yes Advance Directives Information Provided: No Advance Directives on File: No Patient : No service: No Current occupational status: disabled Physical Exam 2 Vital Signs: Vital Signs: Last Vital Signs Temp 98 F 04/03/25 16:00 Pulse 68 04/03/25 16:00 Resp 20 04/03/25 16:00 BP 106/73 04/03/25 16:00 Pulse Ox 96 04/03/25 16:00 O2 Del Method Room Air 04/03/25 16:00 BMI result Body Mass Index 67.3 Vital signs have been reviewed and appear to be correct. Blood pressure normal. Heart rate normal. Respiratory rate normal. Temperature normal. Oxygen saturation normal. Const: General: cooperative, no acute distress, alert and awake Nutritional Appearance: obese morbidly obese Orientation/consciousness: oriented to person, oriented to place, oriented to time and patient oriented x3 L imitations: no limitations HEENT: Head: Yes normocephalic and Yes atraumatic Ears: external ears normal General nose exam: Normal external nose present Face and sinus: Yes face symmetric Mouth: oropharynx normal and moist mucous membranes Throat: Yes uvula midline Eyes: Pupils: Equal, round and reactive pupils present Neck: Neck: Yes normal visual inspection and Yes supple Resp: Effort & Inspection: normal respiratory effort and able to speak in complete sentences Auscultation: clear to auscultation bilaterally and wheezes scattered wheezes Cardio: Rate: regular rate Rhythm: regular rhythm Heart sounds: S1 normal heart sound present and S2 normal heart sound present GI: Palpation (GI): Soft to palpation and nontender Auscultation: n ormoactive bowel sounds : General: Yes no CVA tenderness Back/Spine/Pelvis: Back: no CVA tenderness Skin: General skin exam: elasticity normal and turgor normal Neuro: General: oriented to person, oriented to place, oriented to time, patient oriented x3, moves all extremities, no focal motor deficits and CN's II- XI intact bilaterally Cranial nerves: Yes Equal, round and reactive pupils present Cognition (Neuro): normal cognition Extrem: General: Yes full ROM, Yes no pedal edema and Yes no calf tenderness Psych: Mental Status: mental status grossly normal Affect: normal affect Thought process: Normal thought process present Medications Administered Discontinued Medications Generic Name Dose Route Start Last Admin Trade Name Freq PRN Reason Stop Dose Admin Potassium Chloride 40 meq 04/03/25 12:49 04/03/25 13:27 Potassium Chloride Packet 20 Meq Packet PO 04/03/25 12:50 40 meq ONCE ONE Administration Medical Decision Making Medical Decision Making MDM Narrative: Patient is a 49-year-old female with history of paroxysmal AFib on Eliquis, status post cardiac catheterization, lymphedema, lipedema, asthma, obesity, fibromyalgia, migraines presenting to the emergency department with complaint of chest pain for the past week. On exam patient is awake, nontoxic appearing, A+Ox3, VS WNL, afebrile, normal neurological exam without focal deficits, physical exam findings as above. Given reported symptoms and physical exam findings, initial differential includes but is not limited to viral illness, bronchitis, pneumonia, costochondritis. She has lymphedema at baseline but denies any recent increased swelling or calf pain to suggest DVT or CHF. Unlikely ACS as symptoms have been ongoing for the past week. Low suspicion for PE as she is anticoagulated and reports taking her medication as prescribed. No abdominal tenderness to suggest gastritis, GERD, PUD, cholecystitis or cholelithiasis. EKG shows normal sinus rhythm, T wave inversion more evident in inferior leads as compared to EKG from 02/07. She notes that her litharge supervisor was also concerned with changes at recent visit last week but I am unable to view those notes. Labs notable for no leukocytosis, no anemia, hypokalemia, no other significant electrolyte abnormalities, mildly elevated bilirubin and transaminases however patient denies any abdominal pain and abdomen nontender on exam, troponin negative x2. Chest x-ray notable for acute small airway inflammation, no evidence of pneumonia. My interpretation is in agreement with the radiologist's interpretation. She does have scattered wheezing upon auscultation. Will treat for bronchitis with azithromycin and short course of prednisone, patient states she has albuterol inhaler at home. Advised follow-up with Cardiology. Also advised follow up with PCP within the next few days for recheck of potassium level. Return precautions discussed. Patient verbalized understanding of and agreement with plan. Differential Diagnosis Differential Diagnoses: The differential diagnosis associated with the presentation includes as per [facility] [place] Admission/Observation Consideration of admission/observation: Escalation of care including admission/observation considered Patient would have been admitted to the hospital had their clinical presentation warranted hospital admission. Lab Data [facility] Lab Attestation statement: I reviewed the patient's lab results. as per [facility] 04/03/25 10:11 04/03/25 10:11 Labs: Lab Results 04/03/25 04/03/25 Range/Units 10:11 15:24 WBC 9.5 (4.8-10.8) X10*3/uL RBC 5.16 (4.20-5.50) X10*6/uL Hgb 16.2 H (12.0-16.0) g/dl Hct 45.5 (37.0-47.0) % MCV 88.2 (80.0-98.0) fL MCH 31.4 (27.0-33.0) pg MCHC 35.6 H (31.0-35.0) g/dl RDW 14.5 (11.0-16.0) % Plt Count 190 (160-400) X10*3/uL MPV 10.0 (9.4-12.3) fL Immature Gran % (Auto) 0.4 (0.0-0.4) % Neut % (Auto) 57.1 (45-73) % Lymph % (Auto) 33.5 (20-40) % [place] % (Auto) 6.5 (2-11) % Eos % (Auto) 2.1 (0-4) % Baso % (Auto) 0.4 (0-2) % Lymph # (Auto) 3.2 (1.2-4.9) X10*3/uL [place] # (Auto) 0.6 (0.1-1.2) X10*3/uL Eos # (Auto) 0.2 (0.0-0.4) X10*3/uL Baso # (Auto) 0.0 (0.0-0.2) X10*3/uL Abs Immat Gran (auto) 0.04 H (0.00-0.03) X10*3/uL Absolute Neuts (auto) 5.4 (2.0-8.3) x10*3/uL Absolute Nucleated RBC 0.000 (0.0-0.012) X10*3/uL Nucleated RBC % (auto) 0.0 (0.0-0.2) /100WBC PT 17.1 H (10.9-12.4) SEC INR 1.5 H (0.9-1.1) Sodium 141 (135-145) mmol/L Potassium 2.9 L* (3.3-5.1) mmol/L Chloride 108 (96-108) mmol/L Carbon Dioxide 22 (22-29) mmol/L Anion Gap 14 (12-20) BUN 16 (9-16) mg/dL Creatinine 0.97 (0.5-1.4) mg/dL Estim Creat Clear Calc 97.7 Estimated GFR > 60 Random Glucose 108 (60-115) mg/dL Calcium 9.1 (8.4-10.2) mg/dL Magnesium 1.8 (1.6-2.6) mg/dL Total Bilirubin 1.5 H (0.0-1.0) mg/dL AST 66 H (5-31) U/L ALT 113 H (0-31) U/L Alkaline Phosphatase 51 (39-117) U/L Troponin I High Sens 8.8 D 6.5 (<3.5-17.0) ng/L B-Natriuretic Peptide 16 (<100) pg/mL Total Protein 7.0 (6.5-8.0) g/dL Albumin 4.0 (3.5-5.0) g/dL Independent Interpretation I performed an independent interpretation of an: EKG (Normal sinus rhythm, rate 80 beats per minute, normal IA interval and QTC, T-wave inversion more evident in inferior leads as compared to EKG performed on 02/07/2025) and Plain X-Ray Interpretation: Chest x-ray notable for acute small airway inflammation, no evidence of pneumonia Radiology Impression Discussion of test interpretation with radiology: I have reviewed the radiologist's reading. Radiologist Impression: XR/XR chest 1V IMPRESSION: Acute small airway inflammatory process should be considered in the correct clinical settings. External Record Review External record reviewed: Inpatient record, Office record and Outpatient record Prescription Management I considered prescription management with: Antibiotic and Other Discharge Plan Discharge Clinical Impression: Bronchitis, Chest pain Patient Disposition: Home, Self-Care Instructions: Acute Bronchitis (ED) Additional Instructions: You were evaluated in the emergency department today for chest pain and shortness of breath. You are being treated for bronchitis with an antibiotic, please complete the full course as prescribed. You are also being prescribed a short course of steroids to decrease inflammation. Please follow-up with your primary care provider this week for a recheck of your potassium level. We also recommend that you follow up with your litharge supervisor this week. Return to the emergency department if you develop worsening shortness of breath, difficulty breathing, chest pain, fever not improved with Tylenol or ibuprofen, or any other concerning symptoms. Prescriptions: New azithromycin 250 mg tablet See Rx Instructions .ROUTE .COMPLEX Qty: 6 0RF Rx Instructions: For 250 mg dose pack: take 500 mg today (day 1), then 250 mg for 4 days (days 2-5) prednisone 20 mg tablet 20 mg PO DAILY Qty: 5 0RF No Action metoprolol succinate 25 mg tablet extended release 24 hr 25 mg PO DAILY Qty: 90 3RF amlodipine 5 mg tablet 5 mg PO DAILY Qty: 90 1RF metoclopramide HCl 5 mg tablet 5 - 10 mg PO Q4-6H MDD 4 PRN (Reason: nausea and vomiting) 30 Days Qty: 30 1RF diphenhydramine HCl [Benadryl] 25 mg capsule 50 mg PO TID PRN (Reason: migraine headache) 30 Days Qty: 20 3RF Ubrelvy 100 mg tablet 100 mg PO .COMPLEX MDD 2 tabs PRN (Reason: migraine headache) 30 Days Qty: 16 6RF Rx Instructions: 100 mg orally At onset of migraine, may repeat in 2 hours, max 2 tabs for day. PRN; chlorzoxazone 500 mg tablet 1 tab PO TID PRN (Reason: muscle spasm) norethindrone acetate 5 mg tablet 5 mg PO DAILY albuterol sulfate 90 mcg/actuation Hfa Aerosol Inhaler 2 puff inhalation DAILY PRN (Reason: SOB/Wheezing) colchicine 0.6 mg tablet 0.6 mg PO BID Qty: 60 0RF prednisone 20 mg tablet 40 mg PO DAILY 5 Days Qty: 10 0RF famotidine [Pepcid] 20 mg tablet 20 mg PO DAILY Qty: 30 0RF tramadol 50 mg tablet 50 mg PO DAILY Print Language: Zimbabwean
[2025-04-03] MEDS: Potassium Chloride Packet 20 MEQ PACKET 40 MEQ PO (13:27)
[2025-04-03 15:53] LABS: Troponin-I High Sensitivity 6.5 ng/L (<3.5-17.0)
--- OUTSIDE RECORDS SUMMARY | 2025-04-03 16:52 | XMS_ITS | Clinical Summary ---
Author Organization [employer] [facility] Address [address] [place] [address] Care Team Providers Care Archival Studies Professor Name Role Phone Yanely Benton MD Primary Care Provider [phone] Allergies Active Allergy Reactions Criticality Noted Date [...] age to complete this topic Care Teams Archival Studies Professor Relationship Specialty Start Date End Date Yanely Benton MD PCP - General Internal Medicine 04/20/21
--- OUTSIDE RECORDS SUMMARY | 2025-04-03 16:52 | XMS_ITS | Clinical Summary ---
Author Organization [employer] Address [address] [place] [address] Care Team Providers Care Combination Machine Tool Operator Name Role Phone Unavailable Primary Care Provider [...] disease) 4 Severe obesity 04/24/2024 Fractured dental congregational without loss of mat erial 04/24/2024 Encounter [...] fibromyalgia. I looked through her records at [facility], it looks like she had trigger point injections for her low back myofascial pain 12/29/2021, 05/11/2021, trigger point for neck pain 09/15/2021. She has tried physical therapy many times, she states [place] [facility] [place] She has been taking muscle relaxers, tried gabapentin, Lyrica, tramadol. She had thoracic MRI 10/06/2023 at [facility] with minimal degenerative changes, no cord compression, [...] fibromyalgia. I looked through her records at [facility], it looks like she had trigger point injections for her low back myofascial pain 12/29/2021, 05/11/2021, trigger point for neck pain 09/15/2021. She has tried physical therapy many times, she states [place] was [place] [facility] She has been taking muscle relaxers, tried gabapentin, Lyrica, tramadol. She had thoracic MRI 10/06/2023 at [facility] with minimal degenerative changes, no cord compression, [...] slow ventricular respon se 05/30/2022 Overview (04/24/2024[place] [facility] [place] [facility] [place] Binge eating disorder 04/27/2022 Hypothyroidism 04/27/2022 Knee pain 04/27/2022 Lipedema of lower extremity 04/27/2022 Vitamin D deficiency 04/27/2022 Left facial pain 10/14/2021 Primary osteoarthritis of fi rst carpometacarpal joint of right hand 02/10/2021 Lumbar facet joint syndrome 09/18/2020 Lymphedema 04/05/2017 Overview (04/29/2024): [facility] 12/[facility], Note also with the [facility] cardiovascular[facility]atic center. 18 there is no medications available for the treatment of her lipedema Referred to [facility] 12/2017, Note also with the [facility] cardiovascular/lymphatic center. 18 there is no medications available for the treatment of her lipedema B12 deficiency 03/16/2017 Anosmia 03/07/2016 Anxiety 08/14/2013 Back problem 08/14/2013 Depressive disorder 02/04/2013 Essential hypertension, benign 02/04/2013 Esophageal reflux 02/04/2013 Overview (04/24/2024): H-Pylori, sees Dr. Keyes H-Pylori, sees Dr. Keyes Interstitial cystitis 02/04/2013 Irritable bowel syndrome 02/04/2013 Overview (04/24/2024): [facility] Morbid obesity with BMI of 70 and over, adult Overview (04/24/2024): s/p Lucio-en-Y (05/02/16; Dr. Sneed) Resolved Problems Problem Noted Date Diagnosed Date Resolved Date Lipoedema 04/29/2024 04/29/2024 Encounters Date Type Department Care Team Description 01/21/2025 1:00 PM EDT Office Visit [facility] [address] [place] [address] Antoni Ding DDS Oral candidiasis (Primary Dx) [...] Cancer Screening 2007 HPV/Cotest 2007 Mammogram 2017 Dental Oral Exam 12/11/2024 06/12/2024, 12/14/2018 Dental Prophylaxis 12/11/2024 06/12/2024 COVID-19 Vaccine ( season) 2025 08/13/2022, 12/24/2020, 11/24/2020 Influenza Vaccine (#1) 2025 05/15/2009 Dental X-Ray: [...] Most Recently Relevant to Health Maintenance Insurance [facility] MEDICAID STAND ADULT
== END 2025-04-03 17:49 | disposition home or self-care (01) ==
PROVIDERS: Physician Assistant Medical; Registered Nurse Emergency; Emergency Provider Emergency Medicine; PCP Family Medicine
DX: J40 Bronchitis, not specified as acute or chronic (principal); R07.89 Other chest pain; I48.91 Unspecified atrial fibrillation; R06.02 Shortness of breath; Z79.01 Long term (current) use of anticoagulants; Z79.899 Other long term (current) drug therapy
CPT/HCPCS: 36415; 71045; 80053; 83735; 83880; 84484; 85025; 85610; 93005; 99283; 99284

== ENCOUNTER → 2025-04-03 09:40 | Outpatient (BNV) | payer OTHER, SELFPAY | PROVIDERS: Emergency Provider Emergency Medicine; PCP Family Medicine; Visit Provider Internal Medicine Cardiovascular Disease | DX: R94.31 Abnormal electrocardiogram [ECG] [EKG] (principal); R07.9 Chest pain, unspecified | CPT/HCPCS: 93010 ==

== ENCOUNTER → 2025-04-03 10:40 | Outpatient (BNV) | payer OTHER, SELFPAY | PROVIDERS: Visit Provider Radiology Diagnostic Radiology | DX: R07.9 Chest pain, unspecified (principal) | CPT/HCPCS: 71045 ==

== ENCOUNTER 2025-06-11 12:12 | Emergency (ER) | payer OTHER, SELFPAY ==
--- NOTE | ~2025-06-11 | US_ITS ---
EXAMINATION: US TRIPLEX UPPER EXTREMITY, LEFT CLINICAL INFORMATION: Left upper extremity pain. COMPARISON: None available. TECHNIQUE: Color-flow triplex imaging with spectral analysis and compression Doppler was performed on the left upper extremity. FINDINGS: The left internal jugular, subclavian, and axillary veins are patent and free of thrombus. The imaged segment of the left brachiocephalic vein is patent. Spectral doppler waveforms are normal. The brachial, cephalic, radial, and ulnar veins are patent and compressible. The basilic vein was not well seen. US/US venous duplex UE LT IMPRESSION: No evidence of deep venous thrombosis involving the left upper extremity. Electronically signed by: Rupesh Humphries MD 06/11/2025 03:42 PM EST
--- NOTE | ~2025-06-11 | XR_ITS ---
EXAMINATION: XR CHEST CLINICAL INFORMATION: cp COMPARISON: Previous chest x-ray most recent March 2025 TECHNIQUE: 2 views of the chest were obtained. FINDINGS: Lungs are clear. No consolidation or pulmonary edema. No pleural effusion or pneumothorax. Cardiac and mediastinal contours are stable. Degenerative changes of the spine. XR/XR chest 2V IMPRESSION: No evidence for acute disease in the chest. Electronically signed by: Teresa Marques MD 06/11/2025 01:23 PM [facility] [place]
--- NOTE | 2025-06-11 12:14 | ECG_ITS ---
Test Reason : CP Blood Pressure : */* mmHG Vent. Rate : 82 BPM Atrial Rate : 82 BPM P-R Int : 136 ms QRS Dur : 74 ms QT Int : 380 ms P-R-T Axes : -12 -38 -13 degrees QTcB Int : 443 ms Normal sinus rhythm Left axis deviation Anterolateral infarct (cited on or before 31-May-2022) Abnormal ECG When compared with ECG of 03-Apr-2025 10:03, Nonspecific T wave abnormality, improved in Anterolateral leads Referred By: Jennifer Newell Electronically Signed By: RICARDO RODRIGUEZ
[2025-06-11 12:52] VITALS: BP 122/79; PULSE 82; RESP 18; TEMP 36.6; O2SAT 97; BMI 67.6
--- NOTE | 2025-06-11 12:52 | ED_ITS ---
HPI - Chest Pain General Chief Complaint: Chest Pain Stated Complaint: CP Time Seen by Provider: 06/11/25 14:31 Source: patient Mode of arrival: ambulatory Limitations: no limitations History of Present Illness ED Provider: BHARGAVI PELAEZ PA-C HPI narrative: 49 year old female with pmhx significant for proximal AFib, asthma, fibromyalgia, s/p gastric bypass, CAD, remote hx DVTs no longer on AC presents to the ED today from PCP appointment for evaluation of chest pain and left arm pain that began while at her appointment [employer]. Endorses nausea without vomiting. States chest pain and nausea have resolved, now just having left arm pain. Denies sob, palpitations, cough. No injury/trauma. Denies recent travel or long car rides. Related Data Home Medications ?Medication ?Instructions ?Recorded ?Confirmed chlorzoxazone 500 mg tablet 1 tab PO TID PRN muscle sp asm 04/27/22 01/26/24 tramadol 50 mg tablet 50 mg PO DAILY 07/12/2312/14 albuterol sulfate 90 mcg/actuation 2 puff inhalation D AILY PRN 01/26/24 01/26/24 aerosol inhaler SOB/Wheezing norethindrone acetate 5 mg tablet 5 mg PO DAILY 01/26/24 Previous Rx's ?Medication ?Instructions ?Recorded metoprolol succinate 25 mg 25 mg PO DAILY #90 tabs 02/12 tablet,extended release 24 hr amlodipine 5 mg tablet 5 mg PO DAILY #90 tabs 02/13 diphenhydramine HCl 25 mg capsule 50 mg (2 x 25 mg) PO TID PRN 08/12/24 (Benadryl) migraine headache 30 days #2 0 caps metoclopramide HCl 5 mg tablet 5 - 10 mg (1 - 2 x 5 mg ) PO Q4-6H 08/12/24 PRN nausea and vomiting 30 days #30 tabs colchicine 0.6 mg tablet 0.6 mg PO BID #60 tabs 08/17 famotidine 20 mg tablet (Pepcid) 20 mg PO DAILY abdomi nal 08/17/24 discomfort #30 tabs prednisone 20 mg tablet 40 mg (2 x 20 mg) PO DAILY 5 days 08/17/24 #10 tabs ubrogepant 100 mg tablet (Ubrelvy) 100 mg PO .COMPLEX PRN migraine 02/03/25 headache 30 days #16 tabs azithromycin 250 mg tablet See Rx Instructions PO .COM PLEX #6 04/03/25 tabs prednisone 20 mg tablet 20 mg PO DAILY #5 tabs 04/03 Allergies Allergy/AdvReac Type Severity Reaction Status Date / Time adhesive (ADHESIVE) Allergy Unknown RASH Verified 06/11/25 12:59 diclofenac (From Voltaren) Allergy Itching Verified 06/11/25 12:59 Review of Systems 2 Review of Systems: Yes all other systems are reviewed and are negative [facility] Past Medical History Attestation statement: The following information was validated with the patient. Source: old records reviewed and nursing notes reviewed Medical History Paroxysmal atrial fibrillation Anxiety Obesity IBS (irritable bowel syndrome) Chronic GERD Paroxysmal A-fib New onset a-fib COVID-19 virus infection Lymphedema Arthritis Lipoedema Asthma Surgical History Hx laparoscopic cholecystectomy S/P tonsillectomy History of Lucio-en-Y gastric bypass Family History Family History Father No problems noted. Mother Heart disease Diabetes Hyperlipidemia Hypertension COPD (chronic obstructive pulmonary disease) Brother No problems noted. Sister No problems noted. Son Overweight Diabetes Asthma Daughter Asthma Social History Social History Household Members: Family Household Members Other:: daughter and son. Housing: House Do you presently have visiting nurse or other home services: No Alcohol intake: never Patient Tobacco Use Status: Never used Tobacco Substance Use Type: Marijuana Advance Directives: No Advance Directives Information Provided: Yes service: No Current occupational status: disabled Physical Exam 2 Vital Signs: Vital Signs: Last Vital Signs Temp 98.2 F 06/11/25 16:21 Pulse 70 06/11/25 16:21 Resp 20 06/11/25 16:21 BP 128/72 06/11/25 16:21 Pulse Ox 97 06/11/25 16:21 O2 Del Method Room Air 06/11/25 16:21 BMI result Body Mass Index 67.6 vital signs stable General: obese female Skin: Warm, dry, intact. No rashes or lesions. Head: Normocephalic, atraumatic. EENT: Hearing is intact b/l. Conjunctiva clear. PERRLA. EOM intact. Moist mucous membranes.? Neck: Supple without LAD Cardiac: Chest wall symmetric. RRR Lungs: Normal respiratory effort without accessory muscle use. CTA bilaterally Abdomen: Soft, non-tender, non-distended. No rebound tenderness or guarding. Positive BS x4. Back: No midline spinous or paraspinal tenderness. No step off deformity. Ext: +no noted swelling/skin changes/deformity to LUE. FROM intact to L shoulder, elbow, wrist, digits w/o reported pain. Neuro: AOx3. Normal speech. Ambulating with steady gait. Course Course Course Narrative: This is a Rapid Medical Exam performed in triage by Jennifer Newell PA-C. Full HPI, ROS and PE to be performed by primary ED provider. 49-year-old female with a past medical history proximal AFib, asthma, fibromyalgia, s/p gastric bypass, CAD, presenting to the ED c/o CP and left arm pain w/assoc nausea s/p being at doctors appt [employer]. Denies emesis, SOB, cough PE: NAD, nontoxic appearing. Talking in complete sentences. Ambulating with steady gait Plan: EKG, labs, CXR Reevaluation(s) Reevaluation #1: CBC with slight leukocytosis to 11, no shift. H&H stable. Chemistry without acute electrolyte abnormality requiring intervention. No DAVE. Liver function around baseline. Trop undetectable. EKG showing normal sinus rhythm, rate of 82 beats per minute, no acute ischemic changes or ST elevations. Chest x-ray unremarkable. Venous duplex upper extremity clot. > patient reports resolution of chest pain and arm pain. tylenol given in ED. advised f/u with outpatient providers. Patient has remained stable throughout ED visit today. Discussed worrisome signs and symptoms and when to return to the ED. All questions answered at this time. Patient is agreeable with disposition and stable for discharge. Medications Administered Discontinued Medications Generic Name Dose Route Start Last Admin Trade Name Freq PRN Reason Stop Dose Admin Acetaminophen 975 mg 06/11/25 15:00 06/11/25 16:08 Acetaminophen 325 Mg Tablet PO 06/11/25 15:01 975 mg ONCE ONE Administration Medical Decision Making Medical Decision Making [facility] Narrative: 49 year old female with pmhx significant for proximal AFib, asthma, fibromyalgia, s/p gastric bypass, CAD, remote hx DVTs no longer on AC presents to the ED today from PCP appointment for evaluation of chest pain and left arm pain that began while at her appointment [employer]. vital signs stable, afebrile. nontoxic appearing, in NAD. on exam, no noted swelling/skin changes/deformity to LUE. FROM intact to L shoulder, elbow, wrist, digits w/o reported pain. RRR, no jvd. lungs clear. Differential diagnosis includes anemia, electrolyte abnormality, dehydration, ACS, arrhythmia, pneumonia, DVT, MSK sprain/strain, MSK spasm Plan for labs, venous duplex LUE, cxr, pain control, re-evaluation. Differential Diagnosis Differential Diagnoses: The differential diagnosis associated with the presentation includes as above. Admission/Observation not indicated. Lab Data [facility] Lab Attestation statement: I reviewed the patient's lab results. As above 06/11/25 13:17 06/11/25 13:17 Labs: Lab Results 06/11/25 Range/Units 13:17 WBC 11.0 H (4.8-10.8) X10*3/uL RBC 5.79 H (4.20-5.50) X10*6/uL Hgb 18.2 H (12.0-16.0) g/dl Hct 53.3 H (37.0-47.0) % MCV 92.1 (80.0-98.0) fL MCH 31.4 (27.0-33.0) pg MCHC 34.1 (31.0-35.0) g/dl RDW 13.6 (11.0-16.0) % Plt Count 263 D (160-400) X10*3/uL MPV 10.0 (9.4-12.3) fL Immature Gran % (Auto) 0.6 H (0.0-0.4) % Neut % (Auto) 60.2 (45-73) % Lymph % (Auto) 29.5 (20-40) % [place] % (Auto) 8.3 (2-11) % Eos % (Auto) 0.9 (0-4) % Baso % (Auto) 0.5 (0-2) % Lymph # (Auto) 3.3 (1.2-4.9) X10*3/uL [place] # (Auto) 0.9 (0.1-1.2) X10*3/uL Eos # (Auto) 0.1 (0.0-0.4) X10*3/uL Baso # (Auto) 0.1 (0.0-0.2) X10*3/uL Abs Immat Gran (auto) 0.07 H (0.00-0.03) X10*3/uL Absolute Neuts (auto) 6.6 (2.0-8.3) x10*3/uL Absolute Nucleated RBC 0.000 (0.0-0.012) X10*3/uL Nucleated RBC % (auto) 0.0 (0.0-0.2) /100WBC Sodium 140 (135-145) mmol/L Potassium 3.7 D (3.3-5.1) mmol/L Chloride 106 (96-108) mmol/L Carbon Dioxide 22 (22-29) mmol/L Anion Gap 16 (12-20) BUN 17 H (9-16) mg/dL Creatinine 1.08 (0.5-1.4) mg/dL Estim Creat Clear Calc 88.1 Estimated GFR 54 Random Glucose 118 H (60-115) mg/dL Calcium 9.6 (8.4-10.2) mg/dL Magnesium 2.2 (1.6-2.6) mg/dL Total Bilirubin 1.7 H (0.0-1.0) mg/dL Direct Bilirubin 0.5 (0.0-0.5) mg/dL AST 55 H (5-31) U/L ALT 76 H (0-31) U/L Alkaline Phosphatase 58 (39-117) U/L Troponin I High Sens < 2.7 D (<3.5-17.0) ng/L Total Protein 8.1 H (6.5-8.0) g/dL Albumin 4.7 (3.5-5.0) g/dL Independent Interpretation I performed an independent interpretation of an: Plain X-Ray and Ultrasound Interpretation: Chest x-ray without infiltrate or consolidation Venous duplex left upper extremity without DVT Radiology Impression Discussion of test interpretation with radiology: I have reviewed the radiologist's reading. Radiologist Impression: Procedure(s): US venous duplex UE LT Accession Number(s): [id number] cc: Sarah Resendez MD; Bhragavi Pelaez~ Reason for Exam: LUE pain EXAMINATION: US TRIPLEX UPPER EXTREMITY, LEFT CLINICAL INFORMATION: Left upper extremity pain. COMPARISON: None available. TECHNIQUE: Color-flow triplex imaging with spectral analysis and compression Doppler was performed on the left upper extremity. FINDINGS: The left internal jugular, subclavian, and axillary veins are patent and free of thrombus. The imaged segment of the left brachiocephalic vein is patent. Spectral doppler waveforms are normal. The brachial, cephalic, radial, and ulnar veins are patent and compressible. The basilic vein was not well seen. US/US venous duplex UE LT IMPRESSION: No evidence of deep venous thrombosis involving the left upper extremity. Electronically signed by: Rupesh Humphries MD 06/11/2025 03:42 PM EST RP Procedure(s): XR chest 2V Accession Number(s): [id number] cc: Sarah Resendez MD; Jennifer Newell~ Reason for Exam: cp EXAMINATION: XR CHEST CLINICAL INFORMATION: cp COMPARISON: Previous chest x-ray most recent March 2025 TECHNIQUE: 2 views of the chest were obtained. FINDINGS: Lungs are clear. No consolidation or pulmonary edema. No pleural effusion or pneumothorax. Cardiac and mediastinal contours are stable. Degenerative changes of the spine. XR/XR chest 2V IMPRESSION: No evidence for acute disease in the chest. Electronically signed by: Teresa Marques MD 06/11/2025 01:23 PM EST RP External Record Review External record reviewed: Inpatient record, Office record, Outpatient record and Prior outpatient labs Prescription Management I considered prescription management with: Pain Medication Social Determinants Patient?s care significantly limited by Social Determinants of Health including: Other Social Determinant of Health Critical Care Time Critical Care Time Critical Care Time: No Discharge Plan Discharge Clinical Impression: Atypical chest pain Patient Disposition: Home, Self-Care Instructions: Noncardiac Chest Pain (ED) Additional Instructions: You were evaluated in the Emergency Department today for your chest/ left arm pain. The ultrasound of your arm does not demonstrate clot. Your evaluation has shown no signs of medical conditions requiring emergent intervention at this time. I recommend that you follow up with your primary care provider or your electromagnet crane operator as soon as possible for further testing as an outpatient. If you do not have one, a referral has been provided. Please call them to make an appointment, they will not call you. Return to the Emergency Department if you experience worsening or uncontrolled chest pain, shortness of breath, lightheadedness, feeling faint, nausea, vomiting, or any other concerning symptoms. Prescriptions: No Action metoprolol succinate 25 mg tablet extended release 24 hr 25 mg PO DAILY Qty: 90 3RF amlodipine 5 mg tablet 5 mg PO DAILY Qty: 90 1RF metoclopramide HCl 5 mg tablet 5 - 10 mg PO Q4-6H MDD 4 PRN (Reason: nausea and vomiting) 30 Days Qty: 30 1RF diphenhydramine HCl [Benadryl] 25 mg capsule 50 mg PO TID PRN (Reason: migraine headache) 30 Days Qty: 20 3RF Ubrelvy 100 mg tablet 100 mg PO .COMPLEX MDD 2 tabs PRN (Reason: migraine headache) 30 Days Qty: 16 6RF Rx Instructions: 100 mg orally At onset of migraine, may repeat in 2 hours, max 2 tabs for day. PRN; chlorzoxazone 500 mg tablet 1 tab PO TID PRN (Reason: muscle spasm) azithromycin 250 mg tablet See Rx Instructions .ROUTE .COMPLEX Qty: 6 0RF Rx Instructions: For 250 mg dose pack: take 500 mg today (day 1), then 250 mg for 4 days (days 2-5) prednisone 20 mg tablet 20 mg PO DAILY Qty: 5 0RF norethindrone acetate 5 mg tablet 5 mg PO DAILY albuterol sulfate 90 mcg/actuation Hfa Aerosol Inhaler 2 puff inhalation DAILY PRN (Reason: SOB/Wheezing) colchicine 0.6 mg tablet 0.6 mg PO BID Qty: 60 0RF prednisone 20 mg tablet 40 mg PO DAILY 5 Days Qty: 10 0RF famotidine [Pepcid] 20 mg tablet 20 mg PO DAILY Qty: 30 0RF tramadol 50 mg tablet 50 mg PO DAILY Referrals: [facility] [Provider Group] Sarah Resendez MD [Primary Care Provider, Family Practice] Interventions: ED Discharge Assessment Last Done: 06/11/25 16:21 Discharge Date/Time: 06/11/25 16:22 Print Language: Azerbaijani
[2025-06-11 13:20] LABS: MANUAL DIFF FLAG NO
[2025-06-11 13:23] LABS: Hematocrit 53.3 % (37.0-47.0); Hemoglobin 18.2 g/dl (12.0-16.0); Imm Gran Abs Auto 0.07 X10*3/uL (0.00-0.03); Imm Gran Pct Auto 0.6 % (0.0-0.4); Lymphocytes Absolute Auto 3.3 X10*3/uL (1.2-4.9); Mean Corpuscular HGB Conc 34.1 g/dl (31.0-35.0); Mean Corpuscular Hemoglobin 31.4 pg (27.0-33.0); Mean Corpuscular Volume 92.1 fL (80.0-98.0); NRBC Abs Auto 0.000 X10*3/uL (0.0-0.012); NRBC Pct Auto 0.0 /100WBC (0.0-0.2); Platelet Count 263 X10*3/uL (160-400); Red Blood Count 5.79 X10*6/uL (4.20-5.50); White Blood Count 11.0 X10*3/uL (4.8-10.8)
[2025-06-11 13:41] LABS: Alanine Aminotransferase 76 U/L (0-31); Albumin Level 4.7 g/dL (3.5-5.0); Alkaline Phosphatase 58 U/L (39-117); Anion Gap 16 (12-20); Aspartate Amino Transferase 55 U/L (5-31); Blood Urea Nitrogen 17 mg/dL (9-16); Calcium 9.6 mg/dL (8.4-10.2); Carbon Dioxide 22 mmol/L (22-29); Chloride 106 mmol/L (96-108); Creatinine Clr Calc Pharmacy 88.1; Estimated Glomerular Filt Rate 54; Magnesium 2.2 mg/dL (1.6-2.6); Potassium 3.7 mmol/L (3.3-5.1); Sodium 140 mmol/L (135-145); Total Protein 8.1 g/dL (6.5-8.0)
[2025-06-11 13:46] LABS: Troponin-I High Sensitivity < 2.7 ng/L (<3.5-17.0)
[2025-06-11 14:00] VITALS: BP 118/70; PULSE 60; RESP 22; O2SAT 96
[2025-06-11 15:45] VITALS: BP 128/72; PULSE 70; RESP 20; O2SAT 97
[2025-06-11 16:21] VITALS: BP 128/72; PULSE 70; RESP 20; TEMP 36.8; O2SAT 97
--- OUTSIDE RECORDS SUMMARY | 2025-06-12 02:51 | XMS_ITS | Data Portability ---
Author Organization [place] - [facility], Allergy Address [address] [address] Care Team Providers Care Satellite Tv Technician Installer Name Role Phone KRISHNA NOVAK Primary Care Provider NAOMIE ROBB Referring Provider Assessment Encounter Date Assessment Date Assessment LastModified by Organization Details LastModified Time 02/21/2025 02/21/2025 49-year-old female presents for evaluation of recurrent sialoadenitis. On exam, there is no tenderness to palpation or overlying skin changes to the submandibular and parotid glands bilaterally. Normal salivary flow was expressed from Stensen's and Sutton's duct bilaterally. Salivary gland precautions were discussed including adequate oral hydration, warm compresses, gentle massages, and sialagogues. We discussed CT neck with contrast to rule out underlying calculi given recurrent episodes. Patient would like to hold off on imaging at this time. She will follow-up if symptoms persist or recur. All questions were answered. Not available 02/21/2025 14:31:56 Plan of Treatment Reminders Order Date Submit Date Provider Last Modified By Organization Details Last Modified Time Details Appointments None record ed. Lab None record ed. Referral None record ed. Procedures None record ed. Surgeries None record ed. Imaging None record ed. Medication Orders None record ed. Patient TargetsNo targets recorded. Patient InstructionsNo instructions recorded. Reason for Referral None Reported. Problems Name Problem SNOMED Code Status Onset Date Resolution Date Notes Provider Name and Address Organization Details Recorded Time Loss of sense of smell [id number] Active 2014 Anosmi a; Note: Date Diagno sed: 2014 3:18 PM (R43.0 ) Not Available [facility] 4 03:29:32 Sialolithi asis [id number] Active 2022 Sialol jesus manuel is; Note: Date Diagno sed: 09/27/19 23 3:04 PM (K11.5 ) Not Available [facility] 4 03:29:32 Acute recurrent sialoadeni tis 2300988817768 101 Active 2024 SENIA GARCIA PA-C 100 [facility] [address], [place], [address] , [facility] - [facility] 5 14:30:59 Problem Notes None recorded. Medical Equipment None Reported. Medications Name Sig Start Date Stop Date Status Note LastModified by Organization Details LastModified Time Tussin DM 10 mg-100 mg/5 mL oral syrup 2014 active Medicati on ID: [id number] D uration Value: 3 Brand Name: Nestor MARYA Send Method: E-Prescr ibed Sub s Allowed: subs OK Speci al Instruct ion: take 10 millilit ers (2 teaspoon fuls) every 4 hours if needed for cough Me dication GenericN louis: Tussin DM Not Available Not Available Not Available amoxicill in 500 mg capsule TAKE 1 CAPSULE BY MOUTH THREE TIMES DAILY FOR 10 DAYS 02/21 completed Not Available Not Available Not Available furosemid e 40 mg tablet TAKE 1 TABLET BY MOUTH EVERY DAY FOR 7 DAYS active Not Available Not Available No t Available clotrimaz ole 10 mg victor hugo DISSOLVE 1 TABLET BY MOUTH FIVE TIMES DAILY FOR FOURTEEN DAYS active Not Available Not Available No t Available buspirone 5 mg tablet TAKE 1 TABLET BY MOUTH TWICE DAILY active Not Available Not Available No t Available desonide 0.05 % topical cream APPLY A THIN LAYER TOPICALL Y TO AFFECTED AREA(S) TWICE DAILY DIRECTED FOR 2 WEEKS THEN STOP. AVOID USE ON THE FACE AND BETWEEN LEGS active Not Available Not Available No t Available prednison e 10 mg tablet TAKE 3 TABLETS DAILY FOR 3 DAYS, THEN TAKE 2 TABLETS FOR 3 DAYS, TAKE 1 TABLET DAILY FOR 3 DAYS THEN STOP active Not Available Not Available No t Available ibuprofen 800 mg tablet TAKE 1 TABLET BY MOUTH EVERY 8 HOURS NEEDED FOR MILD PAIN FOR UP TO 10 DAYS active Not Available Not Available No t Available fluconazo le 150 mg tablet TAKE 1 TABLET BY MOUTH ONCE A WEEK FOR 2 DOSES active Not Available Not Available No t Available chlorzoxa zone 500 mg tablet TAKE 1 TABLET BY MOUTH EVERY DAY NEEDED FOR MUSCLE SPASMS. DO NOT DRIVE WHILE TAKING MAY CAUSE DROWSINE SS active Not Available Not Available No t Available Nystop 100,000 unit/gram topical powder APPLY TOPICALL Y TO THE AFFECTED AREA(S) THREE TIMES DAILY DIRECTED FOR UP TO 14 DAYS active Not Available Not Available No t Available sucralfat e 100 mg/mL oral suspensio n TAKE 10 ML BY MOUTH THREE TIMES DAILY BEFORE MEALS active Not Available Not Available No t Available fluconazo le 200 mg tablet TAKE 1 TABLET BY MOUTH ONCE A WEEK active Not Available Not Available No t Available meloxicam 15 mg tablet active Medicati on ID: [id number] B rand Name: meloxica m Send Method: E-Prescr ibed Sub s Allowed: subs OK Medic ationGen ericName : meloxica m Not Available Not Available Not Available ondansetr on HCl 4 mg tablet TAKE 1 TABLET BY MOUTH THREE TIMES DAILY active Not Available Not Available No t Available prednison e 20 mg tablet TAKE 2 TABLETS (40MG) BY MOUTH EVERY DAY FOR 5 DAYS. active Not Available Not Available No t Available cyanocoba mario (vit B-12) 1,000 mcg tablet TAKE 1 TABLET BY MOUTH EVERY DAY active Not Available Not Available No t Available topiramat e 25 mg tablet TAKE 1 TO 2 TABLETS BY MOUTH EVERY DAY AT BEDTIME active Not Available Not Available No t Available amlodipin e 5 mg tablet TAKE 1 AND 1/2 TABLETS BY MOUTH EVERY DAY active Not Available Not Available No t Available sulfameth oxazole 800 mg-trimet hoprim 160 mg tablet TAKE 1 TABLET BY MOUTH TWICE DAILY FOR 10 DAYS 02/21 completed Not Available Not Available Not Available aspirin 81 mg tablet,de layed release active Medicati on ID: [id number] B rand Name: aspirin Send Method: E-Prescr ibed Sub s Allowed: subs OK Medic ationGen ericName : aspirin Not Available Not Available Not Available triamcino lone acetonide 0.1 % topical cream APPLY TOPICALL Y TO THE AFFECTED AREA(S) ONE OR TWO TIMES DAILY NEEDED active Not Available Not Available No t Available levothyro xine 25 mcg tablet TAKE 1 TABLET BY MOUTH ON MONDAY THROUGH MONDAY AND TAKE 2 TABLETS BY MOUTH ON MONDAY active Not Available Not Available No t Available oxycodone -acetamin ophen 5 mg-325 mg tablet TAKE 1 TABLET BY MOUTH EVERY 8 HOURS NEEDED FOR SEVERE PAIN. DO NOT EXCEED 3 TABLETS PER DAY active Not Available Not Available No t Available potassium chloride ER 20 mEq tablet,ex tended release(p art/cryst ) TAKE 2 TABLETS BY MOUTH ONCE DAILY FOR 5 DAYS. MAY SWALLOW WHOLE WITH WATER OR break tablet in half and swallow each half separate ly. do not crush or chew tablet. active Not Available Not Available No t Available famotidin e 20 mg tablet TAKE 1 TABLET ORALLY DAILY FOR ABDOMINA L DISCOMFO RT active Not Available Not Available No t Available lorazepam 0.5 mg tablet 2014 active Medicati on ID: [id number] D uration Value: 30 Brand Name: raffy olvera Send Method: E-Prescr ibed Sub s Allowed: subs OK Speci al Instruct ion: take 1 tablet by mouth twice a day if needed for 30 DAYS Med icationG enericNa me: lorazepa m Not Available Not Available Not Available metoclopr amide 5 mg tablet TAKE 1 TO 2 TABLETS BY MOUTH EVERY 4 TO 6 HOURS NEEDED FOR NAUSEA AND VOMITING FOR 30 DAYS, DO NOT EXCEED 4 TABLETS / DAY active Not Available Not Available No t Available clindamyc in 1 % topical gel APPLY TOPICALL Y TO THE AFFECTED AREA(S) OF THE FACE TWICE DAILY DIRECTED active Not Available Not Available No t Available baclofen 10 mg tablet TAKE 1 TABLET BY MOUTH TWICE DAILY active Not Available Not Available No t Available cephalexi n 500 mg capsule TAKE 1 CAPSULE BY MOUTH TWICE DAILY FOR 10 DAYS 02/21 completed Not Available Not Available Not Available clotrimaz ole-betam ethasone 1 %-0.05 % topical cream APPLY TOPICALL Y TO THE AFFECTED AREA(S) TWICE DAILY DIRECTED active Not Available Not Available No t Available hydrochlo rothiazid e 12.5 mg capsule TAKE 1 CAPSULE BY MOUTH EVERY DAY IN THE MORNING active Not Available Not Available No t Available Banophen 25 mg capsule TAKE 2 CAPSULES BY MOUTH THREE TIMES DAILY NEEDED FOR MIGRAINE HEADACHE active Not Available Not Available No t Available norethind mary lou acetate 5 mg tablet TAKE 1 TABLET BY MOUTH EVERY DAY active Not Available Not Available No t Available metoprolo l succinate ER 25 mg tablet,ex tended release 24 hr active Medicati on ID: [id number] B rand Name: metoprol ol succinat e Send Method: E-Prescr ibed Sub s Allowed: subs OK Medic ationGen ericName : metoprol ol succinat e Not Available Not Available Not Available ergocalci ferol (vitamin D2) 1,250 mcg (50,000 unit) capsule TAKE 1 CAPSULE BY MOUTH ONCE A WEEK active Not Available Not Available No t Available Nasonex 50 mcg/actua tion [place] Inhale 2 spray into both nostrils once a day as directed 2014 active Medicati on ID: [id number] D uration Value: 30 Prescri bed By Name: Ruperto Lala MD Brand Name: Nasonex Send Method: E-Prescr ibed Sub s Allowed: subs OK Medic ationGen ericName : Nasonex Not Available Not Available Not Available methylpre dnisolone 4 mg tablets in a dose pack USE DIRECTED ON PACKAGE active Not Available Not Available No t Available colchicin e 0.6 mg tablet TAKE 1 TABLET BY MOUTH TWICE A DAY active Not Available Not Available No t Available fluoxetin e 20 mg capsule 2014 active Medicati on ID: [id number] D uration Value: 21 Brand Name: fluoxeti ne Send Method: E-Prescr ibed Sub s Allowed: subs OK Speci al Instruct ion: take 1 capsule by mouth once daily :MAY INCREASE TO 2 CAPSULE BY ... (REFER TO PRESCRIP TION NOTES). Medicati onGeneri cName: fluoxeti ne Not Available Not Available Not Available clotrimaz ole 1 % topical cream APPLY TO SKIN AND TOENAILS EVERY DAY FOR 12 WEEKS active Not Available Not Available No t Available amoxicill in 875 mg-potass ium clavulana te 125 mg tablet TAKE 1 TABLET BY MOUTH TWICE DAILY FOR 10 DAYS 02/21 completed Not Available Not Available Not Available Ventolin HFA 90 mcg/actua tion aerosol inhaler INHALE 2 PUFFS BY MOUTH EVERY 4 HOURS NEEDED FOR WHEEZING OR SHORTNES S OF BREATH active Not Available Not Available No t Available O'Brien 28 0.15 mg-0.03 mg tablet 2014 active Medicati on ID: [id number] D uration Value: 28 Brand Name: Sammi S end Method: E-Prescr ibed Sub s Allowed: subs OK Speci al Instruct ion: take 1 tablet by mouth once daily Me dication GenericN louis: Sammi Not Available Not Available Not Available azithromy mikayla 500 mg tablet 2014 active Medicati on ID: [id number] D uration Value: 4 Brand Name: azithrom ycin Sen d Method: E-Prescr ibed Sub s Allowed: subs OK Speci al Instruct ion: take 1 tablet by mouth once daily Me dication GenericN louis: azithrom ycin Not Available Not Available Not Available sodium fluoride 1.1 % dental cream APPLY TO TEETH DIRECTED TWICE DAILY active Not Available Not Available No t Available pregabali n 100 mg capsule active Medicati on ID: [id number] B rand Name: pregabal in Send Method: E-Prescr ibed Sub s Allowed: subs OK Medic ationGen ericName : pregabal in Not Available Not Available Not Available FeroSul 325 mg (65 mg iron) tablet TAKE 1 TABLET BY MOUTH EVERY DAY WITH BREAKFAS T. DO NOT BREAK, CRUSH, DISSOLVE OR CHEW. active Not Available Not Available No t Available cholecalc iferol (vitamin D3) 50 mcg (2,000 unit) tablet TAKE 1 TABLET EVERY DAY active Not Available Not Available No t Available Vitamin D3 50 mcg (2,000 unit) capsule 2014 active Medicati on ID: [id number] D uration Value: 30 Brand Name: Vitamin D3 Send Method: E-Prescr ibed Sub s Allowed: subs OK Speci al Instruct ion: take 1 capsule by mouth once daily Me dication GenericN louis: Vitamin D3 Not Available Not Available Not Available Eliquis 5 mg tablet TAKE 1 TABLET BY MOUTH TWICE DAILY active Not Available Not Available No t Available Ubrelvy 100 mg tablet TAKE 1 TABLET BY MOUTH AT ONSET OF MIGRAINE . MAY REPEAT ONCE AFTER 2 HOURS IF NEEDED. DO NOT EXCEED 2 TABLETS PER DAY. active Not Available Not Available No t Available Zepbound 2.5 mg/0.5 mL subcutane ous pen injector INJECT ONE PEN (=2.5MG) SUBCUTAN EOUSLY ONCE A WEEK DIRECTED active Not Available Not Available No t Available Vitals None Recorded Social History None recorded. Functional Status None recorded. Mental Status None recorded. Family History Nothing Reported. Medical History No medical history recorded. Gynecological HistoryNo gynecological history recorded. Obstetrics History GPAL:G 0 P 0 0 0 0 Past Encounters Encounter ID Performer Location Encounter Start Date Encounter Closed Date Diagnosis/Indication Diagnosis SNOMED-CT Code Diagnosis ICD10 Code Diagnosis IMO Codes Diagnosis Note [id number] SENIA GARCIA PA-C [facility] [address] [place] [address] 02/21/2025 12:56:53 02/21/2025 13:32:03 Acute recurrent sialoadenitis [id number] 792163 K11.22 [id number] Health Concerns Section Related Observation LastModified by Organization Detai ls LastModified Time None Recorded Concern Status LastModified by Organization Details LastModified Time None Recorded Advance Directives Directive None Recorded Payers Insurance Date Sequence Insurance Name Policy Number Policy [place] Covered Member ID Cortez Member ID Guarantor Name 02/21/2025 1 [facility] PL[facility] - [facility] (MEDICAID REPLACEMENT - HMO) [place] Shira Alvarado [id number] Shira Alvarado Notes Date Note Type Note Provider Name and Address Organization Details Recorded Time 02/21/2025 text/html ROS as noted in the HPI 49-year-old female presents for evaluation of recurrent sialoadenitis. She reports she has had 3 episodes of right submandibular gland swelling that spontaneously resolves. She was treated with 1 course of antibiotics. Sour candies are helpful. She tries to stay hydrated. Denies tobacco and alcohol use. Denies dysphagia, hemoptysis, otalgia, and sore throat. Last episode was several months ago. Today she is asymptomatic. JACK BHAGAT MD [address] [place] [address],[place] [id number], , [phone], [facility] - [facility] 02/22/2025 08:29:32 OBGyn Episode No OBEpisode recorded.
--- OUTSIDE RECORDS SUMMARY | 2025-06-12 02:51 | XMS_ITS | Clinical Summary ---
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 I looked through her records at [facility], it looks like she had trigger point injections for her low back myofascial pain 12/29/2021, 05/11/2021, trigger point for neck pain 09/15/2021. She has tried physical therapy many times, she states most recently was at [facility] probably 2022. She has been taking muscle relaxers, tried gabapentin, Lyrica, tramadol. She had thoracic MRI 10/06/2023 at [facility] with minimal degenerative changes, no cord compression, [...] fibromyalgia. I looked through her records at [facility], it looks like she had trigger point injections for her low back myofascial pain 12/29/2021, 05/11/2021, trigger point for neck pain 09/15/2021. She has tried physical therapy many times, she states most recently was at [facility] probably 2022. She has been taking muscle relaxers, tried gabapentin, Lyrica, tramadol. She had thoracic MRI 10/06/2023 at [facility] with minimal degenerative changes, no cord compression, [...] undetermined significance Fibromyalgia 11/02/2022 Atrial fibrillation with slo w ventricular response (CMS/HCC) 05/30/2022 Overview (04/24/2024): [facility] 04/29/22 [facility] 04/29/22 Binge eating disorder 04/27/2022 Hypothyroidism 04/27/2022 Knee pain 04/27/2022 Lipedema of lower extremity 04/27/2022 Vitamin D deficiency 04/27/2022 Left facial pain 10/14/2021 Primary osteoarthritis of fi rst carpometacarpal joint of right hand 02/10/2021 Lumbar facet joint syndrome 09/18/2020 Lymphedema 04/05/2017 Overview (04/29/2024): [facility], Note also with the [facility] cardiovascular[facility]lymphatic center. 18 there is no medications available for the treatment of her lipedema Referred [facility] 12/2017, Note also with the [facility] cardiovascular[facility]lymphatic center. 18 there is no medications available for the treatment of her lipedema B12 deficiency 03/16/2017 Anosmia 03/07/2016 Anxiety 08/14/2013 Back problem 08/14/2013 Depressive disorder 02/04/2013 Essential hypertension, benign 02/04/2013 Esophageal reflux 02/04/2013 Overview (04/24/2024): H-Pylori, sees Dr. Keyes H-Pylori, sees Dr. Keyes Interstitial cystitis 02/04/2013 Irritable bowel syndrome 02/04/2013 Overview (04/24/2024): [facility] Morbid obesity with BMI of 70 and over, adult (C MS/HCC) 02/04/2013 Overview (04/24/2024): s/p Lucio-en-Y (05/02/16; Dr. Sneed) Resolved Problems Problem Noted Date Diagnosed Date Resolved Date Lipoedema 04/29/2024 04/29/2024 Social History Tobacco Use Types Packs/Day Years [...] Mass Index - - Plan of Treatment Upcoming Encounters Date Type Department Care Team (Late st Contact Info) Description 07/22/2025 1:30 PM EST Office Visit [facility] [address] [place] [address] [place] [facility] Maintenance Due Date Last Done Comments [...] 1998 Cervical Cancer Screening 2007 HPV/Cotest 2007 Dental Oral Exam 12/11/2024 06/12/2024, 12/14/2018 Dental Prophylaxis 12/11/2024 06/12/2024 COVID-19 Vaccine ( season) 2025 08/13/2022, 12/24/2020, 11/24/2020 Influenza Vaccine (#1) 2025 05/15/2009 Dental X-Ray: Bitewings 06/13/2025 06/12/20, 06/05/2024, 04/29/2024, Additional history exists Tobacco Screening 01/21/2026 01/21/2025 Mammogram 05/26/2027 05/26/2025, 05/26/2025 Dental X-Ray: Full Mouth 06/13/2027 06/12/2024, 11/22 [...] Procedure Name Priority Date/Time Associated Diagnosis Comments PROPHYLAXIS - ADULT Routine 06/12/2024 3 :00 PM EST Dental plaque Dental calculus INTRAORAL - COMPLETE SERIES OF RADIOGRAPHIC IMAGES Routine 06/12/2024 3:00 PM EST PERIODIC ORAL EVALUATION - ESTABLISHED PATIENT Routine 06/12/2024 3:00 PM EST from Last 3 Months or Most Recently Relevant to Health Maintenance [facility] ADULT
--- OUTSIDE RECORDS SUMMARY | 2025-06-12 02:51 | XMS_ITS | Clinical Summary ---
Author Organization [facility] Address [address] [place] [address] Care Team Providers Care Ambulance Attendant Name Role Phone Yanely Benton MD Primary Care Provider [phone] Allergies Active Allergy Reactions Criticality Noted Date [...] age to complete this topic Care Teams Ambulance Attendant Relationship Specialty Start Date End Date Yanely Benton MD PCP - General Internal Medicine 04/20/21
== END 2025-06-11 16:22 | disposition home or self-care (01) ==
PROVIDERS: Physician Assistant; Emergency Provider Emergency Medicine; PCP Family Medicine
DX: R07.89 Other chest pain (principal); M79.602 Pain in left arm; R94.31 Abnormal electrocardiogram [ECG] [EKG]; I25.10 Atherosclerotic heart disease of native coronary artery without angina pectoris; J45.909 Unspecified asthma, uncomplicated; I48.91 Unspecified atrial fibrillation; Z98.84 Bariatric surgery status
CPT/HCPCS: 36415; 71046; 80048; 80076; 83735; 84484; 85025; 93005; 93971; 99284

== ENCOUNTER → 2025-06-11 12:14 | Outpatient (BNV) | payer OTHER, SELFPAY | PROVIDERS: Emergency Provider Emergency Medicine; PCP Family Medicine; Visit Provider Internal Medicine | DX: I25.2 Old myocardial infarction (principal) | CPT/HCPCS: 93010 ==

== ENCOUNTER → 2025-06-11 12:54 | Outpatient (BNV) | payer OTHER, SELFPAY | PROVIDERS: PCP Family Medicine; Visit Provider Radiology Diagnostic Radiology | DX: M79.622 Pain in left upper arm (principal); R07.9 Chest pain, unspecified | CPT/HCPCS: 71046; 93971 ==